=== PATIENT | female | born 1940 | race Hispanic/Latino ===

== ENCOUNTER 2016-08-16 18:58 | Inpatient (IN) | payer MEDICARE, OTHER ==
[2016-08-16 18:58] VITALS: PULSE 86
[2016-08-16 19:14] VITALS: BMI 24.1
[2016-08-16 19:51] LABS: ADD MANUAL DIFF? NO
[2016-08-16 20:03] LABS: BASO # 0.03 K/mm3 (0.0-2.0); BASO % 0.6 % (0.0-3.0); EOS # 0.1 (0.0-0.7); GRAN # 3.08 (1.4-6.5); GRAN % 60.9 % (50.0-68.0); HEMATOCRIT 40.1 % (36.0-48.0); LYMPH # 1.2 (1.2-3.4); LYMPH % 24.5 % (22.0-35.0); MEAN CORPUSCULAR HEMOGLOBIN 29.9 pg (25.0-35.0); MEAN CORPUSCULAR HGB CONC 34.4 g/dl (31.0-37.0); MONO # 0.7 (0.1-0.6); PLATELET COUNT 135 10^3/uL (120.0-450.0); RED CELL DISTRIBUTION WIDTH 13.6 % (11.5-14.5); WHITE BLOOD COUNT 5.1 10^3/ul (4.5-11.0)
[2016-08-16 20:06] LABS: ALB/GLOB RATIO 1.2 (1.1-1.8); BILIRUBIN,TOTAL 1.3 mg/dL (0.2-1.3); CALCIUM 9.5 mg/dL (8.4-10.5); MAGNESIUM 2.3 mg/dL (1.7-2.2); POTASSIUM 3.6 mmol/L (3.6-5.0); TOTAL PROTEIN 7.1 g/dL (5.8-8.3)
[2016-08-16 20:17] LABS: TROPONIN I 0.05 ng/mL
[2016-08-16 20:41] LABS: PH,URINE 6.5 (4.7-8.0); URINE BILIRUBIN NEGATIVE (NEGATIVE); URINE BLOOD SMALL (NEGATIVE); URINE GLUCOSE (UA) NEGATIVE (NEGATIVE); URINE KETONE NEGATIVE (NEGATIVE); URINE LEUKOCYTE ESTERASE NEGATIVE Leu/uL (NEGATIVE); URINE PROTEIN >=300 mg/dL (<30 mg/dL)
[2016-08-16 20:42] LABS: URINE APPEARANCE SL CLOUDY (CLEAR); URINE COLOR YELLOW (YELLOW)
[2016-08-16 20:45] LABS: URINE RBC 0 - 2 /hpf (0-2); URINE WBC 0 - 2 /hpf (0-6)
[2016-08-16] MEDS ORDERED: Morphine 2 mg/ml ISec IVP PRN (20:51)
[2016-08-16] MEDS ORDERED: Albuterol-Ipratrop 3 mg / 0.5 (3 ml) UD IH PRN (21:00)
--- NOTE | 2016-08-16 21:13 | ED PDOC ---
Arrival/HPI - General Chief Complaint: Chest Pain Time Seen by Provider: 08/16/16 19:03 Historian: Patient - History of Present Illness Narrative History of Present Illness (Text): 08/16/16 19:30 Brenna Lakhani is a 75 year old female, whose past medical history includes CHF, CKD, chronic atrial fibrillation, diverticulitis, COPD, and aortic valve replacement, who presents to the ED brought in by EMS complaining of chest pain. Patient states she had mid-sternal chest pain for the past 2-3 hours while at home tonight. Patient denies any chest pain currently on arrival to Emergency department. Patient denies any fever, chills, shortness of breath, nausea, vomiting, diarrhea, urinary symptoms, back pain, neck pain, headache, dizziness, or any other complaints. PMD: Dr. Tessie Coronel Time/Duration: Other (tonight) Symptom Onset: Gradual Symptom Course: Unchanged Activities at Onset: Rest, Light Context: Home Past Medical History - Provider Review Nursing Documentation Reviewed: Yes - Infectious Disease Hx of Infectious Diseases: None - Tetanus Immunization Tetanus Immunization: Unknown - Cardiac Hx Atrial Fibrillation: Yes Hx Congestive Heart Failure: Yes Hx Hypertension: Yes - Pulmonary Hx Chronic Obstructive Pulmonary Disease (COPD): Yes - Neurological HX Cerebrovascular Accident: Yes - HEENT Hx HEENT Disorder: Yes (Wears reading glasses. Upper denture.) Hx Blind: No Hx Cataracts: No Hx Deafness: No Hx Difficulty Chewing: No Hx Epistaxis: No Hx Glaucoma: No Hx Macular Degeneration: No - Renal Hx Renal Failure: No - Endocrine/Metabolic Hx Diabetes Mellitus Type 1: No Hx Diabetes Mellitus Type 2: No - Hematological/Oncological Hx Blood Disorders: No - Integumentary Hx Dermatological Disorder: No Hx Basal Cell Carcinoma: No Hx Eczema: No Hx Melanoma: No Hx Psoriasis: No Hx Squamous Cell Carcinoma: No - Musculoskeletal/Rheumatological Hx Arthritis: Yes - Gastrointestinal Hx Gastrointestinal Disorders: Yes (Cholecystectomy. Abdominal Sx for Diverticulitis; Hernia?) Hx Colostomy: No Hx Crohn's Disease: No Hx Diverticulitis: Yes Hx Gall Bladder Disease: No Hx Gastroesophageal Reflux: No Hx Ileostomy: No Hx Liver Failure: No Hx Pancreatitis: No HX Swallowing Problems: No - Genitourinary/Gynecological Hx Genitourinary Disorders: No Hx Hematuria: No Hx Incontinence: No Hx Sexually Transmitted Diseases: No Hx Urinary Tract Infection: No - Psychiatric Hx Psychophysiologic Disorder: No Hx Emotional Abuse: No Hx Physical Abuse: No Hx Substance Use: No - Surgical History Hx Cholecystectomy: Yes Hx Open Heart Surgery: Yes Hx Valve Replacement: Yes - Anesthesia Hx Anesthesia: No Hx Anesthesia Reactions: No Hx Malignant Hyperthermia: No - Suicidal Assessment Feels Threatened In Home Enviroment: No Family/Social History - Physician Review Nursing Documentation Reviewed: Yes Family/Social History: No Known Family HX Smoking Status: Former Smoker Hx Alcohol Use: No Hx Substance Use: No Hx Substance Use Treatment: No Allergies/Home Meds Allergies/Adverse Reactions: Allergies Sulfa (Sulfonamide Antibiotics) Allergy (Unknown, Verified 08/16/16 19:14) . palpitations Home Medications: Home Meds Medication Instructions Recorded Confirmed Atorvastatin [Lipitor] 20 mg PO DAILY 08/29/13 08/16/16 Furosemide [Lasix] 40 mg PO DAILY 09/04/14 08/16/16 ALPRAZolam [Xanax] 0.25 mg PO BID 07/18/15 08/16/16 Esomeprazole Magnesium [Nexium] 40 mg PO DAILY 07/18/15 08/16/16 Albuterol HFA [Ventolin HFA 90 1 inh INH PRN PRN 01/16/16 08/16/16 mcg/actuation (8 g)] Cholecalciferol (Vitamin D3) 1 tab PO DAILY 01/16/16 08/16/16 [Vitamin D3] Review of Systems - Physician Review All systems were reviewed & negative as marked: Yes - Review of Systems Constitutional: Normal Eyes: Normal ENT: Normal Respiratory: Normal. absent: SOB, Cough Cardiovascular: Chest Pain Gastrointestinal: Normal. absent: Abdominal Pain, Diarrhea, Nausea, Vomiting Genitourinary Female: Normal. absent: Dysuria, Frequency, Hematuria, Urine Output Changes Musculoskeletal: Normal. absent: Back Pain, Neck Pain Skin: Normal. absent: Rash Neurological: Normal. absent: Headache, Dizziness Endocrine: Normal Hemo/Lymphatic: Normal Psychiatric: Normal Physical Exam Vital Signs Reviewed: Yes Vital Signs Temp Pulse Resp BP Pulse Ox 08/17/16 00:13 85 18 154/60 H 96 08/16/16 23:15 75 18 173/74 H 95 08/16/16 21:00 62 18 154/74 H 95 08/16/16 19:20 98.5 F 70 18 148/63 95 Temperature: Afebrile Blood Pressure: Normal Pulse: Regular Respiratory Rate: Normal Appearance: Positive for: Well-Appearing, Non-Toxic, Comfortable Pain Distress: None Mental Status: Positive for: Alert and Oriented X 3 - Systems Exam Head: Present: Atraumatic, Normocephalic Pupils: Present: PERRL Extroacular Muscles: Present: EOMI Conjunctiva: Present: Normal Mouth: Present: Moist Mucous Membranes Neck: Present: Normal Range of Motion Respiratory/Chest: Present: Clear to Auscultation, Good Air Exchange. No: Respiratory Distress, Accessory Muscle Use Cardiovascular: Present: Regular Rate and Rhythm, Normal S1, S2. No: Murmurs Abdomen: Present: Normal Bowel Sounds. No: Tenderness, Distention, Peritoneal Signs Back: Present: Normal Inspection Upper Extremity: Present: Normal Inspection. No: Cyanosis, Edema Lower Extremity: Present: Normal Inspection. No: Edema Neurological: Present: GCS=15, CN II-XII Intact, Speech Normal Skin: Present: Warm, Dry, Normal Color. No: Rashes Psychiatric: Present: Alert, Oriented x 3, Normal Insight, Normal Concentration Medical Decision Making ED Course and Treatment: 08/16/16 19:30 Impression: 76 year old female complaining of chest pain for past few hours while at home, none present on arrival to Emergency department Plan: -- EKG -- Chest X-ray -- Labs -- Reassess and disposition Prior Visits: Notes and results from previous visits were reviewed. Progress Notes: Reviewed EKG, a fib at [address]pm. PVCs. Non-specific ST/T wave changes. 08/16/16 19:45 Reviewed radiology, Chest X-ray shows mild cardiomegaly, COPD. 08/16/16 20:[address] Malone, who is aware and agrees with plan. Accepts pt into hospitalist service. Pt will go to Telemetry observation for chest pain. residential fee appraiser notified. Pt is no acute distress. Discussed results and hospital observation plan with pt , who is aware and verbalizes understanding. - Lab Interpretations Lab Results: 08/17/16 07:40 08/17/16 07:40 Lab Results 08/17/16 07:40: Digoxin 0.9 08/17/16 07:40: TSH 3rd Generation 1.85 08/17/16 07:40: Sodium 138, Potassium 3.2 L, Chloride 99, Carbon Dioxide 32, Anion Gap 10, BUN 22 H, Creatinine 1.6 H, Est GFR ( Amer) 38, Est GFR ( Non-Af Amer) 31, Random Glucose 92, Calcium 9.0, Phosphorus 3.1, Magnesium 2.3 H , Total Creatine Kinase 52, Troponin I 0.05, Triglycerides 84, Cholesterol 142, LDL Cholesterol Direct 54, HDL Cholesterol 58 08/17/16 07:40: APTT 36.9 H 08/17/16 07:40: WBC 4.5, RBC 4.38, Hgb 13.1, Hct 38.3, MCV 87.4, MCH 29.9, MCHC 34.2, RDW 13.5, Plt Count 122, MPV 11.6 H, Gran % 50.3, Lymph % (Auto) 31.5, [place] % (Auto) 14.2 H, Eos % (Auto) 3.1, Baso % (Auto) 0.9, Gran # 2.27, Lymph # 1.4, [place] # 0.6, Eos # 0.1, Baso # 0.04 08/16/16 21:49: PT 22.4 H, INR 2.07 H 08/16/16 21:49: Phosphorus 3.0, Magnesium 2.4 H, Total Creatine Kinase 57, Troponin I 0.05, NT-Pro-B Natriuret Pep 94485 H 08/16/16 20:25: Urine Color Yellow, Urine Appearance Sl cloudy, Urine pH 6.5, Ur Specific [place] >= 1.030, Urine Protein >=300 H, Urine Glucose (UA) Negative , Urine Ketones Negative, Urine Blood Small H, Urine Nitrate Negative, Urine Bilirubin Negative, Urine Urobilinogen 1.0 H, Ur Leukocyte Esterase Negative, Urine RBC 0 - 2, Urine WBC 0 - 2 08/16/16 19:41: Sodium 136, Potassium 3.6, Chloride 97 L, Carbon Dioxide 32, Anion Gap 11, BUN 22 H, Creatinine 1.7 H, Est GFR ( Amer) 35, Est GFR ( Non-Af Amer) 29, Random Glucose 113 H, Calcium 9.5, Magnesium 2.3 H, Total Bilirubin 1.3, AST 24, ALT 21, Alkaline Phosphatase 81, Lactate Dehydrogenase 635, Total Creatine Kinase 53, Troponin I 0.05 D, Total Protein 7.1, Albumin 3.8, Globulin 3.3, Albumin/Globulin Ratio 1.2 08/16/16 19:41: WBC 5.1 D, RBC 4.61, Hgb 13.8, Hct 40.1, MCV 87.0, MCH 29.9, MCHC 34.4, RDW 13.6, Plt Count 135, MPV 11.0, Gran % 60.9, Lymph % (Auto) 24.5, [place] % (Auto) 13.0 H, Eos % (Auto) 1.0 L, Baso % (Auto) 0.6, Gran # 3.08, Lymph # 1.2, [place] # 0.7 H, Eos # 0.1, Baso # 0.03 - RAD Interpretation Radiology Orders: 08/16/16 19:32 CHEST PORTABLE [RAD] Stat - Medication Orders Current Medication Orders: Acetaminophen (Tylenol 325mg Tab) 650 mg PO Q6H PRN PRN Reason: Pain, Mild (1-3) Alprazolam (Xanax) 0.25 mg PO BID PRN; Protocol PRN Reason: Anxiety Stop: 08/24/16 10:01 Arformoterol Tartrate (Brovana) 15 mcg IH [id number] [facility] Last Admin: 08/17/16 07:52 Dose: 15 mcg Aspirin (Aspirin Chewable) 81 mg PO DAILY [facility] Last Admin: 08/17/16 11:18 Dose: 81 mg Atorvastatin Calcium (Lipitor) 20 mg PO DAILY [facility] Last Admin: 08/17/16 11:18 Dose: 20 mg Budesonide (Pulmicort Respules) 0.5 mg IH Q12H [facility] Last Admin: 08/17/16 08:37 Dose: 0.5 mg Clopidogrel Bisulfate (Plavix) 75 mg PO DAILY [facility] Digoxin (Lanoxin Elixir Soln) 0.125 mg PO Q48H [facility] Last Admin: 08/16/16 21:54 Dose: 0.125 mg Diltiazem HCl (Cardizem Cd) 180 mg PO DAILY [facility] Last Admin: 08/17/16 11:19 Dose: 180 mg Furosemide (Lasix) 40 mg PO DAILY [facility] Last Admin: 08/17/16 11:19 Dose: 40 mg Morphine Sulfate (Morphine) 1 mg IVP Q4H PRN PRN Reason: Pain, severe (8-10) Nitroglycerin (Nitrostat Sl Tab) 0.4 mg SL Q5MIN PRN PRN Reason: Other Ondansetron HCl (Zofran Inj) 4 mg IVP Q6H PRN PRN Reason: Nausea/Vomiting Pantoprazole Sodium (Protonix Inj) 40 mg IVP DAILY [facility] Last Admin: 08/17/16 11:17 Dose: 40 mg Discontinued Medications Albuterol/Ipratropium (Duoneb 3 Mg/0.5 Mg (3 Ml) Ud) 3 ml IH Q2H PRN PRN Reason: Shortness of Breath Stop: 08/17/16 01:01 Aspirin (Aspirin Chewable) 81 mg PO STAT [facility] Stop: 08/16/16 21:17 Last Admin: 08/16/16 22:01 Dose: Not Given Non-Admin Reason: Patient Refused Clopidogrel Bisulfate (Plavix) 300 mg PO STAT STA Stop: 08/17/16 10:10 Last Admin: 08/17/16 11:22 Dose: 300 mg Digoxin (Lanoxin Elixir Soln) 0.125 mg PO 1400 [facility] Morphine Sulfate (Morphine) 2 mg IVP Q4H PRN PRN Reason: Pain, severe (8-10) Pneumococcal Polyvalent Vaccine (Pneumovax 23 Vaccine) 0.5 ml IM .ONCE ONE Stop: 08/17/16 03:49 Last Admin: 08/17/16 11:27 Dose: Potassium Chloride (K-Dur 20 Meq Er Tab) 40 meq PO ONCE ONE Stop: 08/17/16 10:12 Last Admin: 08/17/16 11:18 Dose: 40 meq - Scribe Statement The provider has reviewed the documentation as recorded by the Sugey Gonzáles All medical record entries made by the Sugey were at my direction and personally dictated by me. I have reviewed the chart and agree that the record accurately reflects my personal performance of the history, physical exam, medical decision making, and the department course for this patient. I have also personally directed, reviewed, and agree with the discharge instructions and disposition. Disposition/Present on Arrival - Present on Arrival Any Indicators Present on Arrival: No History of DVT/PE: No History of Uncontrolled Diabetes: No Urinary Catheter: No History of Decub. Ulcer: No History Surgical Site Infection Following: None - Disposition Have Diagnosis and Disposition been Completed?: Yes Diagnosis: Chest pain Disposition: HOSPITALIZED Disposition Time: 09:00 Condition: FAIR
--- NOTE | 2016-08-16 21:18 | CP.PCM.HP ---
History of Present Illness - History of Present Illness History of Present Illness: The patient is a 76 year old woman with a history of CHF (EF=35%), aortic valve replacement, chronic kidney disease, chronic atrial fibrillation (on Coumadin), CVA, HTN, HLD and COPD, who presents with constant, non-radiating, dull, substernal chest pain which suddenly began this afternoon while she was seated at home. The pain is unaffected by exertion or oral intake. The pain is associated with mild SOB and diaphoresis. She reports compliance with all home meds (including Lasix and Coumadin). She denies any fevers, chills, new cough, orthopnea, PND, bleeding, syncope or urinary problems. Present on Admission - Present on Admission Any Indicators Present on Admission: No History of DVT/PE: No History of Uncontrolled Diabetes: No Urinary Catheter: No Decubitus Ulcer Present: No Review of Systems - Review of Systems All systems: reviewed and no additional remarkable complaints except - Constitutional Constitutional: As Per HPI - EENT Eyes: As Per HPI Nose/Mouth/Throat: As Per HPI - Cardiovascular Cardiovascular: As Per HPI - Respiratory Respiratory: As Per HPI - Gastrointestinal Gastrointestinal: As Per HPI - Genitourinary Genitourinary: As Per HPI - Neurological Neurological: As Per HPI Past Patient History - Infectious Disease Hx of Infectious Diseases: None - Tetanus Immunizations Tetanus Immunization: Unknown - Past Medical History & Family History Past Medical History?: Yes - Past Social History Smoking Status: Former Smoker - CARDIAC Hx Atrial Fibrillation: Yes Hx Congestive Heart Failure: Yes Hx Hypertension: Yes - PULMONARY Hx Chronic Obstructive Pulmonary Disease (COPD): Yes - NEUROLOGICAL HX Cerebrovascular Accident: Yes - HEENT Hx HEENT Problems: Yes (Wears reading glasses. Upper denture.) Hx Blind: No Hx Cataracts: No Hx Deafness: No Hx Difficulty Chewing: No Hx Epistaxis: No Hx Glaucoma: No Hx Macular Degeneration: No - RENAL Hx Renal Failure: No - ENDOCRINE/METABOLIC Hx Diabetes Mellitus Type 1: No Hx Diabetes Mellitus Type 2: No - HEMATOLOGICAL/ONCOLOGICAL Hx Blood Disorders: No - INTEGUMENTARY Hx Dermatological Problems: No Hx Basil Cell: No Hx Eczema: No Hx Melanoma: No Hx Psoriasis: No Hx Squamous Cell: No - MUSCULOSKELETAL/RHEUMATOLOGICAL Hx Arthritis: Yes - GASTROINTESTINAL Hx Gastrointestinal Disorders: Yes (Cholecystectomy. Abdominal Sx for Diverticulitis; Hernia?) Hx Colostomy: No Hx Crohn's Disease: No Hx Diverticulitis: Yes Hx Gall Bladder Disease: No Hx Gastroesophageal Reflux: No Hx Ileostomy: No Hx Liver Failure: No Hx Pancreatitis: No HX Swallowing Problems: No - GENITOURINARY/GYNECOLOGICAL Hx Genitourinary Disorders: No Hx Hematuria: No Hx Incontinence: No Hx Sexually Transmitted Disorders: No Hx Urinary Tract Infection: No - PSYCHIATRIC Hx Psychophysiologic Disorder: No Hx Emotional Abuse: No Hx Physical Abuse: No Hx Substance Use: No - SURGICAL HISTORY Hx Cholecystectomy: Yes Hx Open Heart Surgery: Yes Hx Valve Replacement: Yes - ANESTHESIA Hx Anesthesia: No Hx Anesthesia Reactions: No Hx Malignant Hyperthermia: No Meds Allergies/Adverse Reactions: Allergies Allergy/AdvReac Type Severity Reaction Status Date / Time Sulfa (Sulfonamide Allergy Unknown . Verified 08/16/16 19:14 Antibiotics) Physical Exam - Constitutional Appears: Well - Head Exam Head Exam: ATRAUMATIC, NORMAL INSPECTION, NORMOCEPHALIC - Eye Exam Eye Exam: EOMI, Normal appearance, PERRL - ENT Exam ENT Exam: Mucous Membranes Dry - Neck Exam Neck exam: Positive for: Normal Inspection Additional comments: No increased JVD - Cardiovascular Exam Cardiovascular Exam: Irregular Rhythm, +S1, +S2 - GI/Abdominal Exam GI & Abdominal Exam: Normal Bowel Sounds, Soft. absent: Tenderness - Rectal Exam Rectal Exam: Deferred - Neurological Exam Additional comments: Grossly normal neuro exam Results - Vital Signs Recent Vital Signs: Last Vital Signs Temp 98.5 F 08/16/16 19:20 Pulse 70 08/16/16 19:20 Resp 18 08/16/16 19:20 BP 148/63 08/16/16 19:20 Pulse Ox 95 08/16/16 19:20 - Labs Result Diagrams: 08/16/16 19:41 08/16/16 19:41 - Imaging and Cardiology Chest x-ray Status: Image reviewed by me Assessment & Plan - Assessment and Plan (Free Text) Plan: Assessment and Plan: The patient is a 76 year old woman with a history of CHF ( EF=35%), aortic valve replacement, chronic kidney disease, chronic atrial fibrillation (on Coumadin), CVA, HTN, HLD and COPD, who presents with chest pain and therefore will be observed on telemetry for rule out ACS. 1. Chest Pain (rule out ACS): -cardiology consult (Dr. Leo) placed -monitor serial trop's and EKG's -check HgA1c, Lipids and TSH -ASA 81mg po daily -last echo was in Dec 2015; will defer to cards regarding need for repeat echo -PRN IV Morphine and O2 via NC for symptomatic relief -PRN SL NTG for chest pain 2. Chronic Kidney Disease: -baseline Cr ranges between 1.4-1.8 (per labs from recent admissions) -renally dose all meds and avoid nephrotoxic drugs -monitor strict I/O's 3. Chronic Atrial Fibrillation: -continue home meds of Cardiazem and Digoxin -also continue home dose of Warfarin (for stroke prophylaxis) -check Digoxin level with AM labs 4. Chronic Obstructive Pulmonary Disease: -continue home maintenance meds -PRN Duo-nebs -PRN O2 via NC 5. Chronic Systolic Heart Failure: -per last echo from Dec 2015, EF=35% -monitor strict I/O and daily weights -keep HOB>30 degrees -continue home dose of daily Lasix 6. Hypertension: -continue home doses of Cardiazem and Lasix -heart healthy diet DVT PPx: Warfarin GI PPx: Protonix
[2016-08-16] MEDS: Digoxin 0.05 mg/mL Elixir 5mL PO SCH (21:54)
[2016-08-16] MEDS: Budesonide 0.5 mg/2 ml Inhal Susp UD IH SCH (21:54)
[2016-08-16 22:17] LABS: MAGNESIUM 2.4 mg/dL (1.7-2.2)
[2016-08-16 22:29] LABS: INR 2.07 (0.93-1.08); TROPONIN I 0.05 ng/mL
[2016-08-17] MEDS ORDERED: Pneumococcal 23-Valent Vaccine IM ONE (03:48)
[2016-08-17] MEDS ORDERED: Morphine 2 mg/ml ISec IVP PRN (07:42)
[2016-08-17 07:43] LABS: ADD MANUAL DIFF? NO
[2016-08-17 07:48] LABS: BASO # 0.04 K/mm3 (0.0-2.0); BASO % 0.9 % (0.0-3.0); EOS # 0.1 (0.0-0.7); EOS % 3.1 % (1.5-5.0); GRAN # 2.27 (1.4-6.5); GRAN % 50.3 % (50.0-68.0); HEMATOCRIT 38.3 % (36.0-48.0); LYMPH # 1.4 (1.2-3.4); LYMPH % 31.5 % (22.0-35.0); MEAN CELL VOLUME 87.4 fL (80.0-105.0); MEAN CORPUSCULAR HEMOGLOBIN 29.9 pg (25.0-35.0); MEAN CORPUSCULAR HGB CONC 34.2 g/dl (31.0-37.0); MEAN PLATELET VOLUME 11.6 fl (7.0-11.0); MONO # 0.6 (0.1-0.6); MONO % 14.2 % (1.0-6.0); PLATELET COUNT 122 10^3/uL (120.0-450.0); RED CELL DISTRIBUTION WIDTH 13.5 % (11.5-14.5); WHITE BLOOD COUNT 4.5 10^3/ul (4.5-11.0)
[2016-08-17] MEDS: Arformoterol 15 mcg/2 ml Inh Sol IH SCH ×2 (07:52→20:29)
[2016-08-17 08:00] LABS: MAGNESIUM 2.3 mg/dL (1.7-2.2); PHOSPHOROUS 3.1 mg/dL (2.5-4.5); POTASSIUM 3.2 mmol/L (3.6-5.0)
[2016-08-17 08:10] LABS: TROPONIN I 0.05 ng/mL
[2016-08-17] MEDS: Budesonide 0.5 mg/2 ml Inhal Susp UD IH SCH ×2 (08:37→20:29)
[2016-08-17] MEDS ORDERED: Potassium Chloride 20 mEq ER Tab PO ONE (10:11)
[2016-08-17] MEDS: Furosemide 40 mg/5 mL Oral Soln UD PO SCH (11:19)
[2016-08-17] MEDS: diltiaZEM 180 mg/24 Hours CD Cap PO SCH (11:19)
--- NOTE | 2016-08-17 11:35 | CP.PCM.PN ---
Subjective - Date & Time of Evaluation Date of Evaluation: 08/17/16 Time of Evaluation: 09:00 - Subjective Subjective: patient seen and examined with resident. Denies any chest pain today. Denies any shortness of breath, Palpitation. Denies any fevers, chills. Denies any urinary, bowel symptoms. Tolerating diet well. Review of Systems - Constitutional Constitutional: absent: Fever, Chills - EENT Nose/Mouth/Throat: absent: Nasal Congestion - Cardiovascular Cardiovascular: Chest Pain. absent: Chest Pain at Rest, Dyspnea - Respiratory Respiratory: absent: Cough, Dyspnea - Gastrointestinal Gastrointestinal: absent: Abdominal Pain, Nausea - Musculoskeletal Musculoskeletal: absent: Abnormal Gait - Psychiatric Psychiatric: absent: Anxiety, Depression - Hematologic/Lymphatic Hematologic: absent: Easy Bleeding, Easy Bruising Objective - Vital Signs/Intake and Output Vital Signs (last 24 hours): Temp Pulse Resp BP Pulse Ox 98.5 F 69 18 122/70 95 08/17/16 06:00 08/17/16 06:00 08/17/16 06:00 08/17/16 11:19 08/17/16 06:00 Intake and Output: 08/17/16 08/17/16 06:59 18:59 Intake Total 240 Output Total 300 Balance -60 - Medications Medications: Current Medications Acetaminophen (Tylenol 325mg Tab) 650 mg PO Q6H PRN PRN Reason: Pain, Mild (1-3) Alprazolam (Xanax) 0.25 mg PO BID PRN; Protocol PRN Reason: Anxiety Stop: 08/24/16 10:01 Arformoterol Tartrate (Brovana) 15 mcg IH [id number] [facility] Last Admin: 08/17/16 07:52 Dose: 15 mcg Aspirin (Aspirin Chewable) 81 mg PO DAILY [facility] Last Admin: 08/17/16 11:18 Dose: 81 mg Atorvastatin Calcium (Lipitor) 20 mg PO DAILY [facility] Last Admin: 08/17/16 11:18 Dose: 20 mg Budesonide (Pulmicort Respules) 0.5 mg IH Q12H [facility] Last Admin: 08/17/16 08:37 Dose: 0.5 mg Clopidogrel Bisulfate (Plavix) 75 mg PO DAILY [facility] Digoxin (Lanoxin Elixir Soln) 0.125 mg PO Q48H [facility] Last Admin: 08/16/16 21:54 Dose: 0.125 mg Diltiazem HCl (Cardizem Cd) 180 mg PO DAILY [facility] Last Admin: 08/17/16 11:19 Dose: 180 mg Furosemide (Lasix) 40 mg PO DAILY [facility] Last Admin: 08/17/16 11:19 Dose: 40 mg Morphine Sulfate (Morphine) 1 mg IVP Q4H PRN PRN Reason: Pain, severe (8-10) Nitroglycerin (Nitrostat Sl Tab) 0.4 mg SL Q5MIN PRN PRN Reason: Other Ondansetron HCl (Zofran Inj) 4 mg IVP Q6H PRN PRN Reason: Nausea/Vomiting Pantoprazole Sodium (Protonix Inj) 40 mg IVP DAILY [facility] Last Admin: 08/17/16 11:17 Dose: 40 mg - Labs Labs: 08/17/16 07:40 08/17/16 07:40 PT 22.4 Seconds (9.9-11.8) H 08/16/16 21:49 INR 2.07 (0.93-1.08) H 08/16/16 21:49 APTT 36.9 Seconds (23.7-30.8) H 08/17/16 07:40 - Constitutional Appears: Well, Non-toxic - Eye Exam Eye Exam: Normal appearance Pupil Exam: NORMAL ACCOMODATION - ENT Exam ENT Exam: Mucous Membranes Moist - Respiratory Exam Respiratory Exam: NORMAL BREATHING PATTERN - Cardiovascular Exam Cardiovascular Exam: REGULAR RHYTHM - GI/Abdominal Exam GI & Abdominal Exam: Soft, Normal Bowel Sounds. absent: Tenderness - Extremities Exam Extremities Exam: absent: Pedal Edema - Back Exam Back Exam: absent: CVA tenderness (L), CVA tenderness (R) - Neurological Exam Neurological Exam: Alert - Psychiatric Exam Psychiatric exam: Normal Affect - Skin Skin Exam: Normal Color Assessment and Plan - Assessment and Plan (Free Text) Assessment: The patient is a 76 year old woman with a history of CHF (EF=35%), aortic valve replacement, chronic kidney disease, chronic atrial fibrillation (on Coumadin), CVA, HTN, HLD and COPD, who presents with chest pain and therefore will be observed on telemetry for rule out ACS. 1. Chest Pain;currently patient is pain-free. EKG showed A. fib. Cardiac enzymes 3 negative. Stress test done on 08/07/16 as outpatient showed reversible anterolateral ischemia. Case discussed with Dr. Morin in detail. plan for cardiac cath. Hold Coumadin for now. 2. Chronic Kidney Disease: creatinine is 1.6. 3. Chronic Atrial Fibrillation: rate controlled. continue home meds of Cardiazem and Digoxin 4. Chronic Obstructive Pulmonary Disease: stable. 5. Chronic Systolic Heart Failure: last echo from Dec 2015, EF=35% 6. Hypertension: controlled. continue home doses of Cardiazem and Lasix heart healthy diet 7.GI prophylaxis with Protonix. upon discharge patient will follow-up with PMD .
[2016-08-17] MEDS ORDERED: Digoxin 0.05 mg/mL Elixir 5mL PO SCH (14:00)
[2016-08-17 14:25] LABS: TROPONIN I 0.04 ng/mL
--- NOTE | 2016-08-17 15:03 | RAD ---
HISTORY: cp COMPARISON: Comparison chest 05/27/[address] scan chest 01/16/2016. FINDINGS: LUNGS: Right paratracheal density consistent with ectasia of the great vessels. The interstitial markings are increased and somewhat coarsened in appearance. Findings may in part be technical however possibility of sequela of reactive/ inflammatory airway disease not excluded. PLEURA: No significant pleural effusion identified, no pneumothorax apparent. CARDIOVASCULAR: Sternotomy wires again noted. Cardiomegaly. Mild aneurysmal dilatation of the ascending thoracic aorta. OSSEOUS STRUCTURES: No significant abnormalities. VISUALIZED UPPER ABDOMEN: Normal. OTHER FINDINGS: None. IMPRESSION: Right paratracheal density consistent with ectasia of the great vessels. The interstitial markings are increased and somewhat coarsened in appearance. Findings may in part be technical however possibility of sequela of reactive/ inflammatory airway disease not excluded. Cardiomegaly. Mild aneurysmal dilatation of the ascending thoracic aorta
--- NOTE | 2016-08-17 16:13 | CON ---
DATE: 08/17/2016 REASON FOR CONSULTATION: Cardiac evaluation, admitted with chest pain, history of atrial fibrillatio n, history of coronary artery bypass surgery, history of AVR. BRIEF CLINICAL HISTORY: This is a 76-year-old female, being followed by Dr. Carl's group, history of open heart surgery 4 years ago at [facility] with 4-vessel bypass and bioprosthetic aort ic valve replacement, AVR, chronic atrial fibrillation on Coumadin. Came in with chest pain. Says i t was not bad, but it was fair enough to come to the hospital. Denies any further episode of chest p ain, shortness of breath, any palpitation. PAST MEDICAL HISTORY: Significant for chronic atrial fibrillation on Coumadin, history of open heart surgery 4 years ago, 4-vessel bypass at [facility] as well as aortic valve bioprosthetic replaced, history of chronic atrial fibrillation on Coumadin, hypertension, hyperlipidemia, history o f cerebrovascular accident. RECENT CARDIAC WORKUP: The patient had a stress test on 08/07/2016 that shows ejection fraction 27%, abnormal SPECT myocardial perfusion study, partially reversible anteroseptal defect suspicious for is chemia, dated 08/07/2016. The patient had echocardiography 01/17/2016 that shows ejection fraction 30% -35%, read by Dr. Jimenez, moderate global hypokinesis, bioprosthetic AVR, which is normal, moderate m itral regurgitation, mild to moderate tricuspid regurgitation, mild to moderate pulmonary hypertensio n, right ventricular systolic pressure recorded at 43 mmHg. Prior to that, patient had another echoc ardiography on 03/29/2015, read by me that shows ejection fraction 55%, atrial fibrillation, bioprost hetic AVR functioning normal, though it was not well visualized, trace to mild mitral regurgitation a t that time, AFib, mild tricuspid regurgitation, right ventricular systolic pressure of 43. CURRENT MEDICATIONS: The patient is taking Coumadin 5 mg daily, digoxin, Lipitor, Cardizem, Lasix. ALLERGIES: ALLERGY TO SULFA DRUGS AND ZOFRAN. PAST SURGICAL HISTORY: History of open heart surgery and status post AVR, 4-vessel bypass in [facility] 4 years ago, diverticular colonic disease, status post cholecystectomy. SOCIAL HISTORY: Denies smoking. Denies any alcohol abuse. History of ex-smoker, quit many years ag o. Previous EKG dated 03/02/2016 shows atrial fibrillation and multiple EKGs since then all shows atrial fibrillation. Most recently 05/28/2016, patient showed atrial fibrillation with PACs and PVCs, incom plete right bundle. REVIEW OF SYSTEMS: As per HPI. PHYSICAL EXAMINATION: VITAL SIGNS: Temperature afebrile, heart rate , blood pressure 125/50. HEENT: PERRLA. Extraocular muscles intact. NECK: Supple. No carotid bruits. No thyromegaly. CHEST: Clear to auscultation. HEART: S1, S2 regular. ABDOMEN: Soft. EXTREMITIES: Clubbing, cyanosis negative. BLOOD WORKUP: WBC 4.5, hemoglobin 13. , hematocrit 38.3, platelet count 122. Chemistry shows so dium 130, potassium 3.2, chloride 99, carbon dioxide 32, anion gap of 10, BUN 22, creatinine 1.6. IMPRESSION: Chronic kidney disease, chronic atrial fibrillation, therapeutic INR, chest pain, unstab le angina, abnormal stress test, history of coronary artery disease, history of coronary artery bypas s graft, history of aortic valve replacement, atrial fibrillation. RECOMMENDATION: We will load with aspirin and Plavix. Monitor PT/INR. When this gets subtherapeuti c, we will consider cardiac catheterization. Risks, benefits, alternatives discussed with the patien t. The patient agreed. We will proceed for cardiac catheterization when the INR is 1.5 or below. I nterim, we will discontinue Coumadin and start aspirin, Plavix. Thank you, Dr. Aaron, for providing us the opportunity in taking care of the patient. Vu Morin MD cc: [id number] TT: 08/17/2016 16:12:59 Confirmation # [id number] Dictation # [id number]
--- NOTE | 2016-08-17 22:07 | CARD ---
APPROVED REPORT EKG Measurement Heart [id number] <Conclusion> Atrial fibrillation with premature ventricular or aberrantly conducted complexes Nonspecific intraventricular block T wave abnormality, consider inferior ischemia or digitalis effect T wave abnormality, consider anterolateral ischemia or digitalis effect Abnormal ECG
--- NOTE | 2016-08-17 22:12 | CARD ---
APPROVED REPORT EKG Measurement Heart [id number] <Conclusion> Atrial fibrillation with premature ventricular or aberrantly conducted complexes Nonspecific intraventricular conduction delay ST & T wave abnormality, consider anterolateral ischemia or digitalis effect Abnormal ECG
[2016-08-18] MEDS: Arformoterol 15 mcg/2 ml Inh Sol IH SCH ×2 (07:47→20:22)
[2016-08-18] MEDS: Budesonide 0.5 mg/2 ml Inhal Susp UD IH SCH ×2 (07:47→20:25)
[2016-08-18 07:51] LABS: ADD MANUAL DIFF? NO
[2016-08-18 07:54] LABS: BASO # 0.02 K/mm3 (0.0-2.0); BASO % 0.3 % (0.0-3.0); EOS # 0.1 (0.0-0.7); EOS % 1.7 % (1.5-5.0); GRAN # 3.77 (1.4-6.5); GRAN % 64.2 % (50.0-68.0); HEMATOCRIT 39.2 % (36.0-48.0); LYMPH # 1.3 (1.2-3.4); LYMPH % 21.5 % (22.0-35.0); MEAN CELL VOLUME 86.5 fL (80.0-105.0); MEAN CORPUSCULAR HEMOGLOBIN 29.6 pg (25.0-35.0); MEAN CORPUSCULAR HGB CONC 34.2 g/dl (31.0-37.0); MEAN PLATELET VOLUME 11.4 fl (7.0-11.0); MONO # 0.7 (0.1-0.6); MONO % 12.3 % (1.0-6.0); PLATELET COUNT 122 10^3/uL (120.0-450.0); RED CELL DISTRIBUTION WIDTH 13.3 % (11.5-14.5); WHITE BLOOD COUNT 5.9 10^3/ul (4.5-11.0)
[2016-08-18 08:06] LABS: ALB/GLOB RATIO 1.1 (1.1-1.8); BILIRUBIN,TOTAL 1.1 mg/dL (0.2-1.3); MAGNESIUM 2.2 mg/dL (1.7-2.2); PHOSPHOROUS 3.4 mg/dL (2.5-4.5); POTASSIUM 3.4 mmol/L (3.6-5.0); TOTAL PROTEIN 6.4 g/dL (5.8-8.3)
[2016-08-18 08:07] LABS: INR 1.61 (0.93-1.08)
[2016-08-18] MEDS: Pantoprazole 40 mg EC Tab PO SCH (08:29)
[2016-08-18] MEDS: diltiaZEM 180 mg/24 Hours CD Cap PO SCH (09:02)
[2016-08-18] MEDS ORDERED: Sodium Bicarbonate (8.4%) 50 Meq Syringe ONE (09:04)
[2016-08-18] MEDS ORDERED: Potassium Chloride 20 mEq ER Tab PO ONE (09:07)
--- NOTE | 2016-08-18 09:36 | CP.PCM.PN ---
<Bismark Griffith - Last Filed: 08/18/16 09:39> Subjective - Date & Time of Evaluation Date of Evaluation: 08/18/16 Time of Evaluation: 07:00 - Subjective Subjective: Hospitalist Progress Note: Pt seen and examined at bedside. No acute events overnight. Denies any chest pain, sob, or palpitations. No complaints at this time. Denies any umaña, dizziness , f/c, abd pain, n/v/d. Objective - Vital Signs/Intake and Output Vital Signs (last 24 hours): Temp Pulse Resp BP Pulse Ox 98.3 F 57 L 20 143/69 94 L 08/18/16 06:00 08/18/16 09:02 08/18/16 06:00 08/18/16 06:00 08/18/16 06:00 Intake and Output: 08/18/16 08/18/16 06:59 18:59 Intake Total 960 Balance 960 - Medications Medications: Current Medications Acetaminophen (Tylenol 325mg Tab) 650 mg PO Q6H PRN PRN Reason: Pain, Mild (1-3) Alprazolam (Xanax) 0.25 mg PO BID PRN; Protocol PRN Reason: Anxiety Stop: 08/24/16 10:01 Arformoterol Tartrate (Brovana) 15 mcg IH [id number] [facility] Last Admin: 08/18/16 07:47 Dose: 15 mcg Aspirin (Aspirin Chewable) 81 mg PO DAILY [facility] Last Admin: 08/18/16 09:01 Dose: 81 mg Atorvastatin Calcium (Lipitor) 20 mg PO DAILY [facility] Last Admin: 08/17/16 11:18 Dose: 20 mg Budesonide (Pulmicort Respules) 0.5 mg IH Q12H [facility] Last Admin: 08/18/16 07:47 Dose: 0.5 mg Clopidogrel Bisulfate (Plavix) 75 mg PO DAILY [facility] Last Admin: 08/18/16 09:01 Dose: 75 mg Digoxin (Lanoxin Elixir Soln) 0.125 mg PO Q48H [facility] Last Admin: 08/16/16 21:54 Dose: 0.125 mg Diltiazem HCl (Cardizem Cd) 180 mg PO DAILY [facility] Last Admin: 08/18/16 09:02 Dose: Not Given Furosemide (Lasix) 40 mg PO DAILY [facility] Last Admin: 08/17/16 11:19 Dose: 40 mg Morphine Sulfate (Morphine) 1 mg IVP Q4H PRN PRN Reason: Pain, severe (8-10) Nitroglycerin (Nitrostat Sl Tab) 0.4 mg SL Q5MIN PRN PRN Reason: Other Ondansetron HCl (Zofran Inj) 4 mg IVP Q6H PRN PRN Reason: Nausea/Vomiting Pantoprazole Sodium (Protonix Ec Tab) 40 mg PO ACB [facility] Last Admin: 08/18/16 08:29 Dose: Not Given - Labs Labs: 08/18/16 07:30 08/18/16 07:30 PT 17.4 Seconds (9.9-11.8) H 08/18/16 07:30 INR 1.61 (0.93-1.08) H 08/18/16 07:30 APTT 36.9 Seconds (23.7-30.8) H 08/17/16 07:40 - Constitutional Appears: No Acute Distress - Head Exam Head Exam: ATRAUMATIC, NORMAL INSPECTION, NORMOCEPHALIC - Eye Exam Eye Exam: EOMI, Normal appearance, PERRL - ENT Exam ENT Exam: Mucous Membranes Moist, Normal Exam - Neck Exam Neck Exam: Full ROM, Normal Inspection. absent: Lymphadenopathy - Respiratory Exam Respiratory Exam: Clear to Ausculation Bilateral, NORMAL BREATHING PATTERN. absent: Wheezes - Cardiovascular Exam Cardiovascular Exam: REGULAR RHYTHM, RRR, +S1, +S2. absent: Murmur - GI/Abdominal Exam GI & Abdominal Exam: Soft. absent: Distended, Tenderness - Extremities Exam Extremities Exam: Full ROM, Normal Capillary Refill, Normal Inspection. absent : Joint Swelling, Pedal Edema - Neurological Exam Neurological Exam: Alert, Awake, Oriented x3 - Psychiatric Exam Psychiatric exam: Normal Affect, Normal Mood - Skin Skin Exam: Dry, Intact, Normal Color, Warm Assessment and Plan - Assessment and Plan (Free Text) Assessment: The patient is a 76 year old woman with a history of CHF (EF=35%), aortic valve replacement, chronic kidney disease, chronic atrial fibrillation (on Coumadin), CVA, HTN, HLD and COPD, who presents with chest pain rule out ACS. 1. Chest Pain;currently patient is pain-free - Currently NPO f/u INR - F/u Dr Morin regarding plan for possible cardiac cath today f/u INR - EKG shows A. fib - Trops 3 negative. - Stress test done on 08/07/16 as outpatient showed reversible anterolateral ischemia - Case discussed with Dr. Morin in detail - Hold Coumadin for now 2. Chronic Kidney Disease: - Hold Lasix - Avoid nephrotoxic drugs - Creatinine is 1.6 this am 3. Chronic Atrial Fibrillation: - Hold coumadin for now - rate controlled - continue home meds of Cardiazem and Digoxin 4. Chronic Obstructive Pulmonary Disease: - Stable - Cont Brovana and pulmicort 5. Chronic Systolic Heart Failure: - last echo from Dec 2015, EF=35% 6. Hypertension: controlled. - continue home Cardiazem and Lasix - heart healthy diet 7. GI ppx: Protonix. Upon discharge patient will f/u with PMD . Case and plan was seen, reviewed, and discussed in detail with Dr Aaron. <Luther Aaron - Last Filed: 08/18/16 14:05> Objective - Vital Signs/Intake and Output Vital Signs (last 24 hours): Temp Pulse Resp BP Pulse Ox 98.3 F 57 L 20 143/69 94 L 08/18/16 06:00 08/18/16 09:02 08/18/16 06:00 08/18/16 06:00 08/18/16 06:00 Intake and Output: 08/18/16 08/18/16 06:59 18:59 Intake Total 960 Balance 960 - Medications Medications: Current Medications Acetaminophen (Tylenol 325mg Tab) 650 mg PO Q6H PRN PRN Reason: Pain, Mild (1-3) Acetylcysteine (Acetylcysteine 20%) 6 ml PO BID [facility] Last Admin: 08/18/16 13:48 Dose: 6 ml Alprazolam (Xanax) 0.25 mg PO BID PRN; Protocol PRN Reason: Anxiety Stop: 08/24/16 10:01 Arformoterol Tartrate (Brovana) 15 mcg IH [id number] [facility] Last Admin: 08/18/16 07:47 Dose: 15 mcg Aspirin (Aspirin Chewable) 81 mg PO DAILY [facility] Last Admin: 08/18/16 09:01 Dose: 81 mg Atorvastatin Calcium (Lipitor) 20 mg PO DAILY [facility] Last Admin: 08/18/16 13:48 Dose: 20 mg Budesonide (Pulmicort Respules) 0.5 mg IH Q12H [facility] Last Admin: 08/18/16 07:47 Dose: 0.5 mg Digoxin (Lanoxin Elixir Soln) 0.125 mg PO Q48H [facility] Last Admin: 08/16/16 21:54 Dose: 0.125 mg Diltiazem HCl (Cardizem Cd) 180 mg PO DAILY [facility] Last Admin: 08/18/16 09:02 Dose: Not Given Furosemide (Lasix) 40 mg PO DAILY [facility] Last Admin: 08/17/16 11:19 Dose: 40 mg Hydralazine HCl (Apresoline) 10 mg PO QID PRN PRN Reason: FOR SBP>170 & diastolic>100 Sodium Chloride (Sodium Chloride 0.9%) 1,000 mls @ 75 mls/hr IV .[id number] [facility] Morphine Sulfate (Morphine) 1 mg IVP Q4H PRN PRN Reason: Pain, severe (8-10) Nitroglycerin (Nitrostat Sl Tab) 0.4 mg SL Q5MIN PRN PRN Reason: Other Ondansetron HCl (Zofran Inj) 4 mg IVP Q6H PRN PRN Reason: Nausea/Vomiting Pantoprazole Sodium (Protonix Ec Tab) 40 mg PO ACB [facility] Last Admin: 08/18/16 08:29 Dose: Not Given Warfarin Sodium (Coumadin) 5 mg PO 1800 MELIZA PRN Reason: Protocol - Labs Labs: 08/18/16 07:30 08/18/16 07:30 PT 17.4 Seconds (9.9-11.8) H 08/18/16 07:30 INR 1.61 (0.93-1.08) H 08/18/16 07:30 APTT 36.9 Seconds (23.7-30.8) H 08/17/16 07:40 Attending/Attestation - Attestation I have personally seen and examined this patient.: Yes I have fully participated in the care of the patient.: Yes I have reviewed all pertinent clinical information, including history, physical exam and plan: Yes Notes (Text): 08/18/16 14:01 The patient is a 76 year old woman with a history of CHF (EF=35%), aortic valve replacement, chronic kidney disease, chronic atrial fibrillation (on Coumadin), CVA, HTN, HLD and COPD, who presents with chest pain and therefore will be observed on telemetry for rule out ACS. 1. Chest Pain; resolved. Cardiac cath today. 2. Chronic Kidney Disease: hold lasix. IVF with cath. Nephrology evaluation requested for close outpatient follow up. creatinine is 1.6. 3. Chronic Atrial Fibrillation: rate controlled. continue home meds of Cardiazem and Digoxin 4. Chronic Obstructive Pulmonary Disease: stable. 5.GI prophylaxis with Protonix. Physical therapy evaluation ordered. upon discharge patient will follow-up with PMD .
[2016-08-18] MEDS ORDERED: Sodium Chloride 0.9% 1,000 ML IV SCH ×2 (11:00→12:45)
[2016-08-18] MEDS ORDERED: Lidocaine 2% Inj (20ml) ONE (11:24)
[2016-08-18] MEDS ORDERED: Iodixanol 320 mg/ml 150 ml Bottle IV ONE (11:24)
[2016-08-18] MEDS ORDERED: Iohexol 350mgl/ml 50 ML ONE (11:24)
[2016-08-18] MEDS ORDERED: Midazolam 2 MG/2 ML VIAL ONE (11:59)
[2016-08-18] MEDS ORDERED: Nitroglycerin 2% Ointment Foilpak UD TOP ONE ×2 (12:43→12:44)
--- NOTE | 2016-08-18 13:15 | PN ---
DATE: 08/18/2016 REASON FOR CONSULTATION AND FOLLOWUP: Cardiac evaluation, admitted with chest pain, history of atria l fibrillation, history of coronary artery disease status post AVR. BRIEF CLINICAL HISTORY: This is a 76-year-old female being followed by Dr. Carl, history of open heart surgery, possible open heart bypass and AVR, who admitted with chest pain. The patient had 1 w [facility] [place] ago a stress test with suspicion of ischemia, ejection fraction 27%, so patient is scheduled for cardiac catheterization. The patient underwent cardiac catheterization, that revealed left ____ sign ificant disease, mid to distal LAD 100% occluded, circ very tortuous, but no flow obstructive stenosi s, right coronary artery is a dominant, large caliber vessel that was essentially free of significant disease. LV gram not done because of AVR, BARAJAS free to the chest wall ____. Medical treatment aretha mmended. Only 30 mL of contrast used. PLAN: Continue hydration, monitor renal function closely. Medical treatment. We will start Coumadi n today and we will discontinue Plavix. Possible discharge home tomorrow. We will also get echo to assess LV function and monitor LV function. If the LV function remains below 35 for 3-6 months, cons ider AICD. Vu Morin MD cc:Luther Aaron MD; Obi Coronel MD [id number] TT: 08/18/2016 13:14:50 Confirmation # [id number] Dictation # [id number] sn
[2016-08-18] MEDS: Acetylcysteine 20% Inhal Soln (4ml) PO SCH ×2 (13:48→18:45)
--- NOTE | 2016-08-18 17:22 | CARD ---
APPROVED REPORT Procedure(s) performed: Left Heart Catheterization BARAJAS Angiogram No LV gram ( as S/p AVR) HISTORY The patient is a 76 year-old female with a history of : previous CVA remote >= 2 weeks, peripheral vascular disease, previous diagnostic cath, tobacco history() : The patient is a former smoker , hypertension , previous CABG (The CABG date was 04/20/2012), dyslipidemia , previous valve surgery (The previous valve surgery date was 04/20/2012), cerebrovascular disease , S/p Bioprosthetic AVR, admitted with chest pain and had Stress test one week ago was abnormal. INDICATION The indication(s) include : positive stress test, unstable angina . CASE TECHNIQUE The patient was brought urgently to the Cardiac Catheterization Laboratory in a fasting state and was prepped and draped in a sterile manner. The right femoral groin was infiltrated with 2% Lidocaine subcutaneous anesthesia. A 6 Fr x 23 cm Juli sheath was inserted into the right femoral artery without difficulty. Coronary angiography was performed using coronary diagnostic catheters. The left coronary system was accessed and visualized with a Diagnostic ,6 Fr JL 4 catheter. The right coronary system was accessed and visualized with a Diagnostic ,6 Fr JR 4 catheter. The left ventricle was accessed and visualized with a pifgtail catheter. Left ventricular/Aortic Valve gradient assessed on pullback. Left ventriculogram was performed in MULLER projection. Closure device was deployed with a 6 Fr / 7 Fr MynxGrip without any complications. The patient tolerated the procedure well and there were no complications associated with the procedure. Vessel Analysis The patient's coronary anatomy is right dominant. The left main coronary artery is a large size vessel with diffuse calcification noted throughout this vessel and without significant stenosis. The left main bifurcates to the left anterior descending and circumflex. The left anterior descending artery is a large size vessel with diffuse calcification noted throughout this vessel and with significant stenosis. There is a 100% stenosis in the mid to Distal segment. But LAD is very tortous vessel The first diagonal branch is a small size vessel with diffuse calcification noted throughout this vessel and without significant stenosis. The second diagonal branch is a small size vessel with diffuse calcification noted throughout this vessel and without significant stenosis. The circumflex artery is a medium size vessel with diffuse calcification noted throughout this vessel and without significant stenosis. very tortous The first obtuse marginal branch is a small size vessel with diffuse calcification noted throughout this vessel and without significant stenosis, but very tortous vessel. The second obtuse marginal branch is a large size vessel with diffuse calcification noted throughout this vessel and without significant stenosis, but very tortous vessel. The right coronary artery is a medium size vessel with diffuse calcification noted throughout this vessel and without significant stenosis. The right posterior descending artery is a medium size vessel with diffuse calcification noted throughout this vessel and without significant stenosis. BARAJAS is free to Chest wall not used for grafting. Left Ventricle LV not obtained as S/P AVR and renal Insufficiency. Conclusion Single Vessel LAD mid to distal LAD occlusion (ROUGH ROUNDER). BARAJAS is Free not used for grafting S/p Bioprosthetic AVR CKD only 30 cc Contrast Used. Recommendations Aggressive Medical TherapyCardiac Risk Reduction Program Closely monitor renal Fx. Cc: Dr. Coronel./ Fariba.
[2016-08-18 17:38] LABS: ADD MANUAL DIFF? NO
[2016-08-18 17:45] LABS: BASO # 0.02 K/mm3 (0.0-2.0); BASO % 0.4 % (0.0-3.0); EOS # 0.1 (0.0-0.7); EOS % 1.3 % (1.5-5.0); GRAN # 3.85 (1.4-6.5); GRAN % 73.8 % (50.0-68.0); HEMATOCRIT 39.2 % (36.0-48.0); LYMPH # 0.8 (1.2-3.4); LYMPH % 15.3 % (22.0-35.0); MEAN CELL VOLUME 86.7 fL (80.0-105.0); MEAN CORPUSCULAR HEMOGLOBIN 30.1 pg (25.0-35.0); MEAN CORPUSCULAR HGB CONC 34.7 g/dl (31.0-37.0); MEAN PLATELET VOLUME 10.7 fl (7.0-11.0); MONO # 0.5 (0.1-0.6); MONO % 9.2 % (1.0-6.0); PLATELET COUNT 111 10^3/uL (120.0-450.0); RED CELL DISTRIBUTION WIDTH 13.5 % (11.5-14.5); WHITE BLOOD COUNT 5.2 10^3/ul (4.5-11.0)
[2016-08-18 17:52] LABS: CALCIUM 8.5 mg/dL (8.4-10.5); POTASSIUM 3.2 mmol/L (3.6-5.0)
--- NOTE | 2016-08-18 17:55 | CP.PCM.CON ---
History of Present Illness - History of Present Illness History of Present Illness: 76 yo F w/ pmh of htn, CHF w/ systolic dysfunction, s/p bioprostetic aortic valve, afib on coumadin and CKD IIIB, presented yesterday with intermittent chest pain that began in the morning and progressed during the day; pain reportedly radiated to back and L upper arm, associated with shortness of breath and palpitations; nephrology service consulted due to need for cardiac cath; Patient otherwise reports being independent in ADL's; although she is slow to walk using a walker, and reports gait unsteadiness, can walk a few blocks without shortness of breath; she reports pain in her legs but not related to walking; doesn't take any pain meds other than Tylenol; denies any leg swelling; Recently with cold-like symptoms including cough and sore throat, was put on abx last week; Patient underwent cardiac cath this morning with finding of severe mid to distal LAD stenosis but not amenable to intervention; 30 cc contrast used for cath; Review of Systems - Constitutional Additional comments: Insomnia - EENT Eyes: Blurred Vision, Change in Vision Nose/Mouth/Throat: As Per HPI - Cardiovascular Cardiovascular: As Per HPI - Respiratory Respiratory: Cough. absent: Dyspnea on Exertion - Gastrointestinal Gastrointestinal: Constipation. absent: Diarrhea, Nausea, Vomiting - Genitourinary Genitourinary: Nocturia. absent: Difficulty Urinating, Dysuria - Musculoskeletal Musculoskeletal: Arthralgias - Integumentary Additional comments: Dry skin, itching; - Neurological Neurological: Disequilibrium - Psychiatric Psychiatric: Abnormal Sleep Pattern - Hematologic/Lymphatic Hematologic: Easy Bruising Past Patient History - Infectious Disease Hx of Infectious Diseases: None - Tetanus Immunizations Tetanus Immunization: Unknown - Past Medical History & Family History Past Medical History?: Yes Pertinent Family History: Mother with heart disease, father with throat cancer, sister with DM - Past Social History Smoking Status: Former Smoker - CARDIAC Hx Atrial Fibrillation: Yes Hx Congestive Heart Failure: Yes Hx Hypertension: Yes - PULMONARY Hx Chronic Obstructive Pulmonary Disease (COPD): Yes - NEUROLOGICAL HX Cerebrovascular Accident: Yes - HEENT Hx HEENT Problems: Yes (Wears reading glasses. Upper denture.) Hx Blind: No Hx Cataracts: No Hx Deafness: No Hx Difficulty Chewing: No Hx Epistaxis: No Hx Glaucoma: No Hx Macular Degeneration: No - RENAL Hx Renal Failure: No - ENDOCRINE/METABOLIC Hx Diabetes Mellitus Type 1: No Hx Diabetes Mellitus Type 2: No - HEMATOLOGICAL/ONCOLOGICAL Hx Blood Disorders: No - INTEGUMENTARY Hx Dermatological Problems: No Hx Basil Cell: No Hx Eczema: No Hx Melanoma: No Hx Psoriasis: No Hx Squamous Cell: No - MUSCULOSKELETAL/RHEUMATOLOGICAL Hx Arthritis: Yes - GASTROINTESTINAL Hx Gastrointestinal Disorders: Yes (Cholecystectomy. Abdominal Sx for Diverticulitis; Hernia?) Hx Colostomy: No Hx Crohn's Disease: No Hx Diverticulitis: Yes Hx Gall Bladder Disease: No Hx Gastroesophageal Reflux: No Hx Ileostomy: No Hx Liver Failure: No Hx Pancreatitis: No HX Swallowing Problems: No - GENITOURINARY/GYNECOLOGICAL Hx Genitourinary Disorders: No Hx Hematuria: No Hx Incontinence: No Hx Sexually Transmitted Disorders: No Hx Urinary Tract Infection: No - PSYCHIATRIC Hx Psychophysiologic Disorder: No Hx Emotional Abuse: No Hx Physical Abuse: No Hx Substance Use: No - SURGICAL HISTORY Hx Cholecystectomy: Yes Hx Open Heart Surgery: Yes Hx Valve Replacement: Yes - ANESTHESIA Hx Anesthesia: No Hx Anesthesia Reactions: No Hx Malignant Hyperthermia: No Meds Allergies/Adverse Reactions: Allergies Allergy/AdvReac Type Severity Reaction Status Date / Time Sulfa (Sulfonamide Allergy Unknown . Verified 08/16/16 19:14 Antibiotics) - Medications Medications: Current Medications Acetaminophen (Tylenol 325mg Tab) 650 mg PO Q6H PRN PRN Reason: Pain, Mild (1-3) Acetylcysteine (Acetylcysteine 20%) 6 ml PO BID [facility] Last Admin: 08/18/16 13:48 Dose: 6 ml Alprazolam (Xanax) 0.25 mg PO BID PRN; Protocol PRN Reason: Anxiety Stop: 08/24/16 10:01 Arformoterol Tartrate (Brovana) 15 mcg IH [id number] [facility] Last Admin: 08/18/16 07:47 Dose: 15 mcg Aspirin (Aspirin Chewable) 81 mg PO DAILY [facility] Last Admin: 08/18/16 09:01 Dose: 81 mg Atorvastatin Calcium (Lipitor) 20 mg PO DAILY [facility] Last Admin: 08/18/16 13:48 Dose: 20 mg Budesonide (Pulmicort Respules) 0.5 mg IH Q12H [facility] Last Admin: 08/18/16 07:47 Dose: 0.5 mg Digoxin (Lanoxin Elixir Soln) 0.125 mg PO Q48H [facility] Last Admin: 08/16/16 21:54 Dose: 0.125 mg Diltiazem HCl (Cardizem Cd) 180 mg PO DAILY [facility] Last Admin: 08/18/16 09:02 Dose: Not Given Furosemide (Lasix) 40 mg PO DAILY [facility] Last Admin: 08/17/16 11:19 Dose: 40 mg Hydralazine HCl (Apresoline) 10 mg PO QID PRN PRN Reason: FOR SBP>170 & diastolic>100 Last Admin: 08/18/16 16:43 Dose: 10 mg Sodium Chloride (Sodium Chloride 0.9%) 1,000 mls @ 75 mls/hr IV .[id number] [facility] Morphine Sulfate (Morphine) 1 mg IVP Q4H PRN PRN Reason: Pain, severe (8-10) Nitroglycerin (Nitrostat Sl Tab) 0.4 mg SL Q5MIN PRN PRN Reason: Other Ondansetron HCl (Zofran Inj) 4 mg IVP Q6H PRN PRN Reason: Nausea/Vomiting Pantoprazole Sodium (Protonix Ec Tab) 40 mg PO ACB [facility] Last Admin: 08/18/16 08:29 Dose: Not Given Warfarin Sodium (Coumadin) 5 mg PO 1800 [facility] PRN Reason: Protocol Physical Exam - Constitutional Appears: Non-toxic, No Acute Distress - Head Exam Head Exam: NORMAL INSPECTION - Eye Exam Eye Exam: EOMI, Normal appearance. absent: Scleral icterus - ENT Exam ENT Exam: Mucous Membranes Moist - Neck Exam Neck exam: Positive for: Normal Inspection - Respiratory Exam Respiratory Exam: Clear to Auscultation Bilateral, NORMAL BREATHING PATTERN. absent: Rales, Rhonchi, Wheezes, Respiratory Distress - Cardiovascular Exam Cardiovascular Exam: Irregular Rhythm, Systolic Murmur. absent: Gallop, Rubs Additional comments: No abdominal or carotid bruit; L femoral bruit present, unable to auscultate for R femoral bruit due to cath dressing/angioseal; - GI/Abdominal Exam GI & Abdominal Exam: Soft. absent: Distended Additional comments: Mildly tender; - Exam Exam: absent: Bladder Distension - Neurological Exam Additional comments: 5/5 bilateral UE and LE motor strength; - Psychiatric Exam Psychiatric exam: Normal Affect, Normal Mood - Skin Skin Exam: Normal Color, Warm Results - Vital Signs Recent Vital Signs: Last Vital Signs Temp 98.3 F 08/18/16 06:00 Pulse 86 08/18/16 16:43 Resp 20 08/18/16 06:00 BP 197/85 H 08/18/16 16:43 Pulse Ox 94 L 08/18/16 06:00 - Labs Result Diagrams: 08/18/16 07:30 08/18/16 07:30 Labs: Laboratory Results - last 24 hr 08/18/16 08/18/16 08/18/16 07:30 07:30 07:30 WBC 5.9 D RBC 4.53 Hgb 13.4 Hct 39.2 MCV 86.5 MCH 29.6 MCHC 34.2 RDW 13.3 Plt Count 122 MPV 11.4 H Gran % 64.2 Lymph % (Auto) 21.5 L [place] % (Auto) 12.3 H Eos % (Auto) 1.7 Baso % (Auto) 0.3 Gran # 3.77 Lymph # 1.3 [place] # 0.7 H Eos # 0.1 Baso # 0.02 PT 17.4 H INR 1.61 H Sodium 137 Potassium 3.4 L Chloride 99 Carbon Dioxide 33 Anion Gap 8 L BUN 29 H Creatinine 1.6 H Est GFR ( Amer) 38 Est GFR (Non-Af Amer) 31 Random Glucose 99 Calcium 9.0 Phosphorus 3.4 Magnesium 2.2 Total Bilirubin 1.1 AST 21 ALT 27 Alkaline Phosphatase 74 Total Protein 6.4 Albumin 3.4 Globulin 3.0 Albumin/Globulin Ratio 1.1 - Imaging and Cardiology Chest x-ray Status: Image reviewed by me Additional comment: Increased interstitial markings; Assessment & Plan (1) CKD (chronic kidney disease) stage 3, GFR 30-59 ml/min Assessment and Plan: Progressively worsening renal function since past 1.5 years during which time R kidney has noted to have become atrophied but also with corresponding onset of proteinuria that has been progressive; now s/p cardiac cath in the setting of possible unstable angina; repeat serum creatinine early this evening actually decreased, likely due to volume expansion; should still f/u labs in morning as rise in serum creatinine lags behind LOLA insult; -avoid further nephrotoxic insults -no contraindication to restarting lasix as it has been several hours since the cath Status: Chronic (2) Renovascular hypertension Assessment and Plan: Expected with single functional kidney with contralateral kidney having become atrophied presumably due to renal artery stenosis which causes renin elevation and hence drives the hypertension; patient's BP noted to be very labile; only on cardizem and once daily lasix; CHUCKY blockade is the mainstay of treatment but should be tried carefully as it may cause marked worsening of renal function; will hold off on starting for now particularly in the setting of IV contrast load today; -continue cardizem (on SR formulation at home) -resume lasix 40 mg in am, 20 mg in pm Status: Acute (3) Congestive heart failure (CHF) Assessment and Plan: With systolic dysfunction; currently appears euvolemic on exam; will benefit from CHUCKY blockade, should start once stable renal function established; Status: Acute (4) CAD (coronary artery disease) Assessment and Plan: Established by cath today; also with evidence multi-level atherosclerotic disease (renal artery stenosis, L femoral bruit); needs to be on intensive statin therapy; -increase atorvastatin to 40 mg daily Status: Acute (5) Proteinuria Assessment and Plan: New onset and progressive, corresponding to worsening renal function as well; 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
[2016-08-18] MEDS: Digoxin 0.05 mg/mL Elixir 5mL PO SCH (22:22)
[2016-08-19 07:48] LABS: ADD MANUAL DIFF? NO
[2016-08-19 07:50] LABS: BASO # 0.02 K/mm3 (0.0-2.0); BASO % 0.3 % (0.0-3.0); EOS # 0.1 (0.0-0.7); EOS % 2.3 % (1.5-5.0); GRAN # 4.11 (1.4-6.5); GRAN % 71.8 % (50.0-68.0); HEMATOCRIT 41.5 % (36.0-48.0); LYMPH # 0.8 (1.2-3.4); LYMPH % 13.5 % (22.0-35.0); MEAN CELL VOLUME 88.5 fL (80.0-105.0); MEAN CORPUSCULAR HEMOGLOBIN 29.9 pg (25.0-35.0); MEAN CORPUSCULAR HGB CONC 33.7 g/dl (31.0-37.0); MEAN PLATELET VOLUME 10.8 fl (7.0-11.0); MONO # 0.7 (0.1-0.6); MONO % 12.1 % (1.0-6.0); PLATELET COUNT 115 10^3/uL (120.0-450.0); RED CELL DISTRIBUTION WIDTH 13.6 % (11.5-14.5); WHITE BLOOD COUNT 5.7 10^3/ul (4.5-11.0)
[2016-08-19] MEDS ORDERED: Potassium Chloride 40 mEq/30 ml LIQ UD PO ONE (07:53)
[2016-08-19 07:59] LABS: INR 1.33 (0.93-1.08)
[2016-08-19] MEDS: Pantoprazole 40 mg EC Tab PO SCH (08:00)
[2016-08-19 08:08] LABS: ALB/GLOB RATIO 1.2 (1.1-1.8); ALKALINE PHOSPHATASE 79 U/L (38-133); ALT/SGPT 26 U/L (7-56); AST/SGOT 23 U/L (15-39); BILIRUBIN,TOTAL 1.4 mg/dL (0.2-1.3); BLOOD UREA NITROGEN 19 mg/dL (7-21); CALCIUM 8.9 mg/dL (8.4-10.5); CARBON DIOXIDE 33 mmol/L (21-33); CHLORIDE 99 mmol/L (98-107); GFR AFRICAN-AMERICAN 44; GLUCOSE,RANDOM 99 mg/dL (70-110); MAGNESIUM 2.2 mg/dL (1.7-2.2); PHOSPHOROUS 3.4 mg/dL (2.5-4.5); POTASSIUM 3.6 mmol/L (3.6-5.0); SODIUM 140 mmol/L (132-148); TOTAL PROTEIN 6.7 g/dL (5.8-8.3)
[2016-08-19] MEDS: Budesonide 0.5 mg/2 ml Inhal Susp UD IH SCH ×3 (08:44→20:27)
[2016-08-19] MEDS: Arformoterol 15 mcg/2 ml Inh Sol IH SCH ×2 (08:44→19:30)
[2016-08-19] MEDS: Acetylcysteine 20% Inhal Soln (4ml) PO SCH ×2 (09:29→17:24)
[2016-08-19] MEDS: Furosemide 40 mg/5 mL Oral Soln UD PO SCH (09:30)
[2016-08-19] MEDS: diltiaZEM 180 mg/24 Hours CD Cap PO SCH (09:30)
--- NOTE | 2016-08-19 11:31 | PN ---
DATE: 08/19/2016 REASON FOR CONSULTATION AND FOLLOWUP: Chest pain, acute coronary syndrome, recently positive stress test a week ago, status post cardiac catheterization, medical treatment. BRIEF CLINICAL HISTORY: This is a 76-year-old female with a past medical history for open heart surg luisa, being followed by Dr. Carl, who recently had a stress test a week ago and admitted with acute coronary syndrome. The patient underwent cardiac catheterization that revealed mid to distal LAD to tally occluded and not grafted. The rest of the coronaries, RCA and circumflex essentially free of s ignificant disease, status post AVR bioprosthetic. The patient has baseline renal insufficiency. Af ter hydration, creatinine went down to 1.3. A total of 30 mL of contrast used. Denies any chest norberto n, shortness of breath, any palpitation. PHYSICAL EXAMINATION: VITAL SIGNS: Temperature afebrile, heart rate , blood pressure 148/96. HEENT: PERRLA. Extraocular muscles intact. NECK: Supple. No carotid bruits. No thyromegaly. CHEST: Clear to auscultation. HEART: S1, S2 regular. ABDOMEN: Soft. EXTREMITIES: Clubbing, cyanosis negative. BLOOD WORKUP: WBC 5.3, hemoglobin 14, hematocrit 41.5, platelet count 115. Chemistry shows sodium 1 40, potassium 3.6, chloride 99, carbon dioxide 32, anion gap of 12, BUN 19, creatinine 1.4. IMPRESSION: Chest pain, status post cardiac catheterization, distal left anterior descending occlude d, left internal mammary artery not used, circumflex and right coronary artery nonsignificant coronar y artery disease, status post aortic valve replacement, chronic renal insufficiency, 30 mL of contras t used, post cath BUN and creatinine remain stable, actually it went down. RECOMMENDATION: Avoid nephrotoxic medication. Continue Coumadin. The patient was on Coumadin for a trial fibrillation. Continue hydralazine, continue Cardizem, continue gentle Lasix and we will disco ntinue telemetry. Thank you, Dr. Aaron, for providing us the opportunity in taking care of the patient. We will al so discontinue digoxin because of worsening renal insufficiency in the past and age, high risk of dig oxin toxicity. We will follow with you. Thank you, Dr. Coronel/Dr. Aaron, for providing us the opportunity in taking care of the patie nt. Possible discharge home in a day or two. Vu Morin MD cc: [id number] TT: 08/19/2016 11:31:02 Confirmation # [id number] Dictation # [id number]
--- NOTE | 2016-08-19 15:12 | CP.PCM.PN ---
<Bismark Griffith - Last Filed: 08/19/16 15:07> Subjective - Date & Time of Evaluation Date of Evaluation: 08/19/16 Time of Evaluation: 07:30 - Subjective Subjective: Hospitalist Progress Note: Pt seen and examined at bedside. No acute events overnight. Pt c/o of feeling weak with mild abdominal discomfort. Denies any chest pain, sob, or palpitations. Denies any umaña, dizziness, f/c, abd pain, n/v/d. Objective - Vital Signs/Intake and Output Vital Signs (last 24 hours): Temp Pulse Resp BP Pulse Ox 98.1 F 50 L 19 168/107 H 98 08/19/16 12:00 08/19/16 12:00 08/19/16 12:00 08/19/16 12:00 08/19/16 05:57 Intake and Output: 08/19/16 08/19/16 06:59 18:59 Intake Total 300 Output Total 650 Balance -350 - Medications Medications: Current Medications Acetaminophen (Tylenol 325mg Tab) 650 mg PO Q6H PRN PRN Reason: Pain, Mild (1-3) Acetylcysteine (Acetylcysteine 20%) 6 ml PO BID [facility] Last Admin: 08/19/16 09:29 Dose: 6 ml Alprazolam (Xanax) 0.25 mg PO BID PRN; Protocol PRN Reason: Anxiety Stop: 08/24/16 10:01 Arformoterol Tartrate (Brovana) 15 mcg IH [id number] [facility] Last Admin: 08/19/16 08:44 Dose: 15 mcg Aspirin (Aspirin Chewable) 81 mg PO DAILY [facility] Last Admin: 08/19/16 09:32 Dose: Not Given Atorvastatin Calcium (Lipitor) 40 mg PO DAILY [facility] Last Admin: 08/19/16 09:31 Dose: 40 mg Budesonide (Pulmicort Respules) 0.5 mg IH Q12H [facility] Last Admin: 08/19/16 08:44 Dose: 0.5 mg Diltiazem HCl (Cardizem Cd) 180 mg PO DAILY [facility] Last Admin: 08/19/16 09:30 Dose: 180 mg Furosemide (Lasix) 40 mg PO DAILY [facility] Last Admin: 08/19/16 09:30 Dose: 40 mg Furosemide (Lasix) 20 mg PO DAILY@1800 [facility] Hydralazine HCl (Apresoline) 10 mg PO QID PRN PRN Reason: FOR SBP>170 & diastolic>100 Last Admin: 08/18/16 16:43 Dose: 10 mg Ondansetron HCl (Zofran Inj) 4 mg IVP Q6H PRN PRN Reason: Nausea/Vomiting Pantoprazole Sodium (Protonix Ec Tab) 40 mg PO ACB [facility] Last Admin: 08/19/16 08:00 Dose: 40 mg Warfarin Sodium (Coumadin) 5 mg PO 1800 [facility] PRN Reason: Protocol Last Admin: 08/18/16 17:52 Dose: 5 mg - Labs Labs: 08/19/16 07:30 08/19/16 07:30 PT 14.4 Seconds (9.9-11.8) H 08/19/16 07:30 INR 1.33 (0.93-1.08) H 08/19/16 07:30 APTT 36.9 Seconds (23.7-30.8) H 08/17/16 07:40 - Constitutional Appears: No Acute Distress - Head Exam Head Exam: ATRAUMATIC, NORMAL INSPECTION, NORMOCEPHALIC - Eye Exam Eye Exam: EOMI, Normal appearance, PERRL - ENT Exam ENT Exam: Mucous Membranes Moist, Normal Exam - Respiratory Exam Respiratory Exam: Clear to Ausculation Bilateral, NORMAL BREATHING PATTERN. absent: Rales, Wheezes - Cardiovascular Exam Cardiovascular Exam: REGULAR RHYTHM, RRR, +S1, +S2. absent: Murmur - GI/Abdominal Exam GI & Abdominal Exam: Soft. absent: Distended, Tenderness - Extremities Exam Extremities Exam: absent: Calf Tenderness - Back Exam Back Exam: NORMAL INSPECTION - Neurological Exam Neurological Exam: Alert, Awake, Oriented x3 - Skin Skin Exam: Dry, Intact, Normal Color, Warm - Additional Findings Additional findings: R Groin: Dressing c/d/i. No palpated hematoma. Pedal pulses palpable. Assessment and Plan - Assessment and Plan (Free Text) Assessment: The patient is a 76 year old woman with a history of CHF (EF=35%), aortic valve replacement, chronic kidney disease, chronic atrial fibrillation (on Coumadin), CVA, HTN, HLD and COPD, who presents with chest pain rule out ACS. s/p cardiac cath POD 1. 1. R/o ACS s/p cardiac cath POD #1 - Cardiac cath showed mid to distal LAD totally occluded and not grafted - F/u cardiology Dr Morin recgarret - EKG shows A. fib - Trops 3 negative. - Stress test done on 08/07/16 as outpatient showed reversible anterolateral ischemia - Cont warfrin 2. Chronic Kidney Disease: - 30ml of contrast used in cardiac cath - Avoid nephrotoxic drugs - Creatinine is 1.4 this am - Cont to monitor 3. Chronic Atrial Fibrillation: - Cont warfrin - rate controlled - continue home meds of Cardiazem and Digoxin 4. Chronic Obstructive Pulmonary Disease: - Stable - Cont Brovana and pulmicort 5. Chronic Systolic Heart Failure: - last echo from Dec 2015, EF=35% 6. Hypertension: controlled. - continue home Cardiazem and Lasix - heart healthy diet 7. GI ppx: Protonix. Pt still has unsteady gait therefore at risk of a fall; not safe to go home today. PT recommended TCU. TCU eval. Upon discharge patient will f/u with PMD . Case and plan was seen, reviewed, and discussed in detail with Dr Aaron. <Luther Aaron - Last Filed: 08/19/16 16:15> Objective - Vital Signs/Intake and Output Vital Signs (last 24 hours): Temp Pulse Resp BP Pulse Ox 98.1 F 50 L 19 168/107 H 98 08/19/16 12:00 08/19/16 12:00 08/19/16 12:00 08/19/16 12:00 08/19/16 05:57 Intake and Output: 08/19/16 08/19/16 06:59 18:59 Intake Total 300 Output Total 650 Balance -350 - Medications Medications: Current Medications Acetaminophen (Tylenol 325mg Tab) 650 mg PO Q6H PRN PRN Reason: Pain, Mild (1-3) Acetylcysteine (Acetylcysteine 20%) 6 ml PO BID [facility] Last Admin: 08/19/16 09:29 Dose: 6 ml Alprazolam (Xanax) 0.25 mg PO BID PRN; Protocol PRN Reason: Anxiety Stop: 08/24/16 10:01 Arformoterol Tartrate (Brovana) 15 mcg IH [id number] [facility] Last Admin: 08/19/16 08:44 Dose: 15 mcg Aspirin (Aspirin Chewable) 81 mg PO DAILY [facility] Last Admin: 08/19/16 09:32 Dose: Not Given Atorvastatin Calcium (Lipitor) 40 mg PO DAILY [facility] Last Admin: 08/19/16 09:31 Dose: 40 mg Budesonide (Pulmicort Respules) 0.5 mg IH Q12H [facility] Last Admin: 08/19/16 08:44 Dose: 0.5 mg Diltiazem HCl (Cardizem Cd) 180 mg PO DAILY [facility] Last Admin: 08/19/16 09:30 Dose: 180 mg Furosemide (Lasix) 40 mg PO DAILY [facility] Last Admin: 08/19/16 09:30 Dose: 40 mg Furosemide (Lasix) 20 mg PO DAILY@1800 [facility] Hydralazine HCl (Apresoline) 10 mg PO QID PRN PRN Reason: FOR SBP>170 & diastolic>100 Last Admin: 08/18/16 16:43 Dose: 10 mg Ondansetron HCl (Zofran Inj) 4 mg IVP Q6H PRN PRN Reason: Nausea/Vomiting Pantoprazole Sodium (Protonix Ec Tab) 40 mg PO ACB [facility] Last Admin: 08/19/16 08:00 Dose: 40 mg Warfarin Sodium (Coumadin) 5 mg PO 1800 [facility] PRN Reason: Protocol Last Admin: 08/18/16 17:52 Dose: 5 mg - Labs Labs: 08/19/16 07:30 08/19/16 07:30 PT 14.4 Seconds (9.9-11.8) H 08/19/16 07:30 INR 1.33 (0.93-1.08) H 08/19/16 07:30 APTT 36.9 Seconds (23.7-30.8) H 08/17/16 07:40 Attending/Attestation - Attestation I have personally seen and examined this patient.: Yes I have fully participated in the care of the patient.: Yes I have reviewed all pertinent clinical information, including history, physical exam and plan: Yes Notes (Text): 08/19/16 16:08 The patient is a 76 year old woman with a history of CHF (EF=35%), aortic valve replacement, chronic kidney disease, chronic atrial fibrillation (on Coumadin), CVA, HTN, HLD and COPD, who presents with chest pain. 1. Chest Pain; resolved. Status post Cardiac cath yesterday. Showed single- vessel LAD mid. distal occlusion. Continue aspirin, Lipitor. 2. Chronic Kidney Disease: Continue IV fluids and Mucomyst. Nephrology evaluation appreciated . creatinine is 1.4 today. 3. Chronic Atrial Fibrillation: rate controlled. Continue Coumadin. Monitor INR. continue home meds of Cardiazem and Digoxin 4. Chronic Obstructive Pulmonary Disease: stable. 5.GI prophylaxis with Protonix. Physical therapy evaluation appreciated. Patient with general deconditioning and gait instability. TCU recommended. Transfer to TCU tomorrow. upon discharge patient will follow-up with PMD . 08/19/16 16:15
--- NOTE | 2016-08-19 18:01 | PN ---
DATE: 08/19/2016 A 76-year-old female with past medical history of hypertension, CHF with systolic dysfunction, status post bioprosthetic aortic valve, AFib on Coumadin, and CKD stage IIIB, presented with intermittent c hest pain and underwent cardiac catheterization yesterday. Nephrology service consulted due to risk for contrast nephropathy. The patient reports not feeling well, but cannot identify further. Denies any shortness of breath, t olerating diet. PHYSICAL EXAMINATION: VITAL SIGNS: Blood pressure this morning 148/96, heart rate 69, respirations 20, temperature 98.1, O 2 sat 98% on room air. GENERAL: No distress. Conversing coherently in full sentences. HEENT: Moist mucous membranes. Nonicteric. CHEST: Clear to auscultation bilaterally. No rales, no rhonchi, no wheezes. HEART: Systolic murmur present. Irregular rate. No gallops, no rubs. ABDOMEN: Soft, nondistended, mild epigastric tenderness. EXTREMITIES: No leg edema. SKIN: Warm. No cyanosis. PSYCHIATRIC: Normal mood and normal affect. LABORATORY DATA: This morning, CBC: WBC 5.7, hemoglobin 14.0, hematocrit 41.5, platelets 115. Chem istry panel: Sodium 140, potassium 3.6, chloride 99, bicarbonate 33, BUN 19, creatinine 1.4, glucose 99, albumin 3.6. ASSESSMENT: 1. Chronic kidney disease, stage IIIB. Progressively worsening renal function since the past 1-1/2 years with right kidney progressing to being atrophic during this time. Also, with close monitoring of symptoms of proteinuria. The patient is now status post cardiac catheterization yesterday. Serum creatinine stable; appears to have stable electrolyte and volume status. Avoid further nephrotoxic insults. Need to have adequate blood pressure control. 2. Renovascular hypertension. The patient with solitary functioning kidney, at least per imaging. Currently, only on Cardizem and once daily Lasix. We will start low dose losartan 25 mg daily and as sess for any significant worsening of kidney function, although up to 30% rise in serum creatinine ca n be expected and tolerated. We will continue with Lasix 40 mg in a.m., will hold the p.m. dose for today and reassess. 3. Congestive heart failure with systolic dysfunction. We will benefit from CHUCKY (renin-angiotensin system) blockade as mentioned above. 4. Coronary artery disease, status post catheterization that shows significant left anterior descend ing stenosis not amenable to intervention. Also, with evidence of multilevel atherosclerotic disease . Continue atorvastatin 40 mg daily. 5. Proteinuria relatively recent onset and progressive. Awaiting the result of serologic workup. W ill benefit from CHUCKY blockade. Edu Estrada MD cc: [id number] TT: 08/19/2016 18:00:44 Confirmation # [id number] Dictation # [id number] dn
[2016-08-20 06:28] VITALS: O2SAT 96
[2016-08-20] MEDS: Budesonide 0.5 mg/2 ml Inhal Susp UD IH SCH (07:50)
[2016-08-20] MEDS: Arformoterol 15 mcg/2 ml Inh Sol IH SCH (07:50)
[2016-08-20] MEDS: Pantoprazole 40 mg EC Tab PO SCH (07:58)
[2016-08-20 08:17] LABS: INR 1.49 (0.93-1.08)
[2016-08-20 09:41] LABS: ADD MANUAL DIFF? NO
[2016-08-20] MEDS: diltiaZEM 180 mg/24 Hours CD Cap PO SCH (09:41)
[2016-08-20] MEDS: Furosemide 40 mg/5 mL Oral Soln UD PO SCH (09:42)
[2016-08-20 09:43] LABS: BASO # 0.02 K/mm3 (0.0-2.0); BASO % 0.3 % (0.0-3.0); EOS # 0.2 (0.0-0.7); EOS % 2.7 % (1.5-5.0); GRAN # 4.12 (1.4-6.5); GRAN % 64.8 % (50.0-68.0); HEMATOCRIT 38.9 % (36.0-48.0); LYMPH # 1.2 (1.2-3.4); LYMPH % 18.7 % (22.0-35.0); MEAN CELL VOLUME 88.8 fL (80.0-105.0); MEAN CORPUSCULAR HEMOGLOBIN 29.5 pg (25.0-35.0); MEAN CORPUSCULAR HGB CONC 33.2 g/dl (31.0-37.0); MEAN PLATELET VOLUME 11.4 fl (7.0-11.0); MONO # 0.9 (0.1-0.6); MONO % 13.5 % (1.0-6.0); PLATELET COUNT 106 10^3/uL (120.0-450.0); RED CELL DISTRIBUTION WIDTH 13.4 % (11.5-14.5); WHITE BLOOD COUNT 6.4 10^3/ul (4.5-11.0)
[2016-08-20] MEDS: Acetylcysteine 20% Inhal Soln (4ml) PO SCH (09:44)
[2016-08-20 09:53] LABS: ALB/GLOB RATIO 1.1 (1.1-1.8); BILIRUBIN,TOTAL 1.1 mg/dL (0.2-1.3); POTASSIUM 3.4 mmol/L (3.6-5.0); TOTAL PROTEIN 6.2 g/dL (5.8-8.3)
[2016-08-20] MEDS ORDERED: Sodium Chloride 0.9% 1,000 ML IV SCH (10:15)
--- NOTE | 2016-08-20 10:38 | CP.PCM.DIS ---
<Bismark Griffith - Last Filed: 08/20/16 12:17> Provider - Provider Date of Admission: 08/17/16 11:25 Attending physician: Luther Aaron MD Primary care physician: Obi Coronel MD Consults: Cardiology, Nephrology Time Spent in preparation of Discharge (in minutes): 40 Hospital Course - Lab Results Lab Results: Most Recent Lab Values WBC 6.4 10^3/ul (4.5-11.0) 08/20/16 08:30 RBC 4.38 10^6/uL (3.5-6.1) 08/20/16 08:30 Hgb 12.9 gm/dL (12.0-16.0) 08/20/16 08:30 Hct 38.9 % (36.0-48.0) 08/20/16 08:30 MCV 88.8 fL (80.0-105.0) 08/20/16 08:30 MCH 29.5 pg (25.0-35.0) 08/20/16 08:30 MCHC 33.2 g/dl (31.0-37.0) 08/20/16 08:30 RDW 13.4 % (11.5-14.5) 08/20/16 08:30 Plt Count 106 10^3/uL (120.0-450.0) L 08/20/16 08:30 MPV 11.4 fl (7.0-11.0) H 08/20/16 08:30 Gran % 64.8 % (50.0-68.0) 08/20/16 08:30 Lymph % (Auto) 18.7 % (22.0-35.0) L 08/20/16 08:30 Boundary % (Auto) 13.5 % (1.0-6.0) H 08/20/16 08:30 Eos % (Auto) 2.7 % (1.5-5.0) 08/20/16 08:30 Baso % (Auto) 0.3 % (0.0-3.0) 08/20/16 08:30 Gran # 4.12 (1.4-6.5) 08/20/16 08:30 Lymph # 1.2 (1.2-3.4) 08/20/16 08:30 Boundary # 0.9 (0.1-0.6) H 08/20/16 08:30 Eos # 0.2 (0.0-0.7) 08/20/16 08:30 Baso # 0.02 K/mm3 (0.0-2.0) 08/20/16 08:30 PT 16.1 Seconds (9.9-11.8) H 08/20/16 07:20 INR 1.49 (0.93-1.08) H 08/20/16 07:20 APTT 36.9 Seconds (23.7-30.8) H 08/17/16 07:40 Sodium 137 mmol/L (132-148) 08/20/16 08:30 Potassium 3.4 mmol/L (3.6-5.0) L 08/20/16 08:30 Chloride 97 mmol/L (98-107) L 08/20/16 08:30 Carbon Dioxide 33 mmol/L (21-33) 08/20/16 08:30 Anion Gap 10 (10-20) 08/20/16 08:30 BUN 21 mg/dL (7-21) 08/20/16 08:30 Creatinine 1.5 mg/dL (0.5-1.4) H 08/20/16 08:30 Est GFR ( Amer) 41 08/20/16 08:30 Est GFR (Non-Af Amer) 34 08/20/16 08:30 Random Glucose 90 mg/dL (70-110) 08/20/16 08:30 Hemoglobin A1c 6.0 % (4.2-6.5) 08/17/16 07:40 Calcium 9.0 mg/dL (8.4-10.5) 08/20/16 08:30 Phosphorus 3.4 mg/dL (2.5-4.5) 08/19/16 07:30 Magnesium 2.2 mg/dL (1.7-2.2) 08/19/16 07:30 Total Bilirubin 1.1 mg/dL (0.2-1.3) 08/20/16 08:30 AST 21 U/L (15-39) 08/20/16 08:30 ALT 28 U/L (7-56) 08/20/16 08:30 Alkaline Phosphatase 71 U/L (38-133) 08/20/16 08:30 Lactate Dehydrogenase 635 U/L (333-699) 08/16/16 19:41 Total Creatine Kinase 57 U/L (35-230) 08/17/16 14:00 Troponin I 0.04 ng/mL 08/17/16 14:00 NT-Pro-B Natriuret Pep 60249 pg/mL (0-450) H 08/16/16 21:49 Total Protein 6.2 g/dL (5.8-8.3) 08/20/16 08:30 Total Protein (PEP) 6.0 g/dL (6.1-8.1) L 08/19/16 07:30 Albumin 3.2 g/dL (3.0-4.8) 08/20/16 08:30 Globulin 3.0 gm/dL 08/20/16 08:30 Albumin/Globulin Ratio 1.1 (1.1-1.8) 08/20/16 08:30 Triglycerides 84 mg/dL (35-160) 08/17/16 07:40 Cholesterol 142 mg/dL (130-200) 08/17/16 07:40 LDL Cholesterol Direct 54 mg/dL (0-129) 08/17/16 07:40 HDL Cholesterol 58 mg/dL (29-60) 08/17/16 07:40 TSH 3rd Generation 1.85 mIU/mL (0.46-4.68) 08/17/16 07:40 Urine Color Yellow (YELLOW) 08/16/16 20:25 Urine Appearance Sl cloudy (CLEAR) 08/16/16 20:25 Urine pH 6.5 (4.7-8.0) 08/16/16 20:25 Ur Specific Witherbee >= 1.030 (1.005-1.035) 08/16/16 20:25 Urine Protein >=300 mg/dL (<30 mg/dL) H 08/16/16 20:25 Urine Glucose (UA) Negative mg/dL (NEGATIVE) 08/16/16 20:25 Urine Ketones Negative mg/dL (NEGATIVE) 08/16/16 20:25 Urine Blood Small (NEGATIVE) H 08/16/16 20:25 Urine Nitrate Negative (NEGATIVE) 08/16/16 20:25 Urine Bilirubin Negative (NEGATIVE) 08/16/16 20:25 Urine Urobilinogen 1.0 E.U./dL (<1 E.U./dL) H 08/16/16 20:25 Ur Leukocyte Esterase Negative Gregg/uL (NEGATIVE) 08/16/16 20:25 Urine RBC 0 - 2 /hpf (0-2) 08/16/16 20:25 Urine WBC 0 - 2 /hpf (0-6) 08/16/16 20:25 Digoxin 0.9 ng/mL (0.8-2.0) 08/17/16 07:40 Complement C3 116.0 mg/dL (88.0-165.0) 08/19/16 07:30 Complement C4 33.8 mg/dL (14.0-44.0) 08/19/16 07:30 Hep Bs Antigen Negative (NEGATIVE) 08/19/16 07:30 Hepatitis C Antibody Negative (NEGATIVE) 08/19/16 07:30 HIV 1&2 Antibody Screen Negative (NEGATIVE) 08/19/16 07:30 - Hospital Course Hospital Course: 76 year old woman with a history of CHF (EF=35%), aortic valve replacement, chronic kidney disease, chronic atrial fibrillation (on Coumadin), CVA, HTN, HLD and COPD, who presents with constant, non-radiating, dull, substernal chest pain. In the ED basic labwork was done. STAT EKG was done and showed afib with premature ventricular or abbarently conducted complexes non specific intra vent block, T wave abnormality consider inferior and anterolateral ischemia. Serial trops showed .05--> .05-->.05. A Stress test done on 08/07/16 as outpatient showed reversible anterolateral ischemia. Cardiology was consulted. Coumadin was held. Pt was admitted for chest pain r/o ACS. Cardiology recommended cardiac catheterization which was done and showed mid to distal LAD totally occluded and not grafted. Nephrology evaluation requested for close outpatient follow up. Today pt was seen and examined at [facility]. No acute events overnight. Patient is feeling much better. Denies any chest pain or palpitations. Denies any Hurley, dizziness, f/c, sob, cp, n/v/d, abd pain, urinary or bm changes. Dx: Chest pain / ACS / CKD / Chronic Afib / HTN Discharge Exam - Head Exam Head Exam: ATRAUMATIC, NORMAL INSPECTION, NORMOCEPHALIC - Eye Exam Eye Exam: EOMI, Normal appearance, PERRL - ENT Exam ENT Exam: Mucous Membranes Moist - Respiratory Exam Respiratory Exam: Clear to PA & Lateral, UNREMARKABLE. absent: Rales, Wheezes - Cardiovascular Exam Cardiovascular Exam: REGULAR RHYTHM, RRR, +S1, +S2 - GI/Abdominal Exam GI & Abdominal Exam: Normal Bowel Sounds, Soft. absent: Distended, Tenderness - Neurological Exam Neurological exam: Alert, Oriented x3 - Psychiatric Exam Psychiatric exam: Normal Affect, Normal Mood - Skin Skin Exam: Dry, Intact, Normal Color, Warm Discharge Plan - Discharge Medications Prescriptions: Arformoterol [Brovana] 15 mcg IH [id number] #1 neb Aspirin [Aspirin Chewable] 81 mg PO DAILY #30 Atorvastatin [Lipitor] 20 mg PO DAILY #30 Budesonide [Pulmicort Respules] 0.5 mg IH [id number] #1 neb [id number] CD [Cardizem CD] 180 mg PO DAILY #30 cap Furosemide [Lasix] 40 mg PO DAILY #30 Losartan [Cozaar] 25 mg PO DAILY #30 tab Warfarin [Coumadin] 5 mg PO 1800 #30 tab - Follow Up Plan Condition: FAIR Disposition: HOME/ ROUTINE Instructions: Chest Pain (DC), Chest Pain (GEN) Additional Instructions: Please follow up with your Primary care physician in the next 2 days for adjustments to Coumadin. As per cardiology - Discontinue your home medication Digoxin. Follow up with your certified surgical tech/first assistant. If any of your symptoms recur come back to the ED. Take your prescriptions as prescribed. Referrals: Edu Estrada MD [Staff Provider] - Obi Coronel MD [Primary Care Provider] - Vu Link MD [Staff Provider] - <Luther Aaron - Last Filed: 08/20/16 14:03> Provider - Provider Date of Admission: 08/17/16 11:25 Attending physician: Luther Aaron MD Primary care physician: Obi Coronel MD Hospital Course - Lab Results Lab Results: Most Recent Lab Values WBC 6.4 10^3/ul (4.5-11.0) 08/20/16 08:30 RBC 4.38 10^6/uL (3.5-6.1) 08/20/16 08:30 Hgb 12.9 gm/dL (12.0-16.0) 08/20/16 08:30 Hct 38.9 % (36.0-48.0) 08/20/16 08:30 MCV 88.8 fL (80.0-105.0) 08/20/16 08:30 MCH 29.5 pg (25.0-35.0) 08/20/16 08:30 MCHC 33.2 g/dl (31.0-37.0) 08/20/16 08:30 RDW 13.4 % (11.5-14.5) 08/20/16 08:30 Plt Count 106 10^3/uL (120.0-450.0) L 08/20/16 08:30 MPV 11.4 fl (7.0-11.0) H 08/20/16 08:30 Gran % 64.8 % (50.0-68.0) 08/20/16 08:30 Lymph % (Auto) 18.7 % (22.0-35.0) L 08/20/16 08:30 Boundary % (Auto) 13.5 % (1.0-6.0) H 08/20/16 08:30 Eos % (Auto) 2.7 % (1.5-5.0) 08/20/16 08:30 Baso % (Auto) 0.3 % (0.0-3.0) 08/20/16 08:30 Gran # 4.12 (1.4-6.5) 08/20/16 08:30 Lymph # 1.2 (1.2-3.4) 08/20/16 08:30 Boundary # 0.9 (0.1-0.6) H 08/20/16 08:30 Eos # 0.2 (0.0-0.7) 08/20/16 08:30 Baso # 0.02 K/mm3 (0.0-2.0) 08/20/16 08:30 PT 16.1 Seconds (9.9-11.8) H 08/20/16 07:20 INR 1.49 (0.93-1.08) H 08/20/16 07:20 APTT 36.9 Seconds (23.7-30.8) H 08/17/16 07:40 Sodium 137 mmol/L (132-148) 08/20/16 08:30 Potassium 3.4 mmol/L (3.6-5.0) L 08/20/16 08:30 Chloride 97 mmol/L (98-107) L 08/20/16 08:30 Carbon Dioxide 33 mmol/L (21-33) 08/20/16 08:30 Anion Gap 10 (10-20) 08/20/16 08:30 BUN 21 mg/dL (7-21) 08/20/16 08:30 Creatinine 1.5 mg/dL (0.5-1.4) H 08/20/16 08:30 Est GFR ( Amer) 41 08/20/16 08:30 Est GFR (Non-Af Amer) 34 08/20/16 08:30 Random Glucose 90 mg/dL (70-110) 08/20/16 08:30 Hemoglobin A1c 6.0 % (4.2-6.5) 08/17/16 07:40 Calcium 9.0 mg/dL (8.4-10.5) 08/20/16 08:30 Phosphorus 3.4 mg/dL (2.5-4.5) 08/19/16 07:30 Magnesium 2.2 mg/dL (1.7-2.2) 08/19/16 07:30 Total Bilirubin 1.1 mg/dL (0.2-1.3) 08/20/16 08:30 AST 21 U/L (15-39) 08/20/16 08:30 ALT 28 U/L (7-56) 08/20/16 08:30 Alkaline Phosphatase 71 U/L (38-133) 08/20/16 08:30 Lactate Dehydrogenase 635 U/L (333-699) 08/16/16 19:41 Total Creatine Kinase 57 U/L (35-230) 08/17/16 14:00 Troponin I 0.04 ng/mL 08/17/16 14:00 NT-Pro-B Natriuret Pep 17629 pg/mL (0-450) H 08/16/16 21:49 Total Protein 6.2 g/dL (5.8-8.3) 08/20/16 08:30 Total Protein (PEP) 6.0 g/dL (6.1-8.1) L 08/19/16 07:30 Albumin 3.2 g/dL (3.0-4.8) 08/20/16 08:30 Globulin 3.0 gm/dL 08/20/16 08:30 Albumin/Globulin Ratio 1.1 (1.1-1.8) 08/20/16 08:30 Triglycerides 84 mg/dL (35-160) 08/17/16 07:40 Cholesterol 142 mg/dL (130-200) 08/17/16 07:40 LDL Cholesterol Direct 54 mg/dL (0-129) 08/17/16 07:40 HDL Cholesterol 58 mg/dL (29-60) 08/17/16 07:40 TSH 3rd Generation 1.85 mIU/mL (0.46-4.68) 08/17/16 07:40 Urine Color Yellow (YELLOW) 08/16/16 20:25 Urine Appearance Sl cloudy (CLEAR) 08/16/16 20:25 Urine pH 6.5 (4.7-8.0) 08/16/16 20:25 Ur Specific Witherbee >= 1.030 (1.005-1.035) 08/16/16 20:25 Urine Protein >=300 mg/dL (<30 mg/dL) H 08/16/16 20:25 Urine Glucose (UA) Negative mg/dL (NEGATIVE) 08/16/16 20:25 Urine Ketones Negative mg/dL (NEGATIVE) 08/16/16 20:25 Urine Blood Small (NEGATIVE) H 08/16/16 20:25 Urine Nitrate Negative (NEGATIVE) 08/16/16 20:25 Urine Bilirubin Negative (NEGATIVE) 08/16/16 20:25 Urine Urobilinogen 1.0 E.U./dL (<1 E.U./dL) H 08/16/16 20:25 Ur Leukocyte Esterase Negative Gregg/uL (NEGATIVE) 08/16/16 20:25 Urine RBC 0 - 2 /hpf (0-2) 08/16/16 20:25 Urine WBC 0 - 2 /hpf (0-6) 08/16/16 20:25 Digoxin 0.9 ng/mL (0.8-2.0) 08/17/16 07:40 Complement C3 116.0 mg/dL (88.0-165.0) 08/19/16 07:30 Complement C4 33.8 mg/dL (14.0-44.0) 08/19/16 07:30 Hep Bs Antigen Negative (NEGATIVE) 08/19/16 07:30 Hepatitis C Antibody Negative (NEGATIVE) 08/19/16 07:30 HIV 1&2 Antibody Screen Negative (NEGATIVE) 08/19/16 07:30 Attending/Attestation - Attestation I have personally seen and examined this patient.: Yes I have fully participated in the care of the patient.: Yes I have reviewed all pertinent clinical information, including history, physical exam and plan: Yes Notes (Text): The patient is a 76 year old woman with a history of CHF (EF=35%), aortic valve replacement, chronic kidney disease, chronic atrial fibrillation (on Coumadin), CVA, HTN, HLD and COPD, who presents with chest pain. 1. Chest Pain; resolved. Status post Cardiac cath. Showed single-vessel LAD mid. distal occlusion. Continue aspirin, Lipitor. digoxin stopped. 2. Chronic Kidney Disease: Treated with IV fluids and Mucomyst. Nephrology evaluation appreciated . creatinine is 1.5 today. 3. Chronic Atrial Fibrillation: rate controlled. Continue Coumadin. Monitor INR. continue Cardiazem. Continue Coumadin. Monitor INR as outpatient. Physical therapy evaluation appreciated. Patient with general deconditioning and gait instability. Patient will be discharged home today. Patient uses cane/walker at home. upon discharge patient will follow-up with PMD . Diagnosis; Chest pain Status post cardiac cath Chronic kidney disease Atrial fibrillation Bioprosthetic iritic valve
--- NOTE | 2016-08-20 10:41 | PN ---
DATE: 08/20/2016 REASON FOR CONSULTATION AND FOLLOWUP: Chest pain, acute coronary syndrome, recent positive stress te st, underwent cardiac catheterization, nonobstructive coronary artery disease. BRIEF CLINICAL HISTORY: This is a 76-year-old female with a past medical history significant for ope n heart surgery, admitted with unstable angina, underwent cardiac catheterization that revealed a dis deonna LAD. Medical treatment recommended. The patient denies any chest pain, shortness of breath, any palpitation. PHYSICAL EXAMINATION: VITAL SIGNS: Temperature afebrile, heart rate 70, blood pressure 152/83. HEENT: PERRLA, extraocular muscles intact. NECK: Supple. No carotid bruit. No thyromegaly. CHEST: Clear to auscultation. HEART: S1, S2 regular. ABDOMEN: Soft. EXTREMITIES: Clubbing and cyanosis negative. LABORATORY DATA: Blood workup as follows: WBC 6.4, hemoglobin 12.9, hematocrit 38.9, platelet count 106. Chemistry shows sodium 137, potassium 3.4, chloride 97, carbon dioxide 33, anion gap of 15, BU N 21, creatinine 1.5. IMPRESSION: Diabetes, hypertension, hyperlipidemia, chronic renal insufficiency, baseline creatinine 1.6, after percutaneous transluminal coronary angioplasty it went up to 1.4, diabetes, hypertension, coronary artery disease, status post aortic valve replacement, history of chronic atrial fibrillatio n. Coumadin was held before cardiac catheterization, resume back. RECOMMENDATION: Resume back Coumadin, start gentle hydration. Possible discharge. Discontinue telem etry. Will follow with you. Thank you, Dr. Aaron, for providing the opportunity in taking care of the patient. Vu Morin MD cc: [id number] TT: 08/20/2016 10:41:05 Confirmation # [id number] Dictation # [id number]
[2016-08-20 12:39] VITALS: BP 141/80; PULSE 58; RESP 16; TEMP 97.8
[2016-08-21 05:49] LABS: BETA 1 GLOBULIN 0.4 g/dL (0.4-0.6); BETA 2 GLOBULIN 0.3 g/dL (0.2-0.5); GAMMA GLOBULIN 0.8 g/dL (0.8-1.7)
--- NOTE | 2016-08-21 08:08 | PN ---
DATE: 08/20/2016 NEPHROLOGY FOLLOWUP NOTE A 76-year-old female with past medical history of hypertension, CHF with systolic dysfunction, status post bioprosthetic aortic valve, AFib on Coumadin, and CKD stage IIIB, presented with intermittent c hest pain and underwent cardiac catheterization 2 days ago. Nephrology service consulted due to risk for contrast nephropathy. The patient reportedly feeling well. No difficulty breathing. Tolerating diet. VITAL SIGNS: This morning, blood pressure 157/83, heart rate 65, respirations 19, temperature 98.2, O2 sat 96% on room air. LABORATORY DATA: This morning, WBC 6.4, hemoglobin 12.9, hematocrit 38.9, platelets 106. Chemistry panel: Sodium 137, potassium 3.4, chloride 97, bicarbonate 33, BUN 21, creatinine 1.5, glucose 90, c alcium 9.0. Albumin 3.2. PHYSICAL EXAMINATION: GENERAL: No distress. Conversing coherently in full sentences. HEENT: Moist mucous membranes. Nonicteric. CHEST: Clear to auscultation bilaterally. No rales, no rhonchi, no wheezes. HEART: Systolic murmur present. Irregular rate. No gallops, no rubs. ABDOMEN: Soft, nondistended, nontender. EXTREMITIES: Mild bilateral lower leg edema. SKIN: Warmth, no cyanosis. PSYCHIATRIC: Normal mood. Normal affect. ASSESSMENT: 1. Chronic kidney disease stage IIIB. Progressively worsening renal function since the past 1-1/2 y ears with right kidney progressing to becoming atrophic over this time period. Also, with increasing proteinuria; the patient is now 2 days status post cardiac catheterization with 30 mL of dye used fo r procedure. Serum creatinine relatively stable. Stable electrolyte status. Avoid further ne phrotoxic insults. Need to ensure adequate blood pressure control in the long run. Will follow up a s outpatient. 2. Renovascular hypertension with imaging indicative of solitary functioning kidney, had been on onl y Cardizem and once daily Lasix. Blood pressure has been uncontrolled. Started yesterday on losarta n 25 mg daily. Serum creatinine only mildly increased and can expect and can tolerate approximately 30% increase in serum creatinine. We will continue with Cardizem and Lasix as previously. We will c heck labs next week as outpatient. 3. Congestive heart failure with systolic dysfunction. Will benefit from CHUCKY blockade in the long r un. 4. Coronary artery disease status post catheterization showing significant distal LAD stenosis, not amenable to intervention, also with evidence of multiple level atherosclerotic disease, atorvastatin dose increased to 40 mg daily, continue the same. 5. Proteinuria with a relatively recent onset and progression. Serologic workup thus far unrevealin g, still awaiting free light chain assay. Will benefit from CHUCKY blockade. Edu Estrada MD cc: [id number] TT: 08/20/2016 18:48:41 Confirmation # [id number] Dictation # [id number] mn
[2016-08-22 06:50] LABS: KAPPA/LAMBDA FREE RATIO 1.56 (0.26-1.65)
== END 2016-08-20 15:37 | disposition home or self-care (01) | DRG 287 ==
LOC: ED 18:58 → ERH 20:30 → 2RSO 08-17 01:08 → OBSVTOIN 08-17 11:25
PROVIDERS: ADMIT Internal Medicine; ATTEND Internal Medicine
PROC: 3E0F7GC Introduction of Other Therapeutic Substance into Respiratory Tract, Via Natural or Artificial Opening (ICD-10-PCS; 2016-08-17)
PROC: 4A023N7 Measurement of Cardiac Sampling and Pressure, Left Heart, Percutaneous Approach (ICD-10-PCS; principal; 2016-08-18)
PROC: B211YZZ Fluoroscopy of Multiple Coronary Arteries using Other Contrast (ICD-10-PCS; 2016-08-18)
DX: I25.110 Atherosclerotic heart disease of native coronary artery with unstable angina pectoris (principal); I50.22 Chronic systolic (congestive) heart failure; I13.0 Hypertensive heart and chronic kidney disease with heart failure and stage 1 through stage 4 chronic kidney disease, or unspecified chronic kidney disease; I27.2 Other secondary pulmonary hypertension; N18.3 Chronic kidney disease, stage 3 (moderate); I48.2 Chronic atrial fibrillation; J44.9 Chronic obstructive pulmonary disease, unspecified; E78.5 Hyperlipidemia, unspecified; I70.1 Atherosclerosis of renal artery; R80.9 Proteinuria, unspecified; I73.9 Peripheral vascular disease, unspecified; R26.81 Unsteadiness on feet; I08.1 Rheumatic disorders of both mitral and tricuspid valves; Z86.73 Personal history of transient ischemic attack (TIA), and cerebral infarction without residual deficits; Z79.01 Long term (current) use of anticoagulants; Z95.2 Presence of prosthetic heart valve; Z87.891 Personal history of nicotine dependence; Z95.1 Presence of aortocoronary bypass graft; Z80.8 Family history of malignant neoplasm of other organs or systems; Z83.3 Family history of diabetes mellitus; Z82.49 Family history of ischemic heart disease and other diseases of the circulatory system; Z88.2 Allergy status to sulfonamides

== ENCOUNTER 2016-10-08 21:38 | Inpatient (IN) | payer MEDICARE, OTHER ==
[2016-10-08 21:46] VITALS: BMI 25.8
--- NOTE | 2016-10-08 22:12 | ED PDOC ---
Arrival/HPI <Samson Bustos - Last Filed: 10/09/16 01:22> - General Historian: Patient - History of Present Illness Time/Duration: Prior to Arrival Symptom Onset: Gradual Symptom Course: Unchanged Context: Home <Almita De La Rosa - Last Filed: 10/09/16 01:29> - General Chief Complaint: Abdominal Pain Time Seen by Provider: 10/08/16 21:44 - History of Present Illness Narrative History of Present Illness (Text): 10/08/16 22:08 76 yo female with PMH of CHF, COPD, hypertension, hyperlipidemia, diverticulitis presented to Emergency department with abd pain. Patient states that the pain started a few days ago. The pain is worse with deep breathing. She states that she has also been constipated for past few days. Her last BM was yesterday which improved pain somewhat. She also reports worsening SOB and bilateral leg swelling. Patient states she saw her PMD a few days ago and he advised her to take an ectra water pill for her breathing worsen. She states she took an extra pill a few hours before coming into Emergency department. She also reports chronic cough and chronic back pain. PMD: Dr. Coronel (EstrellaAlmita) Past Medical History - Provider Review Nursing Documentation Reviewed: Yes - Infectious Disease Hx of Infectious Diseases: None - Tetanus Immunization Tetanus Immunization: Unknown - Reproductive Menopause: Yes - Cardiac Hx Congestive Heart Failure: Yes Hx Hypertension: Yes - Pulmonary Hx Chronic Obstructive Pulmonary Disease (COPD): Yes - Neurological HX Cerebrovascular Accident: Yes - HEENT Hx HEENT Disorder: Yes (Wears reading glasses. Upper denture.) Hx Blind: No Hx Cataracts: No Hx Deafness: No Hx Difficulty Chewing: No Hx Epistaxis: No Hx Glaucoma: No Hx Macular Degeneration: No - Renal Hx Renal Failure: No - Endocrine/Metabolic Hx Diabetes Mellitus Type 1: No Hx Diabetes Mellitus Type 2: No - Hematological/Oncological Hx Blood Disorders: No - Integumentary Hx Dermatological Disorder: No Hx Basal Cell Carcinoma: No Hx Eczema: No Hx Melanoma: No Hx Psoriasis: No Hx Squamous Cell Carcinoma: No - Musculoskeletal/Rheumatological Hx Arthritis: Yes - Gastrointestinal Hx Gastrointestinal Disorders: Yes (Cholecystectomy. Abdominal Sx for Diverticulitis; Hernia?) Hx Colostomy: No Hx Crohn's Disease: No Hx Diverticulitis: Yes Hx Gall Bladder Disease: No Hx Gastroesophageal Reflux: No Hx Ileostomy: No Hx Liver Failure: No Hx Pancreatitis: No HX Swallowing Problems: No - Genitourinary/Gynecological Hx Genitourinary Disorders: No Hx Hematuria: No Hx Incontinence: No Hx Sexually Transmitted Diseases: No Hx Urinary Tract Infection: No - Psychiatric Hx Psychophysiologic Disorder: No Hx Emotional Abuse: No Hx Physical Abuse: No Hx Substance Use: No - Surgical History Hx Cholecystectomy: Yes Hx Open Heart Surgery: Yes Hx Valve Replacement: Yes - Anesthesia Hx Anesthesia: No Hx Anesthesia Reactions: No Hx Malignant Hyperthermia: No - Suicidal Assessment Feels Threatened In Home Enviroment: No <Almita De La Rosa - Last Filed: 10/09/16 01:29> Family/Social History - Physician Review Nursing Documentation Reviewed: Yes Family/Social History: No Known Family HX Smoking Status: Former Smoker Hx Alcohol Use: No Hx Substance Use: No Hx Substance Use Treatment: No <Almita De La Rosa - Last Filed: 10/09/16 01:29> Allergies/Home Meds <Samson Bustos - Last Filed: 10/09/16 01:22> <Almita De La Rosa - Last Filed: 10/09/16 01:29> Allergies/Adverse Reactions: Allergies Sulfa (Sulfonamide Antibiotics) Allergy (Unknown, Verified 10/08/16 21:46) . palpitations Home Medications: Home Meds Medication Instructions Recorded Confirmed Esomeprazole Magnesium [Nexium] 40 mg PO DAILY 07/18/15 10/08/16 Albuterol HFA [Ventolin HFA 90 1 inh INH PRN PRN 01/16/16 10/08/16 mcg/actuation (8 g)] Cholecalciferol (Vitamin D3) 1 tab PO DAILY 01/16/16 10/08/16 [Vitamin D3] Alprazolam [Xanax] 0.25 mg PO BID 10/08/16 10/08/16 Atorvastatin [Lipitor] 40 mg PO DAILY 10/08/16 10/08/16 Calcium Polycarbophil [Fiber Lax] 500 mg PO PRN PRN 10/08/16 10/08/16 Cyanocobalamin (Vitamin B-12) 1,000 mcg PO DAILY 10/08/16 10/08/16 [Vitamin B-12] Review of Systems - Review of Systems Constitutional: Normal. absent: Fatigue, Fevers Eyes: Normal. absent: Vision Changes ENT: Normal, Rhinorrhea. absent: Sore Throat, Sinus Congestion Respiratory: SOB, Cough, Wheezing Cardiovascular: Edema. absent: Chest Pain, Palpitations, Calf Pain Gastrointestinal: Abdominal Pain, Constipation. absent: Diarrhea, Nausea, Vomiting Genitourinary Female: Normal. absent: Dysuria, Frequency, Hematuria Musculoskeletal: Normal. absent: Arthralgias, Myalgias Skin: Normal. absent: Rash, Pruritis, Laceration Neurological: Normal. absent: Headache, Dizziness Endocrine: Normal. absent: Diaphoresis Hemo/Lymphatic: Normal. absent: Easy Bleeding, Easy Bruising Psychiatric: Normal <EstrellaKelsey escalantea - Last Filed: 10/09/16 01:29> Physical Exam - Systems Exam Head: Present: Atraumatic, Normocephalic Pupils: Present: PERRL Extroacular Muscles: Present: EOMI. No: Gaze Palsy, Entrapment Conjunctiva: Present: Normal Mouth: Present: Moist Mucous Membranes Neck: Present: Normal Range of Motion Respiratory/Chest: Present: Clear to Auscultation, Good Air Exchange, Wheezes, Rales. No: Respiratory Distress, Accessory Muscle Use, Rhonchi, Tachypneic Cardiovascular: Present: Regular Rate and Rhythm, Normal S1, S2. No: Murmurs, Tachycardic, Bradycardic Abdomen: Present: Normal Bowel Sounds. No: Tenderness, Distention, Peritoneal Signs Back: Present: Normal Inspection Upper Extremity: Present: Normal Inspection. No: Cyanosis, Edema Lower Extremity: Present: Normal Inspection. No: Edema Neurological: Present: GCS=15, CN II-XII Intact, Speech Normal Skin: Present: Warm, Dry, Normal Color. No: Rashes Psychiatric: Present: Alert, Oriented x 3, Normal Insight, Normal Concentration <Kelsey De La Rosaa - Last Filed: 10/09/16 01:29> Vital Signs Temp Pulse Resp BP Pulse Ox 10/09/16 00:52 151/91 H 10/09/16 00:30 100 H 25 H 151/91 H 94 L 10/08/16 21:51 98.3 F 119 H 20 144/87 95 10/08/16 21:46 98.3 F 119 H 20 144/87 95 Medical Decision Making - Lab Interpretations I have reviewed the lab results: Yes - RAD Interpretation Sign Manufacturer: ED Physician - EKG Interpretation Interpreted by ED Physician: Yes Type: 12 lead EKG <Samson Bustos - Last Filed: 10/09/16 01:22> - EKG Interpretation Interpreted by ED Physician: Yes Type: 12 lead EKG <Almita De La Rosa - Last Filed: 10/09/16 01:29> ED Course and Treatment: Impression: Pt seen and evaluated with medical claims examiner. Pt, whose past medical history includes CHF, COPD, hypertension, and hyperlipidemia, presented for shortness of breath and abdominal pain for the past few days. Pt reports associated constipation for the past few days and bilateral lower extremity swelling. Aware and agree with HPI, clinical findings, plan, and management. Plan: -- CT Abdomen and Pelvis without contrast -- EKG -- CXR -- Labs, cardiac enzymes, BNP, lipase -- Reassess and disposition Prior Visits: Notes and results from previous visits were reviewed. 10/09/16 00:25 Reviewed radiology, CT Abdomen and Pelvis shows: Lower thorax: There is wall thickening of the stomach, likely contributed by incomplete distention, but suggestive of gastritis. There is a small hiatal hernia. Atelectatic changes are identified at the bilateral lung bases. There is cardiomegaly. ABDOMEN: Liver: There is extrahepatic biliary dilatation. The common hepatic duct measures 1.3 cm in diameter. There is lobulation of the hepatic dome, which is stable. No well- defined mass is visualized. Gallbladder and bile ducts: Surgical clips are identified within the gallbladder fossa, compatible with cholecystectomy. Pancreas: There is atrophy of the pancreas. Spleen: No splenomegaly. Adrenals: No mass. Kidneys and ureters: There is atrophy of the right kidney again visualized. There is fullness of the left renal collecting system, without an obstructing calculus. Stomach and bowel: Colonic diverticula are identified, without acute inflammatory stranding of the adjacent mesentery. Appendix: Mild visualized. PELVIS: Bladder: No stones. Reproductive: Calcified uterine fibroids are again visualized. One of the larger fibroids measures 4.9x 3.8 cm. ABDOMEN and PELVIS: Intraperitoneal space: No free air. Multiple surgical clips are seen within the abdomen. Bones/joints: There is a stable compression fracture of the L3 vertebral body. The probable sternotomy wire is partially visualized. Osteopenia. There is grade I anterolisthesis of L5 on S1. Hypertrophic degenerative changes are noted within the spine. Soft tissues: There is stranding/edema within the subcutaneous tissues posteriorly. Vasculature: There is borderline aneurysmal dilatation of the aorta at the thoracoabdominal junction measuring 3 cm in diameter. There is no progression. Lymph nodes: No significant retroperitoneal or intrapelvic lymphadenopathy. IMPRESSION: 1. There is extrahepatic biliary dilatation. Correlation with serum bilirubin is recommended. 2. There is atrophy of the right kidney again visualized. There is fullness of the left renal collecting system, without an obstructing calculus. 3. There is wall thickening of the stomach, likely contributed by incomplete distention, but suggestive of gastritis. There is a small hiatal hernia. Clinical correlation is recommended. 4. There is borderline aneurysmal dilatation of the aorta at the thoracoabdominal junction measuring 3 cm in diameter. There is no progression. 5. Calcified uterine fibroids are again visualized. 6. Diverticulosis. 7. There is a stable compression fracture of the L3 vertebral body. 8. Additional CT findings described above. 10/09/16 01:16 Case discussed with medical claims examiner health and physical education teacher, who is aware and agrees with plan. 10/09/16 01:[address] Westbrook, who is aware and agrees with plan. Accepts pt in to hospitalist service. Pt will go to Telemetry observation for CHF. (Samson Bustos) 10/08/16 22:14 Impression: 76 yo female with PMH of CHF, COPD, hypertension, hyperlipidemia, diverticulitis presented to Emergency department with abd pain and shortness of breath Differential Diagnosis include but are not limited to: - CHF exacerbation, constipation Plan: - CT abd - cxr - cbc, cmp - lipase - ekg - BNP, cardiac iso -- Reassess and disposition Progress Notes: 10/08/16 22:25 - EKG: rate 107 BPM, a. fib with RBBB, No ST-segment elevations or depressions 10/09/16 00:35 - Labs review. BNP elevated will give does of lasix. (Almita De La Rosa) - Lab Interpretations Lab Results: 10/08/16 22:31 10/08/16 22:31 Lab Results 10/08/16 22:31: PT 17.5 H, INR 1.62 H 10/08/16 22:31: WBC 5.3, RBC 4.41, Hgb 13.2, Hct 39.5, MCV 89.6, MCH 29.9, MCHC 33.4, RDW 14.1, Plt Count 129, MPV 10.8, Gran % 63.5, Lymph % (Auto) 21.2 L, Teller % (Auto) 12.5 H, Eos % (Auto) 1.9, Baso % (Auto) 0.9, Gran # 3.36, Lymph # 1.1 L, Teller # 0.7 H, Eos # 0.1, Baso # 0.05 10/08/16 22:31: Sodium 139, Chloride 101, Potassium 4.1, Carbon Dioxide 30, Anion Gap 12, BUN 18, Creatinine 1.6 H, Est GFR ( Amer) 38, Est GFR (Non- Af Amer) 31, Random Glucose 118 H, Calcium 9.4, Total Bilirubin 1.0, AST 48 H, ALT 75 H, Alkaline Phosphatase 107, Lactate Dehydrogenase 609, Total Creatine Kinase 73, Troponin I 0.04, NT-Pro-B Natriuret Pep 52139 H, Total Protein 6.7, Albumin 4.0, Globulin 2.8, Albumin/Globulin Ratio 1.4, Lipase 31 10/08/16 22:25: pO2 29 L, VBG pH 7.41, VBG pCO2 50.0, VBG HCO3 31.7 H, VBG Total CO2 33.2 H, VBG O2 Sat (Calc) 70.6 H, VBG Base Excess 5.8 H, VBG Potassium 3.9, Sodium 141.0, Chloride 106.0, Glucose 124 H, Lactate 1.4, FiO2 21.0, Venous Blood Potassium 3.9 - RAD Interpretation Radiology Orders: 10/08/16 22:05 ABD & PELVIS W/O PO OR IV CONT [CT] Stat CHEST ONE VIEW [RAD] Stat - EKG Interpretation EKG Interpretation (Text): 10/08/16 22:26 EKG: Ordered, reviewed, and independently interpreted the EKG. Rate : 107 BPM Rhythm : a. fib Interpretation : RBBB, No ST-segment elevations or depressions (Estrella,Almita) - Medication Orders Current Medication Orders: Acetaminophen (Tylenol 325 Mg Supp) 325 mg RC Q6 PRN PRN Reason: Fever >100.4 F Alprazolam (Xanax) 0.25 mg PO BID MELIZA PRN Reason: Protocol Stop: 10/16/16 10:01 Aspirin (Aspirin Chewable) 81 mg PO DAILY MELIZA Atorvastatin Calcium (Lipitor) 40 mg PO DAILY MELIZA Cyanocobalamin (Vitamin B12 1000 Mcg Tab) 1,000 mcg PO DAILY MELIZA Diltiazem HCl (Cardizem Cd) 180 mg PO DAILY MELIZA Furosemide (Lasix) 40 mg IVP BID MELIZA Levalbuterol HCl (Xopenex) 1.25 mg IH Q2H PRN PRN Reason: SOB Losartan Potassium (Cozaar) 25 mg PO DAILY MELIZA Pantoprazole Sodium (Protonix Ec Tab) 40 mg PO ACB MELIZA Psyllium Hydrophilic Mucilloid (Hydrocil Instant) 1 pkt PO DAILY PRN PRN Reason: Constipation Senna/Docusate Sodium (Senokot S 50 Mg-8.6 Mg) 1 tab PO BID MELIZA Warfarin Sodium (Coumadin) 5 mg PO 1800 MELIZA PRN Reason: Protocol Discontinued Medications Furosemide (Lasix) 20 mg IVP ONCE ONE Stop: 10/09/16 00:15 Last Admin: 10/09/16 00:52 Dose: 20 mg Disposition/Present on Arrival <Samson Bustos - Last Filed: 10/09/16 01:22> - Present on Arrival Any Indicators Present on Arrival: No History of DVT/PE: No History of Uncontrolled Diabetes: No Urinary Catheter: No History of Decub. Ulcer: No History Surgical Site Infection Following: None - Disposition Have Diagnosis and Disposition been Completed?: Yes Disposition Time: 01:25 Patient Plan: Admission <Almita De La Rosa - Last Filed: 10/09/16 01:29> - Disposition Diagnosis: CHF exacerbation Disposition: HOSPITALIZED Condition: FAIR Discharge Instructions (ExitCare): Heart Failure (ED) Referrals: Obi Coronel MD [Primary Care Provider] - Follow up with primary
[2016-10-08 22:37] LABS: ADD MANUAL DIFF? NO
[2016-10-08 22:44] LABS: BASO # 0.05 K/mm3 (0.0-2.0); BASO % 0.9 % (0.0-3.0); EOS # 0.1 (0.0-0.7); EOS % 1.9 % (1.5-5.0); GRAN # 3.36 (1.4-6.5); GRAN % 63.5 % (50.0-68.0); HEMATOCRIT 39.5 % (36.0-48.0); LYMPH # 1.1 (1.2-3.4); LYMPH % 21.2 % (22.0-35.0); MEAN CELL VOLUME 89.6 fL (80.0-105.0); MEAN CORPUSCULAR HEMOGLOBIN 29.9 pg (25.0-35.0); MEAN CORPUSCULAR HGB CONC 33.4 g/dl (31.0-37.0); MEAN PLATELET VOLUME 10.8 fl (7.0-11.0); MONO # 0.7 (0.1-0.6); MONO % 12.5 % (1.0-6.0); PLATELET COUNT 129 10^3/uL (120.0-450.0); RED CELL DISTRIBUTION WIDTH 14.1 % (11.5-14.5); WHITE BLOOD COUNT 5.3 10^3/ul (4.5-11.0)
[2016-10-08 22:50] LABS: VENOUS BLOOD GAS BASE EXCESS 5.8 mmol/L (0.0-2.0); VENOUS BLOOD PH 7.41 (7.32-7.43)
[2016-10-08 22:52] LABS: ALB/GLOB RATIO 1.4 (1.1-1.8); CALCIUM 9.4 mg/dL (8.4-10.5); POTASSIUM 4.1 mmol/L (3.6-5.0); TOTAL PROTEIN 6.7 g/dL (5.8-8.3)
[2016-10-08 23:03] LABS: TROPONIN I 0.04 ng/mL
[2016-10-08 23:45] LABS: INR 1.62 (0.93-1.08)
--- NOTE | 2016-10-09 00:13 | CT ---
EXAM: CT Abdomen and Pelvis Without Intravenous Contrast CLINICAL HISTORY: The patient age is 76 years old and is female; Pain; Abdominal pain; Generalized; Additional info: Abd pain Facility exam id and description: Ct abdpelscon abd pelvis w/o po or iv cont TECHNIQUE: Axial computed tomography images of the abdomen and pelvis without intravenous contrast. This CT exam was performed using one or more of the following dose reduction techniques: automated exposure control, adjustment of the mA and/or kV according to patient size, and/or use of iterative reconstruction technique. Coronal and sagittal reformatted images were created and reviewed. EXAM DATE/TIME: 10/08/2016 10:05 PM COMPARISON: CT - ABD PELVIS W/O PO OR IV CONT 03/02/2016 1:33:14 PM FINDINGS: Lower thorax: There is wall thickening of the stomach, likely contributed by incomplete distention, but suggestive of gastritis. There is a small hiatal hernia. Atelectatic changes are identified at the bilateral lung bases. There is cardiomegaly. ABDOMEN: Liver: There is extrahepatic biliary dilatation. The common hepatic duct measures 1.3 cm in diameter. There is lobulation of the hepatic dome, which is stable. No well-defined mass is visualized. Gallbladder and bile ducts: Surgical clips are identified within the gallbladder fossa, compatible with cholecystectomy. Pancreas: There is atrophy of the pancreas. Spleen: No splenomegaly. Adrenals: No mass. Kidneys and ureters: There is atrophy of the right kidney again visualized. There is fullness of the left renal collecting system, without an obstructing calculus. Stomach and bowel: Colonic diverticula are identified, without acute inflammatory stranding of the adjacent mesentery. Appendix: Mild visualized. PELVIS: Bladder: No stones. Reproductive: Calcified uterine fibroids are again visualized. One of the larger fibroids measures 4.9 x 3.8 cm. ABDOMEN and PELVIS: Intraperitoneal space: No free air. Multiple surgical clips are seen within the abdomen. Bones/joints: There is a stable compression fracture of the L3 vertebral body. The probable sternotomy wire is partially visualized. Osteopenia. There is grade I anterolisthesis of L5 on S1. Hypertrophic degenerative changes are noted within the spine. Soft tissues: There is stranding/edema within the subcutaneous tissues posteriorly. Vasculature: There is borderline aneurysmal dilatation of the aorta at the thoracoabdominal junction measuring 3 cm in diameter. There is no progression. Lymph nodes: No significant retroperitoneal or intrapelvic lymphadenopathy. IMPRESSION: 1. There is extrahepatic biliary dilatation. Correlation with serum bilirubin is recommended. 2. There is atrophy of the right kidney again visualized. There is fullness of the left renal collecting system, without an obstructing calculus. 3. There is wall thickening of the stomach, likely contributed by incomplete distention, but suggestive of gastritis. There is a small hiatal hernia. Clinical correlation is recommended. 4. There is borderline aneurysmal dilatation of the aorta at the thoracoabdominal junction measuring 3 cm in diameter. There is no progression. 5. Calcified uterine fibroids are again visualized. 6. Diverticulosis. 7. There is a stable compression fracture of the L3 vertebral body. 8. Additional CT findings described above.
[2016-10-09] MEDS ORDERED: Levalbuterol 1.25 MG/3 ML Inhal Soln UD IH PRN (01:19)
--- NOTE | 2016-10-09 01:26 | CP.PCM.HP ---
<Sunny Chen - Last Filed: 10/09/16 04:26> History of Present Illness - History of Present Illness History of Present Illness: CC: Abdominal Pain and SOB 76 year old woman with a history of CHF 30-35%, aortic valve replacement, chronic kidney disease, chronic atrial fibrillation (on Coumadin), CVA, HTN, HLD and COPD, AAA which is stable who is presenting to the ED w/ a 2d history of SOB, abdominal pain, and lower extremity swelling. Patient states she has felt more short of breath the past two days, and went to her doctor, Dr. Coronel, because her legs were swelling which is something she states has never happened to her before. Patient states she has shortness of breath, with a slight cough, with yellowish sputum that is what her sputum normally looks like. She also admits to mild chills. She denies other symptoms of fever, chest pains, palpitations, N/V/D, dysuria/freq/urg, or lower extremity pain. Exercise tolerance at baseline is 1-2 blocks without a cane, uses 2 pillows to sleep, and does not wake up in the middle of the night gasping for air. PMhx: CHF 30-35%, aortic valve replacement, chronic kidney disease, chronic atrial fibrillation (on Coumadin), CVA, HTN, HLD and COPD, AAA Allergies: Sulfa--"gets very sick" Pshx: aortic valve replacement, CABG 5 years ago Social: lives at home, alone, independent in all IADL and ADL, denies current smoking past smoking 1ppd for 30 years, denies EtOH or illicit drug use, uses cane to ambulate at baseline Meds: Ventolin (reports not using), Xanax, Asprin 81, Lipitor 40, Calcium polycarbophil, Vidamine D3, Vitamin B12, Cardizem CD 180 daily, Esomeprazole daily, Lasix 40 daily, Losartan 25mg daily, Warfarin 5mg daily. Present on Admission - Present on Admission Any Indicators Present on Admission: No History of DVT/PE: No History of Uncontrolled Diabetes: No Urinary Catheter: No Decubitus Ulcer Present: No Past Patient History - Infectious Disease Hx of Infectious Diseases: None - Tetanus Immunizations Tetanus Immunization: Unknown - Past Medical History & Family History Past Medical History?: Yes - Past Social History Smoking Status: Former Smoker - CARDIAC Hx Congestive Heart Failure: Yes Hx Hypertension: Yes - PULMONARY Hx Chronic Obstructive Pulmonary Disease (COPD): Yes - NEUROLOGICAL HX Cerebrovascular Accident: Yes - HEENT Hx HEENT Problems: Yes (Wears reading glasses. Upper denture.) Hx Blind: No Hx Cataracts: No Hx Deafness: No Hx Difficulty Chewing: No Hx Epistaxis: No Hx Glaucoma: No Hx Macular Degeneration: No - RENAL Hx Renal Failure: No - ENDOCRINE/METABOLIC Hx Diabetes Mellitus Type 1: No Hx Diabetes Mellitus Type 2: No - HEMATOLOGICAL/ONCOLOGICAL Hx Blood Disorders: No - INTEGUMENTARY Hx Dermatological Problems: No Hx Basil Cell: No Hx Eczema: No Hx Melanoma: No Hx Psoriasis: No Hx Squamous Cell: No - MUSCULOSKELETAL/RHEUMATOLOGICAL Hx Arthritis: Yes - GASTROINTESTINAL Hx Gastrointestinal Disorders: Yes (Cholecystectomy. Abdominal Sx for Diverticulitis; Hernia?) Hx Colostomy: No Hx Crohn's Disease: No Hx Diverticulitis: Yes Hx Gall Bladder Disease: No Hx Gastroesophageal Reflux: No Hx Ileostomy: No Hx Liver Failure: No Hx Pancreatitis: No HX Swallowing Problems: No - GENITOURINARY/GYNECOLOGICAL Hx Genitourinary Disorders: No Hx Hematuria: No Hx Incontinence: No Hx Sexually Transmitted Disorders: No Hx Urinary Tract Infection: No - PSYCHIATRIC Hx Psychophysiologic Disorder: No Hx Emotional Abuse: No Hx Physical Abuse: No Hx Substance Use: No - SURGICAL HISTORY Hx Cholecystectomy: Yes Hx Open Heart Surgery: Yes Hx Valve Replacement: Yes - ANESTHESIA Hx Anesthesia: No Hx Anesthesia Reactions: No Hx Malignant Hyperthermia: No Meds Allergies/Adverse Reactions: Allergies Allergy/AdvReac Type Severity Reaction Status Date / Time Sulfa (Sulfonamide Allergy Unknown . Verified 10/08/16 21:46 Antibiotics) Results - Vital Signs Recent Vital Signs: Last Vital Signs Temp 98.3 F 10/08/16 21:51 Pulse 100 H 10/09/16 00:30 Resp 25 H 10/09/16 00:30 BP 151/91 H 10/09/16 00:52 Pulse Ox 94 L 10/09/16 00:30 - Labs Result Diagrams: 10/08/16 22:31 10/08/16 22:31 Labs: Laboratory Results - last 24 hr 10/08/16 10/08/16 10/08/16 22:25 22:31 22:31 WBC 5.3 RBC 4.41 Hgb 13.2 Hct 39.5 MCV 89.6 MCH 29.9 MCHC 33.4 RDW 14.1 Plt Count 129 MPV 10.8 Gran % 63.5 Lymph % (Auto) 21.2 L Bollinger % (Auto) 12.5 H Eos % (Auto) 1.9 Baso % (Auto) 0.9 Gran # 3.36 Lymph # 1.1 L Bollinger # 0.7 H Eos # 0.1 Baso # 0.05 PT INR pO2 29 L VBG pH 7.41 VBG pCO2 50.0 VBG HCO3 31.7 H VBG Total CO2 33.2 H VBG O2 Sat (Calc) 70.6 H VBG Base Excess 5.8 H VBG Potassium 3.9 Sodium 141.0 139 Chloride 106.0 101 Glucose 124 H Lactate 1.4 FiO2 21.0 Potassium 4.1 Carbon Dioxide 30 Anion Gap 12 BUN 18 Creatinine 1.6 H Est GFR ( Amer) 38 Est GFR (Non-Af Amer) 31 Random Glucose 118 H Calcium 9.4 Total Bilirubin 1.0 AST 48 H ALT 75 H Alkaline Phosphatase 107 Lactate Dehydrogenase 609 Total Creatine Kinase 73 Troponin I 0.04 NT-Pro-B Natriuret Pep 88573 H Total Protein 6.7 Albumin 4.0 Globulin 2.8 Albumin/Globulin Ratio 1.4 Lipase 31 Venous Blood Potassium 3.9 10/08/16 22:31 WBC RBC Hgb Hct MCV MCH MCHC RDW Plt Count MPV Gran % Lymph % (Auto) Bollinger % (Auto) Eos % (Auto) Baso % (Auto) Gran # Lymph # Bollinger # Eos # Baso # PT 17.5 H INR 1.62 H pO2 VBG pH VBG pCO2 VBG HCO3 VBG Total CO2 VBG O2 Sat (Calc) VBG Base Excess VBG Potassium Sodium Chloride Glucose Lactate FiO2 Potassium Carbon Dioxide Anion Gap BUN Creatinine Est GFR ( Amer) Est GFR (Non-Af Amer) Random Glucose Calcium Total Bilirubin AST ALT Alkaline Phosphatase Lactate Dehydrogenase Total Creatine Kinase Troponin I NT-Pro-B Natriuret Pep Total Protein Albumin Globulin Albumin/Globulin Ratio Lipase Venous Blood Potassium Assessment & Plan - Assessment and Plan (Free Text) Assessment: 76yo F admitted for CHF exacerbation Acute on Chronic CHF exacerbation -baseline EF 30-35%; patient had cath last month and no intervention was done -BNP ~5000 higher than previous visits; crackles b/l lungs on exam; b/l +3 pitting edema up to knees -will increase losartan from 25 to 50mg daily -Lasix 40mg BID IV -increase losartan to 50mg daily from 25mg daily -c/w cardizem -compressive leg stockings -trend one more troponin; current .04. Chronic A.Fibb and Aortic Valve Replacement -patient is on warfarin -INR is currently subtherapeutic; rate controlled with cardizem -will measure daily and adjust warfarin accordingly; currently on 5mg nightly chronic kidney disease -patient currently at baseline -will measure daily CVA -c/w aspirin HTN -c/w current meds; will increase lasix and losartan in the hospital HLD -c/w statin COPD -PRN breathing treatments -supplemental O2 if saturation drops below 92% Proph -Esomeprazole -Heart healthy Diet -Physical therapy -Warfarin -incentive spirometry -OOB as tolerated Case discussed with Dr. Dariana Chen PGY1 Night Float Decision To Admit - Pt Status Changed To: Hospital Disposition Of: Observation - . Bed Request Type: Remote Telemetry Admitting Physician: Jesse Westbrook <Jesse Westbrook - Last Filed: 10/09/16 06:03> Results - Vital Signs Recent Vital Signs: Last Vital Signs Temp 98.0 F 10/09/16 03:57 Pulse 114 H 10/09/16 04:05 Resp 20 10/09/16 03:57 BP 144/83 10/09/16 03:57 Pulse Ox 98 10/09/16 03:32 - Labs Result Diagrams: 10/08/16 22:31 10/08/16 22:31 Attending/Attestation - Attestation I have personally seen and examined this patient.: Yes I have fully participated in the care of the patient.: Yes I have reviewed all pertinent clinical information: Yes
[2016-10-09] MEDS ORDERED: Psyllium Packet PO PRN (01:30)
[2016-10-09] MEDS: Docusate-Senna 50 mg-8.6 mg Tab PO SCH ×3 (01:49→18:34)
[2016-10-09 06:31] LABS: ADD MANUAL DIFF? NO
[2016-10-09 06:32] LABS: BASO # 0.03 K/mm3 (0.0-2.0); BASO % 0.7 % (0.0-3.0); EOS # 0.1 (0.0-0.7); GRAN # 2.73 (1.4-6.5); GRAN % 61.4 % (50.0-68.0); HEMATOCRIT 36.2 % (36.0-48.0); LYMPH % 22.9 % (22.0-35.0); MEAN CORPUSCULAR HEMOGLOBIN 28.6 pg (25.0-35.0); MEAN CORPUSCULAR HGB CONC 31.8 g/dl (31.0-37.0); MONO # 0.6 (0.1-0.6); PLATELET COUNT 120 10^3/uL (120.0-450.0); RED CELL DISTRIBUTION WIDTH 14.1 % (11.5-14.5); WHITE BLOOD COUNT 4.5 10^3/ul (4.5-11.0)
[2016-10-09 07:12] LABS: TROPONIN I 0.05 ng/mL
[2016-10-09 07:17] LABS: ALB/GLOB RATIO 1.2 (1.1-1.8); BILIRUBIN,TOTAL 0.8 mg/dL (0.2-1.3); CALCIUM 8.6 mg/dL (8.4-10.5); TOTAL PROTEIN 5.6 g/dL (5.8-8.3)
[2016-10-09 07:33] LABS: POTASSIUM 2.7 mmol/L (3.6-5.0)
[2016-10-09] MEDS ORDERED: Potassium Chloride 40 mEq/30 ml LIQ UD PO STA (07:52)
[2016-10-09] MEDS: Pantoprazole 40 mg EC Tab PO SCH (08:04)
[2016-10-09 08:24] LABS: INR 1.68 (0.93-1.08)
[2016-10-09 08:40] LABS: MAGNESIUM 1.9 mg/dL (1.7-2.2); PHOSPHOROUS 3.1 mg/dL (2.5-4.5)
--- NOTE | 2016-10-09 09:59 | RAD ---
PROCEDURE: CHEST RADIOGRAPH, 1 VIEW HISTORY: Shortness of breath COMPARISON: None available. FINDINGS: LUNGS: There is mild pulmonary venous congestion. The lower lungs have been excluded from the film. PLEURA: No pneumothorax or pleural fluid seen. CARDIOVASCULAR: There is severe cardiomegaly. Status post median sternotomy. OSSEOUS STRUCTURES: Within normal limits for the patient's age. Old fracture deformity in the right proximal humerus. VISUALIZED UPPER ABDOMEN: Normal. OTHER FINDINGS: None. IMPRESSION: Persistent severe cardiomegaly and mild pulmonary venous congestion.
[2016-10-09] MEDS: diltiaZEM 180 mg/24 Hours CD Cap PO SCH (10:21)
[2016-10-09] MEDS: cefTRIAXone 1 gm 1 GM/100 ML BAG IVPB SCH (11:39)
[2016-10-09] MEDS ORDERED: Potassium Chloride 20 mEq ER Tab PO ONE ×2 (14:50→18:00)
[2016-10-09] MEDS: Milrinone 20mg/100ml D5W 100 ML IV PRN (15:40)
--- NOTE | 2016-10-09 23:54 | CARD ---
APPROVED REPORT EKG Measurement Heart [id number] <Conclusion> Atrial fibrillation with rapid ventricular response Right bundle branch block Abnormal ECG
[2016-10-10 06:44] LABS: ADD MANUAL DIFF? NO
[2016-10-10 06:54] LABS: INR 1.66 (0.93-1.08)
[2016-10-10 07:05] LABS: BASO # 0.02 K/mm3 (0.0-2.0); BASO % 0.4 % (0.0-3.0); EOS # 0.1 (0.0-0.7); EOS % 2.9 % (1.5-5.0); GRAN # 2.49 (1.4-6.5); GRAN % 55.1 % (50.0-68.0); HEMATOCRIT 35.5 % (36.0-48.0); LYMPH # 1.3 (1.2-3.4); LYMPH % 28.3 % (22.0-35.0); MEAN CELL VOLUME 90.3 fL (80.0-105.0); MEAN CORPUSCULAR HEMOGLOBIN 28.5 pg (25.0-35.0); MEAN CORPUSCULAR HGB CONC 31.5 g/dl (31.0-37.0); MEAN PLATELET VOLUME 11.1 fl (7.0-11.0); MONO # 0.6 (0.1-0.6); MONO % 13.3 % (1.0-6.0); PLATELET COUNT 123 10^3/uL (120.0-450.0); RED CELL DISTRIBUTION WIDTH 14.1 % (11.5-14.5); WHITE BLOOD COUNT 4.5 10^3/ul (4.5-11.0)
[2016-10-10 07:11] LABS: MAGNESIUM 1.8 mg/dL (1.7-2.2); PHOSPHOROUS 3.4 mg/dL (2.5-4.5)
[2016-10-10 08:05] LABS: ALB/GLOB RATIO 1.2 (1.1-1.8); BILIRUBIN,TOTAL 0.7 mg/dL (0.2-1.3); CALCIUM 8.8 mg/dL (8.4-10.5); TOTAL PROTEIN 5.4 g/dL (5.8-8.3)
--- NOTE | 2016-10-10 08:16 | PQF CHF ---
This form is a permanent part of the medical record Dr. Aaron, Just a reminder to include specificity of CHF, type and severity, in your documentation. Clarification of your documentation is requested to better reflect the severity of illness and intensity of treatment of your patient. Indicators present [x] Diagnosis of CHF and/or history of CHF [x] BNP > 200 [] Imaging Finding of Pulmonary Edema /Pleural Effusions [] Fluid/Volume Overload [x] Pitting edema [x] Ejection Fraction < 40% (Indicative of Systolic Heart Failure) [] Ejection Fraction > 40% (Indicative of Diastolic Heart Failure) [x] Dyspnea / Orthopenea / Paroxysmal Nocturnal Dyspnea [] Other: Location in the medical record that reflects the above clinical findings: [] Treatment Provided: [] PHYSICIAN'S RESPONSE Based on your medical judgment of the clinical indicators outlined above, are you treating this patient for a known or suspected: [] Acute CHF [] Systolic [] Diastolic [] Combined [] Chronic CHF [] Systolic [] Diastolic [] Combined [x] Acute on Chronic CHF []Systolic [] Diastolic [] Combined [] CHF due hypertension [] Acute systolic []Chronic systolic [] Acute/ chronic systolic [] Other, please indicate: [] [] If Unable to Determine, please check the box, sign and date. Present On Admission (POA) Indicator: [x] Present at the time of admission [] Not present at the time of admission [] Clinically Undetermined In responding to this query, please exercise your independent professional judgment. The fact that a question is asked does not imply that any particular answer is desired or expected. Thank you for your clarification on this documentation. If you have any questions please call:[ ] * Thank you, [ ]Korey Kimble [facility] #[id number] surgical attendant SAPNA
[2016-10-10] MEDS: Pantoprazole 40 mg EC Tab PO SCH (08:20)
[2016-10-10] MEDS: cefTRIAXone 1 gm 1 GM/100 ML BAG IVPB SCH (09:33)
[2016-10-10] MEDS: diltiaZEM 180 mg/24 Hours CD Cap PO SCH (09:34)
[2016-10-10] MEDS: Docusate-Senna 50 mg-8.6 mg Tab PO SCH ×2 (09:34→17:10)
[2016-10-10 10:00] VITALS: PULSE 65
[2016-10-10] MEDS ORDERED: Digoxin 125 mcg (0.125 mg) Tab PO SCH (10:00)
--- NOTE | 2016-10-10 10:11 | CON ---
DATE: 10/09/2016 REASON FOR CONSULTATION: Rule out acute decompensated congestive heart failure, cardiac evaluation. BRIEF CLINICAL HISTORY: This is a 76-year-old female with past medical history of cardiomyopathy, co ngestive heart failure, ejection fraction 30-35%, aortic valve replacement, history of chronic kidney disease; chronic atrial fibrillation, on Coumadin; CVA, hypertension, hyperlipidemia, COPD. Came to the Emergency Room with a complaint of 2 days history of progressive shortness of breath. The patie nt went to see Dr. Coronel who also noticed leg swelling so patient was sent to the ER. The patie nt also complained of some bringing up of yellow colored sputum, cough, but denies any fever or chill s. Complained of a 1-2 block dyspnea and occasional PND and orthopnea. PAST MEDICAL HISTORY: Significant for congestive heart failure, aortic valve replacement, chronic ki dney disease; chronic atrial fibrillation, on Coumadin; history of CVA, hypertension, COPD; AAA, hist ory of open heart surgery, history of 4 vessels at [facility] with an aortic valve replacement; his tory of chronic atrial fibrillation, hypertension, hyperlipidemia. MOST RECENT CARDIAC WORKUP: As follows: The patient had a stress test on 08/07/2016 that shows ejec tion fraction 27%, abnormal SPECT myocardial perfusion study, partially reversible, suspicious for is chemia, dated 08/07/2016. Last echo 01/17/2016. Ejection fraction 30-35% read by Dr. Jimenez, moderate global hypokinesia from bypass surgery, aortic valve replacement, normal functioning bioprosthetic valve, moderate mitral reg urgitation, mild to moderate tricuspid regurgitation, mild to moderate pulmonary hypertension, right ventricular systolic pressure 43. Prior to that, patient had echo 03/29/2015: Ejection fraction 55%, atrial fibrillation, AVR. Following this abnormal stress, the patient underwent cardiac catheterization on 08/18/2016 that reve aled single vessel LAD, mid to distal LAD occlusion/[employer], BARAJAS ____ not used for grafting, status post bioprosthetic AVR; CKD kidney disease, only 30 mL of contrast was used. Aggressive medical treatmen t was done. Initially was told by the patient that patient had 4-vessel bypass, but closely after th e cardiac catheterization found to be single vessel CAD, 100% LAD occluded, mid to distal. BARAJAS was not used. No bypass. only AVR was done by prosthetic. History of chronic atrial fibrillation. Cir cumflex a moderate caliber vessel essentially free of significant disease, right artery is a codomina nt essentially and no flow-limiting disease noted. CURRENT MEDICATIONS: The patient is taking Coumadin, digoxin, Cardizem, Lipitor, Lasix. ALLERGIES: TO SULFA DRUGS AND ZOFRAN. REVIEW OF SYSTEMS: As per HPI. PHYSICAL EXAMINATION: VITAL SIGNS: Temperature afebrile, heart rate 72, blood pressure 131/83. HEENT: PERRLA. Extraocular muscles intact. NECK: Supple. No carotid bruits. No thyromegaly. CHEST: Clear to auscultation. HEART: S1, S2 regular. ABDOMEN: Soft. EXTREMITIES: Clubbing and cyanosis negative. BLOOD WORKUP: As follows: WBC 4.5, hemoglobin 11.5, hematocrit 36.2, platelet count 120. Chemistry shows sodium 141, potassium 2.7, chloride 103, carbon dioxide 30, anion gap of 11, BUN 70, creatinin e 1.5. BNP 16,800. IMPRESSION: Renal insufficiency, creatinine clearance 40 mL; cardiomyopathy, ischemic; total left an terior descending occluded, status post aortic valve replacement; status post cardiac catheterization on 08/18/2016, single vessel ____, coronary artery disease, mid to distal left anterior descending, cardiomyopathy, ejection fraction severely decreased. Last catheterization on 08/18/2016, LV was not done because of a bioprosthetic aortic valve, but by echo ejection fraction 30-35%. Stress test of 08/07/2016 shows ejection fraction 27%, decompensated congestive heart failure, acute on chronic, sec ondary to systolic dysfunction. IMPRESSION: Acute decompensated congestive heart failure, acute on chronic systolic dysfunction, cor onary artery disease, cardiomyopathy; status post aortic valve replacement, bioprosthesis; hypokalemi a; chronic atrial fibrillation, on Coumadin; anticoagulation, on Coumadin, INR 1.68. RECOMMENDATION: We will start Lasix, digoxin. Continue PRATIK inhibitor as tolerated, Coreg. Will add Primacor for 24-48 hours get the maximum benefit from, decompensated congestive heart failure and pr event deterioration of the renal function. We will follow with you. Thank you, Dr. Lindsay, for providing the opportunity in taking care of the patient. Vu Morin MD cc: [id number] TT: 10/09/2016 16:10:12 Confirmation # [id number] Dictation # [id number] mn
[2016-10-10] MEDS ORDERED: Milrinone 20mg/100ml D5W 100 ML IV ONE (11:33)
[2016-10-10] MEDS: Milrinone 20mg/100ml D5W 100 ML IV PRN (11:37)
--- NOTE | 2016-10-10 12:38 | CP.PCM.PN ---
<Stef Weir - Last Filed: 10/10/16 12:29> Subjective - Date & Time of Evaluation Date of Evaluation: 10/10/16 Time of Evaluation: 10:00 - Subjective Subjective: Patient seen and examined. Patient continues to experience a productive cough with yellowish sputum. She is afebrile and without significant respiratory distress. Continued on Primacor. Blood pressure is stable. Objective - Vital Signs/Intake and Output Vital Signs (last 24 hours): Temp Pulse Resp BP Pulse Ox 98.6 F 92 H 18 128/62 97 10/10/16 05:33 10/10/16 11:37 10/10/16 05:33 10/10/16 11:37 10/10/16 05:33 Intake and Output: 10/10/16 10/10/16 06:59 18:59 Intake Total 360 100 Output Total 600 Balance -240 100 - Medications Medications: Current Medications Acetaminophen (Tylenol 325 Mg Supp) 325 mg RC Q6 PRN PRN Reason: Fever >100.4 F Albuterol/Ipratropium (Duoneb 3 Mg/0.5 Mg (3 Ml) Ud) 3 ml IH [id number] [facility] Alprazolam (Xanax) 0.25 mg PO BID [facility] PRN Reason: Protocol Stop: 10/16/16 10:01 Last Admin: 10/10/16 09:35 Dose: 0.25 mg Aspirin (Aspirin Chewable) 81 mg PO DAILY [facility] Last Admin: 10/10/16 09:35 Dose: 81 mg Atorvastatin Calcium (Lipitor) 40 mg PO DAILY [facility] Last Admin: 10/10/16 09:34 Dose: 40 mg Carvedilol (Coreg) 3.125 mg PO BID [facility] Last Admin: 10/10/16 09:34 Dose: 3.125 mg Cyanocobalamin (Vitamin B12 1000 Mcg Tab) 1,000 mcg PO DAILY [facility] Last Admin: 10/10/16 09:35 Dose: 1,000 mcg Digoxin (Lanoxin) 0.125 mg PO MWF [facility] Last Admin: 10/10/16 09:59 Dose: 0.125 mg Diltiazem HCl (Cardizem Cd) 180 mg PO DAILY [facility] Last Admin: 10/10/16 09:34 Dose: 180 mg Furosemide (Lasix) 40 mg IVP BID [facility] Last Admin: 10/10/16 09:33 Dose: 40 mg Ceftriaxone Sodium (Rocephin 1 Gram Ivpb) 1 gm in 100 mls @ 100 mls/hr IVPB DAILY [facility] PRN Reason: Protocol Last Admin: 10/10/16 09:33 Dose: 100 mls/hr Milrinone Lactate/Dextrose (Primacor 20mg/100ml D5w) 100 mls @ 4.267 mls/hr IV .[id number] PRN; Protocol; 0.2 MCG/KG/MIN PRN Reason: TITRATE PER MD ORDER Stop: 10/11/16 07:00 Last Admin: 10/10/16 11:37 Dose: 0.2 mcg/kg/min, 4.267 mls/hr Levalbuterol HCl (Xopenex) 1.25 mg IH Q2H PRN PRN Reason: SOB Losartan Potassium (Cozaar) 50 mg PO DAILY [facility] Last Admin: 10/10/16 09:34 Dose: 50 mg Pantoprazole Sodium (Protonix Ec Tab) 40 mg PO ACB [facility] Last Admin: 10/10/16 08:20 Dose: 40 mg Psyllium Hydrophilic Mucilloid (Hydrocil Instant) 1 pkt PO DAILY PRN PRN Reason: Constipation Senna/Docusate Sodium (Senokot S 50 Mg-8.6 Mg) 1 tab PO BID [facility] Last Admin: 10/10/16 09:34 Dose: 1 tab Warfarin Sodium (Coumadin) 7.5 mg PO 1800 [facility] PRN Reason: Protocol - Labs Labs: 10/10/16 06:15 10/10/16 06:15 PT 17.9 Seconds (9.9-11.8) H 10/10/16 05:35 INR 1.66 (0.93-1.08) H 10/10/16 05:35 - Constitutional Appears: Non-toxic, No Acute Distress - Head Exam Head Exam: ATRAUMATIC, NORMOCEPHALIC - Eye Exam Eye Exam: EOMI, PERRL - ENT Exam ENT Exam: Mucous Membranes Moist - Neck Exam Neck Exam: Full ROM, Normal Inspection - Respiratory Exam Respiratory Exam: Rales, Rhonchi, NORMAL BREATHING PATTERN. absent: Clear to Ausculation Bilateral, Respiratory Distress - Cardiovascular Exam Cardiovascular Exam: REGULAR RHYTHM, +S1, +S2 - GI/Abdominal Exam GI & Abdominal Exam: Soft, Normal Bowel Sounds - Extremities Exam Extremities Exam: Full ROM, Pedal Edema. absent: Calf Tenderness - Neurological Exam Neurological Exam: Alert, Awake, Oriented x3 - Psychiatric Exam Psychiatric exam: Normal Affect, Normal Mood - Skin Skin Exam: Dry, Warm Assessment and Plan - Assessment and Plan (Free Text) Assessment: 76 y/o female with hx of systolic HR with EF of approx 35%, hx COPD presenting with exacerbation of systolic heart failure with associated pulmonary edema, shortness of breath and LE edema. LE edema and pulmonary edema are improving. Patient is also suffering from pre-renal LOLA in the setting of reduced EF. Cardiology is following. Primacor day#1 of likely 2 days. Acute on Chronic exacerbation of systolic heart failure - continue Milrinone per cardiology -baseline EF 30-35%; patient had cath last month and no intervention was done -BNP ~5000 higher than previous visits -continue Losartan 50mg daily as renal function will allow -Lasix 40mg BID IV -c/w cardizem -compressive leg stockings Chronic A.Fibb and Aortic Valve Replacement -patient is on warfarin -INR is currently subtherapeutic; rate controlled with cardizem - Coumadin increased from 5mg to 7.5mg daily. will f/u INR LOLA on chronic kidney disease - continue with Milrinone to preserve renal perfusion - montior Cr hx CVA -c/w aspirin HTN -c/w current meds as stated above HLD -c/w statin COPD - duonebs q6h PRN -supplemental O2 if saturation drops below 92% Proph -Esomeprazole -Heart healthy Diet -Physical therapy -Warfarin -incentive spirometry -OOB as tolerated Patient seen and discussed with attending. <Juan Pablo GUNDERSON,Vu - Last Filed: 10/10/16 13:00> Objective - Vital Signs/Intake and Output Vital Signs (last 24 hours): Temp Pulse Resp BP Pulse Ox 98.6 F 92 H 18 128/62 97 10/10/16 05:33 10/10/16 11:37 10/10/16 05:33 10/10/16 11:37 10/10/16 05:33 Intake and Output: 10/10/16 10/10/16 06:59 18:59 Intake Total 360 100 Output Total 600 Balance -240 100 - Medications Medications: Current Medications Acetaminophen (Tylenol 325 Mg Supp) 325 mg RC Q6 PRN PRN Reason: Fever >100.4 F Albuterol/Ipratropium (Duoneb 3 Mg/0.5 Mg (3 Ml) Ud) 3 ml IH [id number] [facility] Alprazolam (Xanax) 0.25 mg PO BID [facility] PRN Reason: Protocol Stop: 10/16/16 10:01 Last Admin: 10/10/16 09:35 Dose: 0.25 mg Aspirin (Aspirin Chewable) 81 mg PO DAILY [facility] Last Admin: 10/10/16 09:35 Dose: 81 mg Atorvastatin Calcium (Lipitor) 40 mg PO DAILY [facility] Last Admin: 10/10/16 09:34 Dose: 40 mg Carvedilol (Coreg) 3.125 mg PO BID [facility] Last Admin: 10/10/16 09:34 Dose: 3.125 mg Cyanocobalamin (Vitamin B12 1000 Mcg Tab) 1,000 mcg PO DAILY [facility] Last Admin: 10/10/16 09:35 Dose: 1,000 mcg Digoxin (Lanoxin) 0.125 mg PO MWF [facility] Last Admin: 10/10/16 09:59 Dose: 0.125 mg Diltiazem HCl (Cardizem Cd) 180 mg PO DAILY [facility] Last Admin: 10/10/16 09:34 Dose: 180 mg Furosemide (Lasix) 40 mg IVP BID [facility] Last Admin: 10/10/16 09:33 Dose: 40 mg Ceftriaxone Sodium (Rocephin 1 Gram Ivpb) 1 gm in 100 mls @ 100 mls/hr IVPB DAILY [facility] PRN Reason: Protocol Last Admin: 10/10/16 09:33 Dose: 100 mls/hr Milrinone Lactate/Dextrose (Primacor 20mg/100ml D5w) 100 mls @ 4.267 mls/hr IV .[id number] PRN; Protocol; 0.2 MCG/KG/MIN PRN Reason: TITRATE PER MD ORDER Stop: 10/11/16 07:00 Last Admin: 10/10/16 11:37 Dose: 0.2 mcg/kg/min, 4.267 mls/hr Levalbuterol HCl (Xopenex) 1.25 mg IH Q2H PRN PRN Reason: SOB Losartan Potassium (Cozaar) 50 mg PO DAILY [facility] Last Admin: 10/10/16 09:34 Dose: 50 mg Pantoprazole Sodium (Protonix Ec Tab) 40 mg PO ACB [facility] Last Admin: 10/10/16 08:20 Dose: 40 mg Psyllium Hydrophilic Mucilloid (Hydrocil Instant) 1 pkt PO DAILY PRN PRN Reason: Constipation Senna/Docusate Sodium (Senokot S 50 Mg-8.6 Mg) 1 tab PO BID [facility] Last Admin: 10/10/16 09:34 Dose: 1 tab Warfarin Sodium (Coumadin) 7.5 mg PO 1800 [facility] PRN Reason: Protocol - Labs Labs: 10/10/16 06:15 10/10/16 06:15 PT 17.9 Seconds (9.9-11.8) H 10/10/16 05:35 INR 1.66 (0.93-1.08) H 10/10/16 05:35 Attending/Attestation - Attestation I have personally seen and examined this patient.: Yes I have fully participated in the care of the patient.: Yes I have reviewed all pertinent clinical information, including history, physical exam and plan: Yes Notes (Text): 10/10/16 12:54 Patient was seen and examined with medical technicians. 76 year old woman with a history of CHF 30-35%, aortic valve replacement, chronic kidney disease, chronic atrial fibrillation (on Coumadin), CVA, HTN, with acute on chronic systolic CHF, still has basal crackle and occasional ronchi.Patient has been started on Milrinone drip by cardiology, we will continue V diuresis, renal functions are at base line 1.6.We willl monitor BUN and creatinin. INR is not therapeutic, we will give 7.5 mg warfarin today and will follow up INR. Management plan was discussed in detail with patient.Education was provided
[2016-10-10] MEDS: Albuterol-Ipratrop 3 mg / 0.5 (3 ml) UD IH SCH ×2 (13:10→19:28)
--- NOTE | 2016-10-10 16:47 | PN ---
DATE: 10/10/2016 REASON FOR CONSULTATION AND FOLLOWUP: Acute decompensated congestive heart failure, cardiac evaluati on. BRIEF CLINICAL HISTORY: A 76-year-old female with a past medical history significant for cardiomyopa thy, congestive heart failure, ejection fraction 30%-35%, aortic valve replacement, history of chroni c kidney disease, chronic atrial fibrillation on Coumadin, CVA, hypertension, hyperlipidemia. Came w ith decompensated congestive heart failure. PHYSICAL EXAMINATION: VITAL SIGNS: Temperature afebrile, heart rate 92, blood pressure 112/54. HEENT: PERRLA. Extraocular muscles intact. NECK: Supple. No carotid bruit, no thyromegaly. CHEST: Clear to auscultation. HEART: S1, S2 regular. ABDOMEN: Soft. EXTREMITIES: Clubbing, cyanosis negative. BLOOD WORKUP: WBC 4.5, hemoglobin 11. , hematocrit 35.5, platelet count 123. Chemistry shows so dium 138, potassium 4, chloride 104, carbon dioxide 28, anion gap of 10, BUN , creatinine 1.6. BNP 16,800, today is 9,800. IMPRESSION: 1. Acute decompensated congestive heart failure, secondary to cardiomyopathy, ischemic cardiomyopath y. 2. History of coronary artery disease. 3. History of aortic valve replacement, bioprosthetic. 4. History of chronic kidney disease. 5. History of cardiac catheterization 08/18/2016 that shows single vessel coronary artery disease, m id left anterior descending totally occluded, no bypass and only aortic valve replacement. The patie nt initially said that had 4 bypass, but actually she does not have any bypass, only aortic valve rep lacement was done. Left internal mammary artery was not used to the chest wall, mid left anter ior descending totally occluded, circumflex was a moderate caliber vessel, essentially free of signif icant disease, right coronary artery was dominant, codominant essentially, no flow limiting stenosis. RECOMMENDATION: Continue digoxin, Lasix. Continue PRATIK inhibitors. Continue Coreg as blood pressure s tolerated. The patient started on IV Primacor. Will get the benefit for 24-48 hours on Primacor. Continue anticoagulation. Goal is to keep INR between 2-2.5. Today, INR is 1.66. The patient is o n 7.5 mg of Coumadin today. History of atrial fibrillation, chronic. We will continue Primacor unti l tomorrow at 7 and if remains stable, possible discharge home tomorrow. Thank you, Dr. Coronel, for providing us the opportunity in taking care of the patient. Dr. Lindsay taking care of here. We will add magnesium, phosphorus, SMA-7 for tomorrow blood workup. Monitor t he renal function as well as electrolytes. We will follow with you. Vu Morin MD cc:Obi Coronel MD 305 TT: 10/10/2016 15:46:15 Confirmation # [id number] Dictation # [id number] en
[2016-10-11] MEDS: Albuterol-Ipratrop 3 mg / 0.5 (3 ml) UD IH SCH ×4 (01:01→19:22)
[2016-10-11 07:04] LABS: ADD MANUAL DIFF? NO
[2016-10-11 07:15] LABS: BASO # 0.05 K/mm3 (0.0-2.0); EOS # 0.1 (0.0-0.7); EOS % 2.9 % (1.5-5.0); GRAN # 2.76 (1.4-6.5); GRAN % 57.9 % (50.0-68.0); LYMPH # 1.2 (1.2-3.4); LYMPH % 25.6 % (22.0-35.0); MEAN CORPUSCULAR HGB CONC 32.3 g/dl (31.0-37.0); MEAN PLATELET VOLUME 11.3 fl (7.0-11.0); MONO # 0.6 (0.1-0.6); MONO % 12.6 % (1.0-6.0); PLATELET COUNT 121 10^3/uL (120.0-450.0); WHITE BLOOD COUNT 4.8 10^3/ul (4.5-11.0)
[2016-10-11 07:16] LABS: INR 1.74 (0.93-1.08)
[2016-10-11 07:40] LABS: ALB/GLOB RATIO 1.3 (1.1-1.8); BILIRUBIN,TOTAL 0.4 mg/dL (0.2-1.3); CALCIUM 8.7 mg/dL (8.4-10.5); MAGNESIUM 1.8 mg/dL (1.7-2.2); PHOSPHOROUS 4.5 mg/dL (2.5-4.5); POTASSIUM 3.8 mmol/L (3.6-5.0); TOTAL PROTEIN 5.4 g/dL (5.8-8.3)
[2016-10-11] MEDS: Pantoprazole 40 mg EC Tab PO SCH (08:30)
[2016-10-11] MEDS: diltiaZEM 180 mg/24 Hours CD Cap PO SCH (09:52)
[2016-10-11] MEDS: cefTRIAXone 1 gm 1 GM/100 ML BAG IVPB SCH (09:53)
--- NOTE | 2016-10-11 10:42 | CP.PCM.DIS ---
<TitusCindy - Last Filed: 10/11/16 18:23> Provider - Provider Date of Admission: 10/09/16 01:23 Attending physician: Luther Aaron MD Primary care physician: Obi Pitt MD Time Spent in preparation of Discharge (in minutes): 45 Hospital Course - Lab Results Lab Results: Most Recent Lab Values WBC 4.8 10^3/ul (4.5-11.0) 10/11/16 07:02 RBC 3.89 10^6/uL (3.5-6.1) 10/11/16 07:02 Hgb 11.3 gm/dL (12.0-16.0) L 10/11/16 07:02 Hct 35.0 % (36.0-48.0) L 10/11/16 07:02 MCV 90.0 fL (80.0-105.0) 10/11/16 07:02 MCH 29.0 pg (25.0-35.0) 10/11/16 07:02 MCHC 32.3 g/dl (31.0-37.0) 10/11/16 07:02 RDW 14.0 % (11.5-14.5) 10/11/16 07:02 Plt Count 121 10^3/uL (120.0-450.0) 10/11/16 07:02 MPV 11.3 fl (7.0-11.0) H 10/11/16 07:02 Gran % 57.9 % (50.0-68.0) 10/11/16 07:02 Lymph % (Auto) 25.6 % (22.0-35.0) 10/11/16 07:02 [place] % (Auto) 12.6 % (1.0-6.0) H 10/11/16 07:02 Eos % (Auto) 2.9 % (1.5-5.0) 10/11/16 07:02 Baso % (Auto) 1.0 % (0.0-3.0) 10/11/16 07:02 Gran # 2.76 (1.4-6.5) 10/11/16 07:02 Lymph # 1.2 (1.2-3.4) 10/11/16 07:02 [place] # 0.6 (0.1-0.6) 10/11/16 07:02 Eos # 0.1 (0.0-0.7) 10/11/16 07:02 Baso # 0.05 K/mm3 (0.0-2.0) 10/11/16 07:02 PT 18.8 Seconds (9.9-11.8) H 10/11/16 07:02 INR 1.74 (0.93-1.08) H 10/11/16 07:02 pO2 29 mm/Hg (30-55) L 10/08/16 22:25 VBG pH 7.41 (7.32-7.43) 10/08/16 22:25 VBG pCO2 50.0 (40-60) 10/08/16 22:25 VBG HCO3 31.7 mmol/l (21-28) H 10/08/16 22:25 VBG Total CO2 33.2 mmol.L (22-28) H 10/08/16 22:25 VBG O2 Sat (Calc) 70.6 % (40-65) H 10/08/16 22:25 VBG Base Excess 5.8 mmol/L (0.0-2.0) H 10/08/16 22:25 VBG Potassium 3.9 mmol/L (3.6-5.2) 10/08/16 22:25 Sodium 141.0 mmol/L (132-148) 10/08/16 22:25 Chloride 106.0 mmol/L (98-107) 10/08/16 22:25 Glucose 124 mg/dl (65-105) H 10/08/16 22:25 Lactate 1.4 mmol/L (0.7-2.1) 10/08/16 22:25 FiO2 21.0 % 10/08/16 22:25 Sodium 137 mmol/L (132-148) 10/11/16 07:02 Potassium 3.8 mmol/L (3.6-5.0) 10/11/16 07:02 Chloride 102 mmol/L (95-110) 10/11/16 07:02 Carbon Dioxide 29 mmol/L (21-33) 10/11/16 07:02 Anion Gap 10 (10-20) 10/11/16 07:02 BUN 24 mg/dL (7-21) H 10/11/16 07:02 Creatinine 1.8 mg/dL (0.5-1.4) H 10/11/16 07:02 Est GFR ( Amer) 33 10/11/16 07:02 Est GFR (Non-Af Amer) 27 10/11/16 07:02 Random Glucose 100 mg/dL (70-110) 10/11/16 07:02 Calcium 8.7 mg/dL (8.4-10.5) 10/11/16 07:02 Phosphorus 4.5 mg/dL (2.5-4.5) 10/11/16 07:02 Magnesium 1.8 mg/dL (1.7-2.2) 10/11/16 07:02 Total Bilirubin 0.4 mg/dL (0.2-1.3) 10/11/16 07:02 AST 26 U/L (15-39) 10/11/16 07:02 ALT 46 U/L (7-56) 10/11/16 07:02 Alkaline Phosphatase 71 U/L (38-133) 10/11/16 07:02 Lactate Dehydrogenase 555 U/L (333-699) 10/09/16 05:35 Total Creatine Kinase 61 U/L (35-230) 10/09/16 05:35 Troponin I 0.05 ng/mL D 10/09/16 05:35 NT-Pro-B Natriuret Pep 9800 pg/mL (0-450) H 10/10/16 06:15 Total Protein 5.4 g/dL (5.8-8.3) L 10/11/16 07:02 Albumin 3.0 g/dL (3.0-4.8) 10/11/16 07:02 Globulin 2.4 gm/dL 10/11/16 07:02 Albumin/Globulin Ratio 1.3 (1.1-1.8) 10/11/16 07:02 Lipase 31 U/L (23-300) 10/08/16 22:31 Venous Blood Potassium 3.9 mmol/L (3.6-5.2) 10/08/16 22:25 - Hospital Course Hospital Course: 76 year old woman with a history of CHF 30-35%, aortic valve replacement, chronic kidney disease, chronic atrial fibrillation (on Coumadin), CVA, HTN, HLD and COPD, AAA which is stable who is presenting to the ED w/ a 2d history of SOB, abdominal pain, and lower extremity swelling. Patient states she has felt more short of breath the past two days, and went to her doctor, Dr. Pitt, because her legs were swelling which is something she states has never happened to her before. Patient states she has shortness of breath, with a slight cough, with yellowish sputum. Pt was admitted for acute CHF exacerbation, where pts baseline EF is approx 30-35% as per cardiac cath performed a month ago. Pt upon admission had elevated BNP, and on physical exam had crackles on lung exam and 3+ pitting edema. CXR was taken and demonstrated pulmonary venous congestion likely 2/2 CHF exacerbation. Losartan dosage was increased from 25mg to 50mg and IV lasix was administered at 40mg BID. Pt's home cardizem was continued and compression leg stockings were placed. Troponins were trended; was 0.04 upon admission and downtrended during pts inpt stay. Pt had complaints of abdominal pain upond admission so a CT abdomen pelvis with po iv contrat was taken however did not demonstrate any acute intraabdominal pathology. Pt abdominal pain continued to improve throughout her stay. Pt has a hx of afib on AC with warfarin, however pt INR was subtherapeutic so the home dose of 5mg was increased to 7.5 mg. Pt was rate controlled with cardizem. Pt continued to improve during her stay. Her breathing became less labored and less difficult, less rales were appreciated on exam and less pitting edema was noted on a daily basis. Cardiology was consulted, Dr. Morin based on pts extensive cardiac history. Cardiology recommended lasix, digoxin, and a 24-48hr therapy of pimacor. An echo was also performed to fu with cardiac function at this time. Pt continue to improve clinically throughout her stay and labwork improved from admission. Pt was stable to be dc with follow up with PMD Dr. Pitt and Cardiology Dr. Morin. Discharge Exam - Head Exam Head Exam: ATRAUMATIC, NORMOCEPHALIC - Eye Exam Eye Exam: EOMI, Normal appearance, PERRL Pupil Exam: NORMAL ACCOMODATION, PERRL - ENT Exam ENT Exam: Mucous Membranes Moist - Respiratory Exam Respiratory Exam: Clear to PA & Lateral, NORMAL BREATHING PATTERN, UNREMARKABLE - Cardiovascular Exam Cardiovascular Exam: RRR, +S1, +S2 - GI/Abdominal Exam GI & Abdominal Exam: Normal Bowel Sounds - Extremities Exam Extremities exam: normal inspection - Back Exam Back exam: NORMAL INSPECTION - Neurological Exam Neurological exam: Alert, CN II-XII Intact, Normal Gait, Oriented x3, Reflexes Normal - Psychiatric Exam Psychiatric exam: Normal Affect, Normal Mood - Skin Skin Exam: Dry, Intact, Normal Color, Warm Discharge Plan - Discharge Medications Prescriptions: Carvedilol [Coreg] 3.125 mg PO BID #60 tab Digoxin [Lanoxin] 0.125 mg PO MWF #12 tab Levalbuterol [Xopenex] 1.25 mg IH Q2H PRN 14 Days PRN Reason: SOB - Follow Up Plan Condition: FAIR Disposition: HOME/ ROUTINE Instructions: Heart Failure (DC), Heart Failure (GEN), Pacemaker (DC), Pacemaker (GEN), Pulmonary Edema (DC), Pulmonary Edema (GEN), Heart Healthy Diet (GEN), Ascites (DC), Ascites (GEN) Additional Instructions: 1. Pt is to FU with PMD Dr. Pitt within 3-5 days 2. Pt is to FU with Mont[employer] Teacher Dr. Morin within 3-5 days 3. Pt is to restart home medications as prescribed prior to admission 4. Pt is to start new medications as prescribed 5. Pt will need to fu with INR and Creatinine next week 6. Pt welcomed to return to [facility] if symptoms change or worsen Referrals: Obi Pitt MD [Primary Care Provider] - Vu Morin MD [Staff Provider] - <Luther Aaron - Last Filed: 10/12/16 10:58> Provider - Provider Date of Admission: 10/09/16 01:23 Attending physician: Luther Aaron MD Primary care physician: Obi Pitt MD Hospital Course - Lab Results Lab Results: Most Recent Lab Values WBC 4.5 10^3/ul (4.5-11.0) 10/12/16 07:00 RBC 4.24 10^6/uL (3.5-6.1) 10/12/16 07:00 Hgb 12.5 gm/dL (12.0-16.0) 10/12/16 07:00 Hct 38.6 % (36.0-48.0) 10/12/16 07:00 MCV 91.0 fL (80.0-105.0) 10/12/16 07:00 MCH 29.5 pg (25.0-35.0) 10/12/16 07:00 MCHC 32.4 g/dl (31.0-37.0) 10/12/16 07:00 RDW 14.0 % (11.5-14.5) 10/12/16 07:00 Plt Count 123 10^3/uL (120.0-450.0) 10/12/16 07:00 MPV 11.3 fl (7.0-11.0) H 10/12/16 07:00 Gran % 53.4 % (50.0-68.0) 10/12/16 07:00 Lymph % (Auto) 28.6 % (22.0-35.0) 10/12/16 07:00 [place] % (Auto) 13.1 % (1.0-6.0) H 10/12/16 07:00 Eos % (Auto) 4.0 % (1.5-5.0) 10/12/16 07:00 Baso % (Auto) 0.9 % (0.0-3.0) 10/12/16 07:00 Gran # 2.41 (1.4-6.5) 10/12/16 07:00 Lymph # 1.3 (1.2-3.4) 10/12/16 07:00 [place] # 0.6 (0.1-0.6) 10/12/16 07:00 Eos # 0.2 (0.0-0.7) 10/12/16 07:00 Baso # 0.04 K/mm3 (0.0-2.0) 10/12/16 07:00 PT 21.6 Seconds (9.9-11.8) H 10/12/16 07:00 INR 2.00 (0.93-1.08) H 10/12/16 07:00 pO2 29 mm/Hg (30-55) L 10/08/16 22:25 VBG pH 7.41 (7.32-7.43) 10/08/16 22:25 VBG pCO2 50.0 (40-60) 10/08/16 22:25 VBG HCO3 31.7 mmol/l (21-28) H 10/08/16 22:25 VBG Total CO2 33.2 mmol.L (22-28) H 10/08/16 22:25 VBG O2 Sat (Calc) 70.6 % (40-65) H 10/08/16 22:25 VBG Base Excess 5.8 mmol/L (0.0-2.0) H 10/08/16 22:25 VBG Potassium 3.9 mmol/L (3.6-5.2) 10/08/16 22:25 Sodium 141.0 mmol/L (132-148) 10/08/16 22:25 Chloride 106.0 mmol/L (98-107) 10/08/16 22:25 Glucose 124 mg/dl (65-105) H 10/08/16 22:25 Lactate 1.4 mmol/L (0.7-2.1) 10/08/16 22:25 FiO2 21.0 % 10/08/16 22:25 Sodium 139 mmol/L (132-148) 10/12/16 07:00 Potassium 4.4 mmol/L (3.6-5.0) 10/12/16 07:00 Chloride 101 mmol/L (95-110) 10/12/16 07:00 Carbon Dioxide 31 mmol/L (21-33) 10/12/16 07:00 Anion Gap 11 (10-20) 10/12/16 07:00 BUN 22 mg/dL (7-21) H 10/12/16 07:00 Creatinine 1.7 mg/dL (0.5-1.4) H 10/12/16 07:00 Est GFR ( Amer) 35 10/12/16 07:00 Est GFR (Non-Af Amer) 29 10/12/16 07:00 Random Glucose 98 mg/dL (70-110) 10/12/16 07:00 Calcium 9.1 mg/dL (8.4-10.5) 10/12/16 07:00 Phosphorus 4.5 mg/dL (2.5-4.5) 10/11/16 07:02 Magnesium 1.8 mg/dL (1.7-2.2) 10/11/16 07:02 Total Bilirubin 0.4 mg/dL (0.2-1.3) 10/12/16 07:00 AST 27 U/L (15-39) 10/12/16 07:00 ALT 42 U/L (7-56) 10/12/16 07:00 Alkaline Phosphatase 74 U/L (38-133) 10/12/16 07:00 Lactate Dehydrogenase 555 U/L (333-699) 10/09/16 05:35 Total Creatine Kinase 61 U/L (35-230) 10/09/16 05:35 Troponin I 0.05 ng/mL D 10/09/16 05:35 NT-Pro-B Natriuret Pep 9800 pg/mL (0-450) H 10/10/16 06:15 Total Protein 6.0 g/dL (5.8-8.3) 10/12/16 07:00 Albumin 3.3 g/dL (3.0-4.8) 10/12/16 07:00 Globulin 2.6 gm/dL 10/12/16 07:00 Albumin/Globulin Ratio 1.3 (1.1-1.8) 10/12/16 07:00 Lipase 31 U/L (23-300) 10/08/16 22:31 Venous Blood Potassium 3.9 mmol/L (3.6-5.2) 10/08/16 22:25 Attending/Attestation - Attestation I have personally seen and examined this patient.: Yes I have fully participated in the care of the patient.: Yes I have reviewed all pertinent clinical information, including history, physical exam and plan: Yes Notes (Text): 10/12/16 10:54 Attending note; Patient was seen and examined with medical device sales representative. Patient is a 76 year old woman with the past medical history of CHF 30-35%, bioprosthetic aortic valve replacement, chronic kidney disease, chronic atrial fibrillation (on Coumadin), CVA, HTN, with acute on chronic systolic CHF is admitted with acute Systolic CHF. continue IV lasix and milrinon drip. Case discussed with c ardiology DR. Morin in detail. CKD: baseline cr at 1.6 to 1.8. A fib on coumadin. dose adjusted. Patient will need close foillow up with Cardiology. If EF does not improve after 3 months might need AICD evaluation. Follow up with PMD Dr. pitt and Cardiology DR. morin and and Renal DR. Estrada. Diagnosis: acute systolic CHF Cardiomyopthy AVR a fib CKD copd 10/12/16 10:58
[2016-10-11 16:01] VITALS: O2SAT 93
--- NOTE | 2016-10-11 21:14 | PN ---
DATE: 10/11/2016 REASON FOR CONSULTATION AND FOLLOWUP: Acute decompensated congestive heart failure, cardiac evaluati on. BRIEF CLINICAL HISTORY: A 76-year-old female with past medical history significant for cardiomyopath y, congestive heart failure, ejection fraction 30%-35%, aortic valve replacement, history of chronic kidney disease, chronic atrial fibrillation on Coumadin, CVA, hypertension, hyperlipidemia, admitted with decompensated congestive heart failure. The patient was treated with IV Primacor, remains stabl e, feels better. PHYSICAL EXAMINATION: VITAL SIGNS: Temperature afebrile, heart rate 90, blood pressure 115/____. HEENT: PERRLA. Extraocular muscles intact. NECK: Supple. No carotid bruits. No thyromegaly. CHEST: Clear to auscultation. HEART: S1, S2 regular. ABDOMEN: Soft. EXTREMITIES: Clubbing and cyanosis negative. BLOOD WORKUP: As follows: WBC 4.8, hemoglobin ____, hematocrit 35, platelet count 121. Chemistry s hows sodium ____, potassium 3.8, chloride ____, carbon dioxide ____, anion gap of 10, BUN 24, creatin ine 1.8. IMPRESSION: Chronic kidney disease, chronic atrial fibrillation, cardiomyopathy, ejection fraction 3 0%-35%, status post open heart surgery, status post aortic valve replacement. The patient stated a 4 -vessel bypass, there was no bypass, only aortic valve replaced. History of last catheterization 04/2016 that shows single vessel coronary artery disease, mid left anterior descending totally occlud ed, no bypass, left internal mammary artery ____ to the chest wall, chronic kidney disease, status po st bioprosthetic aortic valve replacement, cardiomyopathy, possibly ischemic. RECOMMENDATION: Continue Coumadin. Goal is to keep INR between 2-2.5. INR today is 1.6. Continue PRATIK inhibitors. Continue Coreg as blood pressures tolerate it. Repeat MUGA scan and echo in 3-6 mon ths to assess LV function. If it remains below 35, consider AICD. Follow with Dr. Coronel. Disc uss with Dr. Aaron. Agree to discharge home. Will follow with you. Thank you, Dr. Aaron, for providing the opportunity in taking care of the patient. Vu Morin MD cc: [facility] TT: 10/11/2016 12:43:44 Confirmation # [id number] Dictation # [id number] rn
--- NOTE | 2016-10-11 22:54 | CARD ---
APPROVED REPORT EXAM: Two-dimensional and M-mode echocardiogram with Doppler and color Doppler. INDICATION 2D DIMENSIONS IVSd1.6 (0.7-1.1cm)LVDd5.3 (3.9-5.9cm) LVOT Diameter2.2 (1.8-2.4cm)PWd1.5 (0.7-1.1cm) LVDs3.5 (2.5-4.0cm)FS (%) 34.2 % M-Mode DIMENSIONS Left Atrium (MM)5.40 (2.5-4.0cm)Aortic Root3.50 (2.2-3.7cm) Aortic Valve AoV Peak Ditptswr838.0cm/sAoV VTI74.9cmAO Peak GR.70mmHg LVOT Peak Wkxtbujr77.6cm/sLVOT VTI16.30cmAO Mean GR.28mmHg MARLENI (VMAX)0.95ax1EWQ (VTI)0.83cm2 Mitral Valve MV E Frjzwocd503.0cm/sMV E Peak Gr.104mmHgE/A ratio0.0 TDI Lateral E' Peak V7.51cm/sMedial E' Peak V4.97cm/sE/Lateral E'19.0 E/Medial E'28.8 Tricuspid Valve TR Peak Awvntkav733it/sRAP [id number] Peak Gr.40mmHg [id number] LEFT VENTRICLE The left ventricle is normal size. There is moderate concentric left ventricular hypertrophy. Left ventricle systolic function is moderately to severely impaired. The Ejection Fraction is 35-40%. There is global hypokinesis of the left ventricle. RIGHT VENTRICLE The right ventricle is normal size. There is normal right ventricular wall thickness. The right ventricular systolic function is normal. ATRIA The left atrium is severely dilated. The right atrium is moderately dilated. AORTIC VALVE The aortic valve is severely sclerotic. There is moderate valvular aortic stenosis. MITRAL VALVE Mitral annular calcification is moderate. Mitral regurgitation is moderate. TRICUSPID VALVE There is mild to moderate tricuspid regurgitation. There is mild to moderate pulmonary hypertension. GREAT VESSELS The aortic root displays severe sclerocalcific changes of the aortic root. <Conclusion> The left ventricle is normal size. There is moderate concentric left ventricular hypertrophy. Left ventricle systolic function is moderately to severely impaired. The Ejection Fraction is 35-40%. There is global hypokinesis of the left ventricle. There is moderate valvular aortic stenosis. Mitral regurgitation is moderate. There is mild to moderate tricuspid regurgitation. There is mild to moderate pulmonary hypertension.
[2016-10-12 02:03] VITALS: RESP 18
[2016-10-12] MEDS: Albuterol-Ipratrop 3 mg / 0.5 (3 ml) UD IH SCH ×2 (02:10→08:43)
[2016-10-12 07:27] LABS: ADD MANUAL DIFF? NO
[2016-10-12 07:56] LABS: ALB/GLOB RATIO 1.3 (1.1-1.8); BILIRUBIN,TOTAL 0.4 mg/dL (0.2-1.3); CALCIUM 9.1 mg/dL (8.4-10.5); POTASSIUM 4.4 mmol/L (3.6-5.0)
[2016-10-12 07:58] LABS: BASO # 0.04 K/mm3 (0.0-2.0); BASO % 0.9 % (0.0-3.0); EOS # 0.2 (0.0-0.7); GRAN # 2.41 (1.4-6.5); GRAN % 53.4 % (50.0-68.0); HEMATOCRIT 38.6 % (36.0-48.0); LYMPH # 1.3 (1.2-3.4); LYMPH % 28.6 % (22.0-35.0); MEAN CORPUSCULAR HEMOGLOBIN 29.5 pg (25.0-35.0); MEAN CORPUSCULAR HGB CONC 32.4 g/dl (31.0-37.0); MEAN PLATELET VOLUME 11.3 fl (7.0-11.0); MONO # 0.6 (0.1-0.6); MONO % 13.1 % (1.0-6.0); PLATELET COUNT 123 10^3/uL (120.0-450.0); WHITE BLOOD COUNT 4.5 10^3/ul (4.5-11.0)
[2016-10-12] MEDS: Pantoprazole 40 mg EC Tab PO SCH (08:28)
[2016-10-12] MEDS: diltiaZEM 180 mg/24 Hours CD Cap PO SCH (09:20)
[2016-10-12 12:40] VITALS: TEMP 98.3
--- NOTE | 2016-10-12 12:56 | PN ---
DATE: 10/12/2016 REASON FOR CONSULTATION AND FOLLOWUP: Acute decompensated congestive heart failure, cardiac evaluati on. SUBJECTIVE: The patient denies any chest pain, shortness of breath. Feels better, wanted to go home . PHYSICAL EXAMINATION: VITAL SIGNS: Temperature afebrile, heart rate , blood pressure 130/97. HEENT: PERRLA. Extraocular muscles intact. NECK: Supple. No carotid bruits. No thyromegaly. CHEST: Clear to auscultation. HEART: S1, S2 regular. ABDOMEN: Soft. EXTREMITIES: Clubbing and cyanosis negative. LABORATORY DATA: Blood workup as follows: WBC 4.5, hemoglobin 12.5, hematocrit 38.6, platelet count 123. Chemistry shows sodium 139, potassium 4.4, chloride 101, carbon dioxide 30, anion gap of 11, B UN 22, creatinine 1.7. IMPRESSION: Acute kidney injury, chronic renal insufficiency, coronary artery disease, status post o pen heart surgery, status post aortic valve replacement. No coronary artery bypass graft. The patie nt said 4-vessel coronary artery bypass graft, but actually it was just aortic valve replacement, bio prosthetic, status post cardiac catheterization that shows distal left anterior descending occluded, last catheterization 08/18/2016 that shows single vessel left anterior descending, mid, totally occlu ded, left internal mammary artery was not used, no bypass was done. Chronic kidney disease, cardiomy opathy, possibly ischemic. Repeat echo shows ejection fraction 35%-40%. Chronic atrial fibrillation. RECOMMENDATION: Continue Coumadin. Keep INR between 2-2.5. Continue PRATIK. Monitor renal function. Continue Coreg. Follow up LV function evaluation in 6 months to a year. If remains below 35, consi tristan AICD. Most recent echo done the day before yesterday, ejection fraction 35%-40%. We will follow with you. Possibly patient will be discharged today. Thank you, Dr. Aaron, for providing the opportunity in taking care of the patient. Vu Morin MD cc: [id number] TT: 10/12/2016 12:55:18 Confirmation # [id number] Dictation # [id number]
--- NOTE | 2016-10-12 13:36 | CP.PCM.PN ---
<Cindy Qureshi - Last Filed: 10/12/16 13:34> Subjective - Date & Time of Evaluation Date of Evaluation: 10/12/16 Time of Evaluation: 10:25 - Subjective Subjective: Pt was seen and examined at bedside. Pt was to be discharged yesterday, however there were some concerns regarding having a walker and some abdominal discomfort at time of discharge. Pt is feeling much better today and is ready to go home. Pt has no complaints at this time. No acute or adverse events overnight. Objective - Vital Signs/Intake and Output Vital Signs (last 24 hours): Temp Pulse Resp BP Pulse Ox 98.3 F 54 L 18 153/82 H 93 L 10/12/16 12:00 10/12/16 12:00 10/12/16 12:00 10/12/16 12:00 10/12/16 06:00 Intake and Output: 10/12/16 10/12/16 06:59 18:59 Intake Total 480 Output Total 980 Balance -500 - Medications Medications: Current Medications Acetaminophen (Tylenol 325mg Tab) 650 mg PO Q6H PRN PRN Reason: Pain, moderate (4-7) Last Admin: 10/11/16 04:20 Dose: 650 mg Albuterol/Ipratropium (Duoneb 3 Mg/0.5 Mg (3 Ml) Ud) 3 ml IH [id number] [facility] Last Admin: 10/12/16 08:43 Dose: 3 ml Alprazolam (Xanax) 0.25 mg PO BID [facility] PRN Reason: Protocol Stop: 10/16/16 10:01 Last Admin: 10/12/16 09:22 Dose: 0.25 mg Aspirin (Aspirin Chewable) 81 mg PO DAILY [facility] Last Admin: 10/12/16 09:20 Dose: 81 mg Atorvastatin Calcium (Lipitor) 40 mg PO DAILY [facility] Last Admin: 10/12/16 09:20 Dose: 40 mg Carvedilol (Coreg) 3.125 mg PO BID [facility] Last Admin: 10/12/16 09:22 Dose: 3.125 mg Cyanocobalamin (Vitamin B12 1000 Mcg Tab) 1,000 mcg PO DAILY [facility] Last Admin: 10/12/16 09:20 Dose: 1,000 mcg Digoxin (Lanoxin) 0.125 mg PO [facility] Last Admin: 10/10/16 09:59 Dose: 0.125 mg Diltiazem HCl (Cardizem Cd) 180 mg PO DAILY [facility] Last Admin: 10/12/16 09:20 Dose: 180 mg Furosemide (Lasix) 40 mg IVP DAILY [facility] Last Admin: 10/12/16 09:22 Dose: 40 mg Levalbuterol HCl (Xopenex) 1.25 mg IH Q2H PRN PRN Reason: SOB Losartan Potassium (Cozaar) 50 mg PO DAILY [facility] Last Admin: 10/12/16 09:21 Dose: 50 mg Pantoprazole Sodium (Protonix Ec Tab) 40 mg PO ACB [facility] Last Admin: 10/12/16 08:28 Dose: 40 mg Warfarin Sodium (Coumadin) 7.5 mg PO 1800 [facility] PRN Reason: Protocol Last Admin: 10/11/16 18:05 Dose: 7.5 mg - Labs Labs: 10/12/16 07:00 10/12/16 07:00 PT 21.6 Seconds (9.9-11.8) H 10/12/16 07:00 INR 2.00 (0.93-1.08) H 10/12/16 07:00 - Constitutional Appears: No Acute Distress - Head Exam Head Exam: ATRAUMATIC, NORMAL INSPECTION, NORMOCEPHALIC - Eye Exam Eye Exam: EOMI, Normal appearance, PERRL Pupil Exam: NORMAL ACCOMODATION, PERRL - ENT Exam ENT Exam: Mucous Membranes Moist, Normal Exam - Neck Exam Neck Exam: Full ROM, Normal Inspection. absent: Lymphadenopathy - Respiratory Exam Respiratory Exam: Clear to Ausculation Bilateral, NORMAL BREATHING PATTERN - Cardiovascular Exam Cardiovascular Exam: REGULAR RHYTHM, +S1, +S2. absent: Murmur - GI/Abdominal Exam GI & Abdominal Exam: Soft, Normal Bowel Sounds. absent: Tenderness - Extremities Exam Extremities Exam: Full ROM, Normal Capillary Refill, Normal Inspection. absent : Joint Swelling, Pedal Edema - Back Exam Back Exam: NORMAL INSPECTION - Neurological Exam Neurological Exam: Alert, Awake, CN II-XII Intact, Oriented x3 - Psychiatric Exam Psychiatric exam: Normal Affect, Normal Mood - Skin Skin Exam: Dry, Intact, Normal Color, Warm Assessment and Plan - Assessment and Plan (Free Text) Assessment: Please refer to discharge summary for discharge plan and instructions. <Luther Aaron - Last Filed: 10/12/16 14:15> Objective - Vital Signs/Intake and Output Vital Signs (last 24 hours): Temp Pulse Resp BP Pulse Ox 98.3 F 63 18 130/62 93 L 10/12/16 12:00 10/12/16 13:35 10/12/16 12:00 10/12/16 13:35 10/12/16 06:00 Intake and Output: 10/12/16 10/12/16 06:59 18:59 Intake Total 480 Output Total 980 Balance -500 - Labs Labs: 10/12/16 07:00 10/12/16 07:00 PT 21.6 Seconds (9.9-11.8) H 10/12/16 07:00 INR 2.00 (0.93-1.08) H 10/12/16 07:00 Attending/Attestation - Attestation I have personally seen and examined this patient.: Yes I have fully participated in the care of the patient.: Yes I have reviewed all pertinent clinical information, including history, physical exam and plan: Yes Notes (Text): 10/12/16 14:14 Attending note; Patient was seen and examined with medical transcription. Patient is a 76 year old woman with the past medical history of CHF 30-35%, bioprosthetic aortic valve replacement, chronic kidney disease, chronic atrial fibrillation (on Coumadin), CVA, HTN, with acute on chronic systolic CHF is admitted with acute Systolic CHF. continue IV lasix and milrinon drip. Case discussed with c ardiology DR. Morin in detail. CKD: baseline cr at 1.6 to 1.8. creatinine is 1.7 today. INR is 2.0. A fib on coumadin. dose adjusted. Patient will need close follow up with Cardiology. If EF does not improve after 3 months might need AICD evaluation. physical therapy evaluation appreciated. Follow up with PMD Dr. pitt and Cardiology DR. morin and and Renal DR. Estrada. Diagnosis: acute systolic CHF Cardiomyopthy AVR a fib CKD copd
[2016-10-12 14:06] VITALS: BP 130/62; PULSE 63
== END 2016-10-12 14:04 | disposition home or self-care (01) | DRG 291 ==
LOC: ED 21:38 → OBSVTOIN 10-09 01:23 → ERH 10-09 01:23 → 2RNO 10-09 03:48
PROVIDERS: ADMIT Internal Medicine; ATTEND Internal Medicine
PROC: 3E0F7GC Introduction of Other Therapeutic Substance into Respiratory Tract, Via Natural or Artificial Opening (ICD-10-PCS; principal; 2016-10-10)
DX: I13.0 Hypertensive heart and chronic kidney disease with heart failure and stage 1 through stage 4 chronic kidney disease, or unspecified chronic kidney disease (principal); I50.23 Acute on chronic systolic (congestive) heart failure; N17.9 Acute kidney failure, unspecified; N18.9 Chronic kidney disease, unspecified; I71.6 Thoracoabdominal aortic aneurysm, without rupture; I48.2 Chronic atrial fibrillation; I25.5 Ischemic cardiomyopathy; I25.10 Atherosclerotic heart disease of native coronary artery without angina pectoris; J44.9 Chronic obstructive pulmonary disease, unspecified; E78.5 Hyperlipidemia, unspecified; K44.9 Diaphragmatic hernia without obstruction or gangrene; D25.9 Leiomyoma of uterus, unspecified; I27.2 Other secondary pulmonary hypertension; M48.56XA Collapsed vertebra, not elsewhere classified, lumbar region, initial encounter for fracture; I08.1 Rheumatic disorders of both mitral and tricuspid valves; Z95.2 Presence of prosthetic heart valve; Z86.73 Personal history of transient ischemic attack (TIA), and cerebral infarction without residual deficits; Z79.01 Long term (current) use of anticoagulants; Z95.1 Presence of aortocoronary bypass graft

== ENCOUNTER 2017-03-24 06:14 | Inpatient (IN) | payer MEDICARE, OTHER ==
--- NOTE | 2017-03-24 07:41 | ED PDOC ---
Arrival/HPI - General Chief Complaint: Upper Extremity Problem/Injury Time Seen by Provider: 03/24/17 06:21 Historian: Patient - History of Present Illness Narrative History of Present Illness (Text): 03/24/17 07:21 A 76 year old female whose past medical history includes CHF, COPD, hypertension , hyperlipidemia, diverticulitis presents to emergency department via EMS status post fall with right arm and wrist pain. The patient states she got out of bed and was walking to the kitchen when she slipped on her slipper. She states she was unable to get up on her own so she called 911. The patient denies any left extremity pain, chest pain, abdominal pain, head trauma, loss of consciousness, or any other complaints at this time. Time/Duration: Prior to Arrival Symptom Onset: Sudden Symptom Course: Unchanged Severity Level: Moderate Activities at Onset: Other (status post fall ) Context: Home, Slipped Past Medical History - Provider Review Nursing Documentation Reviewed: Yes - Infectious Disease Hx of Infectious Diseases: None - Tetanus Immunization Tetanus Immunization: Unknown - Reproductive Menopause: Yes - Cardiac Hx Atrial Fibrillation: Yes Hx Congestive Heart Failure: Yes Hx Hypertension: Yes - Pulmonary Hx Chronic Obstructive Pulmonary Disease (COPD): Yes - Neurological HX Cerebrovascular Accident: Yes (cane) - HEENT Hx HEENT Disorder: Yes (Wears reading glasses. Upper denture.) Hx Blind: No Hx Cataracts: No Hx Deafness: No Hx Difficulty Chewing: No Hx Epistaxis: No Hx Glaucoma: No Hx Macular Degeneration: No - Renal Hx Renal Disorder: No Hx Renal Failure: No - Endocrine/Metabolic Hx Endocrine Disorders: No Hx Diabetes Mellitus Type 1: No Hx Diabetes Mellitus Type 2: No - Hematological/Oncological Hx Blood Disorders: No - Integumentary Hx Dermatological Disorder: No Hx Basal Cell Carcinoma: No Hx Eczema: No Hx Melanoma: No Hx Psoriasis: No Hx Squamous Cell Carcinoma: No - Musculoskeletal/Rheumatological Hx Arthritis: Yes - Gastrointestinal Hx Gastrointestinal Disorders: Yes (Cholecystectomy. Abdominal Sx for Diverticulitis; Hernia?) Hx Colostomy: No Hx Crohn's Disease: No Hx Diverticulitis: Yes Hx Gall Bladder Disease: No Hx Gastroesophageal Reflux: No Hx Ileostomy: No Hx Liver Failure: No Hx Pancreatitis: No HX Swallowing Problems: No - Genitourinary/Gynecological Hx Genitourinary Disorders: No Hx Hematuria: No Hx Incontinence: No Hx Sexually Transmitted Diseases: No Hx Urinary Tract Infection: No - Psychiatric Hx Psychophysiologic Disorder: No Hx Emotional Abuse: No Hx Physical Abuse: No Hx Substance Use: No Other/Comment: nervous - Surgical History Hx Cholecystectomy: Yes Hx Open Heart Surgery: Yes (5 yrs) Hx Valve Replacement: Yes - Anesthesia Hx Anesthesia: No Hx Anesthesia Reactions: No Hx Malignant Hyperthermia: No - Suicidal Assessment Feels Threatened In Home Enviroment: No Family/Social History - Physician Review Nursing Documentation Reviewed: Yes Family/Social History: No Known Family HX Smoking Status: Former Smoker Hx Alcohol Use: No Hx Substance Use: No Hx Substance Use Treatment: No Allergies/Home Meds Allergies/Adverse Reactions: Allergies Sulfa (Sulfonamide Antibiotics) Allergy (Unknown, Verified 03/24/17 15:55) . palpitations Home Medications: Home Meds Medication Instructions Recorded Confirmed Esomeprazole Magnesium [Nexium] 40 mg PO DAILY 07/18/15 03/24/17 Albuterol HFA [Ventolin HFA 90 1 inh INH PRN PRN 01/16/16 03/24/17 mcg/actuation (8 g)] Cholecalciferol (Vitamin D3) 1 tab PO DAILY 01/16/16 03/24/17 [Vitamin D3] Alprazolam [Xanax] 0.25 mg PO BID 10/08/16 03/24/17 Atorvastatin [Lipitor] 40 mg PO DAILY 10/08/16 03/24/17 Calcium Polycarbophil [Fiber Lax] 625 mg PO PRN PRN 10/08/16 03/24/17 Cyanocobalamin (Vitamin B-12) 1,000 mcg PO DAILY 10/08/16 03/24/17 [Vitamin B-12] Review of Systems - Physician Review All systems were reviewed & negative as marked: Yes - Review of Systems Constitutional: absent: Fevers Eyes: absent: Vision Changes Cardiovascular: absent: Chest Pain Gastrointestinal: absent: Abdominal Pain Musculoskeletal: Back Pain (lower back ), Other (right arm pain ) Neurological: absent: Headache, Dizziness, Gait Changes Physical Exam Vital Signs Reviewed: Yes Vital Signs Temp Pulse Resp BP Pulse Ox 03/24/17 14:49 89 18 178/62 H 98 03/24/17 10:01 72 18 145/69 98 03/24/17 07:15 97.8 F 70 18 126/72 98 12/05/17 06:24 97.8 F 70 18 126/72 98 Temperature: Afebrile Blood Pressure: Normal Pulse: Regular Respiratory Rate: Normal Appearance: Positive for: Well-Appearing, Non-Toxic, Comfortable Pain Distress: None Mental Status: Positive for: Alert and Oriented X 3 - Systems Exam Head: Present: Atraumatic, Normocephalic. No: Tenderness, Contusion Pupils: Present: PERRL Extroacular Muscles: Present: EOMI Conjunctiva: Present: Normal Mouth: Present: Moist Mucous Membranes Neck: Present: Normal Range of Motion. No: Meningeal Signs, MIDLINE TENDERNESS , Paraspinal Tenderness Respiratory/Chest: Present: Clear to Auscultation, Good Air Exchange. No: Respiratory Distress, Accessory Muscle Use Cardiovascular: Present: Regular Rate and Rhythm, Normal S1, S2. No: Murmurs Abdomen: Present: Normal Bowel Sounds. No: Tenderness, Distention, Peritoneal Signs, Rebound, Guarding Back: Present: Normal Inspection. No: CVA Tenderness, Midline Tenderness, Paraspinal Tenderness, Pain with Leg Raise Upper Extremity: Present: NORMAL PULSES, Tenderness (tenderness over right wrist ), Swelling (swelling over anterior aspect of right wrist), Neurovascularly Intact, Other (right elbow tender, but non-tender; shoulder is non-tender). No : Cyanosis, Edema, Normal ROM (decreased ROM in right wrist) Lower Extremity: Present: Normal Inspection. No: Edema Neurological: Present: GCS=15, CN II-XII Intact, Speech Normal Skin: Present: Warm, Dry, Normal Color. No: Rashes Psychiatric: Present: Alert, Oriented x 3, Normal Insight, Normal Concentration Medical Decision Making ED Course and Treatment: suha Beltrán who came and did reduction/splinting in the ED pt lives alone and uses a cane to walk w right hand so now unable to ambulate on her own disc w hosp who will admit - Lab Interpretations Lab Results: 03/24/17 08:35 03/24/17 08:35 Lab Results 03/24/17 08:35: Blood Type O POSITIVE, Antibody Screen Negative, BBK History Checked Patient has bt 03/24/17 08:35: Sodium 139, Potassium 3.6, Chloride 102, Carbon Dioxide 27, Anion Gap 13, BUN 34 H, Creatinine 1.6 H, Est GFR ( Amer) 38, Est GFR ( Non-Af Amer) 31, Random Glucose 93, Calcium 8.8, Total Bilirubin 0.5, AST 28, ALT 30, Alkaline Phosphatase 83, Total Protein 6.4, Albumin 3.6, Globulin 2.8, Albumin/Globulin Ratio 1.3 03/24/17 08:35: PT 34.9 H, INR 3.10 H 03/24/17 08:35: WBC 5.5 D, RBC 4.31, Hgb 13.0, Hct 39.0, MCV 90.5, MCH 30.2, MCHC 33.3, RDW 13.8, Plt Count 120, MPV 10.8, Gran % 60.7, Lymph % (Auto) 22.7, [place] % (Auto) 13.0 H, Eos % (Auto) 3.2, Baso % (Auto) 0.4, Gran # 3.36, Lymph # 1.3, [place] # 0.7 H, Eos # 0.2, Baso # 0.02 - RAD Interpretation Radiology Orders: 03/24/17 07:32 ELBOW RIGHT 3 VIEWS ROUTINE [RAD] Stat WRIST, RIGHT 3 VIEWS [RAD] Stat 03/24/17 12:07 WRIST, RIGHT 3 VIEWS [RAD] Stat - Medication Orders Current Medication Orders: Acetaminophen (Tylenol 650mg/20.3ml Solution Ud) 650 mg PO Q6H PRN PRN Reason: Pain, Mild (1-3) Alprazolam (Xanax) 0.25 mg PO BID [facility] PRN Reason: Protocol Stop: 03/31/17 18:01 Aspirin (Aspirin Chewable) 81 mg PO DAILY [facility] Atorvastatin Calcium (Lipitor) 40 mg PO DAILY [facility] Carvedilol (Coreg) 3.125 mg PO BID [facility] Cholecalciferol (Vitamin D) 1 iu PO DAILY [facility] Cyanocobalamin (Vitamin B12 1000 Mcg Tab) 1,000 mcg PO DAILY [facility] Digoxin (Lanoxin) 0.125 mg PO MWF [facility] Diltiazem HCl (Cardizem Cd) 180 mg PO DAILY [facility] Docusate Sodium (Colace) 100 mg PO DAILY [facility] Furosemide (Lasix) 40 mg PO DAILY [facility] Sodium Chloride (Sodium Chloride 0.9%) 1,000 mls @ 75 mls/hr IV .[id number] [facility] Levalbuterol HCl (Xopenex) 1.25 mg IH Q2H PRN PRN Reason: SOB Losartan Potassium (Cozaar) 25 mg PO DAILY [facility] Morphine Sulfate (Morphine) 1 mg IVP Q4H PRN PRN Reason: Pain, moderate (4-7) Non-Formulary Medication (Calcium Polycarbophil [Fiber Lax]) 625 mg PO PRN PRN PRN Reason: Constipation Pantoprazole Sodium (Protonix Ec Tab) 40 mg PO DAILY [facility] Warfarin Sodium (Coumadin) 4 mg PO 1800 [facility] PRN Reason: Protocol Discontinued Medications Acetaminophen (Tylenol 325mg Tab) 975 mg PO STAT [facility] Stop: 03/24/17 07:33 Last Admin: 03/24/17 07:35 Dose: 975 mg [facility] Pain/Vitals Document 03/24/17 07:35 RG (Rec: 03/24/17 07:50 RG [id number]) Pain Reassessment Is This A Pain ReAssessment? Yes Sleep Is patient sleeping during reassessment? No Presence of Pain Presence of Pain Yes Pain Scale Used Pain Scale Used Numeric Location Intensity 10 Re-Assess: [facility] Pain/Vitals Document 03/24/17 08:35 LOGISTICS SERVICE REPRESENTATIVE (Rec: 03/24/17 14:18 LOGISTICS SERVICE REPRESENTATIVE [id number]) Pain Reassessment Is This A Pain ReAssessment? Yes Sleep Is patient sleeping during reassessment? No Presence of Pain Presence of Pain Yes - Scribe Statement The provider has reviewed the documentation as recorded by the Sugey Araujo Provider Scribe Attestation: All medical record entries made by the Scribe were at my direction and personally dictated by me. I have reviewed the chart and agree that the record accurately reflects my personal performance of the history, physical exam, medical decision making, and the department course for this patient. I have also personally directed, reviewed, and agree with the discharge instructions and disposition. Disposition/Present on Arrival - Present on Arrival Any Indicators Present on Arrival: No History of DVT/PE: No History of Uncontrolled Diabetes: No Urinary Catheter: No History of Decub. Ulcer: No History Surgical Site Infection Following: None - Disposition Have Diagnosis and Disposition been Completed?: Yes Diagnosis: Wrist fracture Disposition: HOSPITALIZED Disposition Time: 12:58 Condition: STABLE
[2017-03-24 08:42] LABS: BASO # 0.02 K/mm3 (0.0-2.0); BASO % 0.4 % (0.0-3.0); EOS # 0.2 (0.0-0.7); EOS % 3.2 % (1.5-5.0); GRAN # 3.36 (1.4-6.5); GRAN % 60.7 % (50.0-68.0); LYMPH # 1.3 (1.2-3.4); LYMPH % 22.7 % (22.0-35.0); MEAN CELL VOLUME 90.5 fl (80.0-105.0); MEAN CORPUSCULAR HEMOGLOBIN 30.2 pg (25.0-35.0); MEAN CORPUSCULAR HGB CONC 33.3 g/dl (31.0-37.0); MEAN PLATELET VOLUME 10.8 fl (7.0-11.0); MONO # 0.7 (0.1-0.6); RED CELL DISTRIBUTION WIDTH 13.8 % (11.5-14.5); WHITE BLOOD COUNT 5.5 10^3/ul (4.5-11.0)
[2017-03-24 08:52] LABS: INR 3.1 (0.93-1.08)
[2017-03-24 09:09] LABS: ALB/GLOB RATIO 1.3 (1.1-1.8); BILIRUBIN,TOTAL 0.5 mg/dL (0.2-1.3); CALCIUM 8.8 mg/dL (8.4-10.5); POTASSIUM 3.6 mmol/L (3.6-5.0); TOTAL PROTEIN 6.4 g/dL (5.8-8.3)
--- NOTE | 2017-03-24 09:32 | RAD ---
PROCEDURE: Radiographs of the right elbow. HISTORY: fall pain COMPARISON: No prior. FINDINGS: BONES: Examination limited due to failure to obtain true lateral view. There is no evidence fracture. JOINTS: Normal. No osteoarthritis. SOFT TISSUES: Normal. JOINT EFFUSION: None. OTHER FINDINGS: None. IMPRESSION: Normal limited examination. No evidence of fracture.
--- NOTE | 2017-03-24 09:48 | RAD ---
PROCEDURE: Right Wrist Radiographs. HISTORY: fall pain COMPARISON: None. FINDINGS: BONES: There is a comminuted, nondisplaced transverse fracture of the distal radius with impaction and dorsal angulation of the distal fragment with the distal articular surface. There is a nondisplaced fracture of the ulnar styloid process. No other fracture is identified. JOINTS: Normal. No dislocation. SOFT TISSUES: Normal. OTHER FINDINGS: None. IMPRESSION: Transverse comminuted distal radial fracture with dorsal angulation. Nondisplaced ulnar styloid process fracture.
--- NOTE | 2017-03-24 12:51 | RAD ---
PROCEDURE: Right Wrist Radiographs. HISTORY: post reduction COMPARISON: 03/24/2017 at 9:04 a.m. FINDINGS: BONES: The patient is status post close reduction of the distal radial fracture identified earlier on the same date. Near anatomic alignment has been achieved. Dorsal angulation of the distal fragment is no longer evident. There is mild impaction at fracture site. The previously evident nondisplaced ulnar styloid process fracture is not well demonstrated on the current examination due to overlying fiberglass splint. There is no other fracture identified. JOINTS: Normal. No dislocation. SOFT TISSUES: Normal. OTHER FINDINGS: None. IMPRESSION: Status post close reduction distal radial fracture.
[2017-03-24] MEDS ORDERED: Levalbuterol 1.25 MG/3 ML Inhal Soln UD IH PRN (15:05)
[2017-03-24] MEDS ORDERED: CALCIUM POLYCARBOPHIL 625 MG PO PRN (15:05)
--- NOTE | 2017-03-24 15:27 | CP.PCM.HP ---
<PashaJeffery - Last Filed: 03/24/17 16:54> History of Present Illness - History of Present Illness History of Present Illness: H/P for Dr. Sukh LO DO, PGY-1, Pager [phone] CC: S/p fall HPI: Pt is a 76F w/ PMHx of COPD, CHF, A-fib, HLD and HTN, presents w/ a right wrist fracture s/p a fall after tripping on her slippers earlier today. Pt stated that she was walking to the kitchen to grab a bite to eat when she fell forward and tried to brace her fall w/ her right hand. According to the pt, the pain is a sharp, numbing pain which radiates up her arm into stops at her right shoulder. Pt denies any LOC, dizziness, numbness, tingling, loss of sensation, VAN, SOB, CP, fever, chills, head trauma, N/V/C/D or abd pain prior and after the fall. Pt denies fever, chills, CP, SOB, N/V/D/C, Dysuria, abd pain, VAN, dizziness, LOC , head trauma, blurry vision, ringing in ears, recent sicknesses or travel. PSHx: Open heart surgery 5 years ago, PMHx: COPD, HTN, HLD, CHF, Afib All: Sulfur and Seasonal SocHx: Denies any illicit drug use, alcohol use and smoked 1 PPD for 7 years 10-15 years ago Hosp: last admitted on 10/04 for acute CHF exacerbation FamHx: DM in both mother and father. Heart issues in father. Meds: Lipitor, ASA, Xanax, Albuterol, Esomeprazole, Dig, Cyanocobalamin, Cholecalciferol, Carvedilol Calcium polycarbophil, Lasix, Cardizem, Coumadin, Losartan, Xopenex ROS: Const'l: pt denies fever, chills, generalized weakness ENT: pt denies dysphagia, otalgia, hearing deficit, rhinorrhea Eyes: pt denies sudden loss of vision, diplopia, blurred vision MSK: See hpi Cardio: pt denies sob, heart murmur, cp Pulm: pt denies cough, hemoptysis, wheeze GI: pt denies loss of appetite, abdominal pain, constipation, melena, n/v/d : pt denies burning on urination, urinary frequency, hematuria, urinary urgency Neuro: pt denies paresis, paresthesia, dizziness, van, numbness, tingling Derm: pt denies skin changes, lesions, nail changes Endo: pt denies intolerance to heat/cold, diaphoresis, night sweats, polydipsia Psych: pt denies anxiety, depression, mood changes Present on Admission - Present on Admission Any Indicators Present on Admission: No Past Patient History - Infectious Disease Hx of Infectious Diseases: None - Tetanus Immunizations Tetanus Immunization: Unknown - Past Medical History & Family History Past Medical History?: Yes - Past Social History Smoking Status: Former Smoker - CARDIAC Hx Atrial Fibrillation: Yes Hx Congestive Heart Failure: Yes Hx Hypertension: Yes - PULMONARY Hx Chronic Obstructive Pulmonary Disease (COPD): Yes - NEUROLOGICAL HX Cerebrovascular Accident: Yes (cane) - HEENT Hx HEENT Problems: Yes (Wears reading glasses. Upper denture.) Hx Blind: No Hx Cataracts: No Hx Deafness: No Hx Difficulty Chewing: No Hx Epistaxis: No Hx Glaucoma: No Hx Macular Degeneration: No - RENAL Hx Chronic Kidney Disease: No Hx Renal Failure: No - ENDOCRINE/METABOLIC Hx Endocrine Disorders: No Hx Diabetes Mellitus Type 1: No Hx Diabetes Mellitus Type 2: No - HEMATOLOGICAL/ONCOLOGICAL Hx Blood Disorders: No - INTEGUMENTARY Hx Dermatological Problems: No Hx Basil Cell: No Hx Eczema: No Hx Melanoma: No Hx Psoriasis: No Hx Squamous Cell: No - MUSCULOSKELETAL/RHEUMATOLOGICAL Hx Arthritis: Yes - GASTROINTESTINAL Hx Gastrointestinal Disorders: Yes (Cholecystectomy. Abdominal Sx for Diverticulitis; Hernia?) Hx Colostomy: No Hx Crohn's Disease: No Hx Diverticulitis: Yes Hx Gall Bladder Disease: No Hx Gastroesophageal Reflux: No Hx Ileostomy: No Hx Liver Failure: No Hx Pancreatitis: No HX Swallowing Problems: No - GENITOURINARY/GYNECOLOGICAL Hx Genitourinary Disorders: No Hx Hematuria: No Hx Incontinence: No Hx Sexually Transmitted Disorders: No Hx Urinary Tract Infection: No - PSYCHIATRIC Hx Psychophysiologic Disorder: No Hx Emotional Abuse: No Hx Physical Abuse: No Hx Substance Use: No Other/Comment: nervous - SURGICAL HISTORY Hx Cholecystectomy: Yes Hx Open Heart Surgery: Yes (5 yrs) Hx Valve Replacement: Yes - ANESTHESIA Hx Anesthesia: No Hx Anesthesia Reactions: No Hx Malignant Hyperthermia: No Meds Home Medications: Home Medication List Medication Instructions Recorded Confirmed Type Acetaminophen [Tylenol 650 mg PO Q6H PRN udc 03/26/17 Rx 650mg/20.3ml solution UD] Docusate [Colace] 100 mg PO DAILY #30 cap 03/26/17 Rx Allergies/Adverse Reactions: Allergies Allergy/AdvReac Type Severity Reaction Status Date / Time Sulfa (Sulfonamide Allergy Unknown . Verified 03/27/17 14:56 Antibiotics) Physical Exam - Additional Findings Additional findings: Phys Exam: VS as below Const'l: a&o x 4, lethargic, non-diaphoretic, non-jaundiced, non-cyanotic, Head/Neck: neck supple, no jvd, trachea midline, carotid midline, no cervical /head mass Eyes: LYNNE, non-icteric sclera, EOMI ENT: auditory acuity grossly intact, throat not congested, no nasal deformity Cardio: Irregularly regular rhythm w/ a 4/6 holosystolic murmur, No rubs or gallops, no carotid bruit, NML S1, S2 Pulm: no accessory muscle use, equal nml breath sounds bilaterally, CTAB Abd: s/nt/nd, NBS x 4, no palpable masses Derm: no rashes, no ulcers, no lesions, head trauma, bruises, cuts, lacerations, bleeds Extr: Right forearm in a cast and is tender to palpation w/ limited ROM of the right distal extremity. No visible cyanosis, no calf tenderness, no varicosities Neuro: CN II-XII grossly intact, 1/5 muscle strength of the RUE, all other extremities are 5/5 muscle strength w/ full ROM Results - Vital Signs Recent Vital Signs: Last Vital Signs Temp 97.8 F 03/24/17 07:15 Pulse 89 03/24/17 14:49 Resp 18 03/24/17 14:49 BP 178/62 H 03/24/17 14:49 Pulse Ox 98 03/24/17 14:49 - Labs Result Diagrams: 03/24/17 08:35 03/24/17 08:35 Assessment & Plan - Assessment and Plan (Free Text) Assessment: A/P 76F w/ PMHx of COPD, CHF, A-fib, HLD and HTN, presents w/ a right wrist fracture s/p a mechanical Wrist Fracture s/p CRIF s/p mechanical fall - Dr. Beltrán reduced the fracture, verified by XR; no surgical intervention needed - Pain control: tylenol for mild, morphine for moderate - severe Hx/o CHF - Lasix 40mg BID IV - hold til tomorrow because patient dry Chronic A.Fib and Aortic Valve Replacement - Reduced coumadin from 5 to 4 - INR is currently therapeutic; rate controlled with cardizem - Will measure daily and adjust warfarin accordingly Hx/ CKD -Currently at baseline -Monitor CVA - ASA HTN - Losartan HLD -Statin COPD - Xopenex - Supplemental O2 if saturation drops below 92% <Elisabet Luz - Last Filed: 03/27/17 16:14> Results - Vital Signs Recent Vital Signs: Last Vital Signs Temp 98.5 F 03/27/17 09:27 Pulse 77 03/27/17 10:38 Resp 16 03/27/17 09:27 BP 133/74 03/27/17 10:41 Pulse Ox 96 03/27/17 09:27 - Labs Result Diagrams: 03/27/17 06:20 03/27/17 06:20 Labs: Laboratory Results - last 24 hr 03/27/17 03/27/17 03/27/17 06:20 06:20 06:20 WBC 5.9 RBC 4.33 Hgb 13.1 Hct 39.3 MCV 90.8 MCH 30.3 MCHC 33.3 RDW 13.6 Plt Count 115 L MPV 10.6 Gran % 58.7 Lymph % (Auto) 25.8 Casey % (Auto) 9.4 H Eos % (Auto) 5.4 H Baso % (Auto) 0.7 Gran # 3.48 Lymph # 1.5 Casey # 0.6 Eos # 0.3 Baso # 0.04 PT 23.4 H INR 2.10 H APTT 27.4 Sodium 140 Potassium 4.0 Chloride 105 Carbon Dioxide 30 Anion Gap 9 L BUN 27 H Creatinine 1.7 H Est GFR ( Amer) 35 Est GFR (Non-Af Amer) 29 Random Glucose 117 H Hemoglobin A1c Calcium 9.1 Total Bilirubin 1.0 AST 28 ALT 29 Alkaline Phosphatase 73 Total Protein 6.5 Albumin 3.5 Globulin 3.0 Albumin/Globulin Ratio 1.2 03/27/17 06:58 WBC RBC Hgb Hct MCV MCH MCHC RDW Plt Count MPV Gran % Lymph % (Auto) Casey % (Auto) Eos % (Auto) Baso % (Auto) Gran # Lymph # Casey # Eos # Baso # PT INR APTT Sodium Potassium Chloride Carbon Dioxide Anion Gap BUN Creatinine Est GFR ( Amer) Est GFR (Non-Af Amer) Random Glucose Hemoglobin A1c 6.0 Calcium Total Bilirubin AST ALT Alkaline Phosphatase Total Protein Albumin Globulin Albumin/Globulin Ratio Attending/Attestation - Attestation I have personally seen and examined this patient.: Yes I have fully participated in the care of the patient.: Yes I have reviewed all pertinent clinical information: Yes Notes (Text): I have seen and examined the patient at bedside. Agree with the above note with the following additions/ exceptions: Briefly this is 76 year old female with history of COPD, CHF due to systolic dysfunction (EF 35%), atrial fibrillation who came for evaluation of right wrist fracture s/p mechanical fall. Ortho consult appreciated. Closed reduction was done by Dr Beltrán. Creatinine is at its baseline. INR is supratherapeutic. Will reduce coumadin dose. Continue analgesics, aspirin, statin, xopenex and losartan. Upon discharge patient will follow up with Dr Huang. Dr Elisabet Luz.
[2017-03-24] MEDS ORDERED: Morphine 2 mg/ml ISec IVP PRN (17:03)
[2017-03-24] MEDS ORDERED: Acetaminophen 650mg/20.3ml solution UD PO PRN (17:12)
[2017-03-24 19:29] VITALS: BMI 24.7
[2017-03-24] MEDS ORDERED: Influenza Vaccine 60 mcg/0.5 mL SYR (4YR UP) IM ONE (19:29)
[2017-03-24] MEDS ORDERED: Pneumococcal 23-Valent Vaccine IM ONE (19:29)
[2017-03-24] MEDS: Sodium Chloride 0.9% 1,000 ML IV SCH (20:30)
--- NOTE | 2017-03-24 22:32 | CON ---
DATE: 03/24/2017 ORTHOPEDIC CONSULT AND PROCEDURE REPORT I was called to the emergency room to see the patient that I know from the past. She slipped and fell at home today, suffered a displaced distal right radius fracture impacted with significant past history of a previous right wrist fracture over 8 years ago. The patient is 76 years old, lives home alone. She is going to be admitted to the hospital for weakness, and I did a close reduction application with short-arm cast removed the bulky splint she had on by the ER. She has good neurologic status. She has localized swelling to the wrist, can move the fingers well, and I padded it well and improved the position, put on a short-arm, well-padded cast to allow the elbow to move freely and strict instructions for elevation and observation. She is going to be admitted for observation, and we will make sure she is elevated and I will follow her daily while she is in the hospital. If she goes home, I will see her in the office; if she goes to subacute rehab, [facility]. FINAL DIAGNOSIS: Displaced, impacted, comminuted right distal radius fracture of the right arm. I did a close reduction application with short-arm cast. Macario Beltrán DO SAPNA
[2017-03-25] MEDS: Sodium Chloride 0.9% 1,000 ML IV SCH (05:34)
--- NOTE | 2017-03-25 07:40 | CARD ---
APPROVED REPORT EKG Measurement Heart [id number] <Conclusion> Atrial fibrillation Right bundle branch block T wave abnormality, consider lateral ischemia or digitalis effect Abnormal ECG
[2017-03-25 08:10] LABS: BASO # 0.03 K/mm3 (0.0-2.0); BASO % 0.4 % (0.0-3.0); EOS # 0.2 (0.0-0.7); EOS % 2.5 % (1.5-5.0); GRAN # 4.69 (1.4-6.5); GRAN % 67.9 % (50.0-68.0); HEMATOCRIT 42.4 % (36.0-48.0); LYMPH # 1.3 (1.2-3.4); LYMPH % 18.1 % (22.0-35.0); MEAN CELL VOLUME 90.6 fl (80.0-105.0); MEAN CORPUSCULAR HEMOGLOBIN 30.3 pg (25.0-35.0); MEAN CORPUSCULAR HGB CONC 33.5 g/dl (31.0-37.0); MEAN PLATELET VOLUME 10.7 fl (7.0-11.0); MONO # 0.8 (0.1-0.6); MONO % 11.1 % (1.0-6.0); RED CELL DISTRIBUTION WIDTH 13.7 % (11.5-14.5); WHITE BLOOD COUNT 6.9 10^3/ul (4.5-11.0)
[2017-03-25 08:28] LABS: INR 3.19 (0.93-1.08); PARTIAL THROMBOPLASTIN TIME 45.7 Seconds (25.1-36.5)
[2017-03-25 08:31] LABS: ALB/GLOB RATIO 1.2 (1.1-1.8); CALCIUM 8.9 mg/dL (8.4-10.5); POTASSIUM 3.7 mmol/L (3.6-5.0); TOTAL PROTEIN 6.9 g/dL (5.8-8.3)
[2017-03-25] MEDS ORDERED: Cholecalciferol 1,000 INTLU TAB PO SCH (10:00)
[2017-03-25] MEDS ORDERED: Levalbuterol 0.63 MG/3 ML Inhal Soln UD IH SCH ×2 (10:30→18:00)
[2017-03-25] MEDS: Pantoprazole 40 mg EC Tab PO SCH (10:36)
[2017-03-25] MEDS: Digoxin 125 mcg (0.125 mg) Tab PO SCH (10:37)
[2017-03-25] MEDS: Cholecalciferol 1,000 INTLU TAB PO SCH (10:39)
[2017-03-25] MEDS: diltiaZEM 180 mg/24 Hours CD Cap PO SCH (10:39)
[2017-03-25] MEDS ORDERED: Oxycodone/Acetaminophen 5/325 mg Tab PO PRN (14:44)
[2017-03-25] MEDS ORDERED: Morphine 2 mg/ml ISec IVP PRN (14:46)
--- NOTE | 2017-03-25 15:46 | CP.PCM.PN ---
<PashaJeffery - Last Filed: 03/25/17 15:42> Subjective - Date & Time of Evaluation Date of Evaluation: 03/25/17 Time of Evaluation: 15:42 - Subjective Subjective: Pt s/e bedside. She is doing well today. No complaints besides pain to her wrist, which has improved. Objective - Vital Signs/Intake and Output Vital Signs (last 24 hours): Temp Pulse Resp BP Pulse Ox 99.3 F 96 H 18 170/90 H 97 03/25/17 08:00 03/25/17 10:39 03/25/17 08:00 03/25/17 10:39 03/25/17 08:00 Intake and Output: 03/25/17 03/25/17 06:59 18:59 Intake Total 180 Output Total 500 Balance -320 - Medications Medications: Current Medications Acetaminophen (Tylenol 650mg/20.3ml Solution Ud) 650 mg PO Q6H PRN PRN Reason: Pain, Mild (1-3) Alprazolam (Xanax) 0.25 mg PO BID [facility] PRN Reason: Protocol Stop: 03/31/17 18:01 Last Admin: 03/25/17 10:39 Dose: 0.25 mg Aspirin (Aspirin Chewable) 81 mg PO DAILY [facility] Last Admin: 03/25/17 10:36 Dose: 81 mg Atorvastatin Calcium (Lipitor) 40 mg PO DAILY [facility] Last Admin: 03/25/17 10:38 Dose: 40 mg Carvedilol (Coreg) 3.125 mg PO BID [facility] Last Admin: 03/25/17 10:38 Dose: 3.125 mg Cholecalciferol (Vitamin D) 1,000 iu PO DAILY [facility] Last Admin: 03/25/17 10:39 Dose: 1,000 iu Cyanocobalamin (Vitamin B12 1000 Mcg Tab) 1,000 mcg PO DAILY [facility] Last Admin: 03/25/17 10:39 Dose: 1,000 mcg Digoxin (Lanoxin) 0.125 mg PO MWF [facility] Last Admin: 03/25/17 10:37 Dose: 0.125 mg Diltiazem HCl (Cardizem Cd) 180 mg PO DAILY [facility] Last Admin: 03/25/17 10:39 Dose: 180 mg Docusate Sodium (Colace) 100 mg PO DAILY [facility] Last Admin: 03/25/17 10:36 Dose: 100 mg Furosemide (Lasix) 40 mg PO DAILY [facility] Last Admin: 03/25/17 10:38 Dose: 40 mg Levalbuterol HCl (Xopenex) 1.25 mg IH Q2H PRN PRN Reason: SOB Levalbuterol HCl (Xopenex) 1.25 mg IH [id number] [facility] Losartan Potassium (Cozaar) 25 mg PO DAILY [facility] Last Admin: 03/25/17 10:38 Dose: 25 mg Morphine Sulfate (Morphine) 1 mg IVP Q6 PRN PRN Reason: Pain, severe (8-10) Oxycodone/Acetaminophen (Percocet 5/325 Mg Tab) 1 tab PO Q6 PRN PRN Reason: Pain, moderate (4-7) Stop: 03/28/17 18:01 Pantoprazole Sodium (Protonix Ec Tab) 40 mg PO DAILY [facility] Last Admin: 03/25/17 10:36 Dose: 40 mg Polyethylene Glycol (Miralax) 17 gm PO DAILY [facility] - Labs Labs: 03/25/17 07:45 03/25/17 07:45 PT 35.9 SECONDS (9.4-12.5) H 03/25/17 07:45 INR 3.19 (0.93-1.08) H 03/25/17 07:45 APTT 45.7 Seconds (25.1-36.5) H 03/25/17 07:45 - Additional Findings Additional findings: Phys Exam: VS as below Const'l: a&o x 4, lethargic, non-diaphoretic, non-jaundiced, non-cyanotic, Head/Neck: neck supple, no jvd, trachea midline, carotid midline, no cervical /head mass Eyes: LYNNE, non-icteric sclera, EOMI ENT: auditory acuity grossly intact, throat not congested, no nasal deformity Cardio: Irregularly regular rhythm w/ a 4/6 holosystolic murmur, No rubs or gallops, no carotid bruit, NML S1, S2 Pulm: no accessory muscle use, equal nml breath sounds bilaterally, CTAB Abd: s/nt/nd, NBS x 4, no palpable masses Derm: no rashes, no ulcers, no lesions, head trauma, bruises, cuts, lacerations, bleeds Extr: Right forearm in a cast and is tender to palpation w/ limited ROM of the right distal extremity. No visible cyanosis, no calf tenderness, no varicosities Neuro: CN II-XII grossly intact, 1/5 muscle strength of the RUE, all other extremities are 5/5 muscle strength w/ full ROM Assessment and Plan - Assessment and Plan (Free Text) Assessment: A/P 76F w/ PMHx of COPD, CHF, A-fib, HLD and HTN, presents w/ a right wrist fracture s/p a mechanical fall Wrist Fracture s/p CRIF s/p mechanical fall - Dr. Beltrán reduced the fracture, verified by XR; no surgical intervention needed - Pain control: tylenol for mild, percocet for moderate, morphine for severe Hx/o CHF - Lasix 40 mg Chronic A.Fib and Aortic Valve Replacement - Reduced coumadin from 5 to 4 yesterday; hold today. - INR is currently therapeutic; rate controlled with cardizem - Will measure daily and adjust warfarin accordingly Hx/ CKD - Currently at baseline - Monitor CVA - ASA HTN - Losartan HLD -Statin COPD - Xopenex - both prn and michelle - Supplemental O2 if saturation drops below 92% <Elisabet Luz - Last Filed: 03/27/17 16:17> Objective - Vital Signs/Intake and Output Vital Signs (last 24 hours): Temp Pulse Resp BP Pulse Ox 98.5 F 77 16 133/74 96 03/27/17 09:27 03/27/17 10:38 03/27/17 09:27 03/27/17 10:41 03/27/17 09:27 Intake and Output: 03/27/17 03/27/17 06:59 18:59 Intake Total 420 480 Balance 420 480 - Labs Labs: 03/27/17 06:20 03/27/17 06:20 PT 23.4 SECONDS (9.4-12.5) H 03/27/17 06:20 INR 2.10 (0.93-1.08) H 03/27/17 06:20 APTT 27.4 Seconds (25.1-36.5) 03/27/17 06:20 Attending/Attestation - Attestation I have personally seen and examined this patient.: Yes I have fully participated in the care of the patient.: Yes I have reviewed all pertinent clinical information, including history, physical exam and plan: Yes Notes (Text): I have seen and examined the patient at bedside. Agree with the above note with the following additions/ exceptions: Briefly this is 76 year old female with history of COPD, CHF due to systolic dysfunction (EF 35%), atrial fibrillation who came for evaluation of right wrist fracture s/p mechanical fall. Ortho consult appreciated. Closed reduction was done by Dr Beltrán. Creatinine is at its baseline. INR is supratherapeutic. Will hold coumadin. Continue analgesics, aspirin, statin, xopenex and losartan. Upon discharge patient will follow up with Dr Huang. Dr Elisabet Luz.
[2017-03-25] MEDS: POLYETHYLENE GLYCOL 3350 17 GM/Dose PACKET PO SCH (18:08)
[2017-03-25] MEDS: Levalbuterol 1.25 MG/3 ML Inhal Soln UD IH SCH (19:34)
[2017-03-26] MEDS: Levalbuterol 1.25 MG/3 ML Inhal Soln UD IH SCH ×4 (02:58→19:35)
[2017-03-26 07:21] LABS: BASO # 0.03 K/mm3 (0.0-2.0); BASO % 0.5 % (0.0-3.0); EOS # 0.2 (0.0-0.7); GRAN # 3.91 (1.4-6.5); GRAN % 65.1 % (50.0-68.0); LYMPH # 1.2 (1.2-3.4); LYMPH % 19.3 % (22.0-35.0); MEAN CELL VOLUME 91.5 fl (80.0-105.0); MEAN CORPUSCULAR HEMOGLOBIN 29.7 pg (25.0-35.0); MEAN CORPUSCULAR HGB CONC 32.5 g/dl (31.0-37.0); MEAN PLATELET VOLUME 10.8 fl (7.0-11.0); MONO # 0.7 (0.1-0.6); MONO % 11.1 % (1.0-6.0); RED CELL DISTRIBUTION WIDTH 13.7 % (11.5-14.5)
[2017-03-26 07:29] LABS: PARTIAL THROMBOPLASTIN TIME 43.2 Seconds (25.1-36.5)
[2017-03-26 08:53] LABS: ALB/GLOB RATIO 1.1 (1.1-1.8); BILIRUBIN,TOTAL 0.7 mg/dL (0.2-1.3); CALCIUM 8.8 mg/dL (8.4-10.5); TOTAL PROTEIN 6.2 g/dL (5.8-8.3)
[2017-03-26] MEDS: diltiaZEM 180 mg/24 Hours CD Cap PO SCH (09:49)
[2017-03-26] MEDS: Pantoprazole 40 mg EC Tab PO SCH (09:50)
[2017-03-26] MEDS: POLYETHYLENE GLYCOL 3350 17 GM/Dose PACKET PO SCH (09:51)
[2017-03-26] MEDS: Cholecalciferol 1,000 INTLU TAB PO SCH (09:52)
--- NOTE | 2017-03-26 15:24 | CP.PCM.DIS ---
<Jeffery Pak - Last Filed: 03/27/17 18:31> Provider - Provider Date of Admission: 03/24/17 12:58 Attending physician: Elisabet Luz MD Primary care physician: Obi Coronel MD Consults: Dr. Beltrán: Ortho Time Spent in preparation of Discharge (in minutes): 45 Hospital Course - Lab Results Lab Results: Most Recent Lab Values WBC 6.0 10^3/ul (4.5-11.0) 03/26/17 06:30 RBC 4.37 10^6/uL (3.5-6.1) 03/26/17 06:30 Hgb 13.0 g/dL (12.0-16.0) 03/26/17 06:30 Hct 40.0 % (36.0-48.0) 03/26/17 06:30 MCV 91.5 fl (80.0-105.0) 03/26/17 06:30 MCH 29.7 pg (25.0-35.0) 03/26/17 06:30 MCHC 32.5 g/dl (31.0-37.0) 03/26/17 06:30 RDW 13.7 % (11.5-14.5) 03/26/17 06:30 Plt Count 113 10^3/uL (120.0-450.0) L 03/26/17 06:30 MPV 10.8 fl (7.0-11.0) 03/26/17 06:30 Gran % 65.1 % (50.0-68.0) 03/26/17 06:30 Lymph % (Auto) 19.3 % (22.0-35.0) L 03/26/17 06:30 [place] % (Auto) 11.1 % (1.0-6.0) H 03/26/17 06:30 Eos % (Auto) 4.0 % (1.5-5.0) 03/26/17 06:30 Baso % (Auto) 0.5 % (0.0-3.0) 03/26/17 06:30 Gran # 3.91 (1.4-6.5) 03/26/17 06:30 Lymph # 1.2 (1.2-3.4) 03/26/17 06:30 [place] # 0.7 (0.1-0.6) H 03/26/17 06:30 Eos # 0.2 (0.0-0.7) 03/26/17 06:30 Baso # 0.03 K/mm3 (0.0-2.0) 03/26/17 06:30 PT 33.7 SECONDS (9.4-12.5) H 03/26/17 06:30 INR 3.00 (0.93-1.08) H 03/26/17 06:30 APTT 43.2 Seconds (25.1-36.5) H 03/26/17 06:30 Sodium 140 mmol/L (132-148) 03/26/17 06:30 Potassium 4.0 mmol/L (3.6-5.0) 03/26/17 06:30 Chloride 104 mmol/L (98-107) 03/26/17 06:30 Carbon Dioxide 30 mmol/L (21-33) 03/26/17 06:30 Anion Gap 10 (10-20) 03/26/17 06:30 BUN 27 mg/dL (7-21) H 03/26/17 06:30 Creatinine 1.6 mg/dl (0.7-1.2) H 03/26/17 06:30 Est GFR ( Amer) 38 03/26/17 06:30 Est GFR (Non-Af Amer) 31 03/26/17 06:30 Random Glucose 167 mg/dL (70-110) H 03/26/17 06:30 Calcium 8.8 mg/dL (8.4-10.5) 03/26/17 06:30 Total Bilirubin 0.7 mg/dL (0.2-1.3) 03/26/17 06:30 AST 39 U/L (14-36) H D 03/26/17 06:30 ALT 22 U/L (7-56) 03/26/17 06:30 Alkaline Phosphatase 69 U/L (38-126) 03/26/17 06:30 Total Protein 6.2 g/dL (5.8-8.3) 03/26/17 06:30 Albumin 3.3 g/dL (3.0-4.8) 03/26/17 06:30 Globulin 2.9 gm/dL 03/26/17 06:30 Albumin/Globulin Ratio 1.1 (1.1-1.8) 03/26/17 06:30 TSH 3rd Generation 2.55 mIU/mL (0.46-4.68) 03/25/17 07:20 Digoxin 0.4 ng/mL (0.8-2.0) L 03/25/17 07:45 Blood Type O POSITIVE 03/24/17 08:35 Antibody Screen Negative 03/24/17 08:35 BBK History Checked Patient has bt 03/24/17 08:35 - Hospital Course Hospital Course: Hospital Course: Pt was admitted for R wrist fracture. She had a mechanical fall while at home, and tried to catch her fall on her right hand. No focal neurological deficits were appreciated, and the patient denied hitting her head or having a syncopal event. No signs of seizure, including tongue biting or loss of bowel/bladder were appreciated. Dr. Beltrán reduced the fracture with CRIF, and confirmed it with XR. Pt also complained of odynophagia, for which speech therapy was consulted. Pt stated that she was steady on her feet, and that she was willing to go home with services, per PT recommendations, or go to TCU. Pt ended up choosing TCU. On day of discharge pt was in tact neurovascularly, and did not have any complaints besides pain to her right wrist. A/P Day of Discharge: 76F w/ PMHx of COPD, CHF, A-fib, HLD and HTN, presents w/ a right wrist fracture s/p a mechanical fall Wrist Fracture s/p CRIF s/p mechanical fall - Dr. Beltrán reduced the fracture, verified by XR; no surgical intervention needed - Pain control: tylenol for mild, percocet for moderate, morphine for severe Hx/o CHF - Lasix 40 mg Chronic A.Fib and Aortic Valve Replacement - Reduced coumadin from 5 to 4 yesterday; hold today. - INR is currently therapeutic; rate controlled with cardizem - Will measure daily and adjust warfarin accordingly Hx/ CKD - Currently at baseline - Monitor CVA - ASA HTN - Losartan HLD -Statin COPD - Xopenex - both prn and michelle - Supplemental O2 if saturation drops below 92% Discharge Exam - Additional Findings Additional findings: Phys Exam: VS as below Const'l: a&o x 4, lethargic, non-diaphoretic, non-jaundiced, non-cyanotic, Head/Neck: neck supple, no jvd, trachea midline, carotid midline, no cervical /head mass Eyes: LYNNE, non-icteric sclera, EOMI ENT: auditory acuity grossly intact, throat not congested, no nasal deformity Cardio: Irregularly regular rhythm w/ a 4/6 holosystolic murmur, No rubs or gallops, no carotid bruit, NML S1, S2 Pulm: no accessory muscle use, equal nml breath sounds bilaterally, CTAB Abd: s/nt/nd, NBS x 4, no palpable masses Derm: no rashes, no ulcers, no lesions, head trauma, bruises, cuts, lacerations, bleeds Extr: Right forearm in a cast and is tender to palpation w/ limited ROM of the right distal extremity. No visible cyanosis, no calf tenderness, no varicosities Neuro: CN II-XII grossly intact, 1/5 muscle strength of the RUE, all other extremities are 5/5 muscle strength w/ full ROM Discharge Plan - Discharge Medications Prescriptions: Docusate [Colace] 100 mg PO DAILY #30 cap - Follow Up Plan Condition: STABLE Disposition: TRANSF TO SNF Instructions: Heart Failure (GEN), Atrial Fibrillation (GEN), Wrist Fracture in Adults (GEN), Cigarette Smoking and Your Health (GEN), Fall Prevention for Older Adults (GEN), Hypertension (GEN) Additional Instructions: 1. Please see Dr. Coronel within a week 2. Please obtain a blood test called a 'Hemoglobin A1C,' to check how your sugar levels are behaving 3. Should your symptoms return or worsen please immediately return to the ER Referrals: Obi Coronel MD [Primary Care Provider] - <Elisabet Luz - Last Filed: 03/27/17 19:25> Provider - Provider Date of Admission: 03/24/17 12:58 Attending physician: Elisabet Luz MD Primary care physician: Obi Coronel MD Hospital Course - Lab Results Lab Results: Most Recent Lab Values WBC 5.9 10^3/ul (4.5-11.0) 03/27/17 06:20 RBC 4.33 10^6/uL (3.5-6.1) 03/27/17 06:20 Hgb 13.1 g/dL (12.0-16.0) 03/27/17 06:20 Hct 39.3 % (36.0-48.0) 03/27/17 06:20 MCV 90.8 fl (80.0-105.0) 03/27/17 06:20 MCH 30.3 pg (25.0-35.0) 03/27/17 06:20 MCHC 33.3 g/dl (31.0-37.0) 03/27/17 06:20 RDW 13.6 % (11.5-14.5) 03/27/17 06:20 Plt Count 115 10^3/uL (120.0-450.0) L 03/27/17 06:20 MPV 10.6 fl (7.0-11.0) 03/27/17 06:20 Gran % 58.7 % (50.0-68.0) 03/27/17 06:20 Lymph % (Auto) 25.8 % (22.0-35.0) 03/27/17 06:20 [place] % (Auto) 9.4 % (1.0-6.0) H 03/27/17 06:20 Eos % (Auto) 5.4 % (1.5-5.0) H 03/27/17 06:20 Baso % (Auto) 0.7 % (0.0-3.0) 03/27/17 06:20 Gran # 3.48 (1.4-6.5) 03/27/17 06:20 Lymph # 1.5 (1.2-3.4) 03/27/17 06:20 [place] # 0.6 (0.1-0.6) 03/27/17 06:20 Eos # 0.3 (0.0-0.7) 03/27/17 06:20 Baso # 0.04 K/mm3 (0.0-2.0) 03/27/17 06:20 PT 23.4 SECONDS (9.4-12.5) H 03/27/17 06:20 INR 2.10 (0.93-1.08) H 03/27/17 06:20 APTT 27.4 Seconds (25.1-36.5) 03/27/17 06:20 Sodium 140 mmol/L (132-148) 03/27/17 06:20 Potassium 4.0 mmol/L (3.6-5.0) 03/27/17 06:20 Chloride 105 mmol/L (98-107) 03/27/17 06:20 Carbon Dioxide 30 mmol/L (21-33) 03/27/17 06:20 Anion Gap 9 (10-20) L 03/27/17 06:20 BUN 27 mg/dL (7-21) H 03/27/17 06:20 Creatinine 1.7 mg/dl (0.7-1.2) H 03/27/17 06:20 Est GFR ( Amer) 35 03/27/17 06:20 Est GFR (Non-Af Amer) 29 03/27/17 06:20 Random Glucose 117 mg/dL (70-110) H 03/27/17 06:20 Hemoglobin A1c 6.0 % (4.2-6.5) 03/27/17 06:58 Calcium 9.1 mg/dL (8.4-10.5) 03/27/17 06:20 Total Bilirubin 1.0 mg/dL (0.2-1.3) 03/27/17 06:20 AST 28 U/L (14-36) 03/27/17 06:20 ALT 29 U/L (7-56) 03/27/17 06:20 Alkaline Phosphatase 73 U/L (38-126) 03/27/17 06:20 Total Protein 6.5 g/dL (5.8-8.3) 03/27/17 06:20 Albumin 3.5 g/dL (3.0-4.8) 03/27/17 06:20 Globulin 3.0 gm/dL 03/27/17 06:20 Albumin/Globulin Ratio 1.2 (1.1-1.8) 03/27/17 06:20 TSH 3rd Generation 2.55 mIU/mL (0.46-4.68) 03/25/17 07:20 Digoxin 0.4 ng/mL (0.8-2.0) L 03/25/17 07:45 Blood Type O POSITIVE 03/24/17 08:35 Antibody Screen Negative 03/24/17 08:35 BBK History Checked Patient has bt 03/24/17 08:35 Attending/Attestation - Attestation I have personally seen and examined this patient.: Yes I have fully participated in the care of the patient.: Yes I have reviewed all pertinent clinical information, including history, physical exam and plan: Yes Notes (Text): I have seen and examined the patient at bedside. Agree with the above note with the following additions/ exceptions: Briefly this is 76 year old female with history of COPD, CHF due to systolic dysfunction (EF 35%), atrial fibrillation who came for evaluation of right wrist fracture s/p mechanical fall. Ortho consult appreciated. Closed reduction was done by Dr Beltrán. Creatinine is at its baseline. INR is 2.1. Will continue coumadin. Continue analgesics, aspirin, statin, xopenex and losartan. PT recommended TCU. Patient is awaiting TCU bed. Upon discharge patient will follow up with Dr Huang. Dr Elisabet Luz.
[2017-03-26] MEDS ORDERED: Influenza Vaccine 60 mcg/0.5 mL SYR (4YR UP) IM ONE (15:36)
[2017-03-26 16:39] VITALS: O2SAT 96
[2017-03-27] MEDS: Levalbuterol 1.25 MG/3 ML Inhal Soln UD IH SCH ×3 (01:43→13:10)
[2017-03-27] MEDS ORDERED: Saliva Substitute 44.3 ML PO PRN (06:58)
[2017-03-27 07:06] LABS: BASO # 0.04 K/mm3 (0.0-2.0); BASO % 0.7 % (0.0-3.0); EOS # 0.3 (0.0-0.7); EOS % 5.4 % (1.5-5.0); GRAN # 3.48 (1.4-6.5); GRAN % 58.7 % (50.0-68.0); HEMATOCRIT 39.3 % (36.0-48.0); LYMPH # 1.5 (1.2-3.4); LYMPH % 25.8 % (22.0-35.0); MEAN CELL VOLUME 90.8 fl (80.0-105.0); MEAN CORPUSCULAR HEMOGLOBIN 30.3 pg (25.0-35.0); MEAN CORPUSCULAR HGB CONC 33.3 g/dl (31.0-37.0); MEAN PLATELET VOLUME 10.6 fl (7.0-11.0); MONO # 0.6 (0.1-0.6); MONO % 9.4 % (1.0-6.0); RED CELL DISTRIBUTION WIDTH 13.6 % (11.5-14.5); WHITE BLOOD COUNT 5.9 10^3/ul (4.5-11.0)
[2017-03-27 07:20] LABS: INR 2.1 (0.93-1.08); PARTIAL THROMBOPLASTIN TIME 27.4 Seconds (25.1-36.5)
[2017-03-27 07:36] LABS: ALB/GLOB RATIO 1.2 (1.1-1.8); CALCIUM 9.1 mg/dL (8.4-10.5); TOTAL PROTEIN 6.5 g/dL (5.8-8.3)
[2017-03-27 09:28] VITALS: RESP 16; TEMP 98.5
[2017-03-27] MEDS: Cholecalciferol 1,000 INTLU TAB PO SCH (10:36)
[2017-03-27] MEDS: Digoxin 125 mcg (0.125 mg) Tab PO SCH (10:36)
[2017-03-27] MEDS: diltiaZEM 180 mg/24 Hours CD Cap PO SCH (10:38)
[2017-03-27] MEDS: Pantoprazole 40 mg EC Tab PO SCH (10:39)
[2017-03-27] MEDS: POLYETHYLENE GLYCOL 3350 17 GM/Dose PACKET PO SCH (10:42)
[2017-03-27 10:48] VITALS: BP 133/74; PULSE 77
--- NOTE | 2017-03-27 11:37 | CP.PCM.PN ---
Objective - Vital Signs/Intake and Output Vital Signs (last 24 hours): Temp Pulse Resp BP Pulse Ox 98.5 F 77 16 133/74 96 03/27/17 09:27 03/27/17 10:38 03/27/17 09:27 03/27/17 10:41 03/27/17 09:27 Intake and Output: 03/27/17 03/27/17 06:59 18:59 Intake Total 420 Balance 420 - Medications Medications: Current Medications Acetaminophen (Tylenol 650mg/20.3ml Solution Ud) 650 mg PO Q6H PRN PRN Reason: Pain, Mild (1-3) Alprazolam (Xanax) 0.25 mg PO BID [facility] PRN Reason: Protocol Stop: 03/31/17 18:01 Last Admin: 03/27/17 10:40 Dose: 0.25 mg Aspirin (Aspirin Chewable) 81 mg PO DAILY [facility] Last Admin: 03/27/17 10:41 Dose: 81 mg Atorvastatin Calcium (Lipitor) 40 mg PO DAILY [facility] Last Admin: 03/27/17 10:41 Dose: 40 mg Carvedilol (Coreg) 3.125 mg PO BID [facility] Last Admin: 03/27/17 10:38 Dose: 3.125 mg Cholecalciferol (Vitamin D) 1,000 iu PO DAILY [facility] Last Admin: 03/27/17 10:36 Dose: 1,000 iu Cyanocobalamin (Vitamin B12 1000 Mcg Tab) 1,000 mcg PO DAILY [facility] Last Admin: 03/27/17 10:41 Dose: 1,000 mcg Digoxin (Lanoxin) 0.125 mg PO MWF [facility] Last Admin: 03/27/17 10:36 Dose: 0.125 mg Diltiazem HCl (Cardizem Cd) 180 mg PO DAILY [facility] Last Admin: 03/27/17 10:38 Dose: 180 mg Docusate Sodium (Colace) 100 mg PO DAILY [facility] Last Admin: 03/27/17 10:40 Dose: 100 mg Furosemide (Lasix) 40 mg PO DAILY [facility] Last Admin: 03/27/17 10:41 Dose: 40 mg Levalbuterol HCl (Xopenex) 1.25 mg IH Q2H PRN PRN Reason: SOB Levalbuterol HCl (Xopenex) 1.25 mg IH [id number] [facility] Last Admin: 03/27/17 07:27 Dose: 1.25 mg Losartan Potassium (Cozaar) 50 mg PO DAILY [facility] Last Admin: 03/27/17 10:37 Dose: 50 mg Morphine Sulfate (Morphine) 1 mg IVP Q6 PRN PRN Reason: Pain, severe (8-10) Oxycodone/Acetaminophen (Percocet 5/325 Mg Tab) 1 tab PO Q6 PRN PRN Reason: Pain, moderate (4-7) Stop: 03/28/17 18:01 Pantoprazole Sodium (Protonix Ec Tab) 40 mg PO DAILY [facility] Last Admin: 03/27/17 10:39 Dose: 40 mg Polyethylene Glycol (Miralax) 17 gm PO DAILY [facility] Last Admin: 03/27/17 10:42 Dose: 17 gm Saliva Substitute (Saliva Substitute) 2 ml PO Q4 PRN PRN Reason: Dry mouth Warfarin Sodium (Coumadin) 2.5 mg PO 1800 MICHELLE PRN Reason: Protocol - Labs Labs: 03/27/17 06:20 03/27/17 06:20 PT 23.4 SECONDS (9.4-12.5) H 03/27/17 06:20 INR 2.10 (0.93-1.08) H 03/27/17 06:20 APTT 27.4 Seconds (25.1-36.5) 03/27/17 06:20 - Additional Findings Additional findings: Phys Exam: VS as below Const'l: a&o x 4, lethargic, non-diaphoretic, non-jaundiced, non-cyanotic, Head/Neck: neck supple, no jvd, trachea midline, carotid midline, no cervical /head mass Eyes: LYNNE, non-icteric sclera, EOMI ENT: auditory acuity grossly intact, throat not congested, no nasal deformity Cardio: Irregularly regular rhythm w/ a 4/6 holosystolic murmur, No rubs or gallops, no carotid bruit, NML S1, S2 Pulm: no accessory muscle use, equal nml breath sounds bilaterally, CTAB Abd: s/nt/nd, NBS x 4, no palpable masses Derm: no rashes, no ulcers, no lesions, head trauma, bruises, cuts, lacerations, bleeds Extr: Right forearm in a cast and is tender to palpation w/ limited ROM of the right distal extremity. No visible cyanosis, no calf tenderness, no varicosities Neuro: CN II-XII grossly intact, 1/5 muscle strength of the RUE, all other extremities are 5/5 muscle strength w/ full ROM Assessment and Plan - Assessment and Plan (Free Text) Assessment: A/P 76F w/ PMHx of COPD, CHF, A-fib, HLD and HTN, presents w/ a right wrist fracture s/p a mechanical fall Wrist Fracture s/p CRIF s/p mechanical fall - Pain control: tylenol for mild, percocet for moderate, morphine for severe Hx/o CHF - Lasix 40 mg Chronic A.Fib and Aortic Valve Replacement - INR is currently therapeutic; rate controlled with cardizem - Will measure daily and adjust warfarin accordingly - Starting today, restart normal daily regimen Hx/ CKD - Currently at baseline - Monitor CVA - ASA HTN - Losartan HLD -Statin COPD - Xopenex - both prn and michelle - Supplemental O2 if saturation drops below 92%
== END 2017-03-27 13:32 | DRG 563 ==
LOC: ED 06:14 → ERH 12:58 → 5RSO 15:14
PROVIDERS: ADMIT Internal Medicine; ATTEND Hospitalist
PROC: 0PSHXZZ Reposition Right Radius, External Approach (ICD-10-PCS; principal; 2017-03-24)
PROC: 3E0F7GC Introduction of Other Therapeutic Substance into Respiratory Tract, Via Natural or Artificial Opening (ICD-10-PCS; 2017-03-25)
DX: S52.501A Unspecified fracture of the lower end of right radius, initial encounter for closed fracture (principal); I13.0 Hypertensive heart and chronic kidney disease with heart failure and stage 1 through stage 4 chronic kidney disease, or unspecified chronic kidney disease; I48.2 Chronic atrial fibrillation; I50.22 Chronic systolic (congestive) heart failure; W01.0XXA Fall on same level from slipping, tripping and stumbling without subsequent striking against object, initial encounter; J44.9 Chronic obstructive pulmonary disease, unspecified; N18.9 Chronic kidney disease, unspecified; E78.5 Hyperlipidemia, unspecified; Z87.891 Personal history of nicotine dependence; Z95.2 Presence of prosthetic heart valve; Z86.73 Personal history of transient ischemic attack (TIA), and cerebral infarction without residual deficits; Z79.01 Long term (current) use of anticoagulants; Y93.01 Activity, walking, marching and hiking; Y92.000 Kitchen of unspecified non-institutional (private) residence as the place of occurrence of the external cause

== ENCOUNTER 2017-03-27 13:36 | Inpatient (IN) | payer OTHER ==
[2017-03-27 14:18] VITALS: BMI 26.0
[2017-03-27] MEDS ORDERED: Pneumococcal 23-Valent Vaccine IM ONE (15:18)
[2017-03-27] MEDS ORDERED: Influenza Vaccine 60 mcg/0.5 mL SYR (4YR UP) IM ONE (15:18)
[2017-03-27] MEDS ORDERED: Acetaminophen 650mg/20.3ml solution UD PO PRN (16:47)
[2017-03-27] MEDS ORDERED: Levalbuterol 1.25 MG/3 ML Inhal Soln UD IH PRN (16:47)
[2017-03-27] MEDS ORDERED: Morphine 2 mg/ml ISec IVP PRN (16:58)
[2017-03-27] MEDS ORDERED: Saliva Substitute 44.3 ML PO PRN (17:02)
--- NOTE | 2017-03-27 18:01 | CP.PCM.HP ---
History of Present Illness - History of Present Illness History of Present Illness: H/P for Dr. Sukh LO DO, PGY-1, Pager [phone] CC: S/p fall HPI: Pt is a 76F w/ PMHx of COPD, CHF, A-fib, HLD and HTN, who presented w/ a right wrist fracture s/p a fall after tripping on her slippers earlier in the day. Pt stated that she was walking to the kitchen to grab a bite to eat when she fell forward and tried to brace her fall w/ her right hand. According to the pt, the pain is a sharp, numbing pain which radiates up her arm into stops at her right shoulder. Pt denies any LOC, dizziness, numbness, tingling, loss of sensation, UMAÑA, SOB, CP, fever, chills, head trauma, N/V/C/D or abd pain prior and after the fall. While in the hospital, the patient's pain improved, and was always neurovascularly intact. Pt was deemed medically stable to be d/c'd home with services or TCU, and she chose TCU. Pt denies fever, chills, CP, SOB, N/V/D/C, Dysuria, abd pain, UMAÑA, dizziness, LOC , head trauma, blurry vision, ringing in ears, recent sicknesses or travel. PSHx: Open heart surgery 5 years ago, PMHx: COPD, HTN, HLD, CHF, Afib All: Sulfur and Seasonal SocHx: Denies any illicit drug use, alcohol use and smoked 1 PPD for 7 years 10-15 years ago Hosp: last admitted on 10/04 for acute CHF exacerbation FamHx: DM in both mother and father. Heart issues in father. Meds: Lipitor, ASA, Xanax, Albuterol, Esomeprazole, Dig, Cyanocobalamin, Cholecalciferol, Carvedilol Calcium polycarbophil, Lasix, Cardizem, Coumadin, Losartan, Xopenex ROS: Const'l: pt denies fever, chills, generalized weakness ENT: pt denies dysphagia, otalgia, hearing deficit, rhinorrhea Eyes: pt denies sudden loss of vision, diplopia, blurred vision MSK: See hpi Cardio: pt denies sob, heart murmur, cp Pulm: pt denies cough, hemoptysis, wheeze GI: pt denies loss of appetite, abdominal pain, constipation, melena, n/v/d : pt denies burning on urination, urinary frequency, hematuria, urinary urgency Neuro: pt denies paresis, paresthesia, dizziness, umaña, numbness, tingling Derm: pt denies skin changes, lesions, nail changes Endo: pt denies intolerance to heat/cold, diaphoresis, night sweats, polydipsia Psych: pt denies anxiety, depression, mood changes Present on Admission - Present on Admission Any Indicators Present on Admission: No Past Patient History - Infectious Disease Hx of Infectious Diseases: None - Tetanus Immunizations Tetanus Immunization: Unknown - Past Medical History & Family History Past Medical History?: Yes - Past Social History Smoking Status: Never Smoked - CARDIAC Hx Congestive Heart Failure: Yes Hx Hypertension: Yes - PULMONARY Hx Chronic Obstructive Pulmonary Disease (COPD): Yes - NEUROLOGICAL Hx Neurological Disorder: Yes HX Cerebrovascular Accident: Yes (cane) - HEENT Hx HEENT Problems: Yes (Wears reading glasses. Upper denture.) Hx Blind: No Hx Cataracts: No Hx Deafness: No Hx Difficulty Chewing: No Hx Epistaxis: No Hx Glaucoma: No Hx Macular Degeneration: No - RENAL Hx Chronic Kidney Disease: No Hx Renal Failure: No - ENDOCRINE/METABOLIC Hx Endocrine Disorders: No Hx Diabetes Mellitus Type 1: No Hx Diabetes Mellitus Type 2: No - HEMATOLOGICAL/ONCOLOGICAL Hx Blood Disorders: No - INTEGUMENTARY Hx Dermatological Problems: No Hx Basil Cell: No Hx Eczema: No Hx Melanoma: No Hx Psoriasis: No Hx Squamous Cell: No Other/Comment: 03-24-17 BILATERAL LE DARKENED BROWN SKIN DISCOLORATION. - MUSCULOSKELETAL/RHEUMATOLOGICAL Hx Falls: Yes - GASTROINTESTINAL Hx Gastrointestinal Disorders: Yes (CHOLECYSTECTOMY,ABDOMINAL SX FOR DIVERTICULITIS) - GENITOURINARY/GYNECOLOGICAL Hx Genitourinary Disorders: Yes (URGENCY) Hx Reproductive Disorders: No - PSYCHIATRIC Hx Psychophysiologic Disorder: No Hx Emotional Abuse: No Hx Physical Abuse: No Hx Substance Use: No Other/Comment: nervous - SURGICAL HISTORY Hx Surgeries: Yes Hx Cholecystectomy: Yes Hx Open Heart Surgery: Yes (5 yrs) Hx Valve Replacement: Yes - ANESTHESIA Hx Anesthesia: No Hx Anesthesia Reactions: No Hx Malignant Hyperthermia: No Meds Allergies/Adverse Reactions: Allergies Allergy/AdvReac Type Severity Reaction Status Date / Time Sulfa (Sulfonamide Allergy Unknown . Verified 03/27/17 14:56 Antibiotics) Physical Exam - Additional Findings Additional findings: Phys Exam: VS as below Const'l: a&o x 4, lethargic, non-diaphoretic, non-jaundiced, non-cyanotic, Head/Neck: neck supple, no jvd, trachea midline, carotid midline, no cervical /head mass Eyes: LYNNE, non-icteric sclera, EOMI ENT: auditory acuity grossly intact, throat not congested, no nasal deformity Cardio: Irregularly regular rhythm w/ a 4/6 holosystolic murmur, No rubs or gallops, no carotid bruit, NML S1, S2 Pulm: no accessory muscle use, equal nml breath sounds bilaterally, CTAB Abd: s/nt/nd, NBS x 4, no palpable masses Derm: no rashes, no ulcers, no lesions, head trauma, bruises, cuts, lacerations, bleeds Extr: Right forearm in a cast and is tender to palpation w/ limited ROM of the right distal extremity. No visible cyanosis, no calf tenderness, no varicosities Neuro: CN II-XII grossly intact, 1/5 muscle strength of the RUE, all other extremities are 5/5 muscle strength w/ full ROM Results - Vital Signs Recent Vital Signs: Last Vital Signs Temp 97.3 F L 03/27/17 16:47 Pulse 63 03/27/17 16:47 Resp 16 03/27/17 16:47 BP 120/65 03/27/17 16:47 Pulse Ox 94 L 03/27/17 16:47 Assessment & Plan - Assessment and Plan (Free Text) Assessment: A/P 76F w/ PMHx of COPD, CHF, A-fib, HLD and HTN, presents w/ a right wrist fracture s/p a mechanical fall Wrist Fracture s/p CRIF s/p mechanical fall - Dr. Beltrán reduced the fracture, verified by XR; no surgical intervention needed - Pain control: tylenol for mild, percocet for moderate, morphine for severe Hx/o CHF - Lasix 40 mg Chronic A.Fib and Aortic Valve Replacement - Reduced coumadin from 5 to 4 yesterday; hold today. - INR is currently therapeutic; rate controlled with cardizem - Will measure daily and adjust warfarin accordingly Hx/ CKD - Currently at baseline - Monitor CVA - ASA HTN - Losartan HLD -Statin COPD - Xopenex - both prn and michelle - Supplemental O2 if saturation drops below 92%
[2017-03-27] MEDS: Levalbuterol 1.25 MG/3 ML Inhal Soln UD IH SCH (20:56)
[2017-03-28] MEDS: Levalbuterol 1.25 MG/3 ML Inhal Soln UD IH SCH ×4 (01:53→20:03)
[2017-03-28] MEDS: Pantoprazole 40 mg EC Tab PO SCH (05:14)
[2017-03-28 06:23] LABS: BASO # 0.03 K/mm3 (0.0-2.0); BASO % 0.6 % (0.0-3.0); EOS # 0.3 (0.0-0.7); EOS % 5.4 % (1.5-5.0); GRAN # 2.63 (1.4-6.5); GRAN % 52.4 % (50.0-68.0); HEMATOCRIT 38.4 % (36.0-48.0); LYMPH # 1.4 (1.2-3.4); LYMPH % 28.5 % (22.0-35.0); MEAN CELL VOLUME 91.4 fl (80.0-105.0); MEAN CORPUSCULAR HGB CONC 32.8 g/dl (31.0-37.0); MEAN PLATELET VOLUME 11.1 fl (7.0-11.0); MONO # 0.7 (0.1-0.6); MONO % 13.1 % (1.0-6.0); RED CELL DISTRIBUTION WIDTH 13.5 % (11.5-14.5)
[2017-03-28 06:30] LABS: INR 1.79 (0.93-1.08)
[2017-03-28 06:40] LABS: ALB/GLOB RATIO 1.1 (1.1-1.8); BILIRUBIN,TOTAL 0.9 mg/dL (0.2-1.3); CALCIUM 8.7 mg/dL (8.4-10.5); TOTAL PROTEIN 5.9 g/dL (5.8-8.3)
[2017-03-28] MEDS: Oxycodone/Acetaminophen 5/325 mg Tab PO PRN (09:58)
[2017-03-28] MEDS: diltiaZEM 180 mg/24 Hours CD Cap PO SCH (11:00)
[2017-03-28] MEDS: POLYETHYLENE GLYCOL 3350 17 GM/Dose PACKET PO SCH (11:00)
[2017-03-28] MEDS: Cholecalciferol 1,000 INTLU TAB PO SCH (11:00)
[2017-03-28] MEDS: Benzocaine/Menthol (Cepacol) Lozenge MT PRN ×2 (11:00→17:05)
--- NOTE | 2017-03-28 11:37 | RAD ---
PROCEDURE: Right wrist dated 03/28/2017. Multiple views of the right wrist performed through a fiberglass cast which obscures fine soft tissue and bone detail. HISTORY: rt wrist fracture COMPARISON: Comparison made with radiographs of the right wrist dated 03/24/2017. FINDINGS: BONES: Re- demonstrated is a fracture distal radius insult. There is apparent impaction with some dorsal overlap and angulation of the distal fragment on compared with the prior exam. There is also fracture of the distal ulna which is less well seen. JOINTS: No dislocation. SOFT TISSUES: Normal. OTHER FINDINGS: None. IMPRESSION: Impacted apparent comminuted fracture distal right radius with dorsal overlap and angulation of the distal fragment. There is also a poorly visualized fracture of the distal ulna styloid.
--- NOTE | 2017-03-28 12:56 | CON ---
DATE: 03/28/2017 HISTORY OF PRESENT ILLNESS: The patient was transferred from the regular hospital floor to the TCU floor on 03/27/2017. She was seen on 03/24/2017 for a fractured right wrist where she was admitted to the hospital, has been put under care and having medical issues. On following her under TCU floor, we plan to take the care so far before she goes home, we will put her on wrist splint as well as a fracture staple enough further to extend a splint. FINAL DIAGNOSIS: Comminuted right distal radius fracture. PLAN: Remove the cast prior to discharge and put her in a splint if it is healing enough. Macario Beltrán DO
[2017-03-29] MEDS: Levalbuterol 1.25 MG/3 ML Inhal Soln UD IH SCH ×4 (03:40→19:27)
[2017-03-29] MEDS: Pantoprazole 40 mg EC Tab PO SCH (05:11)
[2017-03-29] MEDS: Oxycodone/Acetaminophen 5/325 mg Tab PO PRN (05:13)
[2017-03-29] MEDS: POLYETHYLENE GLYCOL 3350 17 GM/Dose PACKET PO SCH (10:00)
--- NOTE | 2017-03-29 10:00 | CP.PCM.PN ---
<Bahman Torres - Last Filed: 03/29/17 10:17> Subjective - Date & Time of Evaluation Date of Evaluation: 03/29/17 Time of Evaluation: 08:30 - Subjective Subjective: Bahman Torres Do, PGY-1: Hospitalist Service Patient seen and examined at bedside. Patient denies any chest pain, nausea, vomiting, diarrhea, or dyspnea. Patient reports she feels like the room is too muggy. Otherwise, nurse reports no events overnight. Objective - Vital Signs/Intake and Output Vital Signs (last 24 hours): Temp Pulse Resp BP Pulse Ox 98 F 80 20 130/96 H 93 L 03/29/17 06:00 03/29/17 06:00 03/29/17 06:00 03/29/17 06:00 03/29/17 06:00 - Medications Medications: Current Medications Acetaminophen (Tylenol 650mg/20.3ml Solution Ud) 650 mg PO Q6H PRN; Protocol PRN Reason: Pain, Mild (1-3) Alprazolam (Xanax) 0.25 mg PO BID MICHELLE PRN Reason: Protocol Stop: 04/03/17 18:01 Last Admin: 03/28/17 18:12 Dose: 0.25 mg Aspirin (Aspirin Chewable) 81 mg PO 0800 MICHELLE PRN Reason: Protocol Atorvastatin Calcium (Lipitor) 40 mg PO DAILY MICHELLE PRN Reason: Protocol Last Admin: 03/28/17 11:00 Dose: 40 mg Benzocaine/Menthol (Cepacol Sore Throat) 1 usama MT Q4H PRN; Protocol PRN Reason: Sore Throat Last Admin: 03/28/17 17:05 Dose: 1 usama Carvedilol (Coreg) 3.125 mg PO BID MICHELLE PRN Reason: Protocol Last Admin: 03/28/17 18:11 Dose: Not Given Cholecalciferol (Vitamin D) 1,000 iu PO DAILY [facility] Last Admin: 03/28/17 11:00 Dose: 1,000 iu Cyanocobalamin (Vitamin B12 1000 Mcg Tab) 1,000 mcg PO DAILY [facility] Last Admin: 03/28/17 11:00 Dose: 1,000 mcg Digoxin (Lanoxin) 0.125 mg PO MWF MICHELLE PRN Reason: Protocol Diltiazem HCl (Cardizem Cd) 180 mg PO DAILY MICHELLE PRN Reason: Protocol Last Admin: 03/28/17 11:00 Dose: 180 mg Docusate Sodium (Colace) 100 mg PO DAILY MICHELLE PRN Reason: Protocol Last Admin: 03/28/17 11:00 Dose: 100 mg Furosemide (Lasix) 40 mg PO DAILY MICHELLE PRN Reason: Protocol Last Admin: 03/28/17 11:00 Dose: 40 mg Levalbuterol HCl (Xopenex) 1.25 mg IH Q2H PRN; Protocol PRN Reason: SOB Levalbuterol HCl (Xopenex) 1.25 mg IH [id number] MICHELLE PRN Reason: Protocol Last Admin: 03/29/17 07:24 Dose: 1.25 mg Losartan Potassium (Cozaar) 50 mg PO DAILY MICHELLE PRN Reason: Protocol Last Admin: 03/28/17 11:00 Dose: 50 mg Morphine Sulfate (Morphine) 1 mg IVP Q6H PRN; Protocol PRN Reason: Pain, severe (8-10) Oxycodone/Acetaminophen (Percocet 5/325 Mg Tab) 1 tab PO Q6H PRN; Protocol PRN Reason: Pain, moderate (4-7) Stop: 03/30/17 17:00 Last Admin: 03/29/17 05:13 Dose: 1 tab Pantoprazole Sodium (Protonix Ec Tab) 40 mg PO 0600 [facility] PRN Reason: Protocol Last Admin: 03/29/17 05:11 Dose: 40 mg Polyethylene Glycol (Miralax) 17 gm PO DAILY MICHELLE PRN Reason: Protocol Last Admin: 03/28/17 11:00 Dose: 17 gm Saliva Substitute (Saliva Substitute) 2 ml PO Q4 PRN; Protocol PRN Reason: Dry mouth Warfarin Sodium (Coumadin) 4 mg PO 1800 [facility] - Labs Labs: 03/28/17 05:15 03/28/17 05:15 PT 19.9 SECONDS (9.4-12.5) H 03/28/17 05:15 INR 1.79 (0.93-1.08) H 03/28/17 05:15 - Constitutional Appears: Non-toxic, No Acute Distress, Chronically Ill - Head Exam Head Exam: ATRAUMATIC, NORMOCEPHALIC - Eye Exam Eye Exam: EOMI, Normal appearance - ENT Exam ENT Exam: Mucous Membranes Moist, Normal Oropharynx - Neck Exam Neck Exam: Normal Inspection - Respiratory Exam Respiratory Exam: Clear to Ausculation Bilateral, NORMAL BREATHING PATTERN - Cardiovascular Exam Cardiovascular Exam: RRR, +S1, +S2 - GI/Abdominal Exam GI & Abdominal Exam: Soft, Normal Bowel Sounds - Extremities Exam Extremities Exam: Normal Inspection - Back Exam Back Exam: NORMAL INSPECTION. absent: CVA tenderness (L), CVA tenderness (R) - Neurological Exam Neurological Exam: Alert, Awake, CN II-XII Intact - Psychiatric Exam Psychiatric exam: Normal Affect, Normal Mood - Skin Skin Exam: Dry, Intact, Normal Color, Warm Additional comments: right arm shows multiple healing ecchymosis Assessment and Plan - Assessment and Plan (Free Text) Assessment: 76 year old female with history of COPD, CHF due to systolic dysfunction (EF 35% ), atrial fibrillation who came for evaluation of distal comminuted fracture of the right radius s/p mechanical fall. Ortho consult appreciated. Closed reduction was done by Dr Beltrán. Creatinine is at its baseline. INR is 1.9 today. Will continue Coumadin and adjust accordingly. Continue with analgesics, aspirin, statin, xopenex and losartan. PT recommended TCU. Patient is currently in TCU for treatment of gait instability and general strengthening. Dr. Beltrán, recommends removal of the cast prior to discharge and to put the right arm in a splint if it is healing enough. Plan: Distal Radius fracture s/p CRIF - Dr. Beltrán recommends removal of the cast prior to discharge, and splint placement if it healing properly. - Pain control: tylenol for mild, percocet for moderate, morphine for severe CHF and hypertension - Lasix 40 mg - Digoxin 0.125 MWF - Carvedilol 3.125 PO daily Chronic A.Fib and Aortic Valve Replacement - INR of 1.79 - 4 mg of Coumadin to be given today and INR to be check next day AM - Diltiazem 180 mg daily CKD - Currently at baseline at 1.5 Cr - Monitor via serial BMP/CMP CVA - Aspirin 81 mg PO daily HTN - Losartan 50 mg PO daily HLD -Atorvastatin 40 mg PO daily COPD - Xopenex - both prn and michelle - Supplemental O2 if saturation drops below 92% DVT/GI - Protonix - No need for DVT prophylaxiss as patient is on Coumadin <Luther Aaron - Last Filed: 03/29/17 11:24> Objective - Vital Signs/Intake and Output Vital Signs (last 24 hours): Temp Pulse Resp BP Pulse Ox 97.4 F L 48 L 20 160/91 H 94 L 03/29/17 10:29 03/29/17 10:29 03/29/17 10:29 03/29/17 10:29 03/29/17 10:29 - Medications Medications: Current Medications Acetaminophen (Tylenol 650mg/20.3ml Solution Ud) 650 mg PO Q6H PRN; Protocol PRN Reason: Pain, Mild (1-3) Alprazolam (Xanax) 0.25 mg PO BID MICHELLE PRN Reason: Protocol Stop: 04/03/17 18:01 Last Admin: 03/29/17 10:18 Dose: 0.25 mg Aspirin (Aspirin Chewable) 81 mg PO 0800 MICHELLE PRN Reason: Protocol Atorvastatin Calcium (Lipitor) 40 mg PO DAILY MICHELLE PRN Reason: Protocol Last Admin: 03/29/17 10:17 Dose: 40 mg Benzocaine/Menthol (Cepacol Sore Throat) 1 usama MT Q4H PRN; Protocol PRN Reason: Sore Throat Last Admin: 03/28/17 17:05 Dose: 1 usama Carvedilol (Coreg) 3.125 mg PO BID MICHELLE PRN Reason: Protocol Last Admin: 03/29/17 10:20 Dose: Not Given Cholecalciferol (Vitamin D) 1,000 iu PO DAILY [facility] Last Admin: 03/29/17 10:18 Dose: 1,000 iu Cyanocobalamin (Vitamin B12 1000 Mcg Tab) 1,000 mcg PO DAILY [facility] Last Admin: 03/29/17 10:18 Dose: 1,000 mcg Digoxin (Lanoxin) 0.125 mg PO MWF MICHELLE PRN Reason: Protocol Diltiazem HCl (Cardizem Cd) 180 mg PO DAILY MICHELLE PRN Reason: Protocol Last Admin: 03/29/17 10:19 Dose: Not Given Docusate Sodium (Colace) 100 mg PO DAILY MICHELLE PRN Reason: Protocol Last Admin: 03/29/17 10:18 Dose: 100 mg Furosemide (Lasix) 40 mg PO DAILY MICHELLE PRN Reason: Protocol Last Admin: 03/29/17 10:19 Dose: 40 mg Levalbuterol HCl (Xopenex) 1.25 mg IH Q2H PRN; Protocol PRN Reason: SOB Levalbuterol HCl (Xopenex) 1.25 mg IH [id number] MICHELLE PRN Reason: Protocol Last Admin: 03/29/17 07:24 Dose: 1.25 mg Losartan Potassium (Cozaar) 50 mg PO DAILY MICHELLE PRN Reason: Protocol Last Admin: 03/29/17 10:20 Dose: Not Given Morphine Sulfate (Morphine) 1 mg IVP Q6H PRN; Protocol PRN Reason: Pain, severe (8-10) Oxycodone/Acetaminophen (Percocet 5/325 Mg Tab) 1 tab PO Q6H PRN; Protocol PRN Reason: Pain, moderate (4-7) Stop: 03/30/17 17:00 Last Admin: 03/29/17 05:13 Dose: 1 tab Pantoprazole Sodium (Protonix Ec Tab) 40 mg PO 0600 [facility] PRN Reason: Protocol Last Admin: 03/29/17 05:11 Dose: 40 mg Polyethylene Glycol (Miralax) 17 gm PO DAILY [facility] PRN Reason: Protocol Last Admin: 03/28/17 11:00 Dose: 17 gm Saliva Substitute (Saliva Substitute) 2 ml PO Q4 PRN; Protocol PRN Reason: Dry mouth Warfarin Sodium (Coumadin) 4 mg PO 1800 MICHELLE - Labs Labs: 03/28/17 05:15 03/28/17 05:15 PT 19.9 SECONDS (9.4-12.5) H 03/28/17 05:15 INR 1.79 (0.93-1.08) H 03/28/17 05:15 Attending/Attestation - Attestation I have personally seen and examined this patient.: Yes I have fully participated in the care of the patient.: Yes I have reviewed all pertinent clinical information, including history, physical exam and plan: Yes Notes (Text): 03/29/17 11:21 attending note; Patient seen and examined with resident in TCU. Patient is alert, awake. Patient is a 76 year old female with history of COPD, CHF due to systolic dysfunction (EF 35%), atrial fibrillation who came for evaluation of right wrist fracture after a mechanical fall. orthopedics consult appreciated. Closed reduction was done by Dr Beltrán. CKD; Creatinine is at its baseline 1.5. Afib: continue coumadin. monitor INR tomorrow. Continue analgesics, aspirin, statin, xopenex and losartan. Continue physical therapy in TCU. Upon discharge patient will follow up with .
[2017-03-29] MEDS: Cholecalciferol 1,000 INTLU TAB PO SCH (10:18)
[2017-03-29] MEDS: diltiaZEM 180 mg/24 Hours CD Cap PO SCH (10:19)
[2017-03-30] MEDS: Levalbuterol 1.25 MG/3 ML Inhal Soln UD IH SCH ×4 (03:58→19:50)
[2017-03-30] MEDS: Pantoprazole 40 mg EC Tab PO SCH (05:35)
[2017-03-30 07:29] LABS: INR 1.57 (0.93-1.08)
[2017-03-30] MEDS ORDERED: Digoxin 125 mcg (0.125 mg) Tab PO SCH (10:00)
[2017-03-30] MEDS: POLYETHYLENE GLYCOL 3350 17 GM/Dose PACKET PO SCH (11:00)
[2017-03-30] MEDS: diltiaZEM 180 mg/24 Hours CD Cap PO SCH (11:00)
[2017-03-30] MEDS: Cholecalciferol 1,000 INTLU TAB PO SCH (11:00)
[2017-03-30] MEDS: Benzocaine/Menthol (Cepacol) Lozenge MT PRN ×2 (11:19→18:28)
[2017-03-30] MEDS: Digoxin 125 mcg (0.125 mg) Tab PO SCH (15:28)
[2017-03-31] MEDS: Benzocaine/Menthol (Cepacol) Lozenge MT PRN ×2 (02:42→17:41)
[2017-03-31] MEDS: Levalbuterol 1.25 MG/3 ML Inhal Soln UD IH SCH ×4 (03:26→19:48)
[2017-03-31] MEDS: Pantoprazole 40 mg EC Tab PO SCH (05:25)
[2017-03-31 07:58] LABS: INR 1.72 (0.93-1.08)
[2017-03-31] MEDS: diltiaZEM 180 mg/24 Hours CD Cap PO SCH (10:48)
[2017-03-31] MEDS: POLYETHYLENE GLYCOL 3350 17 GM/Dose PACKET PO SCH (10:50)
[2017-03-31] MEDS: Cholecalciferol 1,000 INTLU TAB PO SCH (10:50)
--- NOTE | 2017-03-31 16:31 | CP.PCM.DIS ---
<Jeffery Pak - Last Filed: 03/31/17 16:14> Provider - Provider Date of Admission: 03/27/17 13:36 Attending physician: Luther Aaron MD Consults: Ortho: Dr. Beltrán Time Spent in preparation of Discharge (in minutes): 45 Hospital Course - Lab Results Lab Results: Most Recent Lab Values WBC 5.0 10^3/ul (4.5-11.0) 03/28/17 05:15 RBC 4.20 10^6/uL (3.5-6.1) 03/28/17 05:15 Hgb 12.6 g/dL (12.0-16.0) 03/28/17 05:15 Hct 38.4 % (36.0-48.0) 03/28/17 05:15 MCV 91.4 fl (80.0-105.0) 03/28/17 05:15 MCH 30.0 pg (25.0-35.0) 03/28/17 05:15 MCHC 32.8 g/dl (31.0-37.0) 03/28/17 05:15 RDW 13.5 % (11.5-14.5) 03/28/17 05:15 Plt Count 110 10^3/uL (120.0-450.0) L 03/28/17 05:15 MPV 11.1 fl (7.0-11.0) H 03/28/17 05:15 Gran % 52.4 % (50.0-68.0) 03/28/17 05:15 Lymph % (Auto) 28.5 % (22.0-35.0) 03/28/17 05:15 [place] % (Auto) 13.1 % (1.0-6.0) H 03/28/17 05:15 Eos % (Auto) 5.4 % (1.5-5.0) H 03/28/17 05:15 Baso % (Auto) 0.6 % (0.0-3.0) 03/28/17 05:15 Gran # 2.63 (1.4-6.5) 03/28/17 05:15 Lymph # 1.4 (1.2-3.4) 03/28/17 05:15 [place] # 0.7 (0.1-0.6) H 03/28/17 05:15 Eos # 0.3 (0.0-0.7) 03/28/17 05:15 Baso # 0.03 K/mm3 (0.0-2.0) 03/28/17 05:15 PT 19.1 SECONDS (9.4-12.5) H 03/31/17 07:45 INR 1.72 (0.93-1.08) H 03/31/17 07:45 Sodium 142 mmol/L (132-148) 03/28/17 05:15 Potassium 4.0 mmol/L (3.6-5.0) 03/28/17 05:15 Chloride 106 mmol/L (98-107) 03/28/17 05:15 Carbon Dioxide 29 mmol/L (21-33) 03/28/17 05:15 Anion Gap 11 (10-20) 03/28/17 05:15 BUN 28 mg/dL (7-21) H 03/28/17 05:15 Creatinine 1.5 mg/dl (0.7-1.2) H 03/28/17 05:15 Est GFR ( Amer) 41 03/28/17 05:15 Est GFR (Non-Af Amer) 34 03/28/17 05:15 Random Glucose 103 mg/dL (70-110) 03/28/17 05:15 Calcium 8.7 mg/dL (8.4-10.5) 03/28/17 05:15 Total Bilirubin 0.9 mg/dL (0.2-1.3) 03/28/17 05:15 AST 25 U/L (14-36) 03/28/17 05:15 ALT 28 U/L (7-56) 03/28/17 05:15 Alkaline Phosphatase 73 U/L (38-126) 03/28/17 05:15 Total Protein 5.9 g/dL (5.8-8.3) 03/28/17 05:15 Albumin 3.1 g/dL (3.0-4.8) 03/28/17 05:15 Globulin 2.7 gm/dL 03/28/17 05:15 Albumin/Globulin Ratio 1.1 (1.1-1.8) 03/28/17 05:15 - Hospital Course Hospital Course: Hospital Course: Pt was admitted for R wrist fracture. She had a mechanical fall while at home, and tried to catch her fall on her right hand. No focal neurological deficits were appreciated, and the patient denied hitting her head or having a syncopal event. No signs of seizure, including tongue biting or loss of bowel/bladder were appreciated. Dr. Beltrán reduced the fracture with CRIF, and confirmed it with XR. Pt also complained of odynophagia, for which speech therapy was consulted. Pt stated that she was steady on her feet, and that she was willing to go home with services, per PT recommendations, or go to TCU. Pt ended up choosing TCU. On day of discharge to TCU, pt was in tact neurovascularly, and did not have any complaints besides pain to her right wrist. Pt spent 4 days in the TCU, and gradually improved functionality in her wrist. Patient was neurologically intact, A/P Day of Discharge: Assessment: 76 year old female with history of COPD, CHF due to systolic dysfunction (EF 35% ), atrial fibrillation who came for evaluation of distal comminuted fracture of the right radius s/p mechanical fall. Ortho consult appreciated. Closed reduction was done by Dr Beltrán. Creatinine is at its baseline. INR is 1.9 today. Will continue Coumadin and adjust accordingly. Continue with analgesics, aspirin, statin, xopenex and losartan. PT recommended TCU. Patient is currently in TCU for treatment of gait instability and general strengthening. Dr. Beltrán, recommends removal of the cast prior to discharge and to put the right arm in a splint if it is healing enough. Plan: Distal Radius fracture s/p CRIF - Dr. Beltrán recommends removal of the cast prior to discharge, and splint placement if it healing properly. - Pain control: tylenol for mild, percocet for moderate, morphine for severe CHF and hypertension - Lasix 40 mg - Digoxin 0.125 MWF - Carvedilol 3.125 PO daily Chronic A.Fib and Aortic Valve Replacement - INR of 1.72 - 5 mg of Coumadin to be given today and INR to be check next day AM - Diltiazem 180 mg daily CKD - Currently at baseline at 1.5 Cr - Monitor via serial BMP/CMP CVA - Aspirin 81 mg PO daily HTN - Losartan 50 mg PO daily HLD -Atorvastatin 40 mg PO daily COPD - Xopenex - both prn and michelle - Supplemental O2 if saturation drops below 92% DVT/GI - Protonix - No need for DVT prophylaxiss as patient is on Coumadin Discharge Exam - Head Exam Head Exam: ATRAUMATIC, NORMOCEPHALIC - Additional Findings Additional findings: Phys Exam: VS as below Const'l: a&o x 4, no acute distress Head/Neck: neck supple, no jvd, trachea midline, carotid midline, no cervical /head mass Eyes: mitzi, nonicteric sclera, eom intact ENT: auditory acuity grossly intact, throat not congested, no nasal deformity Cardio: regular rate rhythm, no murmurs/rubs/gallops, no carotid bruit, normal s1, s2 Pulm: no accessory muscle use, equal normal breath sounds bilaterally, clear to auscultation bilaterally Abd: soft/non-tender/non-distended, normal bowel sounds x 4 quadrants, no palpable masses Derm: no rashes, no ulcers, no lesions Neuro: cn II-XII grossly intact, upper extremity and lower extremity 5/5 muscle strength bilaterally, no loss of sensation upper extremity, lower extremity bilaterally and core Extr: Right forearm in a cast and is tender to palpation w/ limited ROM of the right distal extremity. No visible cyanosis, no calf tenderness, no varicosities Discharge Plan - Follow Up Plan Condition: GOOD Disposition: HOME/ ROUTINE Instructions: Heart Failure (DC), Atrial Fibrillation (DC), Arm Fracture in Adults (DC), Gastroesophageal Reflux Disease (DC), Coronary Artery Disease in Women (DC) <Luther Aaron - Last Filed: 03/31/17 18:38> Provider - Provider Date of Admission: 03/27/17 13:36 Attending physician: Luther Aaron MD Hospital Course - Lab Results Lab Results: Most Recent Lab Values WBC 5.0 10^3/ul (4.5-11.0) 03/28/17 05:15 RBC 4.20 10^6/uL (3.5-6.1) 03/28/17 05:15 Hgb 12.6 g/dL (12.0-16.0) 03/28/17 05:15 Hct 38.4 % (36.0-48.0) 03/28/17 05:15 MCV 91.4 fl (80.0-105.0) 03/28/17 05:15 MCH 30.0 pg (25.0-35.0) 03/28/17 05:15 MCHC 32.8 g/dl (31.0-37.0) 03/28/17 05:15 RDW 13.5 % (11.5-14.5) 03/28/17 05:15 Plt Count 110 10^3/uL (120.0-450.0) L 03/28/17 05:15 MPV 11.1 fl (7.0-11.0) H 03/28/17 05:15 Gran % 52.4 % (50.0-68.0) 03/28/17 05:15 Lymph % (Auto) 28.5 % (22.0-35.0) 03/28/17 05:15 [place] % (Auto) 13.1 % (1.0-6.0) H 03/28/17 05:15 Eos % (Auto) 5.4 % (1.5-5.0) H 03/28/17 05:15 Baso % (Auto) 0.6 % (0.0-3.0) 03/28/17 05:15 Gran # 2.63 (1.4-6.5) 03/28/17 05:15 Lymph # 1.4 (1.2-3.4) 03/28/17 05:15 [place] # 0.7 (0.1-0.6) H 03/28/17 05:15 Eos # 0.3 (0.0-0.7) 03/28/17 05:15 Baso # 0.03 K/mm3 (0.0-2.0) 03/28/17 05:15 PT 19.1 SECONDS (9.4-12.5) H 03/31/17 07:45 INR 1.72 (0.93-1.08) H 03/31/17 07:45 Sodium 142 mmol/L (132-148) 03/28/17 05:15 Potassium 4.0 mmol/L (3.6-5.0) 03/28/17 05:15 Chloride 106 mmol/L (98-107) 03/28/17 05:15 Carbon Dioxide 29 mmol/L (21-33) 03/28/17 05:15 Anion Gap 11 (10-20) 03/28/17 05:15 BUN 28 mg/dL (7-21) H 03/28/17 05:15 Creatinine 1.5 mg/dl (0.7-1.2) H 03/28/17 05:15 Est GFR ( Amer) 41 03/28/17 05:15 Est GFR (Non-Af Amer) 34 03/28/17 05:15 Random Glucose 103 mg/dL (70-110) 03/28/17 05:15 Calcium 8.7 mg/dL (8.4-10.5) 03/28/17 05:15 Total Bilirubin 0.9 mg/dL (0.2-1.3) 03/28/17 05:15 AST 25 U/L (14-36) 03/28/17 05:15 ALT 28 U/L (7-56) 03/28/17 05:15 Alkaline Phosphatase 73 U/L (38-126) 03/28/17 05:15 Total Protein 5.9 g/dL (5.8-8.3) 03/28/17 05:15 Albumin 3.1 g/dL (3.0-4.8) 03/28/17 05:15 Globulin 2.7 gm/dL 03/28/17 05:15 Albumin/Globulin Ratio 1.1 (1.1-1.8) 03/28/17 05:15 Attending/Attestation - Attestation I have personally seen and examined this patient.: Yes I have fully participated in the care of the patient.: Yes I have reviewed all pertinent clinical information, including history, physical exam and plan: Yes Notes (Text): 03/31/17 18:37 attending note; Patient seen and examined with resident in TCU. Patient is alert, awake. Patient is a 76 year old female with history of COPD, CHF due to systolic dysfunction (EF 35%), atrial fibrillation who came for evaluation of right wrist fracture after a mechanical fall. orthopedics consult appreciated. Closed reduction was done by Dr Beltrán. Afib: continue coumadin. monitor INR tomorrow. Continue physical therapy in TCU. Initially patient wanted to go home today. [employer] evaluation appreciated. Patient would stay in TCU to continue physical therapy for a few more days. Upon discharge patient will follow up with .
--- NOTE | 2017-03-31 18:39 | CON ---
DATE: 03/31/2017 HISTORY OF PRESENT ILLNESS: The patient is a 76-year-old seen today on 03/31/2017. She was admitted to the hospital with the wrist fracture on 03/23/2017 and we put in a short-arm cast and is comminuted, but she should be able to do well without surgeon to have conservative therapy. put a cast on her rt wrist fx the time in the emergency room and I will see her in the office in about 10 days to take the cast off. FINAL DIAGNOSIS: Comminuted fracture right distal radius. PLAN: Keep the cast on for total of about 3 weeks, which will be another 10 days. Macario Beltrán DO MTDD
[2017-04-01] MEDS: Levalbuterol 1.25 MG/3 ML Inhal Soln UD IH SCH ×4 (01:10→19:43)
[2017-04-01] MEDS: Pantoprazole 40 mg EC Tab PO SCH (06:04)
[2017-04-01 07:31] LABS: INR 1.93 (0.93-1.08)
[2017-04-01] MEDS: Cholecalciferol 1,000 INTLU TAB PO SCH (10:10)
[2017-04-01] MEDS: Digoxin 125 mcg (0.125 mg) Tab PO SCH (10:10)
[2017-04-01] MEDS: diltiaZEM 180 mg/24 Hours CD Cap PO SCH (10:10)
[2017-04-01] MEDS: POLYETHYLENE GLYCOL 3350 17 GM/Dose PACKET PO SCH (10:11)
[2017-04-01] MEDS: Benzocaine/Menthol (Cepacol) Lozenge MT PRN ×2 (10:18→17:42)
[2017-04-02] MEDS: Levalbuterol 1.25 MG/3 ML Inhal Soln UD IH SCH ×4 (02:33→20:04)
[2017-04-02] MEDS: Pantoprazole 40 mg EC Tab PO SCH (05:27)
[2017-04-02 07:39] LABS: INR 2.03 (0.93-1.08)
--- NOTE | 2017-04-02 08:24 | PN ---
DATE: 04/01/2017 SUBJECTIVE: A 76-year-old female with a right wrist fracture. Short arm cast was put on 03/24/2017 for an impacted right wrist fracture. It is going to take at least 3 or 4 weeks to heal completely without a cast and she is going home in 2 days from [facility], and so I will try to see if I could oblige her to take the cast off before she goes and put her on a wrist immobilizer and I will follow her closely in the office. FINAL DIAGNOSES: Impacted right wrist fracture from 03/24/2017 and plan to take the cast off if stable this Thursday, which will be 04/03/2017. Macario Beltrán DO
[2017-04-02] MEDS: POLYETHYLENE GLYCOL 3350 17 GM/Dose PACKET PO SCH (09:57)
[2017-04-02] MEDS: Cholecalciferol 1,000 INTLU TAB PO SCH (09:57)
[2017-04-02] MEDS: diltiaZEM 180 mg/24 Hours CD Cap PO SCH (10:24)
[2017-04-02] MEDS: Benzocaine/Menthol (Cepacol) Lozenge MT PRN (10:26)
--- NOTE | 2017-04-02 13:51 | CP.PCM.PN ---
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 She was made aware of the plan for removal of cast tomorrow and discharge on Thursday, and she is agreeable. Patient states that her hand and wrist are much better, and that she can move her fingers and does not have any loss of sensation. Patient denies any fevers , chills, nausea, vomiting, diarrhea, chest pain, or shortness of breath. Objective - Vital Signs/Intake and Output Vital Signs (last 24 hours): Temp Pulse Resp BP Pulse Ox 98 F 56 L 14 107/69 98 04/02/17 11:32 04/02/17 11:32 04/02/17 11:32 04/02/17 11:32 04/02/17 11:32 Intake and Output: 04/02/17 04/02/17 06:59 18:59 Intake Total 420 Balance 420 - Medications Medications: Current Medications Acetaminophen (Tylenol 650mg/20.3ml Solution Ud) 650 mg PO Q6H PRN; Protocol PRN Reason: Pain, Mild (1-3) Alprazolam (Xanax) 0.25 mg PO BID MICHELLE PRN Reason: Protocol Stop: 04/03/17 18:01 Last Admin: 04/02/17 09:55 Dose: 0.25 mg Aspirin (Aspirin Chewable) 81 mg PO 0800 MICHELLE PRN Reason: Protocol Last Admin: 04/02/17 08:51 Dose: 81 mg Atorvastatin Calcium (Lipitor) 40 mg PO DIN MICHELLE PRN Reason: Protocol Last Admin: 04/01/17 17:40 Dose: 40 mg Benzocaine/Menthol (Cepacol Sore Throat) 1 usama MT Q4H PRN; Protocol PRN Reason: Sore Throat Last Admin: 04/02/17 10:26 Dose: 1 usama Carvedilol (Coreg) 3.125 mg PO BID MICHELLE PRN Reason: Protocol Last Admin: 04/02/17 10:24 Dose: Not Given Cholecalciferol (Vitamin D) 1,000 iu PO DAILY [facility] Last Admin: 04/02/17 09:57 Dose: 1,000 iu Cyanocobalamin (Vitamin B12 1000 Mcg Tab) 1,000 mcg PO DAILY MICHELLE Last Admin: 04/02/17 09:57 Dose: 1,000 mcg Digoxin (Lanoxin) 0.125 mg PO MWF MICHELLE PRN Reason: Protocol Last Admin: 04/01/17 10:10 Dose: 0.125 mg Diltiazem HCl (Cardizem Cd) 180 mg PO DAILY MICHELLE PRN Reason: Protocol Last Admin: 04/02/17 10:24 Dose: 180 mg Docusate Sodium (Colace) 100 mg PO DAILY MICHELLE PRN Reason: Protocol Last Admin: 04/02/17 09:57 Dose: 100 mg Furosemide (Lasix) 40 mg PO DAILY MICHELLE PRN Reason: Protocol Last Admin: 04/02/17 10:26 Dose: 40 mg Levalbuterol HCl (Xopenex) 1.25 mg IH Q2H PRN; Protocol PRN Reason: SOB Levalbuterol HCl (Xopenex) 1.25 mg IH [id number] MICHELLE PRN Reason: Protocol Last Admin: 04/02/17 13:32 Dose: 1.25 mg Losartan Potassium (Cozaar) 50 mg PO DAILY MICHELLE PRN Reason: Protocol Last Admin: 04/02/17 10:28 Dose: 50 mg Pantoprazole Sodium (Protonix Ec Tab) 40 mg PO 0600 MICHELLE PRN Reason: Protocol Last Admin: 04/02/17 05:27 Dose: 40 mg Polyethylene Glycol (Miralax) 17 gm PO DAILY MICHELLE PRN Reason: Protocol Last Admin: 04/02/17 09:57 Dose: 17 gm Saliva Substitute (Saliva Substitute) 2 ml PO Q4 PRN; Protocol PRN Reason: Dry mouth Warfarin Sodium (Coumadin) 4 mg PO 1800 [facility] Last Admin: 04/01/17 17:40 Dose: 4 mg - Labs Labs: 03/28/17 05:15 03/28/17 05:15 PT 22.7 SECONDS (9.4-12.5) H 04/02/17 07:20 INR 2.03 (0.93-1.08) H 04/02/17 07:20 - Constitutional Appears: Well - Head Exam Head Exam: ATRAUMATIC, NORMAL INSPECTION, NORMOCEPHALIC - Eye Exam Eye Exam: EOMI, Normal appearance, PERRL Pupil Exam: NORMAL ACCOMODATION, PERRL - ENT Exam ENT Exam: Mucous Membranes Moist, Normal Exam - Neck Exam Neck Exam: Full ROM, Normal Inspection. absent: Lymphadenopathy - Respiratory Exam Respiratory Exam: Clear to Ausculation Bilateral, NORMAL BREATHING PATTERN - Cardiovascular Exam Cardiovascular Exam: REGULAR RHYTHM, +S1, +S2. absent: Murmur - GI/Abdominal Exam GI & Abdominal Exam: Soft, Normal Bowel Sounds. absent: Tenderness - Rectal Exam Rectal Exam: NORMAL INSPECTION - Exam Exam: Circumcision, NORMAL INSPECTION External exam: NORMAL EXTERNAL EXAM Speculum exam: NORMAL SPECULUM EXAM Bimanual exam: NORMAL BIMANUAL EXAM - Extremities Exam Extremities Exam: Full ROM, Normal Capillary Refill, Normal Inspection. absent : Joint Swelling, Pedal Edema - Back Exam Back Exam: NORMAL INSPECTION - Neurological Exam Neurological Exam: Alert, Awake, CN II-XII Intact, Normal Gait, Oriented x3 - Psychiatric Exam Psychiatric exam: Normal Affect, Normal Mood - Skin Skin Exam: Dry, Intact, Normal Color, Warm Assessment and Plan - Assessment and Plan (Free Text) Assessment: A/P 76 year old female with history of COPD, CHF due to systolic dysfunction (EF 35% ), atrial fibrillation who came for evaluation of distal comminuted fracture of the right radius s/p mechanical fall. Ortho consult appreciated. Closed reduction was done by Dr Beltrán. Creatinine is at its baseline. INR is 1.9 today. Will continue Coumadin and adjust accordingly. Continue with analgesics, aspirin, statin, xopenex and losartan. PT recommended TCU. Patient is currently in TCU for treatment of gait instability and general strengthening. Dr. Beltrán, recommends removal of the cast prior to discharge and to put the right arm in a splint if it is healing enough. Distal Radius fracture s/p CRIF - Dr. Beltrán recommends removal of the cast prior to discharge, and splint placement if it healing properly: he will try to do this tomorrow - Pain control: tylenol for mild, percocet for moderate, morphine for severe CHF and hypertension - Lasix 40 mg - Digoxin 0.125 MWF - Carvedilol 3.125 PO daily Chronic A.Fib and Aortic Valve Replacement - INR today: 2.03 - Coumadin 4 mg daily - Diltiazem 180 mg daily Chronic Kidney Disease - Currently at baseline at 1.5 Cr Cerebral Vascular Accident - Aspirin 81 mg PO daily Hypertension - Losartan 50 mg PO daily Hyperlipidemia -Atorvastatin 40 mg PO daily Chronic Obstructive Pulmonary Disease - Xopenex - both prn and michelle - Supplemental O2 if saturation drops below 92% DVT/GI Prophylaxis - Protonix - No need for DVT prophylaxiss as patient is on Coumadin <Rangasamy,Ajantha - Last Filed: 04/02/17 15:27> Objective - Vital Signs/Intake and Output Vital Signs (last 24 hours): Temp Pulse Resp BP Pulse Ox 98 F 56 L 14 107/69 98 04/02/17 11:32 04/02/17 11:32 04/02/17 11:32 04/02/17 11:32 04/02/17 11:32 Intake and Output: 04/02/17 04/02/17 06:59 18:59 Intake Total 420 Balance 420 - Medications Medications: Current Medications Acetaminophen (Tylenol 650mg/20.3ml Solution Ud) 650 mg PO Q6H PRN; Protocol PRN Reason: Pain, Mild (1-3) Alprazolam (Xanax) 0.25 mg PO BID MICHELLE PRN Reason: Protocol Stop: 04/03/17 18:01 Last Admin: 04/02/17 09:55 Dose: 0.25 mg Aspirin (Aspirin Chewable) 81 mg PO 0800 MICHELLE PRN Reason: Protocol Last Admin: 04/02/17 08:51 Dose: 81 mg Atorvastatin Calcium (Lipitor) 40 mg PO DIN MICHELLE PRN Reason: Protocol Last Admin: 04/01/17 17:40 Dose: 40 mg Benzocaine/Menthol (Cepacol Sore Throat) 1 usama MT Q4H PRN; Protocol PRN Reason: Sore Throat Last Admin: 04/02/17 10:26 Dose: 1 usama Carvedilol (Coreg) 3.125 mg PO BID MICHELLE PRN Reason: Protocol Last Admin: 04/02/17 10:24 Dose: Not Given Cholecalciferol (Vitamin D) 1,000 iu PO DAILY [facility] Last Admin: 04/02/17 09:57 Dose: 1,000 iu Cyanocobalamin (Vitamin B12 1000 Mcg Tab) 1,000 mcg PO DAILY [facility] Last Admin: 04/02/17 09:57 Dose: 1,000 mcg Digoxin (Lanoxin) 0.125 mg PO MWF MICHELLE PRN Reason: Protocol Last Admin: 04/01/17 10:10 Dose: 0.125 mg Diltiazem HCl (Cardizem Cd) 180 mg PO DAILY MICHELLE PRN Reason: Protocol Last Admin: 04/02/17 10:24 Dose: 180 mg Docusate Sodium (Colace) 100 mg PO DAILY MICHELLE PRN Reason: Protocol Last Admin: 04/02/17 09:57 Dose: 100 mg Furosemide (Lasix) 40 mg PO DAILY MICHELLE PRN Reason: Protocol Last Admin: 04/02/17 10:26 Dose: 40 mg Levalbuterol HCl (Xopenex) 1.25 mg IH Q2H PRN; Protocol PRN Reason: SOB Levalbuterol HCl (Xopenex) 1.25 mg IH [id number] MICHELLE PRN Reason: Protocol Last Admin: 04/02/17 13:32 Dose: 1.25 mg Losartan Potassium (Cozaar) 50 mg PO DAILY MICHELLE PRN Reason: Protocol Last Admin: 04/02/17 10:28 Dose: 50 mg Pantoprazole Sodium (Protonix Ec Tab) 40 mg PO 0600 MICHELLE PRN Reason: Protocol Last Admin: 04/02/17 05:27 Dose: 40 mg Polyethylene Glycol (Miralax) 17 gm PO DAILY MICHELLE PRN Reason: Protocol Last Admin: 04/02/17 09:57 Dose: 17 gm Saliva Substitute (Saliva Substitute) 2 ml PO Q4 PRN; Protocol PRN Reason: Dry mouth Warfarin Sodium (Coumadin) 4 mg PO 1800 [facility] Last Admin: 04/01/17 17:40 Dose: 4 mg - Labs Labs: 03/28/17 05:15 03/28/17 05:15 PT 22.7 SECONDS (9.4-12.5) H 04/02/17 07:20 INR 2.03 (0.93-1.08) H 04/02/17 07:20 Attending/Attestation - Attestation I have personally seen and examined this patient.: Yes I have fully participated in the care of the patient.: Yes I have reviewed all pertinent clinical information, including history, physical exam and plan: Yes Notes (Text): 04/02/17 15:26 attending note; Patient seen and examined with resident in TCU. Patient is alert, awake. Patient is a 76 year old female with history of COPD, CHF due to systolic dysfunction (EF 35%), atrial fibrillation who came for evaluation of right wrist fracture after a mechanical fall. orthopedics consult appreciated. Closed reduction was done by Dr Beltrán. plan to remove cast tomorrow and place a immobilizer. Afib: continue coumadin. INR is therapeutic. Continue physical therapy in TCU. DC home on thursday. 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 Upon discharge patient will follow up with .
[2017-04-03] MEDS: Benzocaine/Menthol (Cepacol) Lozenge MT PRN ×2 (02:03→22:24)
[2017-04-03] MEDS: Levalbuterol 1.25 MG/3 ML Inhal Soln UD IH SCH ×4 (02:23→20:45)
[2017-04-03] MEDS: Pantoprazole 40 mg EC Tab PO SCH (05:15)
[2017-04-03] MEDS: diltiaZEM 180 mg/24 Hours CD Cap PO SCH (11:26)
[2017-04-03] MEDS: Digoxin 125 mcg (0.125 mg) Tab PO SCH (11:30)
[2017-04-03] MEDS: POLYETHYLENE GLYCOL 3350 17 GM/Dose PACKET PO SCH (11:32)
[2017-04-03 11:38] VITALS: PULSE 70
[2017-04-03] MEDS: Cholecalciferol 1,000 INTLU TAB PO SCH (11:40)
[2017-04-04] MEDS: Levalbuterol 1.25 MG/3 ML Inhal Soln UD IH SCH ×4 (01:37→19:59)
[2017-04-04] MEDS: Pantoprazole 40 mg EC Tab PO SCH (05:23)
[2017-04-04 06:20] VITALS: O2SAT 96
[2017-04-04 07:39] LABS: BASO # 0.05 K/mm3 (0.0-2.0); BASO % 0.9 % (0.0-3.0); EOS # 0.3 (0.0-0.7); EOS % 4.4 % (1.5-5.0); GRAN # 3.09 (1.4-6.5); GRAN % 54.3 % (50.0-68.0); HEMATOCRIT 34.4 % (36.0-48.0); LYMPH # 1.6 (1.2-3.4); LYMPH % 27.6 % (22.0-35.0); MEAN CELL VOLUME 90.3 fl (80.0-105.0); MEAN CORPUSCULAR HEMOGLOBIN 29.7 pg (25.0-35.0); MEAN CORPUSCULAR HGB CONC 32.8 g/dl (31.0-37.0); MEAN PLATELET VOLUME 11.4 fl (7.0-11.0); MONO # 0.7 (0.1-0.6); MONO % 12.8 % (1.0-6.0); RED CELL DISTRIBUTION WIDTH 13.3 % (11.5-14.5); WHITE BLOOD COUNT 5.7 10^3/ul (4.5-11.0)
[2017-04-04 07:56] LABS: CALCIUM 9.1 mg/dL (8.4-10.5); POTASSIUM 3.9 mmol/L (3.6-5.0)
[2017-04-04 08:02] LABS: INR 2.03 (0.93-1.08)
[2017-04-04] MEDS: diltiaZEM 180 mg/24 Hours CD Cap PO SCH (09:51)
[2017-04-04] MEDS: Cholecalciferol 1,000 INTLU TAB PO SCH (09:52)
[2017-04-04] MEDS: POLYETHYLENE GLYCOL 3350 17 GM/Dose PACKET PO SCH (09:54)
[2017-04-04] MEDS ORDERED: Sodium Chloride 0.9% 500 ML IV SCH (11:00)
[2017-04-04 16:16] LABS: CALCIUM 8.8 mg/dL (8.4-10.5); POTASSIUM 3.7 mmol/L (3.6-5.0)
--- NOTE | 2017-04-04 22:50 | CP.PCM.PN ---
<PashaJeffery Vidales - Last Filed: 04/04/17 22:46> Subjective - Date & Time of Evaluation Date of Evaluation: 04/04/17 Time of Evaluation: 22:46 - Subjective Subjective: Patient seen and examined at bedside. No acute complaints at this time. Patient denies any urinary symptoms at this time and any flank pain. No further complaints. Objective - Vital Signs/Intake and Output Vital Signs (last 24 hours): Temp Pulse Resp BP Pulse Ox 98.3 F 97 H 18 115/60 96 04/04/17 06:00 04/04/17 17:20 04/04/17 06:00 04/04/17 17:20 04/04/17 06:00 Intake and Output: 04/04/17 04/05/17 18:59 06:59 Intake Total 420 Balance 420 - Medications Medications: Current Medications Acetaminophen (Tylenol 650mg/20.3ml Solution Ud) 650 mg PO Q6H PRN; Protocol PRN Reason: Pain, Mild (1-3) Aspirin (Aspirin Chewable) 81 mg PO 0800 MICHELLE PRN Reason: Protocol Last Admin: 04/04/17 09:48 Dose: 81 mg Atorvastatin Calcium (Lipitor) 40 mg PO DIN MICHELLE PRN Reason: Protocol Last Admin: 04/04/17 17:21 Dose: 40 mg Benzocaine/Menthol (Cepacol Sore Throat) 1 usama MT Q4H PRN; Protocol PRN Reason: Sore Throat Last Admin: 04/03/17 22:24 Dose: 1 usama Carvedilol (Coreg) 3.125 mg PO BID MICHELLE PRN Reason: Protocol Last Admin: 04/04/17 17:20 Dose: 3.125 mg Cholecalciferol (Vitamin D) 1,000 iu PO DAILY MICHELLE Last Admin: 04/04/17 09:52 Dose: 1,000 intlu Cyanocobalamin (Vitamin B12 1000 Mcg Tab) 1,000 mcg PO DAILY [facility] Last Admin: 04/04/17 09:53 Dose: 1,000 mcg Digoxin (Lanoxin) 0.125 mg PO MWF MICHELLE PRN Reason: Protocol Last Admin: 04/03/17 11:30 Dose: 0.125 mg Diltiazem HCl (Cardizem Cd) 180 mg PO DAILY MICHELLE PRN Reason: Protocol Last Admin: 04/04/17 09:51 Dose: 180 mg Docusate Sodium (Colace) 100 mg PO DAILY MICHELLE PRN Reason: Protocol Last Admin: 04/04/17 09:52 Dose: 100 mg Furosemide (Lasix) 40 mg PO DAILY MICHELLE PRN Reason: Protocol Last Admin: 04/04/17 09:51 Dose: 40 mg Levalbuterol HCl (Xopenex) 1.25 mg IH Q2H PRN; Protocol PRN Reason: SOB Levalbuterol HCl (Xopenex) 1.25 mg IH [id number] MICHELLE PRN Reason: Protocol Last Admin: 04/04/17 19:59 Dose: 1.25 mg Losartan Potassium (Cozaar) 50 mg PO DAILY MICHELLE PRN Reason: Protocol Last Admin: 04/04/17 09:53 Dose: 50 mg Pantoprazole Sodium (Protonix Ec Tab) 40 mg PO 0600 MICHELLE PRN Reason: Protocol Last Admin: 04/04/17 05:23 Dose: 40 mg Polyethylene Glycol (Miralax) 17 gm PO DAILY MICHELLE PRN Reason: Protocol Last Admin: 04/04/17 09:54 Dose: 17 gm Saliva Substitute (Saliva Substitute) 2 ml PO Q4 PRN; Protocol PRN Reason: Dry mouth Warfarin Sodium (Coumadin) 4 mg PO 1800 [facility] Last Admin: 04/04/17 17:21 Dose: 4 mg - Labs Labs: 04/04/17 06:30 04/04/17 13:55 PT 22.6 SECONDS (9.4-12.5) H 04/04/17 06:30 INR 2.03 (0.93-1.08) H 04/04/17 06:30 - Constitutional Appears: Well - Head Exam Head Exam: ATRAUMATIC, NORMAL INSPECTION, NORMOCEPHALIC - Eye Exam Eye Exam: EOMI, Normal appearance, PERRL Pupil Exam: NORMAL ACCOMODATION, PERRL - ENT Exam ENT Exam: Mucous Membranes Moist, Normal Exam - Neck Exam Neck Exam: Full ROM, Normal Inspection. absent: Lymphadenopathy - Respiratory Exam Respiratory Exam: Clear to Ausculation Bilateral, NORMAL BREATHING PATTERN - Cardiovascular Exam Cardiovascular Exam: REGULAR RHYTHM, +S1, +S2. absent: Murmur - GI/Abdominal Exam GI & Abdominal Exam: Soft, Normal Bowel Sounds. absent: Tenderness - Rectal Exam Rectal Exam: NORMAL INSPECTION - Exam Exam: Circumcision, NORMAL INSPECTION External exam: NORMAL EXTERNAL EXAM Speculum exam: NORMAL SPECULUM EXAM Bimanual exam: NORMAL BIMANUAL EXAM - Extremities Exam Extremities Exam: Full ROM, Normal Capillary Refill, Normal Inspection. absent : Joint Swelling, Pedal Edema Additional comments: Right upper extremity in cast, distal sensation and motor function in tact. Warm to touch - Back Exam Back Exam: NORMAL INSPECTION - Neurological Exam Neurological Exam: Alert, Awake, CN II-XII Intact, Normal Gait, Oriented x3 - Psychiatric Exam Psychiatric exam: Normal Affect, Normal Mood - Skin Skin Exam: Dry, Intact, Normal Color, Warm Assessment and Plan - Assessment and Plan (Free Text) Assessment: A/P 76 year old female with history of COPD, CHF due to systolic dysfunction (EF 35% ), atrial fibrillation who came for evaluation of distal comminuted fracture of the right radius s/p mechanical fall. Ortho consult appreciated. Closed reduction was done by Dr Beltrán. Creatinine is at its baseline. INR is 1.9 today. Will continue Coumadin and adjust accordingly. Continue with analgesics, aspirin, statin, xopenex and losartan. PT recommended TCU. Patient is currently in TCU for treatment of gait instability and general strengthening. Distal Radius fracture s/p CRIF - Dr. Beltrán will keep in cast for now - Pain control: tylenol for mild LOLA, likely 2/2 Dehydration - BUN/Cr up to 32/1.8 and 30/1.9 - Held Lasix and gave fluids 500 cc at 50/hr CHF and hypertension - Lasix 40 mg - held - Digoxin 0.125 MWF - Carvedilol 3.125 PO daily Chronic A.Fib and Aortic Valve Replacement - INR today: 2.03 - Coumadin 4 mg daily - Diltiazem 180 mg daily Chronic Kidney Disease - Currently at baseline at 1.5 Cr Cerebral Vascular Accident - Aspirin 81 mg PO daily Hypertension - Losartan 50 mg PO daily Hyperlipidemia -Atorvastatin 40 mg PO daily Chronic Obstructive Pulmonary Disease - Xopenex - both prn and michelle - Supplemental O2 if saturation drops below 92% DVT/GI Prophylaxis - Protonix - No need for DVT prophylaxiss as patient is on Coumadin <Suly Read - Last Filed: 04/04/17 23:23> Objective - Vital Signs/Intake and Output Vital Signs (last 24 hours): Temp Pulse Resp BP Pulse Ox 98.3 F 97 H 18 115/60 96 04/04/17 06:00 04/04/17 17:20 04/04/17 06:00 04/04/17 17:20 04/04/17 06:00 Intake and Output: 04/04/17 04/05/17 18:59 06:59 Intake Total 420 Balance 420 - Medications Medications: Current Medications Acetaminophen (Tylenol 650mg/20.3ml Solution Ud) 650 mg PO Q6H PRN; Protocol PRN Reason: Pain, Mild (1-3) Aspirin (Aspirin Chewable) 81 mg PO 0800 MICHELLE PRN Reason: Protocol Last Admin: 04/04/17 09:48 Dose: 81 mg Atorvastatin Calcium (Lipitor) 40 mg PO DIN MICHELLE PRN Reason: Protocol Last Admin: 04/04/17 17:21 Dose: 40 mg Benzocaine/Menthol (Cepacol Sore Throat) 1 usama MT Q4H PRN; Protocol PRN Reason: Sore Throat Last Admin: 04/03/17 22:24 Dose: 1 usama Carvedilol (Coreg) 3.125 mg PO BID MICHELLE PRN Reason: Protocol Last Admin: 04/04/17 17:20 Dose: 3.125 mg Cholecalciferol (Vitamin D) 1,000 iu PO DAILY [facility] Last Admin: 04/04/17 09:52 Dose: 1,000 intlu Cyanocobalamin (Vitamin B12 1000 Mcg Tab) 1,000 mcg PO DAILY [facility] Last Admin: 04/04/17 09:53 Dose: 1,000 mcg Digoxin (Lanoxin) 0.125 mg PO MWF MICHELLE PRN Reason: Protocol Last Admin: 04/03/17 11:30 Dose: 0.125 mg Diltiazem HCl (Cardizem Cd) 180 mg PO DAILY MICHELLE PRN Reason: Protocol Last Admin: 04/04/17 09:51 Dose: 180 mg Docusate Sodium (Colace) 100 mg PO DAILY MICHELLE PRN Reason: Protocol Last Admin: 04/04/17 09:52 Dose: 100 mg Furosemide (Lasix) 40 mg PO DAILY MICHELLE PRN Reason: Protocol Last Admin: 04/04/17 09:51 Dose: 40 mg Levalbuterol HCl (Xopenex) 1.25 mg IH Q2H PRN; Protocol PRN Reason: SOB Levalbuterol HCl (Xopenex) 1.25 mg IH [id number] MICHELLE PRN Reason: Protocol Last Admin: 04/04/17 19:59 Dose: 1.25 mg Losartan Potassium (Cozaar) 50 mg PO DAILY MICHELLE PRN Reason: Protocol Last Admin: 04/04/17 09:53 Dose: 50 mg Pantoprazole Sodium (Protonix Ec Tab) 40 mg PO 0600 MICHELLE PRN Reason: Protocol Last Admin: 04/04/17 05:23 Dose: 40 mg Polyethylene Glycol (Miralax) 17 gm PO DAILY MICHELLE PRN Reason: Protocol Last Admin: 04/04/17 09:54 Dose: 17 gm Saliva Substitute (Saliva Substitute) 2 ml PO Q4 PRN; Protocol PRN Reason: Dry mouth Warfarin Sodium (Coumadin) 4 mg PO 1800 [facility] Last Admin: 04/04/17 17:21 Dose: 4 mg - Labs Labs: 04/04/17 06:30 04/04/17 13:55 PT 22.6 SECONDS (9.4-12.5) H 04/04/17 06:30 INR 2.03 (0.93-1.08) H 04/04/17 06:30 Attending/Attestation - Attestation I have personally seen and examined this patient.: Yes I have fully participated in the care of the patient.: Yes I have reviewed all pertinent clinical information, including history, physical exam and plan: Yes
[2017-04-05] MEDS: Benzocaine/Menthol (Cepacol) Lozenge MT PRN ×2 (00:36→14:17)
[2017-04-05] MEDS: Levalbuterol 1.25 MG/3 ML Inhal Soln UD IH SCH ×3 (02:05→13:11)
[2017-04-05] MEDS: Pantoprazole 40 mg EC Tab PO SCH (05:32)
[2017-04-05 06:14] VITALS: RESP 19; TEMP 97.9
[2017-04-05 07:18] LABS: BASO # 0.03 K/mm3 (0.0-2.0); BASO % 0.6 % (0.0-3.0); EOS # 0.2 (0.0-0.7); EOS % 4.3 % (1.5-5.0); GRAN # 2.97 (1.4-6.5); GRAN % 54.8 % (50.0-68.0); HEMATOCRIT 35.3 % (36.0-48.0); LYMPH # 1.6 (1.2-3.4); LYMPH % 28.7 % (22.0-35.0); MEAN CELL VOLUME 90.1 fl (80.0-105.0); MEAN CORPUSCULAR HEMOGLOBIN 30.1 pg (25.0-35.0); MEAN CORPUSCULAR HGB CONC 33.4 g/dl (31.0-37.0); MEAN PLATELET VOLUME 10.7 fl (7.0-11.0); MONO # 0.6 (0.1-0.6); MONO % 11.6 % (1.0-6.0); RED CELL DISTRIBUTION WIDTH 13.3 % (11.5-14.5); WHITE BLOOD COUNT 5.4 10^3/ul (4.5-11.0)
[2017-04-05 07:29] LABS: CALCIUM 8.8 mg/dL (8.4-10.5); POTASSIUM 3.6 mmol/L (3.6-5.0)
[2017-04-05 08:39] LABS: ALB/GLOB RATIO 1.1 (1.1-1.8); BILIRUBIN,DIRECT 0.4 mg/dL (0.0-0.4); BILIRUBIN,TOTAL 0.6 mg/dL (0.2-1.3); TOTAL PROTEIN 5.9 g/dL (5.8-8.3)
[2017-04-05] MEDS: POLYETHYLENE GLYCOL 3350 17 GM/Dose PACKET PO SCH (09:27)
[2017-04-05] MEDS: Cholecalciferol 1,000 INTLU TAB PO SCH (09:30)
[2017-04-05] MEDS: diltiaZEM 180 mg/24 Hours CD Cap PO SCH (09:30)
--- NOTE | 2017-04-05 12:33 | CP.PCM.DIS ---
<Jeffery Pak - Last Filed: 04/05/17 17:14> Provider - Provider Date of Admission: 03/27/17 13:36 Attending physician: Luther Aaron MD Consults: Dr. Estrada: Nephro Dr. Beltrán: Ortho Time Spent in preparation of Discharge (in minutes): 45 Hospital Course - Lab Results Lab Results: Most Recent Lab Values WBC 5.4 10^3/ul (4.5-11.0) 04/05/17 06:45 RBC 3.92 10^6/uL (3.5-6.1) 04/05/17 06:45 Hgb 11.8 g/dL (12.0-16.0) L 04/05/17 06:45 Hct 35.3 % (36.0-48.0) L 04/05/17 06:45 MCV 90.1 fl (80.0-105.0) 04/05/17 06:45 MCH 30.1 pg (25.0-35.0) 04/05/17 06:45 MCHC 33.4 g/dl (31.0-37.0) 04/05/17 06:45 RDW 13.3 % (11.5-14.5) 04/05/17 06:45 Plt Count 133 10^3/uL (120.0-450.0) 04/05/17 06:45 MPV 10.7 fl (7.0-11.0) 04/05/17 06:45 Gran % 54.8 % (50.0-68.0) 04/05/17 06:45 Lymph % (Auto) 28.7 % (22.0-35.0) 04/05/17 06:45 [place] % (Auto) 11.6 % (1.0-6.0) H 04/05/17 06:45 Eos % (Auto) 4.3 % (1.5-5.0) 04/05/17 06:45 Baso % (Auto) 0.6 % (0.0-3.0) 04/05/17 06:45 Gran # 2.97 (1.4-6.5) 04/05/17 06:45 Lymph # 1.6 (1.2-3.4) 04/05/17 06:45 [place] # 0.6 (0.1-0.6) 04/05/17 06:45 Eos # 0.2 (0.0-0.7) 04/05/17 06:45 Baso # 0.03 K/mm3 (0.0-2.0) 04/05/17 06:45 PT 22.6 SECONDS (9.4-12.5) H 04/04/17 06:30 INR 2.03 (0.93-1.08) H 04/04/17 06:30 Sodium 140 mmol/L (132-148) 04/05/17 06:45 Potassium 3.6 mmol/L (3.6-5.0) 04/05/17 06:45 Chloride 102 mmol/L (98-107) 04/05/17 06:45 Carbon Dioxide 30 mmol/L (21-33) 04/05/17 06:45 Anion Gap 11 (10-20) 04/05/17 06:45 BUN 28 mg/dL (7-21) H 04/05/17 06:45 Creatinine 1.6 mg/dl (0.7-1.2) H 04/05/17 06:45 Est GFR ( Amer) 38 04/05/17 06:45 Est GFR (Non-Af Amer) 31 04/05/17 06:45 Random Glucose 106 mg/dL (70-110) 04/05/17 06:45 Calcium 8.8 mg/dL (8.4-10.5) 04/05/17 06:45 Total Bilirubin 0.6 mg/dL (0.2-1.3) 04/05/17 08:00 Direct Bilirubin 0.4 mg/dL (0.0-0.4) 04/05/17 08:00 AST 20 U/L (14-36) 04/05/17 08:00 ALT 25 U/L (7-56) 04/05/17 08:00 Alkaline Phosphatase 87 U/L (38-126) 04/05/17 08:00 Total Protein 5.9 g/dL (5.8-8.3) 04/05/17 08:00 Albumin 3.1 g/dL (3.0-4.8) 04/05/17 08:00 Globulin 2.8 gm/dL 04/05/17 08:00 Albumin/Globulin Ratio 1.1 (1.1-1.8) 04/05/17 08:00 - Hospital Course Hospital Course: Pt was admitted for R wrist fracture. She had a mechanical fall while at home, and tried to catch her fall on her right hand. No focal neurological deficits were appreciated, and the patient denied hitting her head or having a syncopal event. No signs of seizure, including tongue biting or loss of bowel/bladder were appreciated. Dr. Beltrán reduced the fracture with CRIF, and confirmed it with XR. Pt also complained of odynophagia, for which speech therapy was consulted. Pt stated that she was steady on her feet, and that she was willing to go home with services, per PT recommendations, or go to TCU. Pt ended up choosing TCU. On day of discharge to TCU, pt was in tact neurovascularly, and did not have any complaints besides pain to her right wrist. Pt spent 9 days in the TCU, and gradually improved functionality in her wrist. Patient was neurologically intact, warm to touch in distal fingers. On day before discharge, patient's creatinine bumped up. Her discharge was held, lasix was held, she was given 500cc of fluids at 40 mls./hr. The next day, her creatinine trended back down. Dr. Beltrán stated that it is too early to take the cast off, so he will leave it on for now and she should follow up outpatient. Ms. Lkahani was also seen by Dr. Estrada on day of discharge, who stated that she should get a UA before she leaves, but once she gives urine, she is free to go, she does not have to wait for results. A/P Day of Discharge: A/P 76 year old female with history of COPD, CHF due to systolic dysfunction (EF 35% ), atrial fibrillation who came for evaluation of distal comminuted fracture of the right radius s/p mechanical fall. Ortho consult appreciated. Closed reduction was done by Dr Beltrán. Creatinine is at its baseline. INR is 1.9 today. Will continue Coumadin and adjust accordingly. Continue with analgesics, aspirin, statin, xopenex and losartan. PT recommended TCU. Patient is currently in TCU for treatment of gait instability and general strengthening. Distal Radius fracture s/p CRIF - Dr. Beltrán will keep in cast for now - Pain control: tylenol for mild LOLA, likely 2/2 Dehydration: Resolved - BUN/Cr up to 32/1.8 and 30/1.9 - Held Lasix and gave fluids 500 cc at 50/hr - Creatinine now downtrending - Nephro consult: Dr. Estrada - saw patient, asked her to give urine for a UA, then she can go home. CHF and hypertension - Lasix 40 mg - held - Digoxin 0.125 MWF - Carvedilol 3.125 PO daily Chronic A.Fib and Aortic Valve Replacement - INR today: 2.03 - Coumadin 4 mg daily - Diltiazem 180 mg daily Chronic Kidney Disease - Currently at baseline at 1.5 Cr Cerebral Vascular Accident - Aspirin 81 mg PO daily Hypertension - Losartan 50 mg PO daily Hyperlipidemia -Atorvastatin 40 mg PO daily Chronic Obstructive Pulmonary Disease - Xopenex - both prn and michelle - Supplemental O2 if saturation drops below 92% DVT/GI Prophylaxis - Protonix - No need for DVT prophylaxiss as patient is on Coumadin Discharge Exam - Head Exam Head Exam: ATRAUMATIC, NORMAL INSPECTION, NORMOCEPHALIC - Eye Exam Eye Exam: EOMI, Normal appearance, PERRL Pupil Exam: NORMAL ACCOMODATION, PERRL - Respiratory Exam Respiratory Exam: Clear to PA & Lateral, NORMAL BREATHING PATTERN, UNREMARKABLE. absent: Rales, Rhonchi, Wheezes - Cardiovascular Exam Cardiovascular Exam: REGULAR RHYTHM, RRR, +S1, +S2, Systolic Murmur. absent: Tachycardia, Diastolic murmur, Gallop, Irregular Rhythm - GI/Abdominal Exam GI & Abdominal Exam: Normal Bowel Sounds - Extremities Exam Extremities exam: normal capillary refill, normal inspection, pedal pulses present Additional comments: Right upper extremity in cast, distal sensation and motor function in tact. Warm to touch - Neurological Exam Neurological exam: Alert, CN II-XII Intact, Normal Gait, Oriented x3, Reflexes Normal - Psychiatric Exam Psychiatric exam: Normal Affect, Normal Mood - Skin Skin Exam: Dry, Intact, Normal Color, Warm Discharge Plan - Discharge Medications Prescriptions: Levalbuterol [Xopenex] 1.25 mg IH [id number] #1 neb Alprazolam [Xanax] 0.25 mg PO BID #14 tablet Aspirin [Aspirin Chewable] 81 mg PO DAILY #7 chew Carvedilol [Coreg] 3.125 mg PO BID #14 tab Cholecalciferol (Vitamin D3) [Vitamin D3] 1 tab PO DAILY #7 tab.chew Digoxin [Lanoxin] 0.125 mg PO MWF #12 tab diltiaZEM CD [Cardizem CD] 180 mg PO DAILY #7 cap Docusate [Colace] 100 mg PO DAILY #7 cap Furosemide [Lasix] 40 mg PO DAILY #7 tab Losartan [Cozaar] 25 mg PO DAILY #7 tab Pantoprazole [Protonix EC Tab] 40 mg PO 0600 #7 ect Polyethylene Glycol 3350 [Miralax] 17 gm PO DAILY #7 packet Warfarin [Coumadin] 4 mg PO 1800 #7 tab - Follow Up Plan Condition: GOOD Disposition: HOME/ ROUTINE Instructions: Heart Failure (DC), Atrial Fibrillation (DC), Arm Fracture in Adults (DC), Gastroesophageal Reflux Disease (DC), Coronary Artery Disease in Women (DC) Additional Instructions: Please follow up with Dr. Beltrán for removal of cast and placement of splint on , April 09, 2017. Please make sure to get your medications from pharmacy Please return to the ED immediately if your symptoms return or worsen. phone Dr Macario Beltrán [phone] [place] [address] <Suly Read - Last Filed: 04/05/17 18:46> Provider - Provider Date of Admission: 03/27/17 13:36 Attending physician: Luther Aaron MD Hospital Course - Lab Results Lab Results: Most Recent Lab Values WBC 5.4 10^3/ul (4.5-11.0) 04/05/17 06:45 RBC 3.92 10^6/uL (3.5-6.1) 04/05/17 06:45 Hgb 11.8 g/dL (12.0-16.0) L 04/05/17 06:45 Hct 35.3 % (36.0-48.0) L 04/05/17 06:45 MCV 90.1 fl (80.0-105.0) 04/05/17 06:45 MCH 30.1 pg (25.0-35.0) 04/05/17 06:45 MCHC 33.4 g/dl (31.0-37.0) 04/05/17 06:45 RDW 13.3 % (11.5-14.5) 04/05/17 06:45 Plt Count 133 10^3/uL (120.0-450.0) 04/05/17 06:45 MPV 10.7 fl (7.0-11.0) 04/05/17 06:45 Gran % 54.8 % (50.0-68.0) 04/05/17 06:45 Lymph % (Auto) 28.7 % (22.0-35.0) 04/05/17 06:45 [place] % (Auto) 11.6 % (1.0-6.0) H 04/05/17 06:45 Eos % (Auto) 4.3 % (1.5-5.0) 04/05/17 06:45 Baso % (Auto) 0.6 % (0.0-3.0) 04/05/17 06:45 Gran # 2.97 (1.4-6.5) 04/05/17 06:45 Lymph # 1.6 (1.2-3.4) 04/05/17 06:45 [place] # 0.6 (0.1-0.6) 04/05/17 06:45 Eos # 0.2 (0.0-0.7) 04/05/17 06:45 Baso # 0.03 K/mm3 (0.0-2.0) 04/05/17 06:45 PT 22.6 SECONDS (9.4-12.5) H 04/04/17 06:30 INR 2.03 (0.93-1.08) H 04/04/17 06:30 Sodium 140 mmol/L (132-148) 04/05/17 06:45 Potassium 3.6 mmol/L (3.6-5.0) 04/05/17 06:45 Chloride 102 mmol/L (98-107) 04/05/17 06:45 Carbon Dioxide 30 mmol/L (21-33) 04/05/17 06:45 Anion Gap 11 (10-20) 04/05/17 06:45 BUN 28 mg/dL (7-21) H 04/05/17 06:45 Creatinine 1.6 mg/dl (0.7-1.2) H 04/05/17 06:45 Est GFR ( Amer) 38 04/05/17 06:45 Est GFR (Non-Af Amer) 31 04/05/17 06:45 Random Glucose 106 mg/dL (70-110) 04/05/17 06:45 Calcium 8.8 mg/dL (8.4-10.5) 04/05/17 06:45 Total Bilirubin 0.6 mg/dL (0.2-1.3) 04/05/17 08:00 Direct Bilirubin 0.4 mg/dL (0.0-0.4) 04/05/17 08:00 AST 20 U/L (14-36) 04/05/17 08:00 ALT 25 U/L (7-56) 04/05/17 08:00 Alkaline Phosphatase 87 U/L (38-126) 04/05/17 08:00 Total Protein 5.9 g/dL (5.8-8.3) 04/05/17 08:00 Albumin 3.1 g/dL (3.0-4.8) 04/05/17 08:00 Globulin 2.8 gm/dL 04/05/17 08:00 Albumin/Globulin Ratio 1.1 (1.1-1.8) 04/05/17 08:00 Attending/Attestation - Attestation I have personally seen and examined this patient.: Yes I have fully participated in the care of the patient.: Yes I have reviewed all pertinent clinical information, including history, physical exam and plan: Yes
--- NOTE | 2017-04-05 15:13 | CP.PCM.CON ---
Past Patient History - Infectious Disease Hx of Infectious Diseases: None - Tetanus Immunizations Tetanus Immunization: Unknown - Past Medical History & Family History Past Medical History?: Yes - Past Social History Smoking Status: Never Smoked - CARDIAC Hx Congestive Heart Failure: Yes Hx Hypertension: Yes - PULMONARY Hx Chronic Obstructive Pulmonary Disease (COPD): Yes - NEUROLOGICAL HX Cerebrovascular Accident: Yes - HEENT Hx HEENT Problems: Yes (Wears reading glasses. Upper denture.) Hx Blind: No Hx Cataracts: No Hx Deafness: No Hx Difficulty Chewing: No Hx Epistaxis: No Hx Glaucoma: No Hx Macular Degeneration: No - RENAL Hx Chronic Kidney Disease: No Hx Renal Failure: No - ENDOCRINE/METABOLIC Hx Endocrine Disorders: No Hx Diabetes Mellitus Type 1: No Hx Diabetes Mellitus Type 2: No - HEMATOLOGICAL/ONCOLOGICAL Hx Blood Disorders: No - INTEGUMENTARY Hx Dermatological Problems: No Hx Basil Cell: No Hx Eczema: No Hx Melanoma: No Hx Psoriasis: No Hx Squamous Cell: No Other/Comment: 03-24-17 BILATERAL LE DARKENED BROWN SKIN DISCOLORATION. - MUSCULOSKELETAL/RHEUMATOLOGICAL Hx Falls: Yes - GASTROINTESTINAL Hx Gastrointestinal Disorders: Yes (CHOLECYSTECTOMY,ABDOMINAL SX FOR DIVERTICULITIS) - GENITOURINARY/GYNECOLOGICAL Hx Genitourinary Disorders: Yes (URGENCY) Hx Reproductive Disorders: No - PSYCHIATRIC Hx Psychophysiologic Disorder: No Hx Emotional Abuse: No Hx Physical Abuse: No Hx Substance Use: No Other/Comment: nervous - SURGICAL HISTORY Hx Surgeries: Yes Hx Cholecystectomy: Yes Hx Open Heart Surgery: Yes (5 yrs) Hx Valve Replacement: Yes - ANESTHESIA Hx Anesthesia: No Hx Anesthesia Reactions: No Hx Malignant Hyperthermia: No Meds Home Medications: Home Medication List Medication Instructions Recorded Confirmed Type Alprazolam [Xanax] 0.25 mg PO BID #14 tablet 04/02/17 Rx Aspirin [Aspirin Chewable] 81 mg PO DAILY #7 chew 04/02/17 Rx Atorvastatin [Lipitor] 40 mg PO DAILY #7 04/02/17 03/27/17 Rx Carvedilol [Coreg] 3.125 mg PO BID #14 tab 04/02/17 Rx Cholecalciferol (Vitamin D3) 1 tab PO DAILY #7 tab.chew 04/02/17 Rx [Vitamin D3] Digoxin [Lanoxin] 0.125 mg PO MWF #12 tab 04/02/17 Rx Docusate [Colace] 100 mg PO DAILY #7 cap 04/02/17 Rx Furosemide [Lasix] 40 mg PO DAILY #7 tab 04/02/17 Rx Levalbuterol [Xopenex] 1.25 mg IH [id number] #1 neb 04/02/17 Rx Losartan [Cozaar] 25 mg PO DAILY #7 tab 04/02/17 Rx Pantoprazole [Protonix EC Tab] 40 mg PO 0600 #7 ect 04/02/17 Rx Polyethylene Glycol 3350 [Miralax] 17 gm PO DAILY #7 packet 04/02/17 Rx Warfarin [Coumadin] 4 mg PO 1800 #7 tab 04/02/17 Rx diltiaZEM CD [Cardizem CD] 180 mg PO DAILY #7 cap 04/02/17 Rx Allergies/Adverse Reactions: Allergies Allergy/AdvReac Type Severity Reaction Status Date / Time Sulfa (Sulfonamide Allergy Unknown . Verified 03/27/17 14:56 Antibiotics) - Medications Medications: Current Medications Acetaminophen (Tylenol 650mg/20.3ml Solution Ud) 650 mg PO Q6H PRN; Protocol PRN Reason: Pain, Mild (1-3) Aspirin (Aspirin Chewable) 81 mg PO 0800 [facility] PRN Reason: Protocol Last Admin: 04/05/17 08:21 Dose: 81 mg Atorvastatin Calcium (Lipitor) 40 mg PO DIN MELIZA PRN Reason: Protocol Last Admin: 04/04/17 17:21 Dose: 40 mg Benzocaine/Menthol (Cepacol Sore Throat) 1 usama MT Q4H PRN; Protocol PRN Reason: Sore Throat Last Admin: 04/05/17 14:17 Dose: 1 usama Carvedilol (Coreg) 3.125 mg PO BID MELIZA PRN Reason: Protocol Last Admin: 04/05/17 09:28 Dose: 3.125 mg Cholecalciferol (Vitamin D) 1,000 iu PO DAILY [facility] Last Admin: 04/05/17 09:30 Dose: 1,000 intlu Cyanocobalamin (Vitamin B12 1000 Mcg Tab) 1,000 mcg PO DAILY [facility] Last Admin: 04/05/17 09:30 Dose: 1,000 mcg Digoxin (Lanoxin) 0.125 mg PO MWF [facility] PRN Reason: Protocol Last Admin: 04/03/17 11:30 Dose: 0.125 mg Diltiazem HCl (Cardizem Cd) 180 mg PO DAILY [facility] PRN Reason: Protocol Last Admin: 04/05/17 09:30 Dose: 180 mg Docusate Sodium (Colace) 100 mg PO DAILY [facility] PRN Reason: Protocol Last Admin: 04/05/17 09:28 Dose: 100 mg Furosemide (Lasix) 40 mg PO DAILY [facility]A PRN Reason: Protocol Last Admin: 04/04/17 09:51 Dose: 40 mg Levalbuterol HCl (Xopenex) 1.25 mg IH Q2H PRN; Protocol PRN Reason: SOB Levalbuterol HCl (Xopenex) 1.25 mg IH [id number] MELIZA PRN Reason: Protocol Last Admin: 04/05/17 13:11 Dose: 1.25 mg Losartan Potassium (Cozaar) 50 mg PO DAILY M[facility]IZA PRN Reason: Protocol Last Admin: 04/05/17 09:29 Dose: 50 mg Pantoprazole Sodium (Protonix Ec Tab) 40 mg PO 0600 [facility] PRN Reason: Protocol Last Admin: 04/05/17 05:32 Dose: 40 mg Polyethylene Glycol (Miralax) 17 gm PO DAILY [facility] PRN Reason: Protocol Last Admin: 04/05/17 09:27 Dose: 17 gm Saliva Substitute (Saliva Substitute) 2 ml PO Q4 PRN; Protocol PRN Reason: Dry mouth Warfarin Sodium (Coumadin) 4 mg PO 1800 MELIZA Last Admin: 04/04/17 17:21 Dose: 4 mg Results - Vital Signs Recent Vital Signs: Last Vital Signs Temp 97.9 F 04/05/17 06:00 Pulse 96 H 04/05/17 09:30 Resp 19 04/05/17 06:00 BP 123/83 04/05/17 09:30 Pulse Ox 96 04/05/17 06:00 - Labs Result Diagrams: 04/05/17 06:45 04/05/17 06:45 Labs: Laboratory Results - last 24 hr 04/04/17 04/05/17 04/05/17 13:55 06:45 06:45 WBC 5.4 RBC 3.92 Hgb 11.8 L Hct 35.3 L MCV 90.1 MCH 30.1 MCHC 33.4 RDW 13.3 Plt Count 133 MPV 10.7 Gran % 54.8 Lymph % (Auto) 28.7 [place] % (Auto) 11.6 H Eos % (Auto) 4.3 Baso % (Auto) 0.6 Gran # 2.97 Lymph # 1.6 [place] # 0.6 Eos # 0.2 Baso # 0.03 Sodium 139 140 Potassium 3.7 3.6 Chloride 103 102 Carbon Dioxide 29 30 Anion Gap 11 11 BUN 30 H 28 H Creatinine 1.9 H 1.6 H Est GFR ( Amer) 31 38 Est GFR (Non-Af Amer) 26 31 Random Glucose 136 H 106 Calcium 8.8 8.8 Total Bilirubin Direct Bilirubin AST ALT Alkaline Phosphatase Total Protein Albumin Globulin Albumin/Globulin Ratio 04/05/17 08:00 WBC RBC Hgb Hct MCV MCH MCHC RDW Plt Count MPV Gran % Lymph % (Auto) [place] % (Auto) Eos % (Auto) Baso % (Auto) Gran # Lymph # [place] # Eos # Baso # Sodium Potassium Chloride Carbon Dioxide Anion Gap BUN Creatinine Est GFR ( Amer) Est GFR (Non-Af Amer) Random Glucose Calcium Total Bilirubin 0.6 Direct Bilirubin 0.4 AST 20 ALT 25 Alkaline Phosphatase 87 Total Protein 5.9 Albumin 3.1 Globulin 2.8 Albumin/Globulin Ratio 1.1 Assessment & Plan (1) LOLA (acute kidney injury) Assessment and Plan: LOLA on CKD, resolved; appears to simply be hemodynamic fluctuation of renal function which is consistent with patient's previous history as 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
[2017-04-05 17:10] VITALS: BP 177/84; PULSE 70
[2017-04-05 19:57] LABS: URINE BILIRUBIN NEGATIVE (NEGATIVE); URINE BLOOD NEGATIVE (NEGATIVE); URINE GLUCOSE (UA) NEGATIVE (NEGATIVE); URINE KETONE NEGATIVE (NEGATIVE); URINE LEUKOCYTE ESTERASE SMALL Leu/uL (NEGATIVE); URINE PROTEIN 100 mg/dL (<30 mg/dL); URINE UROBILINOGEN 0.2 E.U./dL (<1 E.U./dL)
[2017-04-05 20:03] LABS: URINE APPEARANCE CLEAR (CLEAR); URINE COLOR YELLOW (YELLOW)
[2017-04-05 20:51] LABS: URINE BACTERIA MOD (NEG); URINE RBC 0 - 2 /hpf (0-2)
== END 2017-04-05 19:49 | disposition home health service (06) | DRG 560 ==
LOC: TRCU 13:36
PROVIDERS: ADMIT Hospitalist; ATTEND Internal Medicine
PROC: F06ZDZZ Swallowing Dysfunction Treatment (ICD-10-PCS; 2017-03-28)
PROC: F07Z9FZ Gait Training/Functional Ambulation Treatment using Assistive, Adaptive, Supportive or Protective Equipment (ICD-10-PCS; principal; 2017-03-29)
PROC: F07Z8ZZ Transfer Training Treatment (ICD-10-PCS; 2017-03-29)
PROC: F07L6YZ Therapeutic Exercise Treatment of Musculoskeletal System - Lower Back / Lower Extremity using Other Equipment (ICD-10-PCS; 2017-03-29)
PROC: F08Z2FZ Grooming/Personal Hygiene Treatment using Assistive, Adaptive, Supportive or Protective Equipment (ICD-10-PCS; 2017-03-31)
PROC: F08Z1ZZ Dressing Techniques Treatment (ICD-10-PCS; 2017-03-31)
DX: S52.501D Unspecified fracture of the lower end of right radius, subsequent encounter for closed fracture with routine healing (principal); I13.0 Hypertensive heart and chronic kidney disease with heart failure and stage 1 through stage 4 chronic kidney disease, or unspecified chronic kidney disease; I50.22 Chronic systolic (congestive) heart failure; N17.9 Acute kidney failure, unspecified; R26.9 Unspecified abnormalities of gait and mobility; R13.10 Dysphagia, unspecified; I48.2 Chronic atrial fibrillation; J44.9 Chronic obstructive pulmonary disease, unspecified; E86.0 Dehydration; N18.9 Chronic kidney disease, unspecified; E78.5 Hyperlipidemia, unspecified; W01.0XXD Fall on same level from slipping, tripping and stumbling without subsequent striking against object, subsequent encounter; Z95.2 Presence of prosthetic heart valve; Z86.73 Personal history of transient ischemic attack (TIA), and cerebral infarction without residual deficits; Z79.82 Long term (current) use of aspirin; Z79.01 Long term (current) use of anticoagulants; Z88.2 Allergy status to sulfonamides

== ENCOUNTER 2017-04-29 14:30 | Inpatient (IN) | payer MEDICARE, OTHER ==
[2017-04-29 14:35] VITALS: BMI 24.7
--- NOTE | 2017-04-29 15:18 | ED PDOC ---
Arrival/HPI - General Chief Complaint: Chest Pain Time Seen by Provider: 04/29/17 15:09 Historian: Patient - History of Present Illness Narrative History of Present Illness (Text): 04/29/17 15:23 76 year old female, whose past medical history includes CHF, CKD, chronic atrial fibrillation, diverticulitis, COPD, and aortic valve replacement, presents to the emergency department complaining of left sided chest pain and back pain for the past 2 days. Patient reports the pain worsens with movement and inspiration. Patient reports a mild cough and chills, denies any fever, shortness of breath, nausea, vomiting, diarrhea, urinary symptoms, back pain, neck pain, headache, dizziness, or any other complaints. PMD: Dr. Tessie Coronel Time/Duration: Other (2 days ) Symptom Onset: Sudden Symptom Course: Unchanged Activities at Onset: Light Context: Home Past Medical History - Provider Review Nursing Documentation Reviewed: Yes - Infectious Disease Hx of Infectious Diseases: None - Tetanus Immunization Tetanus Immunization: Unknown - Reproductive Menopause: Yes - Cardiac Hx Congestive Heart Failure: Yes Hx Hypertension: Yes - Pulmonary Hx Chronic Obstructive Pulmonary Disease (COPD): Yes - Neurological HX Cerebrovascular Accident: Yes - HEENT Hx HEENT Disorder: Yes (Wears reading glasses. Upper denture.) Hx Blind: No Hx Cataracts: No Hx Deafness: No Hx Difficulty Chewing: No Hx Epistaxis: No Hx Glaucoma: No Hx Macular Degeneration: No - Renal Hx Renal Disorder: No Hx Renal Failure: No - Endocrine/Metabolic Hx Endocrine Disorders: No Hx Diabetes Mellitus Type 1: No Hx Diabetes Mellitus Type 2: No - Hematological/Oncological Hx Blood Disorders: No - Integumentary Hx Dermatological Disorder: No Hx Basal Cell Carcinoma: No Hx Eczema: No Hx Melanoma: No Hx Psoriasis: No Hx Squamous Cell Carcinoma: No Other/Comment: 03-24-17 BILATERAL LE DARKENED BROWN SKIN DISCOLORATION. - Musculoskeletal/Rheumatological Hx Falls: Yes - Gastrointestinal Hx Gastrointestinal Disorders: Yes (CHOLECYSTECTOMY,ABDOMINAL SX FOR DIVERTICULITIS) - Genitourinary/Gynecological Hx Genitourinary Disorders: Yes (URGENCY) Hx Reproductive Disorders: No - Psychiatric Hx Psychophysiologic Disorder: No Hx Emotional Abuse: No Hx Physical Abuse: No Hx Substance Use: No Other/Comment: nervous - Surgical History Hx Cholecystectomy: Yes Hx Open Heart Surgery: Yes (5 yrs) Hx Valve Replacement: Yes - Anesthesia Hx Anesthesia: Yes Hx Anesthesia Reactions: No Hx Malignant Hyperthermia: No - Suicidal Assessment Feels Threatened In Home Enviroment: No Family/Social History - Physician Review Nursing Documentation Reviewed: Yes Family/Social History: No Known Family HX Smoking Status: Never Smoked Hx Alcohol Use: No Hx Substance Use: No Hx Substance Use Treatment: No Allergies/Home Meds Allergies/Adverse Reactions: Allergies Sulfa (Sulfonamide Antibiotics) Allergy (Unknown, Verified 03/27/17 14:56) . palpitations Home Medications: Home Meds Medication Instructions Recorded Confirmed Cyanocobalamin (Vitamin B-12) 1,000 mcg PO DAILY 10/08/16 03/27/17 [Vitamin B-12] Review of Systems - Physician Review All systems were reviewed & negative as marked: Yes - Review of Systems Constitutional: Other (Chills). absent: Fevers Respiratory: Cough. absent: SOB Cardiovascular: Chest Pain Gastrointestinal: absent: Diarrhea, Nausea, Vomiting Genitourinary Female: absent: Dysuria, Frequency, Hematuria Musculoskeletal: absent: Neck Pain Neurological: absent: Headache, Dizziness Physical Exam Vital Signs Reviewed: Yes Vital Signs Temp Pulse Resp BP Pulse Ox 04/29/17 17:31 89 18 138/78 95 04/29/17 15:59 81 18 140/87 95 04/29/17 14:46 99.5 F 90 20 146/84 96 Temperature: Febrile (Low grade fever) Blood Pressure: Normal Pulse: Regular Respiratory Rate: Normal Appearance: Positive for: Well-Appearing, Non-Toxic, Comfortable Pain Distress: None Mental Status: Positive for: Alert and Oriented X 3 - Systems Exam Head: Present: Atraumatic, Normocephalic Pupils: Present: PERRL Extroacular Muscles: Present: EOMI Conjunctiva: Present: Normal Mouth: Present: Moist Mucous Membranes, Other (Well hydrated) Neck: Present: Normal Range of Motion Respiratory/Chest: Present: Clear to Auscultation, Good Air Exchange. No: Respiratory Distress, Accessory Muscle Use Cardiovascular: Present: Regular Rate and Rhythm, Normal S1, S2. No: Murmurs Abdomen: Present: Normal Bowel Sounds. No: Tenderness, Distention, Peritoneal Signs Back: Present: Normal Inspection Upper Extremity: Present: Normal Inspection. No: Cyanosis, Edema Lower Extremity: Present: Normal Inspection. No: Edema Neurological: Present: GCS=15, CN II-XII Intact, Speech Normal Skin: Present: Warm, Dry, Normal Color. No: Rashes Psychiatric: Present: Alert, Oriented x 3, Normal Insight, Normal Concentration Medical Decision Making ED Course and Treatment: 04/29/17 15:19 Impression: 76 year old female presents complaining of left sided chest pain and back pain that began 2 days ago associated with a mild cough and chills. Plan: -- Labs -- Lact Acid, Plasma -- IV Fluids -- Tylenol -- Blood Culture -- Chest X-ray -- Urinalysis Prior Visits: Notes and results from previous visits were reviewed. Patient was last seen in the emergency department on 08/16/16 presents complaining of midsternal chest pain. Patient was admitted. Progress Notes: PROCEDURE: Chest X-ray Dictator : Giovanny Del Angel MD Report Date : 04/29/2017 16:12:56 IMPRESSION: Right lower lobe infiltrate, small peripheral left lower lobe infiltrate. 04/29/17 18:05 Case discussed with hospitalist who is aware and agrees with the plan. Patient will be admitted to Remote Telemetry for Pneumonia. - Lab Interpretations Lab Results: 04/29/17 15:15 04/29/17 15:15 Lab Results 04/29/17 16:37: pO2 67 H, VBG pH 7.37, VBG pCO2 53.0, VBG HCO3 30.6 H, VBG O2 Sat (Calc) 95.1 H, VBG Base Excess 4.0 H 04/29/17 16:35: Urine Color Yellow, Urine Appearance Clear, Urine pH 6.5, Ur Specific Mineral 1.020, Urine Protein 100 H, Urine Glucose (UA) Negative, Urine Ketones Negative, Urine Blood Trace-intact H, Urine Nitrate Negative, Urine Bilirubin Negative, Urine Urobilinogen 0.2, Ur Leukocyte Esterase Negative, Urine RBC 0 - 2, Urine WBC 1 - 3, Ur Epithelial Cells 1 - 3, Urine Bacteria Few 04/29/17 15:15: Sodium 137, Potassium 4.0, Chloride 101, Carbon Dioxide 29, Anion Gap 11, BUN 17, Creatinine 1.3 H, Est GFR ( Amer) 48, Est GFR (Non- Af Amer) 40, Random Glucose 137 H, Calcium 9.2, Total Bilirubin 1.0, AST 20, ALT 26, Alkaline Phosphatase 87, Total Protein 6.4, Albumin 3.3, Globulin 3.1, Albumin/Globulin Ratio 1.1 04/29/17 15:15: WBC 9.3 D, RBC 3.90, Hgb 11.6 L, Hct 35.4 L, MCV 90.8, MCH 29.7 , MCHC 32.8, RDW 13.5, Plt Count 124, MPV 10.2, Gran % 75.9 H, Lymph % (Auto) 13.0 L, [place] % (Auto) 9.5 H, Eos % (Auto) 1.3 L, Baso % (Auto) 0.3, Gran # 7.06 H, Lymph # 1.2, [place] # 0.9 H, Eos # 0.1, Baso # 0.03 I have reviewed the lab results: Yes - RAD Interpretation Radiology Orders: 04/29/17 15:34 CHEST PORTABLE [RAD] Stat - Medication Orders Current Medication Orders: Azithromycin (Zithromax 500mg In Ns) 500 mg in 250 mls @ 167 mls/hr IVPB STAT STA PRN Reason: Protocol Stop: 04/29/17 18:37 Discontinued Medications Acetaminophen (Tylenol 325mg Tab) 650 mg PO STAT STA Stop: 04/29/17 15:20 Last Admin: 04/29/17 16:16 Dose: 650 mg MAR Pain/Vitals Document 04/29/17 16:16 [facility] (Rec: 04/29/17 16:16 [facility] [id number]) Pain Reassessment Is This A Pain ReAssessment? No Re-Assess: MAR Pain/Vitals Document 04/29/17 17:16 [facility] (Rec: 04/29/17 17:34 [facility] [id number]) Pain Reassessment Is This A Pain ReAssessment? No Sodium Chloride (Sodium Chloride 0.9%) 2,200 mls @ 999 mls/hr IV .[id number] STA Stop: 04/29/17 17:33 Last Admin: 04/29/17 16:15 Dose: 999 mls/hr eMAR Start Stop Document 04/29/17 16:15 [facility] (Rec: 04/29/17 16:15 [facility] [id number]) Intravenous Solution Start Date 04/29/17 Start Time 16:15 End Date 04/29/17 End time 17:15 Total Infusion Time 60 Ceftriaxone Sodium (Rocephin 1 Gram Ivpb) 1 gm in 100 mls @ 200 mls/hr IVPB STAT STA PRN Reason: Protocol Stop: 04/29/17 17:36 Last Admin: 04/29/17 17:33 Dose: 200 mls/hr eMAR Start Stop Document 04/29/17 17:33 [employer] (Rec: 04/29/17 17:33 [facility] [id number]) Intravenous Solution Start Date 04/29/17 Start Time 17:33 End Date 04/29/17 End time 18:03 Total Infusion Time 30 Disposition/Present on Arrival - Present on Arrival Any Indicators Present on Arrival: No History of DVT/PE: No History of Uncontrolled Diabetes: No Urinary Catheter: No History of Decub. Ulcer: No History Surgical Site Infection Following: None - Disposition Have Diagnosis and Disposition been Completed?: Yes Diagnosis: Pneumonia Disposition: HOME/ ROUTINE Disposition Time: 18:15 Patient Plan: Admission Condition: STABLE Forms: [employer] (Korean)
[2017-04-29 15:39] LABS: BASO # 0.03 K/mm3 (0.0-2.0); BASO % 0.3 % (0.0-3.0); EOS # 0.1 (0.0-0.7); EOS % 1.3 % (1.5-5.0); GRAN # 7.06 (1.4-6.5); GRAN % 75.9 % (50.0-68.0); HEMOGLOBIN 11.6 g/dL (12.0-16.0); LYMPH # 1.2 (1.2-3.4); MEAN CELL VOLUME 90.8 fl (80.0-105.0); MEAN CORPUSCULAR HEMOGLOBIN 29.7 pg (25.0-35.0); MEAN CORPUSCULAR HGB CONC 32.8 g/dl (31.0-37.0); MEAN PLATELET VOLUME 10.2 fl (7.0-11.0); MONO # 0.9 (0.1-0.6); MONO % 9.5 % (1.0-6.0); RBC 3.9 10^6/uL (3.5-6.1); RED CELL DISTRIBUTION WIDTH 13.5 % (11.5-14.5); WHITE BLOOD COUNT 9.3 10^3/ul (4.5-11.0)
[2017-04-29 15:48] LABS: ALB/GLOB RATIO 1.1 (1.1-1.8); ALBUMIN 3.3 g/dL (3.0-4.8); CALCIUM 9.2 mg/dL (8.4-10.5)
--- NOTE | 2017-04-29 16:14 | RAD ---
HISTORY: Cough. COMPARISON: 10/08/2016 FINDINGS: LUNGS: Left lower lobe infiltrate or mass. The finding was not apparent previously. Right lower lobe infiltrate. PLEURA: No significant pleural effusion identified, no pneumothorax apparent. CARDIOVASCULAR: Cardiomegaly. No evidence of acute, significant cardiovascular disease. Incidental Finding(s): Postoperative changes related to sternotomy. OSSEOUS STRUCTURES: No significant abnormalities. VISUALIZED UPPER ABDOMEN: Normal. OTHER FINDINGS: None. IMPRESSION: Right lower lobe infiltrate, small peripheral left lower lobe infiltrate.
[2017-04-29 16:41] LABS: VENOUS BLOOD GAS PO2 67 mm/Hg (30-55); VENOUS BLOOD PH 7.37 (7.32-7.43)
[2017-04-29 17:04] LABS: PH,URINE 6.5 (4.7-8.0); URINE BILIRUBIN NEGATIVE (NEGATIVE); URINE BLOOD TRACE-INTACT (NEGATIVE); URINE GLUCOSE (UA) NEGATIVE (NEGATIVE); URINE LEUKOCYTE ESTERASE NEGATIVE Leu/uL (NEGATIVE); URINE NITRATE NEGATIVE (NEGATIVE); URINE PROTEIN 100 mg/dL (<30 mg/dL); URINE UROBILINOGEN 0.2 E.U./dL (<1 E.U./dL)
[2017-04-29] MEDS ORDERED: cefTRIAXone 1 gm 1 GM/100 ML BAG IVPB STA (17:07)
[2017-04-29] MEDS ORDERED: Azithromycin 500MG/NS 250ml 500 MG/250 ML BAG IVPB STA (17:08)
[2017-04-29 17:10] LABS: URINE APPEARANCE CLEAR (CLEAR); URINE COLOR YELLOW (YELLOW)
[2017-04-29 17:14] LABS: URINE BACTERIA FEW (NEG); URINE RBC 0 - 2 /hpf (0-2)
[2017-04-29 22:41] LABS: INR 2.12 (0.93-1.08); PROTHROMBIN TIME 24.6 SECONDS (9.4-12.5)
--- NOTE | 2017-04-29 23:48 | CP.PCM.HP ---
<CruzitoBryant - Last Filed: 04/30/17 01:33> History of Present Illness - History of Present Illness History of Present Illness: Mrs. Lakhani is a 76 year old female with a past medical history significant for CHF (30-35% EF), aortic valve replacement, CKD, chronic atrial fibrillation (on Coumadin), CVA, HTN, HLD, AAA and COPD who presents with intermittent left sided chest pain radiating to her back for the past two days with associated cough productive of yellow sputum and chills. Patient reports that two days ago while at rest, she experienced a sharp chest pain located on the inferior and anterior portion of the left chest wall that radiates to her back. Since that time, she has also noticed an increase in the frequency of her chronic cough productive of yellow sputum but denies any change in the sputum color. Patient reports the that pain worsens with movement and inspiration. She also endorses that she has sinus headaches and thought that her presenting symptoms could possibly be related to sinus infection or URI. Given this, she took Mucinex but denies any relief of any of her symptoms. She denies fever, headache, changes in her vision, rhinorrhea, sore throat, dysphagia, neck pain/stiffness, palpitations, syncope, LE edema, SOB, wheezing, abdominal pain, N/V, diarrhea, constipation, melena, hematochezia, burning/pain with urination, hematuria, skin changes, joint pain, or any numbness/tingling/weakness of any extremity. 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 Allergies: Sulfa (tachycardia and flushing) Home Medications: As per MAR Present on Admission - Present on Admission Any Indicators Present on Admission: No Review of Systems - Review of Systems Review of Systems: As stated in HPI, otherwise negative Past Patient History - Infectious Disease Hx of Infectious Diseases: None - Tetanus Immunizations Tetanus Immunization: Unknown - Past Medical History & Family History Past Medical History?: Yes - Past Social History Smoking Status: Never Smoked - CARDIAC Hx Congestive Heart Failure: Yes Hx Hypertension: Yes - PULMONARY Hx Chronic Obstructive Pulmonary Disease (COPD): Yes - NEUROLOGICAL HX Cerebrovascular Accident: Yes - HEENT Hx HEENT Problems: Yes (Wears reading glasses. Upper denture.) Hx Blind: No Hx Cataracts: No Hx Deafness: No Hx Difficulty Chewing: No Hx Epistaxis: No Hx Glaucoma: No Hx Macular Degeneration: No - RENAL Hx Chronic Kidney Disease: No Hx Renal Failure: No - ENDOCRINE/METABOLIC Hx Endocrine Disorders: No Hx Diabetes Mellitus Type 1: No Hx Diabetes Mellitus Type 2: No - HEMATOLOGICAL/ONCOLOGICAL Hx Blood Disorders: No - INTEGUMENTARY Hx Dermatological Problems: No Hx Basil Cell: No Hx Eczema: No Hx Melanoma: No Hx Psoriasis: No Hx Squamous Cell: No Other/Comment: 03-24-17 BILATERAL LE DARKENED BROWN SKIN DISCOLORATION. - MUSCULOSKELETAL/RHEUMATOLOGICAL Hx Falls: Yes - GASTROINTESTINAL Hx Gastrointestinal Disorders: Yes (CHOLECYSTECTOMY,ABDOMINAL SX FOR DIVERTICULITIS) - GENITOURINARY/GYNECOLOGICAL Hx Genitourinary Disorders: Yes (URGENCY) Hx Reproductive Disorders: No - PSYCHIATRIC Hx Psychophysiologic Disorder: No Hx Emotional Abuse: No Hx Physical Abuse: No Hx Substance Use: No Other/Comment: nervous - SURGICAL HISTORY Hx Cholecystectomy: Yes Hx Open Heart Surgery: Yes (5 yrs) Hx Valve Replacement: Yes - ANESTHESIA Hx Anesthesia: Yes Hx Anesthesia Reactions: No Hx Malignant Hyperthermia: No Meds Allergies/Adverse Reactions: Allergies Allergy/AdvReac Type Severity Reaction Status Date / Time Sulfa (Sulfonamide Allergy Unknown . Verified 03/27/17 14:56 Antibiotics) Physical Exam - Constitutional Appears: Non-toxic, No Acute Distress - Head Exam Head Exam: ATRAUMATIC, NORMAL INSPECTION, NORMOCEPHALIC - Eye Exam Eye Exam: EOMI, Normal appearance, PERRL. absent: Conjunctival injection, Nystagmus, Periorbital swelling, Periorbital tenderness, Scleral icterus Pupil Exam: NORMAL ACCOMODATION, PERRL. absent: Fixed, Irregular, Miosis, Mydriatic, Unequal - ENT Exam ENT Exam: Mucous Membranes Moist, Normal Exam, Normal External Ear Exam, Normal Oropharynx. absent: Mucous Membranes Dry - Neck Exam Neck exam: Positive for: Full Rom, Normal Inspection. Negative for: Lymphadenopathy, Meningismus, Tenderness, Thyromegaly - Respiratory Exam Respiratory Exam: Rhonchi (Fine, bilateral lung bases), NORMAL BREATHING PATTERN. absent: Accessory Muscle Use, Chest Wall Tenderness, Decreased Breath Sounds, Clear to Auscultation Bilateral, Prolonged Expiratory Phase, Rales, Wheezes, Respiratory Distress, Stridor - Cardiovascular Exam Cardiovascular Exam: REGULAR RHYTHM, RRR, +S1, +S2. absent: Bradycardia, Tachycardia, Clicks, Diastolic murmur, Gallop, Irregular Rhythm, JVD, Rubs, +S4 , Systolic Murmur - GI/Abdominal Exam GI & Abdominal Exam: Normal Bowel Sounds, Soft. absent: Bruit, Diminished Bowel Sounds, Distended, Firm, Guarding, Hernia, Hyperactive Bowel Sounds, Hypoactive Bowel Sounds, Mass, Organomegaly, Pulsatile Mass, Rebound, Rigid, Tenderness - Extremities Exam Extremities exam: Positive for: full ROM, normal capillary refill, normal inspection, pedal pulses present. Negative for: calf tenderness, joint swelling , pedal edema, tenderness - Back Exam Back exam: FULL ROM, NORMAL INSPECTION. absent: CVA tenderness (L), CVA tenderness (R), muscle spasm, paraspinal tenderness, rash noted, tenderness, vertebral tenderness - Neurological Exam Neurological exam: Alert, CN II-XII Intact, Normal Gait (Normal gait; assisted with cane), Oriented x3 - Psychiatric Exam Psychiatric exam: Normal Affect, Normal Mood - Skin Skin Exam: Dry, Intact, Normal Color, Warm Results - Vital Signs Recent Vital Signs: Last Vital Signs Temp 99.5 F 04/29/17 14:46 Pulse 89 04/29/17 17:31 Resp 18 04/29/17 17:31 BP 138/78 04/29/17 17:31 Pulse Ox 95 04/29/17 17:31 - Labs Result Diagrams: 04/29/17 15:15 04/29/17 15:15 Labs: Laboratory Results - last 24 hr 04/29/17 22:19 PT 24.6 H INR 2.12 H Assessment & Plan - Assessment and Plan (Free Text) Assessment: 76 year old female with a past medical history significant for CHF (30-35% EF), aortic valve replacement, CKD, chronic atrial fibrillation (on Coumadin), CVA, HTN, HLD, AAA and COPD who presents with intermittent left sided chest pain radiating to her back for the past two days with associated cough productive of yellow sputum and chills. Patient was found to have a RLL and LLL infiltrate on chest x-ray and was started on Rocephin and Zithromax. A pulmonology consult was ordered. Patient was found to have an INR of 2.12 and continued on her home dose of Coumadin. Plan: 1. RLL/LLL Infiltrate -Chest X-Ray showing RLL infiltrate and peripheral infiltrate of LLL -IV Rocephin 1gm and IV Zithromax 500mg -Xopenex [id number] -Tylenol PRN for both pain control and fever -Procal and blood culture pending -Incentive Spirometry -AM ABG -Daily CBC to monitor for leukocytosis -Pulmonology consult 2. Atrial Fibrillation -Continue home Coumadin and Cardizem -INR 2.12 -Daily INR/PTT 3. History of CHF -Continue home Losartan, Coreg, Lasix and Digoxin 4. History of CAD -Continue home ASA and Lipitor -Heart Healthy Diet 5. History of Anxiety -Continue home Xanax PRN GI Prophylaxis: Protonix DVT Prophylaxis: SCD's Patient seen and case discussed with attending, Dr. Deborah Luz. - Date & Time Date: 04/29/17 Time: 23:53 Decision To Admit - Pt Status Changed To: Hospital Disposition Of: Inpatient Admission - Admit Certification Admit to Inpatient:: After my assessment, the patient will require hospitalization for at least two midnights. This is because of the severity of symptoms shown, intensity of services needed, and/or the medical risk in this patient being treated as an outpatient. - . Bed Request Type: Remote Telemetry <Deborah Luz - Last Filed: 04/30/17 21:30> Results - Vital Signs Recent Vital Signs: Last Vital Signs Temp 98.2 F 04/30/17 00:01 Pulse 88 04/30/17 02:00 Resp 18 04/30/17 00:01 BP 151/89 H 04/30/17 00:01 Pulse Ox 98 04/30/17 00:01 - Labs Result Diagrams: 04/30/17 06:30 04/30/17 06:30 Labs: Laboratory Results - last 24 hr 04/29/17 04/30/17 22:19 05:15 PT 24.6 H INR 2.12 H pCO2 36 pO2 65.0 L HCO3 25.6 ABG pH 7.46 H ABG Total CO2 26.7 ABG O2 Saturation 96.7 ABG Base Excess 2.0 ABG Potassium 3.5 L Sodium 139.0 Chloride 108.0 H Glucose 111 H Lactate 0.6 L FiO2 21.0 Arterial Blood Potassium 3.5 L
[2017-04-30] MEDS: guaiFENesin DM 100 mg-10 mg/5 ml UD PO PRN (04:11)
[2017-04-30 05:38] LABS: ARTERIAL BLOOD GAS HCO3 25.6 mmol/L (21-28); ARTERIAL BLOOD GAS O2 SAT 96.7 % (95-98); ARTERIAL BLOOD GAS PCO2 36 mm/Hg (35-45); ARTERIAL BLOOD GAS PH 7.46 (7.35-7.45); ARTERIAL BLOOD GAS TCO2 26.7 mmol.L (22-28)
[2017-04-30] MEDS: Pantoprazole 40 mg EC Tab PO SCH (06:07)
[2017-04-30 07:05] LABS: BASO # 0.03 K/mm3 (0.0-2.0); BASO % 0.3 % (0.0-3.0); EOS # 0.1 (0.0-0.7); EOS % 1.6 % (1.5-5.0); GRAN # 6.47 (1.4-6.5); GRAN % 74.8 % (50.0-68.0); HEMOGLOBIN 11.2 g/dL (12.0-16.0); LYMPH # 1.1 (1.2-3.4); MEAN CELL VOLUME 90.7 fl (80.0-105.0); MEAN CORPUSCULAR HEMOGLOBIN 29.6 pg (25.0-35.0); MEAN CORPUSCULAR HGB CONC 32.7 g/dl (31.0-37.0); MEAN PLATELET VOLUME 10.5 fl (7.0-11.0); MONO # 0.9 (0.1-0.6); MONO % 10.3 % (1.0-6.0); RBC 3.78 10^6/uL (3.5-6.1); RED CELL DISTRIBUTION WIDTH 13.6 % (11.5-14.5); WHITE BLOOD COUNT 8.7 10^3/ul (4.5-11.0)
[2017-04-30 07:12] LABS: INR 1.93 (0.93-1.08); PROTHROMBIN TIME 22.5 SECONDS (9.4-12.5); PROTHROMBIN TIME 23.1 SECONDS (9.4-12.5)
[2017-04-30 07:13] LABS: INR 1.98 (0.93-1.08); PARTIAL THROMBOPLASTIN TIME 35.1 Seconds (25.1-36.5)
[2017-04-30 07:20] LABS: ALBUMIN 3.2 g/dL (3.0-4.8); CALCIUM 8.9 mg/dL (8.4-10.5)
[2017-04-30] MEDS: Levalbuterol 0.63 MG/3 ML Inhal Soln UD IH PRN ×2 (08:25→13:44)
[2017-04-30] MEDS ORDERED: Azithromycin 500MG/NS 250ml 500 MG/250 ML BAG IVPB SCH (10:00)
[2017-04-30] MEDS ORDERED: cefTRIAXone 1 gm 1 GM/100 ML BAG IVPB SCH (10:00)
[2017-04-30] MEDS: diltiaZEM 180 mg/24 Hours CD Cap PO SCH (11:27)
[2017-04-30] MEDS: POLYETHYLENE GLYCOL 3350 17 GM/Dose PACKET PO SCH (11:28)
--- NOTE | 2017-04-30 11:56 | CP.PCM.CON ---
History of Present Illness - History of Present Illness History of Present Illness: PULMONARY CONSULT REASON FOR CONSULT: PNA [facility] Patient is 76yo female with PMHx of AVR, CHF 35%, CKD, Afib on A/C, CVA, HTN, former smoker, COPD, presents with 3-4 day history of worsening left sided anterior chest pain, mild, non radiating, associated with cough productive of yellow sputum, without any blood. Pt also endorses fever, chills, and weakness. No other constitutional symptoms. Pt is former smoker, quit 3y ago, 50pk smoking history. Pt reports she recently hospitalized in March for "heart problems". PMH: CHF 30-35%, aortic valve replacement, chronic kidney disease, chronic atrial fibrillation (on Coumadin), CVA, HTN, HLD and COPD, AAA PSH: aortic valve replacement, CABG 5 years ago Family History: CAD,DM2 Social History: Former smoker with 50 year pack smoking history Allergies: Sulfa Home Medications: As per EMR Review of Systems - Review of Systems Review of Systems: as per [facility] Past Patient History - Infectious Disease Hx of Infectious Diseases: None - Tetanus Immunizations Tetanus Immunization: Unknown - Past Medical History & Family History Past Medical History?: Yes - Past Social History Smoking Status: Never Smoked - CARDIAC Hx Congestive Heart Failure: Yes Hx Hypertension: Yes - PULMONARY Hx Chronic Obstructive Pulmonary Disease (COPD): Yes - NEUROLOGICAL HX Cerebrovascular Accident: Yes - HEENT Hx HEENT Problems: Yes (Wears reading glasses. Upper denture.) Hx Blind: No Hx Cataracts: No Hx Deafness: No Hx Difficulty Chewing: No Hx Epistaxis: No Hx Glaucoma: No Hx Macular Degeneration: No - RENAL Hx Chronic Kidney Disease: No Hx Renal Failure: No - ENDOCRINE/METABOLIC Hx Endocrine Disorders: No Hx Diabetes Mellitus Type 1: No Hx Diabetes Mellitus Type 2: No - HEMATOLOGICAL/ONCOLOGICAL Hx Blood Disorders: No - INTEGUMENTARY Hx Dermatological Problems: No Hx Basil Cell: No Hx Eczema: No Hx Melanoma: No Hx Psoriasis: No Hx Squamous Cell: No Other/Comment: 03-24-17 BILATERAL LE DARKENED BROWN SKIN DISCOLORATION. - MUSCULOSKELETAL/RHEUMATOLOGICAL Hx Falls: Yes - GASTROINTESTINAL Hx Gastrointestinal Disorders: Yes (CHOLECYSTECTOMY,ABDOMINAL SX FOR DIVERTICULITIS) - GENITOURINARY/GYNECOLOGICAL Hx Genitourinary Disorders: Yes (URGENCY) Hx Reproductive Disorders: No - PSYCHIATRIC Hx Psychophysiologic Disorder: No Hx Emotional Abuse: No Hx Physical Abuse: No Hx Substance Use: No Other/Comment: nervous - SURGICAL HISTORY Hx Cholecystectomy: Yes Hx Open Heart Surgery: Yes (5 yrs) Hx Valve Replacement: Yes - ANESTHESIA Hx Anesthesia: Yes Hx Anesthesia Reactions: No Hx Malignant Hyperthermia: No Meds Allergies/Adverse Reactions: Allergies Allergy/AdvReac Type Severity Reaction Status Date / Time Sulfa (Sulfonamide Allergy Unknown . Verified 03/27/17 14:56 Antibiotics) - Medications Medications: Current Medications Acetaminophen (Tylenol 325mg Tab) 650 mg PO Q6H PRN PRN Reason: Fever >100.4 F Acetaminophen (Tylenol 325mg Tab) 650 mg PO Q6H PRN PRN Reason: Pain, Mild (1-3) Alprazolam (Xanax) 0.25 mg PO BID PRN; Protocol PRN Reason: Anxiety Stop: 05/06/17 20:20 Aspirin (Aspirin Chewable) 81 mg PO DAILY [facility] Last Admin: 04/30/17 11:27 Dose: 81 mg Atorvastatin Calcium (Lipitor) 40 mg PO DAILY [facility] Last Admin: 04/30/17 11:28 Dose: 40 mg Carvedilol (Coreg) 3.125 mg PO BID [facility] Digoxin (Lanoxin) 0.125 mg PO MWF [facility] Diltiazem HCl (Cardizem Cd) 180 mg PO DAILY [facility] Last Admin: 04/30/17 11:27 Dose: 180 mg Furosemide (Lasix) 40 mg PO DAILY [facility] Last Admin: 04/30/17 11:27 Dose: 40 mg Guaifenesin/Dextromethorphan (Robitussin Dm) 5 ml PO Q4H PRN PRN Reason: Cough Last Admin: 04/30/17 04:11 Dose: 5 ml Ceftriaxone Sodium (Rocephin 1 Gram Ivpb) 1 gm in 100 mls @ 100 mls/hr IVPB DAILY [facility] PRN Reason: Protocol Last Admin: 04/30/17 11:25 Dose: 100 mls/hr Azithromycin (Zithromax 500mg In Ns) 500 mg in 250 mls @ 167 mls/hr IVPB DAILY [facility] PRN Reason: Protocol Last Admin: 04/30/17 11:25 Dose: 167 mls/hr Levalbuterol HCl (Xopenex) 0.63 mg IH [id number] PRN PRN Reason: Shortness of Breath Last Admin: 04/30/17 08:25 Dose: 0.63 mg Losartan Potassium (Cozaar) 25 mg PO DAILY [facility] Last Admin: 04/30/17 11:26 Dose: 25 mg Pantoprazole Sodium (Protonix Ec Tab) 40 mg PO 0600 [facility] Last Admin: 04/30/17 06:07 Dose: 40 mg Polyethylene Glycol (Miralax) 17 gm PO DAILY [facility] Last Admin: 04/30/17 11:28 Dose: 17 gm Warfarin Sodium (Coumadin) 4 mg PO 1800 [facility] PRN Reason: Protocol Physical Exam - Constitutional Appears: Non-toxic, No Acute Distress - Eye Exam Eye Exam: Normal appearance - Respiratory Exam Respiratory Exam: NORMAL BREATHING PATTERN Additional comments: decreased breath sounds at bases R>L - Cardiovascular Exam Cardiovascular Exam: REGULAR RHYTHM, +S1, +S2 - GI/Abdominal Exam GI & Abdominal Exam: Normal Bowel Sounds, Soft - Extremities Exam Extremities exam: Positive for: normal inspection - Neurological Exam Neurological exam: Alert, Oriented x3 Results - Vital Signs Recent Vital Signs: Last Vital Signs Temp 99.4 F 04/30/17 06:00 Pulse 91 H 04/30/17 11:27 Resp 20 04/30/17 06:00 BP 165/100 H 04/30/17 11:27 Pulse Ox 94 L 04/30/17 06:00 - Labs Result Diagrams: 04/30/17 06:30 04/30/17 06:30 Labs: Laboratory Results - last 24 hr 04/29/17 04/30/17 04/30/17 22:19 05:15 06:30 WBC RBC Hgb Hct MCV MCH MCHC RDW Plt Count MPV Gran % Lymph % (Auto) Finney % (Auto) Eos % (Auto) Baso % (Auto) Gran # Lymph # Finney # Eos # Baso # PT 24.6 H 22.5 H INR 2.12 H 1.93 H APTT pCO2 36 pO2 65.0 L HCO3 25.6 ABG pH 7.46 H ABG Total CO2 26.7 ABG O2 Saturation 96.7 ABG Base Excess 2.0 ABG Potassium 3.5 L Sodium 139.0 Chloride 108.0 H Glucose 111 H Lactate 0.6 L FiO2 21.0 Potassium Carbon Dioxide Anion Gap BUN Creatinine Est GFR ( Amer) Est GFR (Non-Af Amer) Random Glucose Calcium Total Bilirubin AST ALT Alkaline Phosphatase Total Protein Albumin Globulin Albumin/Globulin Ratio Arterial Blood Potassium 3.5 L 04/30/17 04/30/17 04/30/17 06:30 06:30 06:30 WBC 8.7 RBC 3.78 Hgb 11.2 L Hct 34.3 L MCV 90.7 MCH 29.6 MCHC 32.7 RDW 13.6 Plt Count 133 MPV 10.5 Gran % 74.8 H Lymph % (Auto) 13.0 L Finney % (Auto) 10.3 H Eos % (Auto) 1.6 Baso % (Auto) 0.3 Gran # 6.47 Lymph # 1.1 L Finney # 0.9 H Eos # 0.1 Baso # 0.03 PT 23.1 H INR 1.98 H APTT 35.1 pCO2 pO2 HCO3 ABG pH ABG Total CO2 ABG O2 Saturation ABG Base Excess ABG Potassium Sodium 141 Chloride 105 Glucose Lactate FiO2 Potassium 3.9 Carbon Dioxide 28 Anion Gap 11 BUN 17 Creatinine 1.2 Est GFR ( Amer) 53 Est GFR (Non-Af Amer) 43 Random Glucose 110 Calcium 8.9 Total Bilirubin 0.9 AST 23 ALT 21 Alkaline Phosphatase 81 Total Protein 6.3 Albumin 3.2 Globulin 3.1 Albumin/Globulin Ratio 1.0 L Arterial Blood Potassium - Imaging and Cardiology Chest x-ray Status: Image reviewed by me, Report reviewed by me Assessment & Plan - Assessment and Plan (Free Text) Assessment: 76yo female a/w PNA - currently afebrile, HD stable, comfortable on 2LNC, speaking full sentences - CXR with consolidation in the RLL - given recent hospitalization for within the last 3 months, would cover HCAP, Vanco, Cefepime, Azithro - Duonebs PRN - check Urine Legionella, Strep - check sputum culture - check procalcitonin - would obtain CT Chest without contrast - GI ppx - DVT ppx - Pulmonary will continue to follow
[2017-04-30] MEDS: Vancomycin 1gm in NS 250ml 1 GM/250 ML BAG IVPB SCH (12:00)
--- NOTE | 2017-04-30 13:35 | CP.PCM.PN ---
<Roman Phelps - Last Filed: 04/30/17 13:32> Subjective - Date & Time of Evaluation Date of Evaluation: 04/30/17 Time of Evaluation: 13:32 - Subjective Subjective: Medicine Progress Note Pt seen and examined at bedside. Pt states that she is shortness of breath and chest wall discomfort on deep inspiration. Pt denied chest pain, abdominal pain , fever, chills, nausea, headache, or dizziness. Objective - Vital Signs/Intake and Output Vital Signs (last 24 hours): Temp Pulse Resp BP Pulse Ox 99.4 F 91 H 20 165/100 H 94 L 04/30/17 12:00 04/30/17 12:00 04/30/17 12:00 04/30/17 13:18 04/30/17 06:00 Intake and Output: 04/30/17 04/30/17 06:59 18:59 Intake Total 300 120 Balance 300 120 - Medications Medications: Current Medications Acetaminophen (Tylenol 325mg Tab) 650 mg PO Q6H PRN PRN Reason: Fever >100.4 F Acetaminophen (Tylenol 325mg Tab) 650 mg PO Q6H PRN PRN Reason: Pain, Mild (1-3) Alprazolam (Xanax) 0.25 mg PO BID PRN; Protocol PRN Reason: Anxiety Stop: 05/06/17 20:20 Aspirin (Aspirin Chewable) 81 mg PO DAILY [facility] Last Admin: 04/30/17 11:27 Dose: 81 mg Atorvastatin Calcium (Lipitor) 40 mg PO DAILY [facility] Last Admin: 04/30/17 11:28 Dose: 40 mg Carvedilol (Coreg) 3.125 mg PO BID [facility] Last Admin: 04/30/17 13:18 Dose: 3.125 mg Digoxin (Lanoxin) 0.125 mg PO [facility]iltiaz[place] HCl (Cardizem Cd) 180 mg PO DAILY [facility] Last Admin: 04/30/17 11:27 Dose: 180 mg Furosemide (Lasix) 40 mg PO DAILY [facility] Last Admin: 04/30/17 11:27 Dose: 40 mg Guaifenesin/Dextromethorphan (Robitussin Dm) 5 ml PO Q4H PRN PRN Reason: Cough Last Admin: 04/30/17 04:11 Dose: 5 ml Cefepime HCl (Maxipime 2gm) 2 gm in 100 mls @ 100 mls/hr IVPB Q12H [facility] PRN Reason: Protocol Stop: 05/05/17 14:01 Vancomycin HCl (Vancomycin 1gm) 1 gm in 250 mls @ 167 mls/hr IVPB DAILY [facility] PRN Reason: Protocol Azithromycin (Zithromax 500mg In Ns) 500 mg in 250 mls @ 167 mls/hr IVPB DAILY [facility] PRN Reason: Protocol Levalbuterol HCl (Xopenex) 0.63 mg IH [id number] PRN PRN Reason: Shortness of Breath Last Admin: 04/30/17 08:25 Dose: 0.63 mg Losartan Potassium (Cozaar) 25 mg PO DAILY [facility] Last Admin: 04/30/17 11:26 Dose: 25 mg Pantoprazole Sodium (Protonix Ec Tab) 40 mg PO 0600 [facility] Last Admin: 04/30/17 06:07 Dose: 40 mg Polyethylene Glycol (Miralax) 17 gm PO DAILY [facility] Last Admin: 04/30/17 11:28 Dose: 17 gm Warfarin Sodium (Coumadin) 4 mg PO 1800 [facility] PRN Reason: Protocol - Labs Labs: 04/30/17 06:30 04/30/17 06:30 PT 23.1 SECONDS (9.4-12.5) H 04/30/17 06:30 INR 1.98 (0.93-1.08) H 04/30/17 06:30 APTT 35.1 Seconds (25.1-36.5) 04/30/17 06:30 - Constitutional Appears: No Acute Distress - Head Exam Head Exam: NORMAL INSPECTION - Eye Exam Eye Exam: Normal appearance - ENT Exam ENT Exam: Normal Exam - Neck Exam Neck Exam: Normal Inspection - Respiratory Exam Respiratory Exam: Rhonchi (b/l bases). absent: Accessory Muscle Use, Rales, Wheezes, Respiratory Distress - Cardiovascular Exam Cardiovascular Exam: RRR, +S1, +S2. absent: Gallop, Rubs, Murmur - GI/Abdominal Exam GI & Abdominal Exam: Soft. absent: Distended, Guarding, Tenderness, Rebound - Extremities Exam Extremities Exam: Normal Inspection - Neurological Exam Neurological Exam: Alert, Awake, Oriented x3 - Psychiatric Exam Psychiatric exam: Normal Affect, Normal Mood - Skin Skin Exam: Dry, Intact, Normal Color, Warm Assessment and Plan - Assessment and Plan (Free Text) Assessment: 76 year old female with a past medical history significant for CHF (30-35% EF), aortic valve replacement, CKD, chronic atrial fibrillation (on Coumadin), CVA, HTN, HLD, AAA and COPD who presents with intermittent left sided chest pain radiating to her back for the past two days with associated cough productive of yellow sputum and chills. Patient was found to have a RLL and LLL infiltrate on chest x-ray. Plan: 1. Healthcare Acquired Pneumonia - Chest X-Ray showing RLL infiltrate and peripheral infiltrate of LLL - Cefepime, Vancomycin, and Azithromycin - Xopenex [id number] - Tylenol PRN for both pain control and fever - Procal and blood culture pending - F/u sputum culture, legionella, strep - Incentive Spirometry - Pulmonology consult 2. Atrial Fibrillation - Continue home Coumadin and Cardizem 3. History of CHF - Continue home Losartan, Coreg, Lasix and Digoxin 4. History of CAD - Continue home ASA and Lipitor - Heart Healthy Diet 5. History of Anxiety - Continue home Xanax PRN GI Prophylaxis: Protonix DVT Prophylaxis: SCD's Pt seen and discussed in detail with Dr. Lindsay. Roger Phelps, PGY1 <Bennie Lindsay - Last Filed: 04/30/17 16:27> Objective - Vital Signs/Intake and Output Vital Signs (last 24 hours): Temp Pulse Resp BP Pulse Ox 99.4 F 91 H 20 165/100 H 94 L 04/30/17 12:00 04/30/17 12:00 04/30/17 12:00 04/30/17 13:18 04/30/17 06:00 Intake and Output: 04/30/17 04/30/17 06:59 18:59 Intake Total 300 780 Balance 300 780 - Medications Medications: Current Medications Acetaminophen (Tylenol 325mg Tab) 650 mg PO Q6H PRN PRN Reason: Fever >100.4 F Acetaminophen (Tylenol 325mg Tab) 650 mg PO Q6H PRN PRN Reason: Pain, Mild (1-3) Alprazolam (Xanax) 0.25 mg PO BID PRN; Protocol PRN Reason: Anxiety Stop: 05/06/17 20:20 Aspirin (Aspirin Chewable) 81 mg PO DAILY [facility] Last Admin: 04/30/17 11:27 Dose: 81 mg Atorvastatin Calcium (Lipitor) 40 mg PO DAILY [facility] Last Admin: 04/30/17 11:28 Dose: 40 mg Azithromycin (Zithromax) 500 mg PO DAILY [facility] Carvedilol (Coreg) 3.125 mg PO BID [facility] Last Admin: 04/30/17 13:18 Dose: 3.125 mg Digoxin (Lanoxin) 0.125 mg PO [facility] Diltiazem HCl (Cardizem Cd) 180 mg PO DAILY [facility] Last Admin: 04/30/17 11:27 Dose: 180 mg Furosemide (Lasix) 40 mg PO DAILY [facility] Last Admin: 04/30/17 11:27 Dose: 40 mg Guaifenesin/Dextromethorphan (Robitussin Dm) 5 ml PO Q4H PRN PRN Reason: Cough Last Admin: 04/30/17 04:11 Dose: 5 ml Cefepime HCl (Maxipime 2gm) 2 gm in 100 mls @ 100 mls/hr IVPB Q12H [facility] PRN Reason: Protocol Stop: 05/05/17 14:01 Vancomycin HCl (Vancomycin 1gm) 1 gm in 250 mls @ 167 mls/hr IVPB DAILY [facility] PRN Reason: Protocol Levalbuterol HCl (Xopenex) 0.63 mg IH [id number] PRN PRN Reason: Shortness of Breath Last Admin: 04/30/17 13:44 Dose: 0.63 mg Losartan Potassium (Cozaar) 25 mg PO DAILY [facility] Last Admin: 04/30/17 11:26 Dose: 25 mg Pantoprazole Sodium (Protonix Ec Tab) 40 mg PO 0600 [facility] Last Admin: 04/30/17 06:07 Dose: 40 mg Polyethylene Glycol (Miralax) 17 gm PO DAILY [facility] Last Admin: 04/30/17 11:28 Dose: 17 gm Warfarin Sodium (Coumadin) 4 mg PO 1800 [facility] PRN Reason: Protocol - Labs Labs: 04/30/17 06:30 04/30/17 06:30 PT 23.1 SECONDS (9.4-12.5) H 04/30/17 06:30 INR 1.98 (0.93-1.08) H 04/30/17 06:30 APTT 35.1 Seconds (25.1-36.5) 04/30/17 06:30 Attending/Attestation - Attestation I have personally seen and examined this patient.: Yes I have fully participated in the care of the patient.: Yes I have reviewed all pertinent clinical information, including history, physical exam and plan: Yes Notes (Text): 04/30/17 16:21 76 year old female with past medical history of CHF, afib, CKD, CVA, hypertension and COPD who is admitted with RLL pneumonia. Continue with iv antibiotics. Pulmonary evaluation was appreciated; recommending obtaining CT chest. Continue with home medications for CHF, CAD, afib and COPD. Bennie Lindsay MD Hospitalist.
[2017-04-30] MEDS: Cefepime IV 2 gm in NS 2 GM/100 ML BAG IVPB SCH (16:45)
--- NOTE | 2017-04-30 18:05 | CARD ---
APPROVED REPORT EKG Measurement Heart [id number] <Conclusion> Atrial fibrillation Right bundle branch block Abnormal ECG
[2017-04-30] MEDS: Benzocaine/Menthol (Cepacol) Lozenge MT PRN (18:06)
--- NOTE | 2017-04-30 20:14 | CT ---
EXAM: CT Chest Without Intravenous Contrast EXAM DATE/TIME: 04/30/2017 4:38 PM CLINICAL HISTORY: 76 years old, female; Signs and symptoms; Other: Pneumonia TECHNIQUE: Axial computed tomography images of the chest without intravenous contrast. All CT scans at this facility use one or more dose reduction techniques, viz.: automated exposure control; ma/kV adjustment per patient size (including targeted exams where dose is matched to indication; i.e. head); or iterative reconstruction technique. Coronal and sagittal reformatted images were created and reviewed. COMPARISON: CT - CHEST W/O CONTRAST 2016-01-16 20:06 FINDINGS: Artifacts: Motion artifact degrades image quality. Lungs and pleural spaces: Trachea and main bronchi are patent. There are early paraseptal emphysematous changes. There is continued nodular apical pleural-parenchymal scarring on the right. There is less extensive apical scarring on the left. There is scarring in the right middle lobe. There is partial right middle lobe atelectasis, unchanged. There is a new 2.7 x 2 x 2.5 cm nodular opacity in the periphery of the lingula with air bronchograms. Nodule abuts the major fissure and chest wall. There is been interval decrease in the size of the right pleural. There are no areas small bilateral pleural effusions. There is interval improvement in aeration at both lung bases. Motion limits evaluation of lung bases. Heart and vasculature: The heart is markedly enlarged. There are coronary artery calcifications and/or stents. There is no pericardial effusion There are calcifications in the aorta and great vessels. Ascending aorta is prominent for cm in diameter. There is tapering at the arch. There is ectasia of the great vessels in the mediastinum. Main pulmonary artery is mildly prominent 3 cm in diameter. Thyroid: Thyroid is unremarkable Bones/joints: There are postsurgical changes of median sternotomy. Bony structures are osteopenic. There are degenerative changes. There is been prior median sternotomy. There is an old compression fracture at T8. There is mild deformity of T7 and T9. Soft tissues: unremarkable Lymph nodes: There are postsurgical changes in the mediastinum. The esophagus is unremarkable. There is a large hiatal hernia. There is mediastinal adenopathy. There is a slight decrease in size of para-aortic mediastinal nodes. There is slight decrease in size of precarinal nodes. Upper abdomen: There are no acute abnormalities in the visualized portion of the abdomen. IMPRESSION: Interval development of a 2.7 x 2 x 2.5 cm peripheral lingular nodule possibly round pneumonia; interval decrease in size of pleural with improved aeration lung bases unchanged atelectasis/scarring at the lung apices and middle lobe; cardiomegaly and atherosclerotic disease status post bypass surgery Additional nonemergent findings as described above.
[2017-05-01] MEDS: Cefepime IV 2 gm in NS 2 GM/100 ML BAG IVPB SCH ×2 (01:10→14:48)
[2017-05-01] MEDS: Pantoprazole 40 mg EC Tab PO SCH (06:42)
[2017-05-01 07:21] LABS: BASO # 0.04 K/mm3 (0.0-2.0); BASO % 0.8 % (0.0-3.0); EOS # 0.2 (0.0-0.7); EOS % 3.8 % (1.5-5.0); GRAN # 3.18 (1.4-6.5); GRAN % 62.9 % (50.0-68.0); HEMOGLOBIN 10.7 g/dL (12.0-16.0); MEAN CELL VOLUME 90.4 fl (80.0-105.0); MEAN CORPUSCULAR HEMOGLOBIN 29.2 pg (25.0-35.0); MEAN CORPUSCULAR HGB CONC 32.3 g/dl (31.0-37.0); MEAN PLATELET VOLUME 10.2 fl (7.0-11.0); MONO # 0.7 (0.1-0.6); MONO % 13.5 % (1.0-6.0); RBC 3.66 10^6/uL (3.5-6.1); RED CELL DISTRIBUTION WIDTH 13.4 % (11.5-14.5); WHITE BLOOD COUNT 5.1 10^3/ul (4.5-11.0)
[2017-05-01 07:30] LABS: INR 1.63 (0.93-1.08); PARTIAL THROMBOPLASTIN TIME 32.7 Seconds (25.1-36.5); PROTHROMBIN TIME 18.9 SECONDS (9.4-12.5)
[2017-05-01 07:44] LABS: ALBUMIN 2.8 g/dL (3.0-4.8); CALCIUM 8.5 mg/dL (8.4-10.5)
[2017-05-01] MEDS: Levalbuterol 0.63 MG/3 ML Inhal Soln UD IH PRN ×2 (08:17→13:45)
[2017-05-01] MEDS ORDERED: Azithromycin 500MG/NS 250ml 500 MG/250 ML BAG IVPB SCH (10:00)
[2017-05-01] MEDS: POLYETHYLENE GLYCOL 3350 17 GM/Dose PACKET PO SCH (11:40)
[2017-05-01] MEDS: guaiFENesin DM 100 mg-10 mg/5 ml UD PO PRN ×2 (11:41→23:10)
[2017-05-01] MEDS: Benzocaine/Menthol (Cepacol) Lozenge MT PRN ×2 (11:41→23:17)
[2017-05-01] MEDS: diltiaZEM 180 mg/24 Hours CD Cap PO SCH (11:41)
[2017-05-01] MEDS: Digoxin 125 mcg (0.125 mg) Tab PO SCH (11:41)
[2017-05-01] MEDS: Vancomycin 1gm in NS 250ml 1 GM/250 ML BAG IVPB SCH (11:43)
--- NOTE | 2017-05-01 14:12 | CP.PCM.PN ---
Subjective - Date & Time of Evaluation Date of Evaluation: 05/01/17 Time of Evaluation: 09:30 - Subjective Subjective: Pt seen and examined, reports to be feeling better, still has cough, denies cp, sob. Objective - Vital Signs/Intake and Output Vital Signs (last 24 hours): Temp Pulse Resp BP Pulse Ox 98.4 F 61 18 160/60 H 95 05/01/17 00:01 05/01/17 11:41 05/01/17 00:01 05/01/17 11:41 05/01/17 00:01 - Medications Medications: Current Medications Acetaminophen (Tylenol 325mg Tab) 650 mg PO Q6H PRN PRN Reason: Fever >100.4 F Acetaminophen (Tylenol 325mg Tab) 650 mg PO Q6H PRN PRN Reason: Pain, Mild (1-3) Alprazolam (Xanax) 0.25 mg PO BID PRN; Protocol PRN Reason: Anxiety Stop: 05/06/17 20:20 Aspirin (Aspirin Chewable) 81 mg PO DAILY [facility] Last Admin: 05/01/17 11:42 Dose: 81 mg Atorvastatin Calcium (Lipitor) 40 mg PO DAILY [facility] Last Admin: 05/01/17 11:42 Dose: 40 mg Azithromycin (Zithromax) 500 mg PO DAILY [facility] Last Admin: 05/01/17 11:42 Dose: 500 mg Benzocaine/Menthol (Cepacol Sore Throat) 1 usama MT Q2H PRN PRN Reason: Sore Throat Last Admin: 05/01/17 11:41 Dose: 1 usama Carvedilol (Coreg) 3.125 mg PO BID [facility] Last Admin: 05/01/17 11:42 Dose: 3.125 mg Digoxin (Lanoxin) 0.125 mg PO MWF [facility] Last Admin: 05/01/17 11:41 Dose: 0.125 mg Diltiazem HCl (Cardizem Cd) 180 mg PO DAILY [facility] Last Admin: 05/01/17 11:41 Dose: 180 mg Furosemide (Lasix) 40 mg PO DAILY [facility] Last Admin: 05/01/17 11:41 Dose: 40 mg Guaifenesin/Dextromethorphan (Robitussin Dm) 5 ml PO Q4H PRN PRN Reason: Cough Last Admin: 05/01/17 11:41 Dose: 5 ml Cefepime HCl (Maxipime 2gm) 2 gm in 100 mls @ 100 mls/hr IVPB Q12H [facility] PRN Reason: Protocol Stop: 05/05/17 14:01 Last Admin: 05/01/17 01:10 Dose: 100 mls/hr Vancomycin HCl (Vancomycin 1gm) 1 gm in 250 mls @ 167 mls/hr IVPB DAILY [facility] PRN Reason: Protocol Last Admin: 05/01/17 11:43 Dose: 167 mls/hr Levalbuterol HCl (Xopenex) 0.63 mg IH [id number] PRN PRN Reason: Shortness of Breath Last Admin: 05/01/17 13:45 Dose: 0.63 mg Losartan Potassium (Cozaar) 25 mg PO DAILY [facility] Last Admin: 05/01/17 11:43 Dose: 25 mg Pantoprazole Sodium (Protonix Ec Tab) 40 mg PO 0600 [facility] Last Admin: 05/01/17 06:42 Dose: 40 mg Polyethylene Glycol (Miralax) 17 gm PO DAILY [facility] Last Admin: 05/01/17 11:40 Dose: 17 gm Warfarin Sodium (Coumadin) 4 mg PO 1800 [facility] PRN Reason: Protocol Last Admin: 04/30/17 18:06 Dose: 4 mg - Labs Labs: 05/01/17 07:05 05/01/17 07:05 PT 18.9 SECONDS (9.4-12.5) H 05/01/17 07:05 INR 1.63 (0.93-1.08) H 05/01/17 07:05 APTT 32.7 Seconds (25.1-36.5) 05/01/17 07:05 - Constitutional Appears: No Acute Distress - Eye Exam Eye Exam: Normal appearance - ENT Exam ENT Exam: Mucous Membranes Moist - Respiratory Exam Respiratory Exam: Clear to Ausculation Bilateral, NORMAL BREATHING PATTERN - Cardiovascular Exam Cardiovascular Exam: REGULAR RHYTHM, +S1, +S2 - GI/Abdominal Exam GI & Abdominal Exam: Soft, Normal Bowel Sounds - Extremities Exam Extremities Exam: Full ROM, Normal Inspection - Neurological Exam Neurological Exam: Alert, Awake, Oriented x3 Assessment and Plan - Assessment and Plan (Free Text) Assessment: 76yo female a/w PNA, opacity on CT chest - currently afebrile, HD stable, comfortable on 2LNC - CT chest images reviewed, peripheral new opacity in the lingula 2.7cm x2cm x2.5cm, likely infectious/inflammatory process with evidence of air bronchogram , although malignancy cannot be ruled out completely especially given the patients smoking history. Ideally, would finish the course of antibiotics and repeat CT chest without contrast in 1 month, to ensure resolution of opacity. If patient has good follow up then can finish antibiotics and repeat CT Chest in 1 month, if follow up is concern or is poor, would proceed with transthoracic FNA/biopsy with IR - cont with anitiobiotics for now - Duonebs PRN - GI ppx - DVT ppx
--- NOTE | 2017-05-01 14:46 | CP.PCM.PN ---
<Roman Phelps - Last Filed: 05/01/17 14:35> Subjective - Date & Time of Evaluation Date of Evaluation: 05/01/17 Time of Evaluation: 14:36 - Subjective Subjective: Medicine Progress Note Pt seen and examined at bedside. No acute overnight events. Pt states that shortness of breath, cough, and right chest pain is improved. Pt denied abdominal pain, diarrhea, nausea, fever, chills, headache or dizziness. Objective - Vital Signs/Intake and Output Vital Signs (last 24 hours): Temp Pulse Resp BP Pulse Ox 98.4 F 61 18 160/60 H 95 05/01/17 00:01 05/01/17 11:41 05/01/17 00:01 05/01/17 11:41 05/01/17 00:01 - Medications Medications: Current Medications Acetaminophen (Tylenol 325mg Tab) 650 mg PO Q6H PRN PRN Reason: Fever >100.4 F Acetaminophen (Tylenol 325mg Tab) 650 mg PO Q6H PRN PRN Reason: Pain, Mild (1-3) Alprazolam (Xanax) 0.25 mg PO BID PRN; Protocol PRN Reason: Anxiety Stop: 05/06/17 20:20 Aspirin (Aspirin Chewable) 81 mg PO DAILY [facility] Last Admin: 05/01/17 11:42 Dose: 81 mg Atorvastatin Calcium (Lipitor) 40 mg PO DAILY [facility] Last Admin: 05/01/17 11:42 Dose: 40 mg Azithromycin (Zithromax) 500 mg PO DAILY [facility] Last Admin: 05/01/17 11:42 Dose: 500 mg Benzocaine/Menthol (Cepacol Sore Throat) 1 usama MT Q2H PRN PRN Reason: Sore Throat Last Admin: 05/01/17 11:41 Dose: 1 usama Carvedilol (Coreg) 3.125 mg PO BID [facility] Last Admin: 05/01/17 11:42 Dose: 3.125 mg Digoxin (Lanoxin) 0.125 mg PO MWF [facility] Last Admin: 05/01/17 11:41 Dose: 0.125 mg Diltiazem HCl (Cardizem Cd) 180 mg PO DAILY [facility] Last Admin: 05/01/17 11:41 Dose: 180 mg Furosemide (Lasix) 40 mg PO DAILY [facility] Last Admin: 05/01/17 11:41 Dose: 40 mg Guaifenesin/Dextromethorphan (Robitussin Dm) 5 ml PO Q4H PRN PRN Reason: Cough Last Admin: 05/01/17 11:41 Dose: 5 ml Cefepime HCl (Maxipime 2gm) 2 gm in 100 mls @ 100 mls/hr IVPB Q12H [facility] PRN Reason: Protocol Stop: 05/05/17 14:01 Last Admin: 05/01/17 01:10 Dose: 100 mls/hr Vancomycin HCl (Vancomycin 1gm) 1 gm in 250 mls @ 167 mls/hr IVPB DAILY [facility] PRN Reason: Protocol Last Admin: 05/01/17 11:43 Dose: 167 mls/hr Levalbuterol HCl (Xopenex) 0.63 mg IH [id number] PRN PRN Reason: Shortness of Breath Last Admin: 05/01/17 13:45 Dose: 0.63 mg Losartan Potassium (Cozaar) 25 mg PO DAILY [facility] Last Admin: 05/01/17 11:43 Dose: 25 mg Pantoprazole Sodium (Protonix Ec Tab) 40 mg PO 0600 [facility] Last Admin: 05/01/17 06:42 Dose: 40 mg Polyethylene Glycol (Miralax) 17 gm PO DAILY [facility] Last Admin: 05/01/17 11:40 Dose: 17 gm Warfarin Sodium (Coumadin) 4 mg PO 1800 [facility] PRN Reason: Protocol Last Admin: 04/30/17 18:06 Dose: 4 mg - Labs Labs: 05/01/17 07:05 05/01/17 07:05 PT 18.9 SECONDS (9.4-12.5) H 05/01/17 07:05 INR 1.63 (0.93-1.08) H 05/01/17 07:05 APTT 32.7 Seconds (25.1-36.5) 05/01/17 07:05 - Constitutional Appears: No Acute Distress - Head Exam Head Exam: NORMAL INSPECTION - Eye Exam Eye Exam: Normal appearance - ENT Exam ENT Exam: Normal Exam - Neck Exam Neck Exam: Normal Inspection - Respiratory Exam Respiratory Exam: Rhonchi (b/l bases), Wheezes (expiratory on right). absent: Accessory Muscle Use, Rales, Respiratory Distress - Cardiovascular Exam Cardiovascular Exam: RRR, +S1, +S2. absent: Gallop, Rubs, Murmur - GI/Abdominal Exam GI & Abdominal Exam: Soft. absent: Distended, Guarding, Tenderness, Rebound - Extremities Exam Extremities Exam: Normal Inspection - Back Exam Back Exam: NORMAL INSPECTION - Neurological Exam Neurological Exam: Alert, Awake, Oriented x3 - Psychiatric Exam Psychiatric exam: Normal Affect, Normal Mood - Skin Skin Exam: Dry, Intact, Normal Color, Warm Assessment and Plan - Assessment and Plan (Free Text) Assessment: 76 year old female with a past medical history significant for CHF (30-35% EF), aortic valve replacement, CKD, chronic atrial fibrillation (on Coumadin), CVA, HTN, HLD, AAA and COPD who presents with intermittent left sided chest pain radiating to her back for the past two days with associated cough productive of yellow sputum and chills. Patient was found to have a RLL and LLL infiltrate on chest x-ray. Plan: 1. Healthcare Acquired Pneumonia - Chest X-Ray showing RLL infiltrate and peripheral infiltrate of LLL - CT chest showed peripheral new opacity in the lingula 2.7cm x2cm x2.5cm - Legionella, procal negative - Cefepime, Vancomycin, and Azithromycin - Xopenex [id number] - Tylenol PRN for both pain control and fever - Blood culture pending - F/u sputum culture, strep - Incentive Spirometry - Pulmonology consult Recommends follow up CT in one month after completion of abx If patient cannot follow, transthoracic FNA/biopsy with IR during this admission 2. Atrial Fibrillation - Continue home Coumadin and Cardizem 3. History of CHF - Continue home Losartan, Coreg, Lasix and Digoxin 4. History of CAD - Continue home ASA and Lipitor - Heart Healthy Diet 5. History of Anxiety - Continue home Xanax PRN GI Prophylaxis: Protonix DVT Prophylaxis: SCD's Pt seen and discussed in detail with Dr. Aaron. Roger Phelps, PGY1 <Luther Aaron - Last Filed: 05/01/17 17:31> Objective - Vital Signs/Intake and Output Vital Signs (last 24 hours): Temp Pulse Resp BP Pulse Ox 98.1 F 72 20 163/74 H 94 L 05/01/17 12:00 05/01/17 12:00 05/01/17 12:00 05/01/17 12:00 05/01/17 12:00 - Medications Medications: Current Medications Acetaminophen (Tylenol 325mg Tab) 650 mg PO Q6H PRN PRN Reason: Fever >100.4 F Acetaminophen (Tylenol 325mg Tab) 650 mg PO Q6H PRN PRN Reason: Pain, Mild (1-3) Alprazolam (Xanax) 0.25 mg PO BID PRN; Protocol PRN Reason: Anxiety Stop: 05/06/17 20:20 Aspirin (Aspirin Chewable) 81 mg PO DAILY [facility] Last Admin: 05/01/17 11:42 Dose: 81 mg Atorvastatin Calcium (Lipitor) 40 mg PO DAILY [facility] Last Admin: 05/01/17 11:42 Dose: 40 mg Azithromycin (Zithromax) 500 mg PO DAILY [facility] Last Admin: 05/01/17 11:42 Dose: 500 mg Benzocaine/Menthol (Cepacol Sore Throat) 1 usama MT Q2H PRN PRN Reason: Sore Throat Last Admin: 05/01/17 11:41 Dose: 1 usama Carvedilol (Coreg) 3.125 mg PO BID [facility] Last Admin: 05/01/17 11:42 Dose: 3.125 mg Digoxin (Lanoxin) 0.125 mg PO MWF [facility] Last Admin: 05/01/17 11:41 Dose: 0.125 mg Diltiazem HCl (Cardizem Cd) 180 mg PO DAILY [facility] Last Admin: 05/01/17 11:41 Dose: 180 mg Furosemide (Lasix) 40 mg PO DAILY [facility] Last Admin: 05/01/17 11:41 Dose: 40 mg Guaifenesin/Dextromethorphan (Robitussin Dm) 5 ml PO Q4H PRN PRN Reason: Cough Last Admin: 05/01/17 11:41 Dose: 5 ml Cefepime HCl (Maxipime 2gm) 2 gm in 100 mls @ 100 mls/hr IVPB Q12H [facility] PRN Reason: Protocol Stop: 05/05/17 14:01 Last Admin: 05/01/17 14:48 Dose: 100 mls/hr Vancomycin HCl (Vancomycin 1gm) 1 gm in 250 mls @ 167 mls/hr IVPB DAILY [facility] PRN Reason: Protocol Last Admin: 05/01/17 11:43 Dose: 167 mls/hr Levalbuterol HCl (Xopenex) 0.63 mg IH [id number] PRN PRN Reason: Shortness of Breath Last Admin: 05/01/17 13:45 Dose: 0.63 mg Losartan Potassium (Cozaar) 25 mg PO DAILY [facility] Last Admin: 05/01/17 11:43 Dose: 25 mg Pantoprazole Sodium (Protonix Ec Tab) 40 mg PO 0600 [facility] Last Admin: 05/01/17 06:42 Dose: 40 mg Polyethylene Glycol (Miralax) 17 gm PO DAILY [facility] Last Admin: 05/01/17 11:40 Dose: 17 gm Warfarin Sodium (Coumadin) 4 mg PO 1800 [facility] PRN Reason: Protocol Last Admin: 04/30/17 18:06 Dose: 4 mg - Labs Labs: 05/01/17 07:05 05/01/17 07:05 PT 18.9 SECONDS (9.4-12.5) H 05/01/17 07:05 INR 1.63 (0.93-1.08) H 05/01/17 07:05 APTT 32.7 Seconds (25.1-36.5) 05/01/17 07:05 Attending/Attestation - Attestation I have personally seen and examined this patient.: Yes I have fully participated in the care of the patient.: Yes I have reviewed all pertinent clinical information, including history, physical exam and plan: Yes Notes (Text): 05/01/17 17:27 Attending note ; Patient seen and examined with resident . Patient is a 76 year old female with past medical history of atrial fibrillation , chronic kidney disease, stroke, hypertension and COPD who is admitted with right lower lobe pneumonia/healthcare associated pneumonia. Currently on vancomycin and cefepime. Pulmonary evaluation was appreciated. CT chest showed 2.7x 2.5 cm peripheral lingual nodule possible pneumonia. Will complete antibiotics. Needs repeat CT scan as outpatient to confirm the resolution. If not patient might need outpatient biopsy. Discussed with patient in detail. Respiratory status is improving. Upon discharge the patient will follow-up with PMD Dr. Coronel.
[2017-05-02] MEDS: Cefepime IV 2 gm in NS 2 GM/100 ML BAG IVPB SCH ×2 (01:01→14:28)
[2017-05-02] MEDS: Pantoprazole 40 mg EC Tab PO SCH (05:30)
[2017-05-02] MEDS: guaiFENesin DM 100 mg-10 mg/5 ml UD PO PRN ×2 (05:56→21:17)
[2017-05-02] MEDS: Benzocaine/Menthol (Cepacol) Lozenge MT PRN ×2 (05:56→21:22)
[2017-05-02 07:39] LABS: BASO # 0.03 K/mm3 (0.0-2.0); BASO % 0.6 % (0.0-3.0); EOS # 0.3 (0.0-0.7); EOS % 5.3 % (1.5-5.0); GRAN # 3.28 (1.4-6.5); GRAN % 61.5 % (50.0-68.0); LYMPH % 19.5 % (22.0-35.0); MEAN CELL VOLUME 90.9 fl (80.0-105.0); MEAN CORPUSCULAR HEMOGLOBIN 29.4 pg (25.0-35.0); MEAN CORPUSCULAR HGB CONC 32.4 g/dl (31.0-37.0); MEAN PLATELET VOLUME 10.2 fl (7.0-11.0); MONO # 0.7 (0.1-0.6); MONO % 13.1 % (1.0-6.0); RBC 3.74 10^6/uL (3.5-6.1); RED CELL DISTRIBUTION WIDTH 13.3 % (11.5-14.5); WHITE BLOOD COUNT 5.3 10^3/ul (4.5-11.0)
[2017-05-02 07:55] LABS: INR 1.68 (0.93-1.08); PROTHROMBIN TIME 19.5 SECONDS (9.4-12.5)
[2017-05-02 07:57] LABS: ALBUMIN 3.1 g/dL (3.0-4.8)
[2017-05-02] MEDS: Levalbuterol 0.63 MG/3 ML Inhal Soln UD IH PRN ×2 (08:32→13:21)
[2017-05-02] MEDS: diltiaZEM 180 mg/24 Hours CD Cap PO SCH (10:56)
[2017-05-02] MEDS: POLYETHYLENE GLYCOL 3350 17 GM/Dose PACKET PO SCH (10:56)
--- NOTE | 2017-05-02 13:17 | CP.PCM.PN ---
<Roman Phelps - Last Filed: 05/02/17 13:07> Subjective - Date & Time of Evaluation Date of Evaluation: 05/02/17 Time of Evaluation: 13:07 - Subjective Subjective: Medicine Progress Note Pt seen and examined at bedside. No acute overnight events. Pt complains of cough, but is controlled with medications. Pt states that she has left rib pain on deep inspiration. Pt denied nausea, vomiting, diarrhea, abdominal pain, fever , chills, dysuria, headache, or dizziness. Objective - Vital Signs/Intake and Output Vital Signs (last 24 hours): Temp Pulse Resp BP Pulse Ox 97.8 F 106 H 18 140/70 96 05/02/17 06:00 05/02/17 10:56 05/02/17 06:00 05/02/17 10:57 05/02/17 06:00 Intake and Output: 05/02/17 05/02/17 06:59 18:59 Intake Total 200 Balance 200 - Medications Medications: Current Medications Acetaminophen (Tylenol 325mg Tab) 650 mg PO Q6H PRN PRN Reason: Fever >100.4 F Acetaminophen (Tylenol 325mg Tab) 650 mg PO Q6H PRN PRN Reason: Pain, Mild (1-3) Last Admin: 05/02/17 00:39 Dose: 650 mg Alprazolam (Xanax) 0.25 mg PO BID PRN; Protocol PRN Reason: Anxiety Stop: 05/06/17 20:20 Aspirin (Aspirin Chewable) 81 mg PO DAILY [facility] Last Admin: 05/02/17 10:57 Dose: 81 mg Atorvastatin Calcium (Lipitor) 40 mg PO DAILY [facility] Last Admin: 05/02/17 10:56 Dose: 40 mg Azithromycin (Zithromax) 500 mg PO DAILY [facility] Last Admin: 05/02/17 10:57 Dose: 500 mg Benzocaine/Menthol (Cepacol Sore Throat) 1 usama MT Q2H PRN PRN Reason: Sore Throat Last Admin: 05/02/17 05:56 Dose: 1 usama Carvedilol (Coreg) 3.125 mg PO BID [facility] Last Admin: 05/02/17 10:57 Dose: 3.125 mg Digoxin (Lanoxin) 0.125 mg PO MWF [facility] Last Admin: 05/01/17 11:41 Dose: 0.125 mg Diltiazem HCl (Cardizem Cd) 180 mg PO DAILY [facility] Last Admin: 05/02/17 10:56 Dose: 180 mg Furosemide (Lasix) 40 mg PO DAILY [facility] Last Admin: 05/02/17 10:57 Dose: 40 mg Guaifenesin/Dextromethorphan (Robitussin Dm) 5 ml PO Q4H PRN PRN Reason: Cough Last Admin: 05/02/17 05:56 Dose: 5 ml Cefepime HCl (Maxipime 2gm) 2 gm in 100 mls @ 100 mls/hr IVPB Q12H [facility] PRN Reason: Protocol Stop: 05/05/17 14:01 Last Admin: 05/02/17 01:01 Dose: 100 mls/hr Levalbuterol HCl (Xopenex) 0.63 mg IH [id number] PRN PRN Reason: Shortness of Breath Last Admin: 05/02/17 08:32 Dose: 0.63 mg Losartan Potassium (Cozaar) 25 mg PO DAILY [facility] Last Admin: 05/02/17 10:57 Dose: 25 mg Pantoprazole Sodium (Protonix Ec Tab) 40 mg PO 0600 [facility] Last Admin: 05/02/17 05:30 Dose: 40 mg Polyethylene Glycol (Miralax) 17 gm PO DAILY [facility] Last Admin: 05/02/17 10:56 Dose: 17 gm Warfarin Sodium (Coumadin) 4 mg PO 1800 [facility] PRN Reason: Protocol Last Admin: 05/01/17 17:56 Dose: 4 mg - Labs Labs: 05/02/17 06:40 05/02/17 06:40 PT 19.5 SECONDS (9.4-12.5) H 05/02/17 06:40 INR 1.68 (0.93-1.08) H 05/02/17 06:40 APTT 33.0 Seconds (25.1-36.5) 05/02/17 06:40 - Constitutional Appears: No Acute Distress - Head Exam Head Exam: NORMAL INSPECTION - Eye Exam Eye Exam: Normal appearance - ENT Exam ENT Exam: Normal Exam - Neck Exam Neck Exam: Normal Inspection - Respiratory Exam Respiratory Exam: Rhonchi (b/l bases). absent: Accessory Muscle Use, Rales, Wheezes, Respiratory Distress - Cardiovascular Exam Cardiovascular Exam: RRR, +S1, +S2. absent: Gallop, Rubs, Murmur - GI/Abdominal Exam GI & Abdominal Exam: Soft. absent: Distended, Guarding, Tenderness, Rebound - Extremities Exam Extremities Exam: Normal Inspection - Back Exam Back Exam: NORMAL INSPECTION - Neurological Exam Neurological Exam: Alert, Awake, Oriented x3 - Psychiatric Exam Psychiatric exam: Normal Affect, Normal Mood - Skin Skin Exam: Dry, Intact, Normal Color, Warm Assessment and Plan - Assessment and Plan (Free Text) Assessment: 76 year old female with a past medical history significant for CHF (30-35% EF), aortic valve replacement, CKD, chronic atrial fibrillation (on Coumadin), CVA, HTN, HLD, AAA and COPD who presents with intermittent left sided chest pain radiating to her back for the past two days with associated cough productive of yellow sputum and chills. Patient was found to have a RLL and LLL infiltrate on chest x-ray. Plan: 1. Healthcare Acquired Pneumonia - Chest X-Ray showing RLL infiltrate and peripheral infiltrate of LLL - CT chest showed peripheral new opacity in the lingula 2.7cm x2cm x2.5cm - Legionella, procal negative - Cefepime and Azithromycin - Vanco stopped due to h/o of CKD - Xopenex [id number] - Tylenol PRN for both pain control and fever - Blood culture pending - F/u sputum culture, strep, MRSA screen - Incentive Spirometry - Pulmonology consult Recommends follow up CT in one month after completion of abx If patient cannot follow, transthoracic FNA/biopsy with IR during this admission - ID Consulted - PT eval and treat 2. Atrial Fibrillation - Continue home Coumadin and Cardizem 3. History of CHF - Continue home Losartan, Coreg, Lasix and Digoxin 4. History of CAD - Continue home ASA and Lipitor - Heart Healthy Diet 5. History of Anxiety - Continue home Xanax PRN GI Prophylaxis: Protonix DVT Prophylaxis: SCD's Pt seen and discussed in detail with Dr. Aaron. Roger Phelps, PGY1 <Luther Aaron - Last Filed: 05/02/17 16:23> Objective - Vital Signs/Intake and Output Vital Signs (last 24 hours): Temp Pulse Resp BP Pulse Ox 97.8 F 106 H 18 140/70 96 05/02/17 06:00 05/02/17 10:56 05/02/17 06:00 05/02/17 10:57 05/02/17 06:00 Intake and Output: 05/02/17 05/02/17 06:59 18:59 Intake Total 200 Balance 200 - Medications Medications: Current Medications Acetaminophen (Tylenol 325mg Tab) 650 mg PO Q6H PRN PRN Reason: Fever >100.4 F Acetaminophen (Tylenol 325mg Tab) 650 mg PO Q6H PRN PRN Reason: Pain, Mild (1-3) Last Admin: 05/02/17 00:39 Dose: 650 mg Alprazolam (Xanax) 0.25 mg PO BID PRN; Protocol PRN Reason: Anxiety Stop: 05/06/17 20:20 Aspirin (Aspirin Chewable) 81 mg PO DAILY [facility] Last Admin: 05/02/17 10:57 Dose: 81 mg Atorvastatin Calcium (Lipitor) 40 mg PO DAILY [facility] Last Admin: 05/02/17 10:56 Dose: 40 mg Azithromycin (Zithromax) 500 mg PO DAILY [facility] Last Admin: 05/02/17 10:57 Dose: 500 mg Benzocaine/Menthol (Cepacol Sore Throat) 1 usama MT Q2H PRN PRN Reason: Sore Throat Last Admin: 05/02/17 05:56 Dose: 1 usama Carvedilol (Coreg) 3.125 mg PO BID [facility] Last Admin: 05/02/17 10:57 Dose: 3.125 mg Digoxin (Lanoxin) 0.125 mg PO MWF [facility] Last Admin: 05/01/17 11:41 Dose: 0.125 mg Diltiazem HCl (Cardizem Cd) 180 mg PO DAILY [facility] Last Admin: 05/02/17 10:56 Dose: 180 mg Furosemide (Lasix) 40 mg PO DAILY [facility] Last Admin: 05/02/17 10:57 Dose: 40 mg Guaifenesin/Dextromethorphan (Robitussin Dm) 5 ml PO Q4H PRN PRN Reason: Cough Last Admin: 05/02/17 05:56 Dose: 5 ml Cefepime HCl (Maxipime 2gm) 2 gm in 100 mls @ 100 mls/hr IVPB Q12H [facility] PRN Reason: Protocol Stop: 05/05/17 14:01 Last Admin: 05/02/17 14:28 Dose: 100 mls/hr Levalbuterol HCl (Xopenex) 0.63 mg IH [id number] PRN PRN Reason: Shortness of Breath Last Admin: 05/02/17 13:21 Dose: 0.63 mg Losartan Potassium (Cozaar) 25 mg PO DAILY [facility] Last Admin: 05/02/17 10:57 Dose: 25 mg Pantoprazole Sodium (Protonix Ec Tab) 40 mg PO 0600 [facility] Last Admin: 05/02/17 05:30 Dose: 40 mg Polyethylene Glycol (Miralax) 17 gm PO DAILY [facility] Last Admin: 05/02/17 10:56 Dose: 17 gm Warfarin Sodium (Coumadin) 4 mg PO 1800 [facility] PRN Reason: Protocol Last Admin: 05/01/17 17:56 Dose: 4 mg - Labs Labs: 05/02/17 06:40 05/02/17 06:40 PT 19.5 SECONDS (9.4-12.5) H 05/02/17 06:40 INR 1.68 (0.93-1.08) H 05/02/17 06:40 APTT 33.0 Seconds (25.1-36.5) 05/02/17 06:40 Attending/Attestation - Attestation I have personally seen and examined this patient.: Yes I have fully participated in the care of the patient.: Yes I have reviewed all pertinent clinical information, including history, physical exam and plan: Yes Notes (Text): 05/02/17 16:22 Attending note ; Patient seen and examined with resident . Patient is a 76 year old female with past medical history of atrial fibrillation , chronic kidney disease, stroke, hypertension and COPD who is admitted with right lower lobe pneumonia/healthcare associated pneumonia. Currently on vancomycin and cefepime. Vancomycin stopped. Patient with chronic kidney disease. ID evaluation requested. Currently afebrile and nontoxic. Patient has some pleuritic chest pain. Pulmonary evaluation appreciated. CT chest showed 2.7x 2.5 cm peripheral lingual nodule possible pneumonia. Will complete antibiotics. Needs repeat CT scan as outpatient to confirm the resolution. If not patient might need outpatient biopsy. Discussed with patient in detail. Physical therapy evaluation requested. Monitor respiratory status closely. Upon discharge the patient will follow-up with PMD Dr. Coronel.
[2017-05-02] MEDS: Vancomycin 1gm in NS 250ml 1 GM/250 ML BAG IVPB SCH (13:26)
--- NOTE | 2017-05-02 19:54 | CP.PCM.CON ---
History of Present Illness - History of Present Illness History of Present Illness: Infectious Disease Consultation: May 02, 2017 76 yo female admitted for right lower lobe pneumonia and was started on treatment with Vancomycin and Cefepime IV. The patient has correction history of renal insufficiency. Past medical history includes atrial fibrillation, chronic kidney disease, stroke, hypertension, and COPD. The patient appears to be improving. Would continue with Cefepime alone at this time. CT chest showing peripheral new opacity in the lingula 2.7cm x2cm x2.5cm, likely infectious/inflammatory process with evidence of air bronchogram, although as per pulmonolgy, malignancy cannot be ruled out completely especially given the patients smoking history. PMHx: atrial fibrillation, chronic kidney disease, stroke, hypertension, CHF (EF 30-35 %), and COPD PSHx: aortic valve replacement, CABG 5 years ago Allergies: Sulfa Social Hx: Ex-smoker 30 pack year history No EtOH or Illicit drug use Active Medications Acetaminophen (Tylenol 325mg Tab) 650 mg PO Q6H PRN PRN Reason: Fever >100.4 F Acetaminophen (Tylenol 325mg Tab) 650 mg PO Q6H PRN PRN Reason: Pain, Mild (1-3) Last Admin: 05/02/17 00:39 Dose: 650 mg Alprazolam (Xanax) 0.25 mg PO BID PRN; Protocol PRN Reason: Anxiety Stop: 05/06/17 20:20 Aspirin (Aspirin Chewable) 81 mg PO DAILY [facility] Last Admin: 05/02/17 10:57 Dose: 81 mg Atorvastatin Calcium (Lipitor) 40 mg PO DAILY [facility] Last Admin: 05/02/17 10:56 Dose: 40 mg Azithromycin (Zithromax) 500 mg PO DAILY [facility] Last Admin: 05/02/17 10:57 Dose: 500 mg Benzocaine/Menthol (Cepacol Sore Throat) 1 usama MT Q2H PRN PRN Reason: Sore Throat Last Admin: 05/02/17 05:56 Dose: 1 usama Carvedilol (Coreg) 3.125 mg PO BID [facility] Last Admin: 05/02/17 17:36 Dose: 3.125 mg Digoxin (Lanoxin) 0.125 mg PO MWF [facility] Last Admin: 05/01/17 11:41 Dose: 0.125 mg Diltiazem HCl (Cardizem Cd) 180 mg PO DAILY [facility] Last Admin: 05/02/17 10:56 Dose: 180 mg Furosemide (Lasix) 40 mg PO DAILY [facility] Last Admin: 05/02/17 10:57 Dose: 40 mg Guaifenesin/Dextromethorphan (Robitussin Dm) 5 ml PO Q4H PRN PRN Reason: Cough Last Admin: 05/02/17 05:56 Dose: 5 ml Cefepime HCl (Maxipime 2gm) 2 gm in 100 mls @ 100 mls/hr IVPB Q12H [facility] PRN Reason: Protocol Stop: 05/05/17 14:01 Last Admin: 05/02/17 14:28 Dose: 100 mls/hr Levalbuterol HCl (Xopenex) 0.63 mg IH [id number] PRN PRN Reason: Shortness of Breath Last Admin: 05/02/17 13:21 Dose: 0.63 mg Losartan Potassium (Cozaar) 25 mg PO DAILY [facility] Last Admin: 05/02/17 10:57 Dose: 25 mg Pantoprazole Sodium (Protonix Ec Tab) 40 mg PO 0600 [facility] Last Admin: 05/02/17 05:30 Dose: 40 mg Polyethylene Glycol (Miralax) 17 gm PO DAILY [facility] Last Admin: 05/02/17 10:56 Dose: 17 gm Warfarin Sodium (Coumadin) 4 mg PO 1800 [facility] PRN Reason: Protocol Last Admin: 05/02/17 17:37 Dose: 4 mg Family Hx: CAD and DM in father DM in mother ROS: cough and chills. chest pain. SOB. No melena, hematuria, hematemesis, hematochezia, depression, anxiety, diarrhea, headaches, dizziness, abdominal pain, LOC Past Patient History - Infectious Disease Hx of Infectious Diseases: None - Tetanus Immunizations Tetanus Immunization: Unknown - Past Medical History & Family History Past Medical History?: Yes - Past Social History Smoking Status: Never Smoked - CARDIAC Hx Congestive Heart Failure: Yes Hx Hypertension: Yes - PULMONARY Hx Chronic Obstructive Pulmonary Disease (COPD): Yes - NEUROLOGICAL HX Cerebrovascular Accident: Yes - HEENT Hx HEENT Problems: Yes (Wears reading glasses. Upper denture.) Hx Blind: No Hx Cataracts: No Hx Deafness: No Hx Difficulty Chewing: No Hx Epistaxis: No Hx Glaucoma: No Hx Macular Degeneration: No - RENAL Hx Chronic Kidney Disease: No Hx Renal Failure: No - ENDOCRINE/METABOLIC Hx Endocrine Disorders: No Hx Diabetes Mellitus Type 1: No Hx Diabetes Mellitus Type 2: No - HEMATOLOGICAL/ONCOLOGICAL Hx Blood Disorders: No - INTEGUMENTARY Hx Dermatological Problems: No Hx Basil Cell: No Hx Eczema: No Hx Melanoma: No Hx Psoriasis: No Hx Squamous Cell: No Other/Comment: 03-24-17 BILATERAL LE DARKENED BROWN SKIN DISCOLORATION. - MUSCULOSKELETAL/RHEUMATOLOGICAL Hx Falls: Yes - GASTROINTESTINAL Hx Gastrointestinal Disorders: Yes (CHOLECYSTECTOMY,ABDOMINAL SX FOR DIVERTICULITIS) - GENITOURINARY/GYNECOLOGICAL Hx Genitourinary Disorders: Yes (URGENCY) Hx Reproductive Disorders: No - PSYCHIATRIC Hx Psychophysiologic Disorder: No Hx Emotional Abuse: No Hx Physical Abuse: No Hx Substance Use: No Other/Comment: nervous - SURGICAL HISTORY Hx Cholecystectomy: Yes Hx Open Heart Surgery: Yes (5 yrs) Hx Valve Replacement: Yes - ANESTHESIA Hx Anesthesia: Yes Hx Anesthesia Reactions: No Hx Malignant Hyperthermia: No Meds Allergies/Adverse Reactions: Allergies Allergy/AdvReac Type Severity Reaction Status Date / Time Sulfa (Sulfonamide Allergy Unknown . Verified 03/27/17 14:56 Antibiotics) - Medications Medications: Current Medications Acetaminophen (Tylenol 325mg Tab) 650 mg PO Q6H PRN PRN Reason: Fever >100.4 F Acetaminophen (Tylenol 325mg Tab) 650 mg PO Q6H PRN PRN Reason: Pain, Mild (1-3) Last Admin: 05/02/17 00:39 Dose: 650 mg Alprazolam (Xanax) 0.25 mg PO BID PRN; Protocol PRN Reason: Anxiety Stop: 05/06/17 20:20 Aspirin (Aspirin Chewable) 81 mg PO DAILY [facility] Last Admin: 05/02/17 10:57 Dose: 81 mg Atorvastatin Calcium (Lipitor) 40 mg PO DAILY [facility] Last Admin: 05/02/17 10:56 Dose: 40 mg Azithromycin (Zithromax) 500 mg PO DAILY [facility] Last Admin: 05/02/17 10:57 Dose: 500 mg Benzocaine/Menthol (Cepacol Sore Throat) 1 usama MT Q2H PRN PRN Reason: Sore Throat Last Admin: 05/02/17 05:56 Dose: 1 usama Carvedilol (Coreg) 3.125 mg PO BID [facility] Last Admin: 05/02/17 17:36 Dose: 3.125 mg Digoxin (Lanoxin) 0.125 mg PO MWF [facility] Last Admin: 05/01/17 11:41 Dose: 0.125 mg Diltiazem HCl (Cardizem Cd) 180 mg PO DAILY [facility] Last Admin: 05/02/17 10:56 Dose: 180 mg Furosemide (Lasix) 40 mg PO DAILY [facility] Last Admin: 05/02/17 10:57 Dose: 40 mg Guaifenesin/Dextromethorphan (Robitussin Dm) 5 ml PO Q4H PRN PRN Reason: Cough Last Admin: 05/02/17 05:56 Dose: 5 ml Cefepime HCl (Maxipime 2gm) 2 gm in 100 mls @ 100 mls/hr IVPB Q12H [facility] PRN Reason: Protocol Stop: 05/05/17 14:01 Last Admin: 05/02/17 14:28 Dose: 100 mls/hr Levalbuterol HCl (Xopenex) 0.63 mg IH [id number] PRN PRN Reason: Shortness of Breath Last Admin: 05/02/17 13:21 Dose: 0.63 mg Losartan Potassium (Cozaar) 25 mg PO DAILY [facility] Last Admin: 05/02/17 10:57 Dose: 25 mg Pantoprazole Sodium (Protonix Ec Tab) 40 mg PO 0600 [facility] Last Admin: 05/02/17 05:30 Dose: 40 mg Polyethylene Glycol (Miralax) 17 gm PO DAILY [facility] Last Admin: 05/02/17 10:56 Dose: 17 gm Warfarin Sodium (Coumadin) 4 mg PO 1800 [facility] PRN Reason: Protocol Last Admin: 05/02/17 17:37 Dose: 4 mg Physical Exam - Constitutional Appears: Non-toxic, No Acute Distress, Chronically Ill - Head Exam Head Exam: ATRAUMATIC, NORMOCEPHALIC - Eye Exam Eye Exam: EOMI, PERRL Pupil Exam: NORMAL ACCOMODATION, PERRL - ENT Exam ENT Exam: Mucous Membranes Moist, Normal External Ear Exam, TM's Normal Bilaterally - Neck Exam Neck exam: Positive for: Full Rom, Normal Inspection - Respiratory Exam Respiratory Exam: Decreased Breath Sounds, Rhonchi - Cardiovascular Exam Cardiovascular Exam: REGULAR RHYTHM, +S1, +S2 - GI/Abdominal Exam GI & Abdominal Exam: Normal Bowel Sounds, Soft. absent: Distended, Tenderness - Extremities Exam Extremities exam: Positive for: full ROM, normal inspection - Neurological Exam Neurological exam: Alert, CN II-XII Intact, Oriented x3 - Psychiatric Exam Psychiatric exam: Normal Affect, Normal Mood - Skin Skin Exam: Intact, Normal Color Results - Vital Signs Recent Vital Signs: Last Vital Signs Temp 98.6 F 05/02/17 17:55 Pulse 79 05/02/17 17:55 Resp 19 05/02/17 17:55 BP 139/88 05/02/17 17:55 Pulse Ox 98 05/02/17 17:55 - Labs Result Diagrams: 05/02/17 06:40 05/02/17 06:40 Labs: Laboratory Results - last 24 hr 05/02/17 05/02/17 05/02/17 06:40 06:40 06:40 WBC 5.3 RBC 3.74 Hgb 11.0 L Hct 34.0 L MCV 90.9 MCH 29.4 MCHC 32.4 RDW 13.3 Plt Count 160 MPV 10.2 Gran % 61.5 Lymph % (Auto) 19.5 L [place] % (Auto) 13.1 H Eos % (Auto) 5.3 H Baso % (Auto) 0.6 Gran # 3.28 Lymph # 1.0 L [place] # 0.7 H Eos # 0.3 Baso # 0.03 PT 19.5 H INR 1.68 H APTT 33.0 Sodium 140 Potassium 4.0 Chloride 105 Carbon Dioxide 29 Anion Gap 10 BUN 19 Creatinine 1.3 H Est GFR ( Amer) 48 Est GFR (Non-Af Amer) 40 Random Glucose 110 Calcium 9.0 Total Bilirubin 0.6 AST 21 ALT 22 Alkaline Phosphatase 72 Total Protein 6.2 Albumin 3.1 Globulin 3.0 Albumin/Globulin Ratio 1.0 L Assessment & Plan - Assessment and Plan (Free Text) Assessment: 76 yo female with RLL pneumonia on Azithromycin and Cefepime. Cultures pending. Sputum cultures? Had also received two doses of Vancomycin as well. History of CHF and COPD. Would hold off on further Vancomycin dosing. Procalcitonin of 0.11. A low procalcitonin value makes the diagnosis of pneumonia less likely. Continue with Azithromycin and Cefepime for now. Patient still complaining of pleurtic chest pains. Consider ESR for the morning. Supportive care. Thank you for allowing me to participate in the care of the patient, we will follow with you.
[2017-05-03] MEDS: Cefepime IV 2 gm in NS 2 GM/100 ML BAG IVPB SCH ×2 (01:37→13:38)
[2017-05-03] MEDS: Pantoprazole 40 mg EC Tab PO SCH (06:18)
[2017-05-03 07:43] LABS: HEMOGLOBIN 10.3 g/dL (12.0-16.0); MEAN CELL VOLUME 93.1 fl (80.0-105.0); MEAN CORPUSCULAR HEMOGLOBIN 29.5 pg (25.0-35.0); MEAN CORPUSCULAR HGB CONC 31.7 g/dl (31.0-37.0); MEAN PLATELET VOLUME 10.7 fl (7.0-11.0); RBC 3.49 10^6/uL (3.5-6.1); RED CELL DISTRIBUTION WIDTH 13.2 % (11.5-14.5); WHITE BLOOD COUNT 5.3 10^3/ul (4.5-11.0)
[2017-05-03 08:11] LABS: ALB/GLOB RATIO 1.1 (1.1-1.8); ALBUMIN 3.1 g/dL (3.0-4.8); CALCIUM 8.9 mg/dL (8.4-10.5)
[2017-05-03] MEDS: POLYETHYLENE GLYCOL 3350 17 GM/Dose PACKET PO SCH (09:35)
[2017-05-03] MEDS: guaiFENesin-Codeine 100-10mg/5ml Syrup (5 ml) UD PO PRN ×2 (09:35→22:31)
[2017-05-03] MEDS: MethylPREDNISolone 40 mg Vial IVP SCH ×2 (09:35→22:30)
[2017-05-03] MEDS: Benzocaine/Menthol (Cepacol) Lozenge MT PRN ×2 (09:36→22:31)
[2017-05-03] MEDS: diltiaZEM 180 mg/24 Hours CD Cap PO SCH (09:36)
[2017-05-03] MEDS: Levalbuterol 0.63 MG/3 ML Inhal Soln UD IH PRN (09:57)
--- NOTE | 2017-05-03 12:54 | CP.PCM.PN ---
<Roman Phelps - Last Filed: 05/03/17 12:48> Subjective - Date & Time of Evaluation Date of Evaluation: 05/03/17 Time of Evaluation: 12:48 - Subjective Subjective: Medicine Progress Note Pt seen and examined at bedside. Pt states sleep is difficult due to cough. Pt complaining of left pleuritic chest pain. Pt denied nausea, vomiting, diarrhea, abdominal pain, fever, chills, headache, or dizziness. Objective - Vital Signs/Intake and Output Vital Signs (last 24 hours): Temp Pulse Resp BP Pulse Ox 97.9 F 84 20 138/96 H 93 L 05/03/17 06:00 05/03/17 09:36 05/03/17 06:00 05/03/17 09:36 05/03/17 06:00 Intake and Output: 05/03/17 05/03/17 06:59 18:59 Intake Total 120 Balance 120 - Medications Medications: Current Medications Acetaminophen (Tylenol 325mg Tab) 650 mg PO Q6H PRN PRN Reason: Fever >100.4 F Last Admin: 05/02/17 23:07 Dose: 650 mg Acetaminophen (Tylenol 325mg Tab) 650 mg PO Q6H PRN PRN Reason: Pain, Mild (1-3) Last Admin: 05/02/17 00:39 Dose: 650 mg Alprazolam (Xanax) 0.25 mg PO BID PRN; Protocol PRN Reason: Anxiety Stop: 05/06/17 20:20 Arformoterol Tartrate (Brovana) 15 mcg IH [id number] [facility] Aspirin (Aspirin Chewable) 81 mg PO DAILY [facility] Last Admin: 05/03/17 09:35 Dose: 81 mg Atorvastatin Calcium (Lipitor) 40 mg PO DAILY [facility] Last Admin: 05/03/17 09:35 Dose: 40 mg Azithromycin (Zithromax) 500 mg PO DAILY [facility] Last Admin: 05/03/17 09:35 Dose: 500 mg Benzocaine/Menthol (Cepacol Sore Throat) 1 usama MT Q2H PRN PRN Reason: Sore Throat Last Admin: 05/03/17 09:36 Dose: 1 usama Budesonide (Pulmicort Respules) 0.5 mg IH [id number] [facility] Carvedilol (Coreg) 3.125 mg PO BID [facility] Last Admin: 05/03/17 09:35 Dose: 3.125 mg Digoxin (Lanoxin) 0.125 mg PO MWF [facility] Last Admin: 05/01/17 11:41 Dose: 0.125 mg Diltiazem HCl (Cardizem Cd) 180 mg PO DAILY [facility] Last Admin: 05/03/17 09:36 Dose: 180 mg Furosemide (Lasix) 40 mg PO DAILY [facility] Last Admin: 05/03/17 09:35 Dose: 40 mg Guaifenesin/Codeine Phosphate (Robitussin W/Codeine) 5 ml PO Q4H PRN PRN Reason: Cough and congestion Last Admin: 05/03/17 09:35 Dose: 5 ml Cefepime HCl (Maxipime 2gm) 2 gm in 100 mls @ 100 mls/hr IVPB Q12H [facility] PRN Reason: Protocol Stop: 05/05/17 14:01 Last Admin: 05/03/17 01:37 Dose: 100 mls/hr Levalbuterol HCl (Xopenex) 0.63 mg IH [id number] PRN PRN Reason: Shortness of Breath Last Admin: 05/03/17 09:57 Dose: 0.63 mg Losartan Potassium (Cozaar) 25 mg PO DAILY [facility] Last Admin: 05/03/17 09:36 Dose: 25 mg Methylprednisolone (Solu-Medrol) 30 mg IVP Q12 [facility] Last Admin: 05/03/17 09:35 Dose: 30 mg Pantoprazole Sodium (Protonix Ec Tab) 40 mg PO 0600 [facility] Last Admin: 05/03/17 06:18 Dose: 40 mg Polyethylene Glycol (Miralax) 17 gm PO DAILY [facility] Last Admin: 05/03/17 09:35 Dose: 17 gm Warfarin Sodium (Coumadin) 4 mg PO 1800 [facility] PRN Reason: Protocol Last Admin: 05/02/17 17:37 Dose: 4 mg - Labs Labs: 05/03/17 06:30 05/03/17 06:30 PT 19.5 SECONDS (9.4-12.5) H 05/02/17 06:40 INR 1.68 (0.93-1.08) H 05/02/17 06:40 APTT 33.0 Seconds (25.1-36.5) 05/02/17 06:40 - Constitutional Appears: No Acute Distress - Head Exam Head Exam: NORMAL INSPECTION - Eye Exam Eye Exam: Normal appearance - ENT Exam ENT Exam: Normal Exam - Neck Exam Neck Exam: Normal Inspection - Respiratory Exam Respiratory Exam: Rhonchi, Wheezes. absent: Accessory Muscle Use, Rales, Respiratory Distress - Cardiovascular Exam Cardiovascular Exam: RRR, +S1, +S2. absent: Gallop, Rubs, Murmur - GI/Abdominal Exam GI & Abdominal Exam: Soft. absent: Distended, Guarding, Tenderness, Mass, Rebound - Extremities Exam Extremities Exam: Normal Inspection - Back Exam Back Exam: NORMAL INSPECTION - Neurological Exam Neurological Exam: Alert, Awake, Oriented x3 - Psychiatric Exam Psychiatric exam: Normal Affect, Normal Mood - Skin Skin Exam: Dry, Intact, Normal Color, Warm Assessment and Plan - Assessment and Plan (Free Text) Assessment: 76 year old female with a past medical history significant for CHF (30-35% EF), aortic valve replacement, CKD, chronic atrial fibrillation (on Coumadin), CVA, HTN, HLD, AAA and COPD who presents with intermittent left sided chest pain radiating to her back for the past two days with associated cough productive of yellow sputum and chills. Patient was found to have a RLL and LLL infiltrate on chest x-ray. Plan: 1. Healthcare Acquired Pneumonia - Chest X-Ray showing RLL infiltrate and peripheral infiltrate of LLL - CT chest showed peripheral new opacity in the lingula 2.7cm x2cm x2.5cm - Legionella, procal negative - Cefepime and Azithromycin - Vanco stopped due to h/o of CKD - Xopenex [id number] - Tylenol PRN for both pain control and fever - Blood culture negative - F/u sputum culture, strep, MRSA screen - Incentive Spirometry - Pulmonology consult - ID Consulted - PT eval and treat - Robitussin with codeine added for cough 2. Atrial Fibrillation - Continue home Coumadin and Cardizem 3. History of CHF - Continue home Losartan, Coreg, Lasix and Digoxin 4. History of CAD - Continue home ASA and Lipitor - Heart Healthy Diet 5. History of Anxiety - Continue home Xanax PRN GI Prophylaxis: Protonix DVT Prophylaxis: SCD's Disposition: Will consider discharge tomorrow. Will follow up with ID for PO antibiotic recommendations. Pt should have repeat CT in 4-6 weeks. Pt seen and discussed in detail with Dr. Aaron. Roger Phelps, PGY1 <Luther Aaron - Last Filed: 05/03/17 13:33> Objective - Vital Signs/Intake and Output Vital Signs (last 24 hours): Temp Pulse Resp BP Pulse Ox 97.9 F 84 20 138/96 H 93 L 05/03/17 06:00 05/03/17 09:36 05/03/17 06:00 05/03/17 09:36 05/03/17 06:00 Intake and Output: 05/03/17 05/03/17 06:59 18:59 Intake Total 120 Balance 120 - Medications Medications: Current Medications Acetaminophen (Tylenol 325mg Tab) 650 mg PO Q6H PRN PRN Reason: Fever >100.4 F Last Admin: 05/02/17 23:07 Dose: 650 mg Acetaminophen (Tylenol 325mg Tab) 650 mg PO Q6H PRN PRN Reason: Pain, Mild (1-3) Last Admin: 05/02/17 00:39 Dose: 650 mg Alprazolam (Xanax) 0.25 mg PO BID PRN; Protocol PRN Reason: Anxiety Stop: 05/06/17 20:20 Arformoterol Tartrate (Brovana) 15 mcg IH [id number] [facility] Aspirin (Aspirin Chewable) 81 mg PO DAILY [facility] Last Admin: 05/03/17 09:35 Dose: 81 mg Atorvastatin Calcium (Lipitor) 40 mg PO DAILY [facility] Last Admin: 05/03/17 09:35 Dose: 40 mg Azithromycin (Zithromax) 500 mg PO DAILY [facility] Last Admin: 05/03/17 09:35 Dose: 500 mg Benzocaine/Menthol (Cepacol Sore Throat) 1 usama MT Q2H PRN PRN Reason: Sore Throat Last Admin: 05/03/17 09:36 Dose: 1 usama Budesonide (Pulmicort Respules) 0.5 mg IH [id number] [facility] Carvedilol (Coreg) 3.125 mg PO BID [facility] Last Admin: 05/03/17 09:35 Dose: 3.125 mg Digoxin (Lanoxin) 0.125 mg PO MWF [facility] Last Admin: 05/01/17 11:41 Dose: 0.125 mg Diltiazem HCl (Cardizem Cd) 180 mg PO DAILY [facility] Last Admin: 05/03/17 09:36 Dose: 180 mg Furosemide (Lasix) 40 mg PO DAILY [facility] Last Admin: 05/03/17 09:35 Dose: 40 mg Guaifenesin/Codeine Phosphate (Robitussin W/Codeine) 5 ml PO Q4H PRN PRN Reason: Cough and congestion Last Admin: 05/03/17 09:35 Dose: 5 ml Cefepime HCl (Maxipime 2gm) 2 gm in 100 mls @ 100 mls/hr IVPB Q12H [facility] PRN Reason: Protocol Stop: 05/05/17 14:01 Last Admin: 05/03/17 01:37 Dose: 100 mls/hr Levalbuterol HCl (Xopenex) 0.63 mg IH [id number] PRN PRN Reason: Shortness of Breath Last Admin: 05/03/17 09:57 Dose: 0.63 mg Losartan Potassium (Cozaar) 25 mg PO DAILY [facility] Last Admin: 05/03/17 09:36 Dose: 25 mg Methylprednisolone (Solu-Medrol) 30 mg IVP Q12 [facility] Last Admin: 05/03/17 09:35 Dose: 30 mg Pantoprazole Sodium (Protonix Ec Tab) 40 mg PO 0600 [facility] Last Admin: 05/03/17 06:18 Dose: 40 mg Polyethylene Glycol (Miralax) 17 gm PO DAILY [facility] Last Admin: 05/03/17 09:35 Dose: 17 gm Warfarin Sodium (Coumadin) 4 mg PO 1800 [facility] PRN Reason: Protocol Last Admin: 05/02/17 17:37 Dose: 4 mg - Labs Labs: 05/03/17 06:30 05/03/17 06:30 PT 19.5 SECONDS (9.4-12.5) H 05/02/17 06:40 INR 1.68 (0.93-1.08) H 05/02/17 06:40 APTT 33.0 Seconds (25.1-36.5) 05/02/17 06:40 Attending/Attestation - Attestation I have personally seen and examined this patient.: Yes I have fully participated in the care of the patient.: Yes I have reviewed all pertinent clinical information, including history, physical exam and plan: Yes Notes (Text): 05/03/17 13:30 Attending note; Patient seen and examined with resident. Patient is a 76 year old female with past medical history of atrial fibrillation , chronic kidney disease, stroke, hypertension and COPD who is admitted with right lower lobe pneumonia/healthcare associated pneumonia. Currently on zithromax and cefepime. got IV vancomycin yesterday. Patient with chronic kidney disease. ID evaluation appreciated. Currently afebrile and nontoxic. Patient has some pleuritic chest pain. Started on Robitussin with codeine. CT chest showed 2.7x 2.5 cm peripheral lingual nodule possible pneumonia. Will complete antibiotics. Needs repeat CT scan as outpatient to confirm the resolution. If not patient might need outpatient biopsy. Discussed with patient in detail. Physical therapy evaluation requested. Monitor respiratory status closely. Upon discharge the patient will follow-up with PMD Dr. Coronel.
--- NOTE | 2017-05-03 17:06 | CP.PCM.PN ---
Subjective - Date & Time of Evaluation Date of Evaluation: 05/03/17 Time of Evaluation: 15:30 - Subjective Subjective: Infectious Disease Follow Up: May 03, 2017 76 yo female admitted for right lower lobe pneumonia and was started on treatment with Vancomycin and Cefepime IV. The patient has nursing home history of renal insufficiency. Past medical history includes atrial fibrillation, chronic kidney disease, stroke, hypertension, and COPD. The patient appears to be improving. Would continue with Cefepime alone at this time. CT chest showing peripheral new opacity in the lingula 2.7cm x2cm x2.5cm, likely infectious/inflammatory process with evidence of air bronchogram, although as per pulmonolgy, malignancy cannot be ruled out completely especially given the patients smoking history. The patient is still complaining of discomfort in the left chest. No fevers, chills, or leukocytosis. Objective - Vital Signs/Intake and Output Vital Signs (last 24 hours): Temp Pulse Resp BP Pulse Ox 97.9 F 72 20 138/96 H 93 L 05/03/17 06:00 05/03/17 10:00 05/03/17 06:00 05/03/17 09:36 05/03/17 06:00 Intake and Output: 05/03/17 05/03/17 06:59 18:59 Intake Total 120 Balance 120 - Medications Medications: Current Medications Acetaminophen (Tylenol 325mg Tab) 650 mg PO Q6H PRN PRN Reason: Fever >100.4 F Last Admin: 05/02/17 23:07 Dose: 650 mg Acetaminophen (Tylenol 325mg Tab) 650 mg PO Q6H PRN PRN Reason: Pain, Mild (1-3) Last Admin: 05/02/17 00:39 Dose: 650 mg Alprazolam (Xanax) 0.25 mg PO BID PRN; Protocol PRN Reason: Anxiety Stop: 05/06/17 20:20 Arformoterol Tartrate (Brovana) 15 mcg IH [id number] [facility] Aspirin (Aspirin Chewable) 81 mg PO DAILY [facility] Last Admin: 05/03/17 09:35 Dose: 81 mg Atorvastatin Calcium (Lipitor) 40 mg PO DAILY [facility] Last Admin: 05/03/17 09:35 Dose: 40 mg Azithromycin (Zithromax) 500 mg PO DAILY [facility] Last Admin: 05/03/17 09:35 Dose: 500 mg Benzocaine/Menthol (Cepacol Sore Throat) 1 usama MT Q2H PRN PRN Reason: Sore Throat Last Admin: 05/03/17 09:36 Dose: 1 usama Budesonide (Pulmicort Respules) 0.5 mg IH [id number] [facility] Carvedilol (Coreg) 3.125 mg PO BID [facility] Last Admin: 05/03/17 09:35 Dose: 3.125 mg Digoxin (Lanoxin) 0.125 mg PO MWF [facility] Last Admin: 05/01/17 11:41 Dose: 0.125 mg Diltiazem HCl (Cardizem Cd) 180 mg PO DAILY [facility] Last Admin: 05/03/17 09:36 Dose: 180 mg Furosemide (Lasix) 40 mg PO DAILY [facility] Last Admin: 05/03/17 09:35 Dose: 40 mg Guaifenesin/Codeine Phosphate (Robitussin W/Codeine) 5 ml PO Q4H PRN PRN Reason: Cough and congestion Last Admin: 05/03/17 09:35 Dose: 5 ml Cefepime HCl (Maxipime 2gm) 2 gm in 100 mls @ 100 mls/hr IVPB Q12H [facility] PRN Reason: Protocol Stop: 05/05/17 14:01 Last Admin: 05/03/17 13:38 Dose: 100 mls/hr Levalbuterol HCl (Xopenex) 0.63 mg IH [id number] PRN PRN Reason: Shortness of Breath Last Admin: 05/03/17 09:57 Dose: 0.63 mg Losartan Potassium (Cozaar) 25 mg PO DAILY [facility] Last Admin: 05/03/17 09:36 Dose: 25 mg Methylprednisolone (Solu-Medrol) 30 mg IVP Q12 [facility] Last Admin: 05/03/17 09:35 Dose: 30 mg Pantoprazole Sodium (Protonix Ec Tab) 40 mg PO 0600 [facility] Last Admin: 05/03/17 06:18 Dose: 40 mg Polyethylene Glycol (Miralax) 17 gm PO DAILY [facility] Last Admin: 05/03/17 09:35 Dose: 17 gm Warfarin Sodium (Coumadin) 4 mg PO 1800 [facility] PRN Reason: Protocol Last Admin: 05/02/17 17:37 Dose: 4 mg - Labs Labs: 05/03/17 06:30 05/03/17 06:30 PT 19.5 SECONDS (9.4-12.5) H 05/02/17 06:40 INR 1.68 (0.93-1.08) H 05/02/17 06:40 APTT 33.0 Seconds (25.1-36.5) 05/02/17 06:40 - Constitutional Appears: Non-toxic, No Acute Distress, Chronically Ill - Head Exam Head Exam: ATRAUMATIC, NORMOCEPHALIC - Eye Exam Eye Exam: EOMI, PERRL Pupil Exam: NORMAL ACCOMODATION, PERRL - ENT Exam ENT Exam: Mucous Membranes Moist, Normal External Ear Exam, TM's Normal Bilaterally - Neck Exam Neck Exam: Full ROM, Normal Inspection - Respiratory Exam Respiratory Exam: Decreased Breath Sounds, Rhonchi, NORMAL BREATHING PATTERN. absent: Rales, Wheezes - Cardiovascular Exam Cardiovascular Exam: REGULAR RHYTHM, RRR, +S1, +S2 - GI/Abdominal Exam GI & Abdominal Exam: Soft, Normal Bowel Sounds. absent: Distended, Tenderness - Extremities Exam Extremities Exam: Full ROM, Normal Inspection - Neurological Exam Neurological Exam: Alert, Awake, CN II-XII Intact, Oriented x3 - Psychiatric Exam Psychiatric exam: Normal Affect, Normal Mood - Skin Skin Exam: Intact, Normal Color Assessment and Plan - Assessment and Plan (Free Text) Assessment: 76 yo female with RLL pneumonia on Azithromycin and Cefepime. Cultures pending. Sputum cultures? Had also received two doses of Vancomycin as well. History of CHF and COPD. Would hold off on further Vancomycin dosing. Procalcitonin of 0.11. A low procalcitonin value makes the diagnosis of pneumonia less likely. Continue with Azithromycin and Cefepime for now. Patient still complaining of pleurtic chest pains. ESR taken in the morning... this was 41. Supportive care. Closely monitor respiratory status. Thank you for allowing me to participate in the care of the patient, we will follow with you.
[2017-05-03] MEDS: Budesonide 0.5 mg/2 ml Inhal Susp UD IH SCH (19:56)
[2017-05-03] MEDS: Arformoterol 15 mcg/2 ml Inh Sol IH SCH (19:56)
[2017-05-04] MEDS: Cefepime IV 2 gm in NS 2 GM/100 ML BAG IVPB SCH ×2 (03:07→14:38)
[2017-05-04] MEDS: Levalbuterol 0.63 MG/3 ML Inhal Soln UD IH PRN (07:30)
[2017-05-04] MEDS: Budesonide 0.5 mg/2 ml Inhal Susp UD IH SCH ×2 (07:30→20:02)
[2017-05-04] MEDS: Arformoterol 15 mcg/2 ml Inh Sol IH SCH ×2 (07:30→20:02)
[2017-05-04 07:36] LABS: HEMOGLOBIN 11.4 g/dL (12.0-16.0); MEAN CELL VOLUME 91.3 fl (80.0-105.0); MEAN CORPUSCULAR HEMOGLOBIN 29.9 pg (25.0-35.0); MEAN CORPUSCULAR HGB CONC 32.8 g/dl (31.0-37.0); MEAN PLATELET VOLUME 10.2 fl (7.0-11.0); RBC 3.81 10^6/uL (3.5-6.1); RED CELL DISTRIBUTION WIDTH 13.2 % (11.5-14.5); WHITE BLOOD COUNT 9.3 10^3/ul (4.5-11.0)
[2017-05-04 08:02] LABS: ALB/GLOB RATIO 1.1 (1.1-1.8); ALBUMIN 3.3 g/dL (3.0-4.8); CALCIUM 9.5 mg/dL (8.4-10.5)
[2017-05-04] MEDS: MethylPREDNISolone 40 mg Vial IVP SCH (10:08)
[2017-05-04] MEDS: diltiaZEM 180 mg/24 Hours CD Cap PO SCH (10:09)
[2017-05-04] MEDS: Digoxin 125 mcg (0.125 mg) Tab PO SCH (10:09)
[2017-05-04] MEDS: POLYETHYLENE GLYCOL 3350 17 GM/Dose PACKET PO SCH (10:09)
[2017-05-04] MEDS: Pantoprazole 40 mg EC Tab PO SCH (10:10)
[2017-05-04 10:21] VITALS: PULSE 76
[2017-05-04] MEDS ORDERED: Sod Polystyrene Sulf 15 gm/60 ml Susp PO ONE (11:06)
[2017-05-04] MEDS ORDERED: MethylPREDNISolone 40 mg Vial IVP SCH (13:55)
[2017-05-04] MEDS ORDERED: Alum-Mag Hydrox-Simethicone Susp (30 mL) PO PRN (13:55)
--- NOTE | 2017-05-04 16:44 | RAD ---
PROCEDURE: Right Wrist Radiographs. HISTORY: rt wrist fx 6 wks old COMPARISON: 04/16/2017 FINDINGS: BONES: There is a displaced comminuted angulated fracture of the distal radius and a nondisplaced fracture through the distal ulna. No significant change in alignment JOINTS: Normal. No dislocation. SOFT TISSUES: Normal. OTHER FINDINGS: None. IMPRESSION: There is a displaced comminuted angulated fracture of the distal radius and a nondisplaced fracture through the distal ulna. No significant change in alignment
--- NOTE | 2017-05-04 17:00 | CP.PCM.PN ---
<Anuja Pierre - Last Filed: 05/04/17 16:56> Subjective - Date & Time of Evaluation Date of Evaluation: 05/04/17 Time of Evaluation: 07:30 - Subjective Subjective: Anuja Pierre DO PGY1 - Internal Medicine Progress Note Patient seen and examined at bedside. Nurse reports no events overnight. Patient reports improvement in her dyspnea. She reports persistent, productive cough, slightly improved since yesterday. Now denies any chest pain, abdominal pain, nausea, vomiting, diarrhea, constipation, fever, chills. Requesting cough medicine without codeine Objective - Vital Signs/Intake and Output Vital Signs (last 24 hours): Temp Pulse Resp BP Pulse Ox 97.4 F L 76 22 148/90 93 L 05/04/17 07:30 05/04/17 07:30 05/04/17 07:30 05/04/17 10:10 05/04/17 07:30 Intake and Output: 05/04/17 05/04/17 06:59 18:59 Intake Total 900 Balance 900 - Medications Medications: Current Medications Acetaminophen (Tylenol 325mg Tab) 650 mg PO Q6H PRN PRN Reason: Fever >100.4 F Last Admin: 05/02/17 23:07 Dose: 650 mg Acetaminophen (Tylenol 325mg Tab) 650 mg PO Q6H PRN PRN Reason: Pain, Mild (1-3) Last Admin: 05/02/17 00:39 Dose: 650 mg Al Hydrox/Mg Hydrox/Simethicone (Maalox Plus 30 Ml) 30 ml PO Q12H PRN PRN Reason: Indigestion / Heartburn Alprazolam (Xanax) 0.25 mg PO BID PRN; Protocol PRN Reason: Anxiety Stop: 05/06/17 20:20 Arformoterol Tartrate (Brovana) 15 mcg IH [id number] [facility] Last Admin: 05/04/17 07:30 Dose: 15 mcg Aspirin (Aspirin Chewable) 81 mg PO DAILY [facility] Last Admin: 05/04/17 10:10 Dose: 81 mg Atorvastatin Calcium (Lipitor) 40 mg PO DAILY [facility] Last Admin: 05/04/17 10:09 Dose: 40 mg Azithromycin (Zithromax) 500 mg PO DAILY [facility] Last Admin: 05/04/17 10:09 Dose: 500 mg Benzocaine/Menthol (Cepacol Sore Throat) 1 usama MT Q2H PRN PRN Reason: Sore Throat Last Admin: 05/03/17 22:31 Dose: 1 usama Budesonide (Pulmicort Respules) 0.5 mg IH [id number] [facility] Last Admin: 05/04/17 07:30 Dose: 0.5 mg Carvedilol (Coreg) 3.125 mg PO BID [facility] Last Admin: 05/04/17 10:09 Dose: 3.125 mg Digoxin (Lanoxin) 0.125 mg PO MWF [facility] Last Admin: 05/04/17 10:09 Dose: 0.125 mg Diltiazem HCl (Cardizem Cd) 180 mg PO DAILY [facility] Last Admin: 05/04/17 10:09 Dose: 180 mg Furosemide (Lasix) 40 mg PO DAILY [facility] Last Admin: 05/04/17 10:10 Dose: 40 mg Guaifenesin (Robitussin) 100 mg PO Q4H PRN PRN Reason: Cough Cefepime HCl (Maxipime 2gm) 2 gm in 100 mls @ 100 mls/hr IVPB Q12H [facility] PRN Reason: Protocol Stop: 05/05/17 14:01 Last Admin: 05/04/17 14:38 Dose: 100 mls/hr Levalbuterol HCl (Xopenex) 0.63 mg IH [id number] PRN PRN Reason: Shortness of Breath Last Admin: 05/04/17 07:30 Dose: 0.63 mg Losartan Potassium (Cozaar) 25 mg PO DAILY [facility] Last Admin: 05/04/17 10:13 Dose: 25 mg Methylprednisolone (Solu-Medrol) 20 mg IVP 1000 [facility] Stop: 05/05/17 10:01 Pantoprazole Sodium (Protonix Inj) 40 mg IVP Q12 [facility] Last Admin: 05/04/17 14:38 Dose: Not Given Polyethylene Glycol (Miralax) 17 gm PO DAILY [facility] Last Admin: 05/04/17 10:09 Dose: 17 gm Warfarin Sodium (Coumadin) 4 mg PO 1800 [facility] PRN Reason: Protocol Last Admin: 05/03/17 17:25 Dose: 4 mg - Labs Labs: 05/04/17 06:45 05/04/17 06:45 PT 19.5 SECONDS (9.4-12.5) H 05/02/17 06:40 INR 1.68 (0.93-1.08) H 05/02/17 06:40 APTT 33.0 Seconds (25.1-36.5) 05/02/17 06:40 - Constitutional Appears: Non-toxic, No Acute Distress - Head Exam Head Exam: ATRAUMATIC, NORMOCEPHALIC - Eye Exam Eye Exam: EOMI, Normal appearance - ENT Exam ENT Exam: Mucous Membranes Moist - Neck Exam Neck Exam: Normal Inspection - Respiratory Exam Respiratory Exam: Decreased Breath Sounds, Rhonchi (minimal), NORMAL BREATHING PATTERN - Cardiovascular Exam Cardiovascular Exam: RRR, +S1, +S2 - GI/Abdominal Exam GI & Abdominal Exam: Soft, Normal Bowel Sounds. absent: Tenderness - Extremities Exam Extremities Exam: absent: Calf Tenderness, Pedal Edema - Neurological Exam Neurological Exam: Alert, Awake, Oriented x3 - Psychiatric Exam Psychiatric exam: Normal Affect, Normal Mood - Skin Skin Exam: Dry, Intact, Normal Color Assessment and Plan - Assessment and Plan (Free Text) Assessment: 76 year old female with a past medical history significant for CHF (30-35% EF), aortic valve replacement, CKD, chronic atrial fibrillation (on Coumadin), CVA, HTN, HLD, AAA and COPD who presents with intermittent left sided chest pain radiating to her back for the past two days with associated cough productive of yellow sputum and chills. Patient was found to have a RLL and LLL infiltrate on chest x-ray. Plan: 1. Healthcare Acquired Pneumonia - CT chest showed peripheral new opacity in the lingula 2.7cm x2cm x2.5cm; will require repeat chest CT in 3-6 months - Continue Cefepime and Azithromycin - Xopenex [id number] - Decrease solumedrol to 30 daily, and will decrease again to 20 daily tomorrow - Tylenol PRN for both pain control and fever - Blood culture negative - Incentive Spirometry - Plain Robitussin added for cough - Pulm and ID on consult, appreciate recs 2. Atrial Fibrillation - Continue home Coumadin and Cardizem - Recheck INR in AM 3. History of CHF - Continue home Losartan, Coreg, Lasix and Digoxin 4. History of CAD - Continue home ASA and Lipitor - Heart Healthy Diet 5. History of Anxiety - Continue home Xanax PRN GI Prophylaxis: Protonix DVT Prophylaxis: SCD's Pt seen and discussed in detail with Dr. Aaron. <Luther Aaron - Last Filed: 05/05/17 07:57> Objective - Vital Signs/Intake and Output Vital Signs (last 24 hours): Temp Pulse Resp BP Pulse Ox 97.9 F 85 20 159/79 H 94 L 05/04/17 16:00 05/04/17 17:31 05/04/17 16:00 05/04/17 17:31 05/04/17 16:00 Intake and Output: 05/05/17 05/05/17 06:59 18:59 Intake Total 540 Balance 540 - Medications Medications: Current Medications Acetaminophen (Tylenol 325mg Tab) 650 mg PO Q6H PRN PRN Reason: Fever >100.4 F Last Admin: 05/02/17 23:07 Dose: 650 mg Acetaminophen (Tylenol 325mg Tab) 650 mg PO Q6H PRN PRN Reason: Pain, Mild (1-3) Last Admin: 05/02/17 00:39 Dose: 650 mg Al Hydrox/Mg Hydrox/Simethicone (Maalox Plus 30 Ml) 30 ml PO Q12H PRN PRN Reason: Indigestion / Heartburn Alprazolam (Xanax) 0.25 mg PO BID PRN; Protocol PRN Reason: Anxiety Stop: 05/06/17 20:20 Arformoterol Tartrate (Brovana) 15 mcg IH [id number] [facility] Last Admin: 05/05/17 07:41 Dose: 15 mcg Aspirin (Aspirin Chewable) 81 mg PO DAILY [facility] Last Admin: 05/04/17 10:10 Dose: 81 mg Atorvastatin Calcium (Lipitor) 40 mg PO DAILY [facility] Last Admin: 05/04/17 10:09 Dose: 40 mg Azithromycin (Zithromax) 500 mg PO DAILY [facility] Last Admin: 05/04/17 10:09 Dose: 500 mg Benzocaine/Menthol (Cepacol Sore Throat) 1 usama MT Q2H PRN PRN Reason: Sore Throat Last Admin: 05/04/17 21:46 Dose: 1 usama Budesonide (Pulmicort Respules) 0.5 mg IH [id number] [facility] Last Admin: 05/05/17 07:42 Dose: 0.5 mg Carvedilol (Coreg) 3.125 mg PO BID [facility] Last Admin: 05/04/17 17:31 Dose: 3.125 mg Digoxin (Lanoxin) 0.125 mg PO MWF [facility] Last Admin: 05/04/17 10:09 Dose: 0.125 mg Diltiazem HCl (Cardizem Cd) 180 mg PO DAILY [facility] Last Admin: 05/04/17 10:09 Dose: 180 mg Furosemide (Lasix) 40 mg PO DAILY [facility] Last Admin: 05/04/17 10:10 Dose: 40 mg Guaifenesin (Robitussin) 100 mg PO Q4H PRN PRN Reason: Cough Last Admin: 05/05/17 05:13 Dose: 100 mg Cefepime HCl (Maxipime 2gm) 2 gm in 100 mls @ 100 mls/hr IVPB Q12H [facility] PRN Reason: Protocol Stop: 05/05/17 14:01 Last Admin: 05/05/17 02:15 Dose: 100 mls/hr Levalbuterol HCl (Xopenex) 0.63 mg IH [id number] PRN PRN Reason: Shortness of Breath Last Admin: 05/04/17 07:30 Dose: 0.63 mg Losartan Potassium (Cozaar) 25 mg PO DAILY [facility] Last Admin: 05/04/17 10:13 Dose: 25 mg Methylprednisolone (Solu-Medrol) 20 mg IVP DAILY [facility] Stop: 05/05/17 10:01 Pantoprazole Sodium (Protonix Ec Tab) 40 mg PO Q12H [facility] Polyethylene Glycol (Miralax) 17 gm PO DAILY [facility] Last Admin: 05/04/17 10:09 Dose: 17 gm Warfarin Sodium (Coumadin) 4 mg PO 1800 [facility] PRN Reason: Protocol Last Admin: 05/04/17 17:32 Dose: 4 mg - Labs Labs: 05/05/17 06:30 05/04/17 06:45 PT 28.3 SECONDS (9.4-12.5) H 05/05/17 06:30 INR 2.42 (0.93-1.08) H 05/05/17 06:30 APTT 33.0 Seconds (25.1-36.5) 05/02/17 06:40 Attending/Attestation - Attestation I have personally seen and examined this patient.: Yes I have fully participated in the care of the patient.: Yes I have reviewed all pertinent clinical information, including history, physical exam and plan: Yes Notes (Text): 05/05/17 07:56 Attending note; Patient seen and examined with resident. Patient is a 76 year old female with past medical history of atrial fibrillation , chronic kidney disease, stroke, hypertension and COPD who is admitted with right lower lobe pneumonia/healthcare associated pneumonia. Currently on zithromax and cefepime. got IV vancomycin. Patient with chronic kidney disease. ID evaluation appreciated. Currently afebrile and nontoxic. Patient has some pleuritic chest pain. Started on Robitussin with codeine. CT chest showed 2.7x 2.5 cm peripheral lingual nodule possible pneumonia. Will complete antibiotics. Needs repeat CT scan as outpatient to confirm the resolution. If not patient might need outpatient biopsy. Discussed with patient in detail. Physical therapy evaluation appreciated. Patient wants to go home with services. Possible discharge home tomorrow. Monitor respiratory status closely. Upon discharge the patient will follow-up with PMD Dr. Coronel. 05/05/17 07:57
[2017-05-04 19:29] VITALS: RESP 20
--- NOTE | 2017-05-04 19:32 | CP.PCM.PN ---
Subjective - Date & Time of Evaluation Date of Evaluation: 05/04/17 Time of Evaluation: 17:45 - Subjective Subjective: Infectious Disease Follow Up: May 04, 2017 76 yo female admitted for right lower lobe pneumonia and was started on treatment with Vancomycin and Cefepime IV. The patient has senior living history of renal insufficiency. Past medical history includes atrial fibrillation, chronic kidney disease, stroke, hypertension, and COPD. The patient appears to be improving. Would continue with Cefepime alone at this time. CT chest showing peripheral new opacity in the lingula 2.7cm x2cm x2.5cm, likely infectious/inflammatory process with evidence of air bronchogram, although as per pulmonolgy, malignancy cannot be ruled out completely especially given the patients smoking history. The patient is still complaining of discomfort in the left chest. No fevers, chills, or leukocytosis. On the whole, she is improving. Objective - Vital Signs/Intake and Output Vital Signs (last 24 hours): Temp Pulse Resp BP Pulse Ox 97.4 F L 85 22 159/79 H 93 L 05/04/17 07:30 05/04/17 17:31 05/04/17 07:30 05/04/17 17:31 05/04/17 07:30 - Medications Medications: Current Medications Acetaminophen (Tylenol 325mg Tab) 650 mg PO Q6H PRN PRN Reason: Fever >100.4 F Last Admin: 05/02/17 23:07 Dose: 650 mg Acetaminophen (Tylenol 325mg Tab) 650 mg PO Q6H PRN PRN Reason: Pain, Mild (1-3) Last Admin: 05/02/17 00:39 Dose: 650 mg Al Hydrox/Mg Hydrox/Simethicone (Maalox Plus 30 Ml) 30 ml PO Q12H PRN PRN Reason: Indigestion / Heartburn Alprazolam (Xanax) 0.25 mg PO BID PRN; Protocol PRN Reason: Anxiety Stop: 05/06/17 20:20 Arformoterol Tartrate (Brovana) 15 mcg IH [id number] [facility] Last Admin: 05/04/17 07:30 Dose: 15 mcg Aspirin (Aspirin Chewable) 81 mg PO DAILY [facility] Last Admin: 05/04/17 10:10 Dose: 81 mg Atorvastatin Calcium (Lipitor) 40 mg PO DAILY [facility] Last Admin: 05/04/17 10:09 Dose: 40 mg Azithromycin (Zithromax) 500 mg PO DAILY [facility] Last Admin: 05/04/17 10:09 Dose: 500 mg Benzocaine/Menthol (Cepacol Sore Throat) 1 usama MT Q2H PRN PRN Reason: Sore Throat Last Admin: 05/03/17 22:31 Dose: 1 usama Budesonide (Pulmicort Respules) 0.5 mg IH [id number] [facility] Last Admin: 05/04/17 07:30 Dose: 0.5 mg Carvedilol (Coreg) 3.125 mg PO BID [facility] Last Admin: 05/04/17 17:31 Dose: 3.125 mg Digoxin (Lanoxin) 0.125 mg PO MWF [facility] Last Admin: 05/04/17 10:09 Dose: 0.125 mg Diltiazem HCl (Cardizem Cd) 180 mg PO DAILY [facility] Last Admin: 05/04/17 10:09 Dose: 180 mg Furosemide (Lasix) 40 mg PO DAILY [facility] Last Admin: 05/04/17 10:10 Dose: 40 mg Guaifenesin (Robitussin) 100 mg PO Q4H PRN PRN Reason: Cough Cefepime HCl (Maxipime 2gm) 2 gm in 100 mls @ 100 mls/hr IVPB Q12H [facility] PRN Reason: Protocol Stop: 05/05/17 14:01 Last Admin: 05/04/17 14:38 Dose: 100 mls/hr Levalbuterol HCl (Xopenex) 0.63 mg IH [id number] PRN PRN Reason: Shortness of Breath Last Admin: 05/04/17 07:30 Dose: 0.63 mg Losartan Potassium (Cozaar) 25 mg PO DAILY [facility] Last Admin: 05/04/17 10:13 Dose: 25 mg Methylprednisolone (Solu-Medrol) 20 mg IVP DAILY [facility] Stop: 05/05/17 10:01 Pantoprazole Sodium (Protonix Inj) 40 mg IVP Q12 [facility] Last Admin: 05/04/17 14:38 Dose: Not Given Polyethylene Glycol (Miralax) 17 gm PO DAILY [facility] Last Admin: 05/04/17 10:09 Dose: 17 gm Warfarin Sodium (Coumadin) 4 mg PO 1800 [facility] PRN Reason: Protocol Last Admin: 05/04/17 17:32 Dose: 4 mg - Labs Labs: 05/04/17 06:45 05/04/17 06:45 PT 19.5 SECONDS (9.4-12.5) H 05/02/17 06:40 INR 1.68 (0.93-1.08) H 05/02/17 06:40 APTT 33.0 Seconds (25.1-36.5) 05/02/17 06:40 - Constitutional Appears: Non-toxic, No Acute Distress, Chronically Ill - Head Exam Head Exam: ATRAUMATIC, NORMOCEPHALIC - Eye Exam Eye Exam: EOMI, PERRL Pupil Exam: NORMAL ACCOMODATION, PERRL - ENT Exam ENT Exam: Mucous Membranes Moist, Normal External Ear Exam, TM's Normal Bilaterally - Neck Exam Neck Exam: Full ROM - Respiratory Exam Respiratory Exam: Decreased Breath Sounds, NORMAL BREATHING PATTERN. absent: Rales, Rhonchi, Wheezes - Cardiovascular Exam Cardiovascular Exam: REGULAR RHYTHM, RRR, +S1, +S2 - GI/Abdominal Exam GI & Abdominal Exam: Soft, Normal Bowel Sounds. absent: Distended, Tenderness - Extremities Exam Extremities Exam: Full ROM, Normal Inspection - Neurological Exam Neurological Exam: Alert, Awake, CN II-XII Intact, Oriented x3 - Psychiatric Exam Psychiatric exam: Normal Affect, Normal Mood - Skin Skin Exam: Intact, Normal Color Assessment and Plan - Assessment and Plan (Free Text) Assessment: 76 yo female with RLL pneumonia on Azithromycin and Cefepime. Cultures pending. Sputum cultures? Had also received two doses of Vancomycin as well. History of CHF and COPD. Would hold off on further Vancomycin dosing. Procalcitonin of 0.11. A low procalcitonin value makes the diagnosis of pneumonia less likely. Continue with Azithromycin and Cefepime for now. Patient still complaining of pleurtic chest pains. ESR taken yesterday morning... this was 41. The patient is overall improving. Supportive care. Closely monitor respiratory status. Thank you for allowing me to participate in the care of the patient, we will follow with you.
[2017-05-04] MEDS: guaiFENesin 100 mg/5 ml Syrup UD PO PRN (21:45)
[2017-05-04] MEDS: Benzocaine/Menthol (Cepacol) Lozenge MT PRN (21:46)
[2017-05-05] MEDS: Cefepime IV 2 gm in NS 2 GM/100 ML BAG IVPB SCH ×2 (02:15→13:23)
[2017-05-05] MEDS: guaiFENesin 100 mg/5 ml Syrup UD PO PRN (05:13)
[2017-05-05] MEDS ORDERED: Pantoprazole 40 mg EC Tab PO SCH (06:00)
[2017-05-05 07:34] LABS: HEMOGLOBIN 10.8 g/dL (12.0-16.0); MEAN CELL VOLUME 90.8 fl (80.0-105.0); MEAN CORPUSCULAR HEMOGLOBIN 29.1 pg (25.0-35.0); MEAN PLATELET VOLUME 10.1 fl (7.0-11.0); RBC 3.71 10^6/uL (3.5-6.1); RED CELL DISTRIBUTION WIDTH 13.4 % (11.5-14.5); WHITE BLOOD COUNT 12.3 10^3/ul (4.5-11.0)
[2017-05-05] MEDS: Arformoterol 15 mcg/2 ml Inh Sol IH SCH (07:41)
[2017-05-05] MEDS: Budesonide 0.5 mg/2 ml Inhal Susp UD IH SCH (07:42)
[2017-05-05 07:43] LABS: INR 2.42 (0.93-1.08); PROTHROMBIN TIME 28.3 SECONDS (9.4-12.5)
[2017-05-05 08:30] LABS: ALB/GLOB RATIO 1.1 (1.1-1.8); ALBUMIN 3.2 g/dL (3.0-4.8)
[2017-05-05] MEDS: POLYETHYLENE GLYCOL 3350 17 GM/Dose PACKET PO SCH (09:18)
[2017-05-05] MEDS: diltiaZEM 180 mg/24 Hours CD Cap PO SCH (09:23)
[2017-05-05 09:25] VITALS: BP 182/91; PULSE 71
[2017-05-05] MEDS ORDERED: MethylPREDNISolone 40 mg Vial IVP SCH (10:00)
[2017-05-05 10:20] VITALS: TEMP 98.4; O2SAT 96
--- NOTE | 2017-05-05 17:47 | CP.PCM.PN ---
Subjective - Date & Time of Evaluation Date of Evaluation: 05/05/17 Time of Evaluation: 15:00 - Subjective Subjective: Infectious Disease Follow Up: May 05, 2017 76 yo female admitted for right lower lobe pneumonia and was started on treatment with Vancomycin and Cefepime IV. The patient has retirement history of renal insufficiency. Past medical history includes atrial fibrillation, chronic kidney disease, stroke, hypertension, and COPD. The patient appears to be improving. Would continue with Cefepime alone at this time. CT chest showing peripheral new opacity in the lingula 2.7cm x2cm x2.5cm, likely infectious/inflammatory process with evidence of air bronchogram, although as per pulmonolgy, malignancy cannot be ruled out completely especially given the patients smoking history. The patient is still complaining of discomfort in the left chest. No fevers, chills, or leukocytosis. On the whole, she is improving. She is ambulating on the floor without issues. She is extremely talkative. Objective - Vital Signs/Intake and Output Vital Signs (last 24 hours): Temp Pulse Resp BP Pulse Ox 98.4 F 71 20 182/91 H 96 05/05/17 06:00 05/05/17 09:23 05/05/17 06:00 05/05/17 09:23 05/05/17 06:00 Intake and Output: 05/05/17 05/05/17 06:59 18:59 Intake Total 540 Balance 540 - Labs Labs: 05/05/17 06:30 05/05/17 06:30 PT 28.3 SECONDS (9.4-12.5) H 05/05/17 06:30 INR 2.42 (0.93-1.08) H 05/05/17 06:30 APTT 33.0 Seconds (25.1-36.5) 05/02/17 06:40 - Constitutional Appears: Non-toxic, No Acute Distress, Chronically Ill - Head Exam Head Exam: ATRAUMATIC, NORMOCEPHALIC - Eye Exam Eye Exam: EOMI, PERRL Pupil Exam: NORMAL ACCOMODATION, PERRL - ENT Exam ENT Exam: Mucous Membranes Moist, Normal External Ear Exam, TM's Normal Bilaterally - Neck Exam Neck Exam: Full ROM, Normal Inspection - Respiratory Exam Respiratory Exam: Clear to Ausculation Bilateral, NORMAL BREATHING PATTERN. absent: Rales, Rhonchi, Wheezes - Cardiovascular Exam Cardiovascular Exam: REGULAR RHYTHM, RRR, +S1, +S2 - GI/Abdominal Exam GI & Abdominal Exam: Soft, Normal Bowel Sounds. absent: Distended, Tenderness - Extremities Exam Extremities Exam: Full ROM, Normal Inspection - Neurological Exam Neurological Exam: Alert, Awake, CN II-XII Intact, Oriented x3 - Psychiatric Exam Psychiatric exam: Normal Affect, Normal Mood - Skin Skin Exam: Intact, Normal Color Assessment and Plan - Assessment and Plan (Free Text) Assessment: 76 yo female with RLL pneumonia on Azithromycin and Cefepime. Cultures pending. Sputum cultures? Had also received two doses of Vancomycin as well. History of CHF and COPD. Would hold off on further Vancomycin dosing. Procalcitonin of 0.11. A low procalcitonin value makes the diagnosis of pneumonia less likely. Continue with Azithromycin and Cefepime for now. Patient still complaining of pleurtic chest pains. ESR taken yesterday morning... this was 41. The patient is overall improving. Supportive care. Thank you for allowing me to participate in the care of the patient, we will follow with you.
--- NOTE | 2017-05-05 20:58 | CP.PCM.DIS ---
<Anuja Pierre - Last Filed: 05/05/17 20:47> Provider - Provider Date of Admission: 04/29/17 18:06 Attending physician: Luther Aaron MD Consults: Pulm: Edmar ID: Go Time Spent in preparation of Discharge (in minutes): 45 Diagnosis - Discharge Diagnosis (1) LOLA (acute kidney injury) Status: Acute (2) COPD exacerbation Status: Acute (3) Pneumonia Status: Acute Hospital Course - Lab Results Lab Results: Micro Results 04/29/17 22:19 Blood-Venous Blood Culture - Final NO GROWTH AFTER 5 DAYS 04/29/17 22:19 Blood-Venous Gram Stain - Final TEST NOT PERFORMED 05/02/17 11:15 Naris MRSA Culture (Admit) - Final MRSA NOT DETECTED Most Recent Lab Values WBC 12.3 10^3/ul (4.5-11.0) H D 05/05/17 06:30 RBC 3.71 10^6/uL (3.5-6.1) 05/05/17 06:30 Hgb 10.8 g/dL (12.0-16.0) L 05/05/17 06:30 Hct 33.7 % (36.0-48.0) L 05/05/17 06:30 MCV 90.8 fl (80.0-105.0) 05/05/17 06:30 MCH 29.1 pg (25.0-35.0) 05/05/17 06:30 MCHC 32.0 g/dl (31.0-37.0) 05/05/17 06:30 RDW 13.4 % (11.5-14.5) 05/05/17 06:30 Plt Count 201 10^3/uL (120.0-450.0) 05/05/17 06:30 MPV 10.1 fl (7.0-11.0) 05/05/17 06:30 Gran % 61.5 % (50.0-68.0) 05/02/17 06:40 Lymph % (Auto) 19.5 % (22.0-35.0) L 05/02/17 06:40 Crowley % (Auto) 13.1 % (1.0-6.0) H 05/02/17 06:40 Eos % (Auto) 5.3 % (1.5-5.0) H 05/02/17 06:40 Baso % (Auto) 0.6 % (0.0-3.0) 05/02/17 06:40 Gran # 3.28 (1.4-6.5) 05/02/17 06:40 Lymph # 1.0 (1.2-3.4) L 05/02/17 06:40 Crowley # 0.7 (0.1-0.6) H 05/02/17 06:40 Eos # 0.3 (0.0-0.7) 05/02/17 06:40 Baso # 0.03 K/mm3 (0.0-2.0) 05/02/17 06:40 ESR 41 mm/hr (0.0-20.0) H 05/03/17 12:00 PT 28.3 SECONDS (9.4-12.5) H 05/05/17 06:30 INR 2.42 (0.93-1.08) H 05/05/17 06:30 APTT 33.0 Seconds (25.1-36.5) 05/02/17 06:40 pCO2 36 mm/Hg (35-45) 04/30/17 05:15 pO2 65.0 mm/Hg (80-100) L 04/30/17 05:15 HCO3 25.6 mmol/L (21-28) 04/30/17 05:15 ABG pH 7.46 (7.35-7.45) H 04/30/17 05:15 ABG Total CO2 26.7 mmol.L (22-28) 04/30/17 05:15 ABG O2 Saturation 96.7 % (95-98) 04/30/17 05:15 ABG Base Excess 2.0 mmol/L (-2.0-3.0) 04/30/17 05:15 ABG Potassium 3.5 mmol/L (3.6-5.2) L 04/30/17 05:15 VBG pH 7.37 (7.32-7.43) 04/29/17 16:37 VBG pCO2 53.0 (40-60) 04/29/17 16:37 VBG HCO3 30.6 mmol/l (21-28) H 04/29/17 16:37 VBG O2 Sat (Calc) 95.1 % (40-65) H 04/29/17 16:37 VBG Base Excess 4.0 mmol/L (0.0-2.0) H 04/29/17 16:37 Sodium 139.0 mmol/L (132-148) 04/30/17 05:15 Chloride 108.0 mmol/L (98-107) H 04/30/17 05:15 Glucose 111 mg/dl (65-105) H 04/30/17 05:15 Lactate 0.6 mmol/L (0.7-2.1) L 04/30/17 05:15 FiO2 21.0 % 04/30/17 05:15 Sodium 140 mmol/L (132-148) 05/05/17 06:30 Potassium 4.1 mmol/L (3.6-5.0) 05/05/17 06:30 Chloride 100 mmol/L (98-107) 05/05/17 06:30 Carbon Dioxide 29 mmol/L (21-33) 05/05/17 06:30 Anion Gap 15 (10-20) 05/05/17 06:30 BUN 32 mg/dL (7-21) H 05/05/17 06:30 Creatinine 1.3 mg/dl (0.7-1.2) H 05/05/17 06:30 Est GFR ( Amer) 48 05/05/17 06:30 Est GFR (Non-Af Amer) 40 05/05/17 06:30 Random Glucose 160 mg/dL (70-110) H 05/05/17 06:30 Calcium 9.0 mg/dL (8.4-10.5) 05/05/17 06:30 Total Bilirubin 0.4 mg/dL (0.2-1.3) 05/05/17 06:30 AST 21 U/L (14-36) 05/05/17 06:30 ALT 30 U/L (7-56) 05/05/17 06:30 Alkaline Phosphatase 76 U/L (38-126) 05/05/17 06:30 C-React Prot High Sens > 15.00 mg/L (1.00-3.00) H 05/03/17 13:20 Total Protein 6.0 g/dL (5.8-8.3) 05/05/17 06:30 Albumin 3.2 g/dL (3.0-4.8) 05/05/17 06:30 Globulin 2.9 gm/dL 05/05/17 06:30 Albumin/Globulin Ratio 1.1 (1.1-1.8) 05/05/17 06:30 Procalcitonin 0.11 NG/ML (0.19-0.49) L 04/30/17 06:30 Arterial Blood Potassium 3.5 mmol/L (3.6-5.2) L 04/30/17 05:15 Urine Color Yellow (YELLOW) 04/29/17 16:35 Urine Appearance Clear (CLEAR) 04/29/17 16:35 Urine pH 6.5 (4.7-8.0) 04/29/17 16:35 Ur Specific [place] 1.020 (1.005-1.035) 04/29/17 16:35 Urine Protein 100 mg/dL (<30 mg/dL) H 04/29/17 16:35 Urine Glucose (UA) Negative mg/dL (NEGATIVE) 04/29/17 16:35 Urine Ketones Negative mg/dL (NEGATIVE) 04/29/17 16:35 Urine Blood Trace-intact (NEGATIVE) H 04/29/17 16:35 Urine Nitrate Negative (NEGATIVE) 04/29/17 16:35 Urine Bilirubin Negative (NEGATIVE) 04/29/17 16:35 Urine Urobilinogen 0.2 E.U./dL (<1 E.U./dL) 04/29/17 16:35 Ur Leukocyte Esterase Negative Gregg/uL (NEGATIVE) 04/29/17 16:35 Urine RBC 0 - 2 /hpf (0-2) 04/29/17 16:35 Urine WBC 1 - 3 /hpf (0-6) 04/29/17 16:35 Ur Epithelial Cells 1 - 3 /hpf (0-5) 04/29/17 16:35 Urine Bacteria Few (NEG) 04/29/17 16:35 Ur L.pneumophila Ag Negative (NEGATIVE) 04/30/17 23:32 - Hospital Course Hospital Course: 76 year old female with a PMH of CHF (30-35% EF), aortic valve replacement, CKD , chronic atrial fibrillation (on Coumadin), CVA, HTN, HLD, AAA and COPD who initially presented complaining of intermittent left sided chest pain radiating to her back for the past two days with associated cough productive of yellow sputum and chills. Patient was found to have a RLL and LLL infiltrate on chest x -ray and was initially started on Rocephin and Zithromax, eventually changed to Cefepime and Zithromax, in addition to steroids to treat the bronchospasm. Pulmonology and ID consults were requested. Subsequent CT of the chest showed a peripheral lingula nodule. Considering the current setting of pneumonia as well as her history of smoking, this could have represented focal consolidation versus mass. This was discussed with the patient at length, and she was advised to repeat the CT scan with her PCP in 3-6 months, and the importantce of this was stressed repeatedly. Today, patient feels significantly better, with significant improvement in her cough and shortness of breath. She denies fevers, chills, chest pain, abdominal pain, nausea, vomiting, diarrhea, constipation. All her medications were discussed, and prescriptions sent to her pharmacy. All questions were answered to her satisfaction and patient was discharged to home. Discharge Exam - Head Exam Head Exam: ATRAUMATIC, NORMOCEPHALIC - Eye Exam Eye Exam: EOMI, Normal appearance - ENT Exam ENT Exam: Mucous Membranes Moist - Respiratory Exam Respiratory Exam: Clear to PA & Lateral, NORMAL BREATHING PATTERN - Cardiovascular Exam Cardiovascular Exam: RRR, +S1, +S2 - GI/Abdominal Exam GI & Abdominal Exam: Normal Bowel Sounds, Soft. absent: Tenderness - Extremities Exam Extremities exam: normal inspection - Neurological Exam Neurological exam: Alert, Oriented x3 - Psychiatric Exam Psychiatric exam: Normal Affect, Normal Mood - Skin Skin Exam: Dry, Intact, Normal Color Discharge Plan - Discharge Medications Prescriptions: Cephalexin [Keflex] 500 mg PO TID #21 capsule Methylprednisolone [Medrol Dose Pack (21 tabs)] See Taper PO DAILY #21 mg Warfarin [Coumadin] 4 mg PO DAILY #30 tab - Follow Up Plan Condition: STABLE Disposition: DISCHARGED TO HOME CARE Instructions: Atrial Fibrillation (DC), Chest Pain (DC), Pneumococcal Vaccine for Adults (DC), Wrist Fracture in Adults (DC), Influenza Vaccine (DC), Back Pain (GEN), Fall Prevention (DC), Pneumonia (DC) Additional Instructions: 1. Continue to take antibiotics as prescribed, to complete the course, even if you feel better 2. Continue to take the medrol dose pack as prescribed, until you finish all the pills 3. Decrease coumadin dose to 4mg daily 4. Follow up with Dr. Coronel in the next 2-3 days for repeat INR check and continued monitoring; repeat CT scan in 3-6 months 5. For any new or worsening concerns, contact your PCP immediately or return to the ER Referrals: Stephen Good MD [Staff Provider] - Obi Coronel MD [Staff Provider] - Joseph Hyatt MD [Staff Provider] - <Luther Aaron - Last Filed: 05/06/17 15:51> Provider - Provider Date of Admission: 04/29/17 18:06 Attending physician: Luther Aaron MD Hospital Course - Lab Results Lab Results: Micro Results 04/29/17 22:19 Blood-Venous Blood Culture - Final NO GROWTH AFTER 5 DAYS 04/29/17 22:19 Blood-Venous Gram Stain - Final TEST NOT PERFORMED 05/02/17 11:15 Naris MRSA Culture (Admit) - Final MRSA NOT DETECTED Most Recent Lab Values WBC 12.3 10^3/ul (4.5-11.0) H D 05/05/17 06:30 RBC 3.71 10^6/uL (3.5-6.1) 05/05/17 06:30 Hgb 10.8 g/dL (12.0-16.0) L 05/05/17 06:30 Hct 33.7 % (36.0-48.0) L 05/05/17 06:30 MCV 90.8 fl (80.0-105.0) 05/05/17 06:30 MCH 29.1 pg (25.0-35.0) 05/05/17 06:30 MCHC 32.0 g/dl (31.0-37.0) 05/05/17 06:30 RDW 13.4 % (11.5-14.5) 05/05/17 06:30 Plt Count 201 10^3/uL (120.0-450.0) 05/05/17 06:30 MPV 10.1 fl (7.0-11.0) 05/05/17 06:30 Gran % 61.5 % (50.0-68.0) 05/02/17 06:40 Lymph % (Auto) 19.5 % (22.0-35.0) L 05/02/17 06:40 Crowley % (Auto) 13.1 % (1.0-6.0) H 05/02/17 06:40 Eos % (Auto) 5.3 % (1.5-5.0) H 05/02/17 06:40 Baso % (Auto) 0.6 % (0.0-3.0) 05/02/17 06:40 Gran # 3.28 (1.4-6.5) 05/02/17 06:40 Lymph # 1.0 (1.2-3.4) L 05/02/17 06:40 Crowley # 0.7 (0.1-0.6) H 05/02/17 06:40 Eos # 0.3 (0.0-0.7) 05/02/17 06:40 Baso # 0.03 K/mm3 (0.0-2.0) 05/02/17 06:40 ESR 41 mm/hr (0.0-20.0) H 05/03/17 12:00 PT 28.3 SECONDS (9.4-12.5) H 05/05/17 06:30 INR 2.42 (0.93-1.08) H 05/05/17 06:30 APTT 33.0 Seconds (25.1-36.5) 05/02/17 06:40 pCO2 36 mm/Hg (35-45) 04/30/17 05:15 pO2 65.0 mm/Hg (80-100) L 04/30/17 05:15 HCO3 25.6 mmol/L (21-28) 04/30/17 05:15 ABG pH 7.46 (7.35-7.45) H 04/30/17 05:15 ABG Total CO2 26.7 mmol.L (22-28) 04/30/17 05:15 ABG O2 Saturation 96.7 % (95-98) 04/30/17 05:15 ABG Base Excess 2.0 mmol/L (-2.0-3.0) 04/30/17 05:15 ABG Potassium 3.5 mmol/L (3.6-5.2) L 04/30/17 05:15 VBG pH 7.37 (7.32-7.43) 04/29/17 16:37 VBG pCO2 53.0 (40-60) 04/29/17 16:37 VBG HCO3 30.6 mmol/l (21-28) H 04/29/17 16:37 VBG O2 Sat (Calc) 95.1 % (40-65) H 04/29/17 16:37 VBG Base Excess 4.0 mmol/L (0.0-2.0) H 04/29/17 16:37 Sodium 139.0 mmol/L (132-148) 04/30/17 05:15 Chloride 108.0 mmol/L (98-107) H 04/30/17 05:15 Glucose 111 mg/dl (65-105) H 04/30/17 05:15 Lactate 0.6 mmol/L (0.7-2.1) L 04/30/17 05:15 FiO2 21.0 % 04/30/17 05:15 Sodium 140 mmol/L (132-148) 05/05/17 06:30 Potassium 4.1 mmol/L (3.6-5.0) 05/05/17 06:30 Chloride 100 mmol/L (98-107) 05/05/17 06:30 Carbon Dioxide 29 mmol/L (21-33) 05/05/17 06:30 Anion Gap 15 (10-20) 05/05/17 06:30 BUN 32 mg/dL (7-21) H 05/05/17 06:30 Creatinine 1.3 mg/dl (0.7-1.2) H 05/05/17 06:30 Est GFR ( Amer) 48 05/05/17 06:30 Est GFR (Non-Af Amer) 40 05/05/17 06:30 Random Glucose 160 mg/dL (70-110) H 05/05/17 06:30 Calcium 9.0 mg/dL (8.4-10.5) 05/05/17 06:30 Total Bilirubin 0.4 mg/dL (0.2-1.3) 05/05/17 06:30 AST 21 U/L (14-36) 05/05/17 06:30 ALT 30 U/L (7-56) 05/05/17 06:30 Alkaline Phosphatase 76 U/L (38-126) 05/05/17 06:30 C-React Prot High Sens > 15.00 mg/L (1.00-3.00) H 05/03/17 13:20 Total Protein 6.0 g/dL (5.8-8.3) 05/05/17 06:30 Albumin 3.2 g/dL (3.0-4.8) 05/05/17 06:30 Globulin 2.9 gm/dL 05/05/17 06:30 Albumin/Globulin Ratio 1.1 (1.1-1.8) 05/05/17 06:30 Procalcitonin 0.11 NG/ML (0.19-0.49) L 04/30/17 06:30 Arterial Blood Potassium 3.5 mmol/L (3.6-5.2) L 04/30/17 05:15 Urine Color Yellow (YELLOW) 04/29/17 16:35 Urine Appearance Clear (CLEAR) 04/29/17 16:35 Urine pH 6.5 (4.7-8.0) 04/29/17 16:35 Ur Specific [place] 1.020 (1.005-1.035) 04/29/17 16:35 Urine Protein 100 mg/dL (<30 mg/dL) H 04/29/17 16:35 Urine Glucose (UA) Negative mg/dL (NEGATIVE) 04/29/17 16:35 Urine Ketones Negative mg/dL (NEGATIVE) 04/29/17 16:35 Urine Blood Trace-intact (NEGATIVE) H 04/29/17 16:35 Urine Nitrate Negative (NEGATIVE) 04/29/17 16:35 Urine Bilirubin Negative (NEGATIVE) 04/29/17 16:35 Urine Urobilinogen 0.2 E.U./dL (<1 E.U./dL) 04/29/17 16:35 Ur Leukocyte Esterase Negative Gregg/uL (NEGATIVE) 04/29/17 16:35 Urine RBC 0 - 2 /hpf (0-2) 04/29/17 16:35 Urine WBC 1 - 3 /hpf (0-6) 04/29/17 16:35 Ur Epithelial Cells 1 - 3 /hpf (0-5) 04/29/17 16:35 Urine Bacteria Few (NEG) 04/29/17 16:35 Ur L.pneumophila Ag Negative (NEGATIVE) 04/30/17 23:32 Ur Strep pneumoniae Ag Not detected 04/30/17 23:32 Attending/Attestation - Attestation I have personally seen and examined this patient.: Yes I have fully participated in the care of the patient.: Yes I have reviewed all pertinent clinical information, including history, physical exam and plan: Yes Notes (Text): 05/06/17 15:49 Attending note; Patient seen and examined with resident. Patient is a 76 year old female with past medical history of atrial fibrillation , chronic kidney disease, stroke, hypertension and COPD who is admitted with right lower lobe pneumonia/healthcare associated pneumonia. Currently on zithromax and cefepime. got IV vancomycin. Patient with chronic kidney disease. ID evaluation appreciated. Currently afebrile and nontoxic. Patient has some pleuritic chest pain. Started on Robitussin with codeine. Will be discharged home with Keflex. CT chest showed 2.7x 2.5 cm peripheral lingual nodule possible pneumonia. Will complete antibiotics. Needs repeat CT scan as outpatient to confirm the resolution. If not patient might need outpatient biopsy. Discussed with patient in detail. Physical therapy evaluation appreciated. Patient wants to go home with services. discharge home today. Upon discharge the patient will follow-up with PMD Dr. Coronel.
== END 2017-05-05 16:06 | disposition home health service (06) | DRG 194 ==
LOC: ED 14:30 → ERH 18:06 → 3RSO 21:46 → 5RNO 05-03 16:58
PROVIDERS: ADMIT Internal Medicine; ATTEND Internal Medicine
PROC: 3E0F7GC Introduction of Other Therapeutic Substance into Respiratory Tract, Via Natural or Artificial Opening (ICD-10-PCS; principal; 2017-04-30)
DX: J18.9 Pneumonia, unspecified organism (principal); I13.0 Hypertensive heart and chronic kidney disease with heart failure and stage 1 through stage 4 chronic kidney disease, or unspecified chronic kidney disease; N17.9 Acute kidney failure, unspecified; I48.2 Chronic atrial fibrillation; I50.9 Heart failure, unspecified; J44.0 Chronic obstructive pulmonary disease with (acute) lower respiratory infection; J44.1 Chronic obstructive pulmonary disease with (acute) exacerbation; E78.5 Hyperlipidemia, unspecified; N18.9 Chronic kidney disease, unspecified; I25.10 Atherosclerotic heart disease of native coronary artery without angina pectoris; I71.4 Abdominal aortic aneurysm, without rupture; J98.01 Acute bronchospasm; Y95 Nosocomial condition; Z79.01 Long term (current) use of anticoagulants; Z86.73 Personal history of transient ischemic attack (TIA), and cerebral infarction without residual deficits; Z95.2 Presence of prosthetic heart valve; Z95.1 Presence of aortocoronary bypass graft; Z90.49 Acquired absence of other specified parts of digestive tract; Z87.891 Personal history of nicotine dependence

== ENCOUNTER 2018-06-05 15:53 | Outpatient (CLI) | payer MEDICARE | END 2018-06-05 15:54 | disposition home or self-care (01) | LOC: RAD 15:53 ==

== ENCOUNTER 2018-06-18 16:05 | Inpatient (IN) | payer MEDICARE ==
[2018-06-18] MEDS ORDERED: Lidocaine 5% Patch TD STA (16:52)
--- NOTE | 2018-06-18 17:02 | ED PDOC ---
Arrival/HPI - General Chief Complaint: Back Pain Time Seen by Provider: 06/18/18 16:25 Historian: Patient - History of Present Illness Narrative History of Present Illness (Text): 06/18/18 16:59 78-year-old female with past medical history of A. fib, COPD, CHF, reports 2- week history of pain in the lower back. The patient states that she had outpatient x-rays done ordered by her PMD, which showed a compression fracture of L3. Patient states that she called her doctor today and told the doctor that she wanted to go to the emergency room due to pain, states that she has not been taking any pain medications, and since the x-ray has not followed up with any specialist regarding her compression fracture. Patient states that she has never had this pain before, reports no history of prior back problem, adds that the back pain is causing difficulty for her to stand up and walk. Otherwise: (- ) paresthesias, (-) weakness, (-) acute bowel or bladder dysfunction, (-) fever. Has no history of prior back problem. PMD [place] Past Medical History - Infectious Disease Hx of Infectious Diseases: None - Tetanus Immunization Tetanus Immunization: Unknown - Reproductive Menopause: Yes - Cardiac Hx Atrial Fibrillation: Yes Hx Congestive Heart Failure: Yes Hx Hypertension: Yes - Pulmonary Hx Chronic Obstructive Pulmonary Disease (COPD): Yes - Neurological HX Cerebrovascular Accident: Yes - HEENT Hx HEENT Disorder: Yes (Wears reading glasses. Upper denture.) Hx Blind: No Hx Cataracts: No Hx Deafness: No Hx Difficulty Chewing: No Hx Epistaxis: No Hx Glaucoma: No Hx Macular Degeneration: No - Renal Hx Renal Disorder: No Hx Renal Failure: No - Endocrine/Metabolic Hx Endocrine Disorders: No Hx Diabetes Mellitus Type 1: No Hx Diabetes Mellitus Type 2: No - Hematological/Oncological Hx Blood Disorders: No - Integumentary Hx Dermatological Disorder: No Hx Basal Cell Carcinoma: No Hx Eczema: No Hx Melanoma: No Hx Psoriasis: No Hx Squamous Cell Carcinoma: No Other/Comment: 03-24-17 BILATERAL LE DARKENED BROWN SKIN DISCOLORATION. - Musculoskeletal/Rheumatological Hx Falls: Yes - Gastrointestinal Hx Gastrointestinal Disorders: Yes (CHOLECYSTECTOMY,ABDOMINAL SX FOR DIVERTICULITIS) - Genitourinary/Gynecological Hx Genitourinary Disorders: Yes (URGENCY) Hx Reproductive Disorders: No - Psychiatric Hx Psychophysiologic Disorder: No Hx Emotional Abuse: No Hx Physical Abuse: No Hx Substance Use: No Other/Comment: nervous - Surgical History Hx Cholecystectomy: Yes Hx Open Heart Surgery: Yes (5 yrs) Hx Valve Replacement: Yes - Anesthesia Hx Anesthesia: Yes - Suicidal Assessment Feels Threatened In Home Enviroment: No Family/Social History Family/Social History: No Known Family HX Smoking Status: Never Smoked Hx Alcohol Use: No Hx Substance Use: No Hx Substance Use Treatment: No Allergies/Home Meds Allergies/Adverse Reactions: Allergies Sulfa (Sulfonamide Antibiotics) Allergy (Unknown, Verified 03/27/17 14:56) . palpitations Home Medications: Home Meds Medication Instructions Recorded Confirmed Cyanocobalamin (Vitamin B-12) 1,000 mcg PO DAILY 10/08/16 06/18/18 [Vitamin B-12] Review of Systems - Review of Systems Constitutional: absent: Fatigue, Fevers Respiratory: absent: SOB, Cough Cardiovascular: absent: Chest Pain, Palpitations Gastrointestinal: absent: Abdominal Pain, Diarrhea, Vomiting Genitourinary Female: absent: Dysuria, Frequency, Hematuria Musculoskeletal: Arthralgias, Back Pain. absent: Neck Pain Skin: absent: Rash, Pruritis, Skin Lesions Neurological: absent: Headache, Dizziness Physical Exam Vital Signs Temp Pulse Resp BP Pulse Ox 06/18/18 16:22 98.5 F 102 H 20 160/83 H 98 Temperature: Afebrile Blood Pressure: Hypertensive Pulse: Tachycardic Respiratory Rate: Normal Appearance: Positive for: Well-Appearing, Non-Toxic, Comfortable Pain Distress: Mild Mental Status: Positive for: Alert and Oriented X 3 - Systems Exam Head: Present: Atraumatic, Normocephalic Pupils: Present: PERRL Extroacular Muscles: Present: EOMI Conjunctiva: Present: Normal Mouth: Present: Moist Mucous Membranes Neck: Present: Normal Range of Motion Respiratory/Chest: Present: Clear to Auscultation, Good Air Exchange. No: Respiratory Distress, Accessory Muscle Use Cardiovascular: Present: Regular Rate and Rhythm, Normal S1, S2. No: Murmurs Abdomen: No: Tenderness, Distention, Peritoneal Signs Back: Present: Midline Tenderness (to L spine). No: CVA Tenderness, Paraspinal Tenderness, Pain with Leg Raise Upper Extremity: Present: Normal Inspection. No: Cyanosis, Edema Lower Extremity: Present: Normal Inspection, NORMAL PULSES, Normal ROM. No: Edema Neurological: Present: GCS=15, CN II-XII Intact, Speech Normal, Motor Func Grossly Intact, Normal Sensory Function Skin: Present: Warm, Dry, Normal Color. No: Rashes Psychiatric: Present: Alert, Oriented x 3, Normal Insight, Normal Concentration Medical Decision Making ED Course and Treatment: 06/18/18 17:02 Previous medical records reviewed, on June 05, 2018 patient had an x-ray of the lumbar spine which showed moderate compression fracture of L3, age uncertain. Plan : - Labs - CT L spine - Tylenol PO - Lidoderm patch 06/18/18 17:26 Case d/w Dr. Coronel, agrees with current plan, however states that if CT shows chronic fracture without any other acute findings to admit the patient for MRI in the AM, possible PT and rehab placement. 06/18/18 20:46 Labs : INR 4.49. CT Lumbar Spine: ALIGNMENT: Bony alignment is anatomic. DISCS/DEGENERATIVE CHANGES: T12/L1: No significant central canal or neural foraminal stenosis. L1/L2: No significant central canal or neural foraminal stenosis. L2/L3: No significant central canal or neural foraminal stenosis. L3/4: No significant central canal or neural foraminal stenosis. L4/5: No significant central canal or neural foraminal stenosis. L5/S1: A broad-based posterior disc herniation present. BONES: Moderate to severe compression deformity of the L3 vertebral body. There is diffuse and advanced hypertrophic and degenerative change. SOFT TISSUES: Advanced atherosclerotic change abdominal aorta and iliac vessels. Large calcified fibroid suspected within the uterus. MISCELLANEOUS: No abnormal contrast enhancement. IMPRESSION: Diffuse advanced hypertrophic and degenerative changes. Moderate to severe compression deformity of the L3 vertebral body. Broad-based posterior disc herniation L5-S1 level. Calcified fibroid suspected. Clinical correlation advised. Electronically signed on Jun 18, 2018 7:24:01 PM EST by: Denys Almodovar M.D., Certified by [facility], Diagnostic Radiology CT results d/w [facility] radiologist, who confirms that the compression fracture of L 3 is chronic and not acute. Results d/w the patient, states that she is on coumadin and has not taken yet today, advised to hold off on coumadin for now as she is over the therapeutic threshold. Patient advised that she will needs to stay in the hospital, she agrees with current plan. Case d/w Dr. Yan and pediatric medical assistant, agree with plan to admit under the hospitalist service. - RAD Interpretation Radiology Orders: 06/18/18 16:51 LUMBAR SPINE W/O CONTRAST [CT] Stat [place]: Radiologist - Medication Orders Current Medication Orders: Discontinued Medications Acetaminophen (Tylenol 325mg Tab) 650 mg PO STAT STA Stop: 06/18/18 16:53 Lidocaine (Lidoderm) 1 ea TD STAT STA Stop: 06/18/18 16:53 - PA / MIDLEVEL PROVIDER / Resident Statement MD/DO has reviewed & agrees with the documentation as recorded. Disposition/Present on Arrival - Present on Arrival Any Indicators Present on Arrival: No History of DVT/PE: No History of Uncontrolled Diabetes: No Urinary Catheter: No History of Decub. Ulcer: No History Surgical Site Infection Following: None - Disposition Have Diagnosis and Disposition been Completed?: Yes Diagnosis: Low back pain, Compression fracture of L3 vertebra Disposition: HOSPITALIZED Disposition Time: 21:15 Patient Plan: Admission Patient Problems: Current Active Problems Problem Status Onset Compression fracture of L3 vertebra Acute Low back pain Acute Condition: STABLE Referrals: Obi Coronel MD [Primary Care Provider] - Follow up with primary Forms: [employer] ([place])
[2018-06-18 18:39] LABS: URINE BILIRUBIN NEGATIVE (NEGATIVE); URINE BLOOD NEGATIVE (NEGATIVE); URINE GLUCOSE (UA) NEGATIVE (NEGATIVE); URINE LEUKOCYTE ESTERASE NEGATIVE Leu/uL (NEGATIVE); URINE PROTEIN 30 mg/dL (<30 mg/dL); URINE UROBILINOGEN 0.2 E.U./dL (<1 E.U./dL)
[2018-06-18 18:44] LABS: URINE APPEARANCE CLEAR (CLEAR); URINE COLOR YELLOW (YELLOW)
[2018-06-18 18:53] LABS: BASO # 0.02 K/mm3 (0.0-2.0); BASO % 0.3 % (0.0-3.0); EOS # 0.1 (0.0-0.7); EOS % 2.2 % (1.5-5.0); HEMOGLOBIN 11.9 g/dL (12.0-16.0); LYMPH # 1.2 (1.2-3.4); LYMPH % 20.8 % (22.0-35.0); MEAN CELL VOLUME 83.9 fl (80.0-105.0); MEAN CORPUSCULAR HEMOGLOBIN 25.8 pg (25.0-35.0); MEAN CORPUSCULAR HGB CONC 30.7 g/dl (31.0-37.0); MEAN PLATELET VOLUME 10.2 fl (7.0-11.0); MONO # 0.7 (0.1-0.6); MONO % 11.4 % (1.0-6.0); RBC 4.61 10^6/uL (3.5-6.1); RED CELL DISTRIBUTION WIDTH 17.1 % (11.5-14.5)
[2018-06-18 18:58] LABS: ALB/GLOB RATIO 1.2 (1.1-1.8); ALBUMIN 3.6 g/dL (3.0-4.8); CALCIUM 9.6 mg/dL (8.4-10.5)
[2018-06-18 19:16] LABS: PARTIAL THROMBOPLASTIN TIME 70.8 Seconds (26.9-38.3)
[2018-06-18 19:19] LABS: PROTHROMBIN TIME 49.8 SECONDS (9.4-12.5)
--- NOTE | 2018-06-18 21:35 | CP.PCM.HP ---
History of Present Illness - History of Present Illness History of Present Illness: PGY1 Medicine History and Physical Exam Note for Dr. Yan CC: Back pain x2 weeks This is an 78-year-old F with PMH of CHF (30-35% EF), aortic valve replacement, CKD, chronic atrial fibrillation (on Coumadin), CVA, HTN, HLD, AAA and COPD who was recently discharge on 05/07/18 for LOLA, COPD exacerbation, and Pneumonia who presents for 2-week history of pain in the lower back. Patient localizes the pain to her lumbar L3 region, characterizes the pain as "sharp" and radiating down her left buttock. Patient says the pain is 8/10 in severity and that movement makes it worse. Patient reports that she had out-patient x-rays done that showed compression fracture of L3. Patient called her physician because she was in pain, and PMD compelled her to come to the ED. Patient states that she has never had this pain before, reports no history of prior back problem, adds that the back pain is causing difficulty for her to stand up and walk. Patient lives at home and takes care of herself. She uses a walker to assist with walking. ROS is otherwise unremarkable for paresthesias, weakness, dysuria, urine/bowel incontinence, fever, chills, nausea, vomiting, abdominal pain, chest pain, and/or shortness of breath. 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 Coronel Present on Admission - Present on Admission Any Indicators Present on Admission: No History of DVT/PE: No History of Uncontrolled Diabetes: No Urinary Catheter: No Decubitus Ulcer Present: No Review of Systems - Review of Systems All systems: reviewed and no additional remarkable complaints except (as mentioned in HPI) Past Patient History - Infectious Disease Hx of Infectious Diseases: None - Tetanus Immunizations Tetanus Immunization: Unknown - Past Medical History & Family History Past Medical History?: Yes - Past Social History Smoking Status: Never Smoked - CARDIAC Hx Atrial Fibrillation: Yes Hx Congestive Heart Failure: Yes Hx Hypertension: Yes - PULMONARY Hx Chronic Obstructive Pulmonary Disease (COPD): Yes - NEUROLOGICAL HX Cerebrovascular Accident: Yes - HEENT Hx HEENT Problems: Yes (Wears reading glasses. Upper denture.) Hx Blind: No Hx Cataracts: No Hx Deafness: No Hx Difficulty Chewing: No Hx Epistaxis: No Hx Glaucoma: No Hx Macular Degeneration: No - RENAL Hx Chronic Kidney Disease: No Hx Renal Failure: No - ENDOCRINE/METABOLIC Hx Endocrine Disorders: No Hx Diabetes Mellitus Type 1: No Hx Diabetes Mellitus Type 2: No - HEMATOLOGICAL/ONCOLOGICAL Hx Blood Disorders: No - INTEGUMENTARY Hx Dermatological Problems: No Hx Basil Cell: No Hx Eczema: No Hx Melanoma: No Hx Psoriasis: No Hx Squamous Cell: No Other/Comment: 03-24-17 BILATERAL LE DARKENED BROWN SKIN DISCOLORATION. - MUSCULOSKELETAL/RHEUMATOLOGICAL Hx Falls: Yes - GASTROINTESTINAL Hx Gastrointestinal Disorders: Yes (CHOLECYSTECTOMY,ABDOMINAL SX FOR DIVERTICULITIS) - GENITOURINARY/GYNECOLOGICAL Hx Genitourinary Disorders: Yes (URGENCY) Hx Reproductive Disorders: No - PSYCHIATRIC Hx Psychophysiologic Disorder: No Hx Emotional Abuse: No Hx Physical Abuse: No Hx Substance Use: No Other/Comment: nervous - SURGICAL HISTORY Hx Cholecystectomy: Yes Hx Open Heart Surgery: Yes (5 yrs) Hx Valve Replacement: Yes - ANESTHESIA Hx Anesthesia: Yes Meds Allergies/Adverse Reactions: Allergies Allergy/AdvReac Type Severity Reaction Status Date / Time Sulfa (Sulfonamide Allergy Unknown . Verified 03/27/17 14:56 Antibiotics) Physical Exam - Constitutional Appears: Non-toxic, No Acute Distress - Head Exam Head Exam: ATRAUMATIC, NORMAL INSPECTION, NORMOCEPHALIC - Eye Exam Eye Exam: EOMI, Normal appearance Pupil Exam: NORMAL ACCOMODATION - ENT Exam ENT Exam: Mucous Membranes Moist - Neck Exam Neck exam: Positive for: Normal Inspection - Respiratory Exam Respiratory Exam: Clear to Auscultation Bilateral, NORMAL BREATHING PATTERN. absent: Accessory Muscle Use, Chest Wall Tenderness, Prolonged Expiratory Phase, Rales, Rhonchi, Wheezes, Respiratory Distress, Stridor - Cardiovascular Exam Cardiovascular Exam: REGULAR RHYTHM, +S1, +S2 - GI/Abdominal Exam GI & Abdominal Exam: Normal Bowel Sounds, Soft. absent: Rebound, Rigid, Tenderness - Extremities Exam Extremities exam: Positive for: normal inspection. Negative for: full ROM (decreased 2/2 pain ) - Back Exam Back exam: NORMAL INSPECTION, paraspinal tenderness, tenderness (L3 region on L. + hypertonicity) - Neurological Exam Neurological exam: Alert, CN II-XII Intact, Oriented x3 - Psychiatric Exam Psychiatric exam: Normal Affect, Normal Mood - Skin Skin Exam: Dry, Intact Results - Vital Signs Recent Vital Signs: Last Vital Signs Temp 98.5 F 06/18/18 16:22 Pulse 102 H 06/18/18 16:22 Resp 20 06/18/18 16:22 BP 160/83 H 06/18/18 16:22 Pulse Ox 98 06/18/18 16:22 - Labs Result Diagrams: 06/18/18 18:35 06/18/18 18:35 Labs: Laboratory Results - last 24 hr 06/18/18 06/18/18 06/18/18 18:27 18:35 18:35 WBC 6.0 RBC 4.61 Hgb 11.9 L Hct 38.7 MCV 83.9 D MCH 25.8 MCHC 30.7 L RDW 17.1 H Plt Count 159 MPV 10.2 Neut % (Auto) 65.3 Lymph % (Auto) 20.8 L Ashley % (Auto) 11.4 H Eos % (Auto) 2.2 Baso % (Auto) 0.3 Lymph # (Auto) 1.2 Ashley # (Auto) 0.7 H Eos # (Auto) 0.1 Baso # (Auto) 0.02 Absolute Neuts (auto) 3.88 PT INR APTT Sodium 140 Potassium 4.3 Chloride 103 Carbon Dioxide 34 H Anion Gap 9 L BUN 19 Creatinine 1.3 H Est GFR ( Amer) 48 Est GFR (Non-Af Amer) 39 Random Glucose 126 H Calcium 9.6 Total Bilirubin 0.5 AST 22 ALT 13 Alkaline Phosphatase 121 Total Protein 6.7 Albumin 3.6 Globulin 3.0 Albumin/Globulin Ratio 1.2 Urine Color Yellow Urine Appearance Clear Urine pH 7.0 Ur Specific [place] 1.020 Urine Protein 30 H Urine Glucose (UA) Negative Urine Ketones Negative Urine Blood Negative Urine Nitrate Negative Urine Bilirubin Negative Urine Urobilinogen 0.2 Ur Leukocyte Esterase Negative Urine RBC None Urine WBC 2 - 5 Ur Epithelial Cells 6 - 8 H 06/18/18 18:35 WBC RBC Hgb Hct MCV MCH MCHC RDW Plt Count MPV Neut % (Auto) Lymph % (Auto) Ashley % (Auto) Eos % (Auto) Baso % (Auto) Lymph # (Auto) Ashley # (Auto) Eos # (Auto) Baso # (Auto) Absolute Neuts (auto) PT 49.8 H INR 4.49 H* APTT 70.8 H Sodium Potassium Chloride Carbon Dioxide Anion Gap BUN Creatinine Est GFR ( Amer) Est GFR (Non-Af Amer) Random Glucose Calcium Total Bilirubin AST ALT Alkaline Phosphatase Total Protein Albumin Globulin Albumin/Globulin Ratio Urine Color Urine Appearance Urine pH Ur Specific [place] Urine Protein Urine Glucose (UA) Urine Ketones Urine Blood Urine Nitrate Urine Bilirubin Urine Urobilinogen Ur Leukocyte Esterase Urine RBC Urine WBC Ur Epithelial Cells Assessment & Plan - Assessment and Plan (Free Text) Assessment: Low back pain likely secondary to compression fracture - Lumbar spine CT: Diffuse advanced hypertrophic and degenerative changes. Moderate to severe compression deformity of the L3 vertebral body. Broad-based posterior disc herniation L5-S1 level. Calcified fibroid suspected. - Lumbar spine x-ray 06/05: - Pain management: 1mg Morphine IVP Q4H PRN severe pain - MRI of lumbar spine ordered - PT/OT eval and treat - Monitor Supratherapeutic INR - Hold Coumadin due to supratherapeutic INR - Continue cardizem - Recheck INR in AM Atrial Fibrillation - Hold Coumadin due to supratherapeutic INR - Continue cardizem - Recheck INR in AM History of CHF - Continue home Losartan, Coreg, Lasix and Digoxin History of CAD - Continue home ASA and Lipitor - Heart Healthy Diet History of Anxiety - Continue home Xanax PRN GI Prophylaxis: Protonix DVT Prophylaxis: SCD's Diet: HHD Plan discussed with Dr. Yuriy Steiner PGY1
[2018-06-18] MEDS ORDERED: Albuterol-Ipratrop 3 mg / 0.5 (3 ml) UD IH PRN (22:01)
[2018-06-19 02:50] VITALS: BMI 26.5
[2018-06-19 08:25] LABS: PARTIAL THROMBOPLASTIN TIME 54.9 Seconds (26.9-38.3)
[2018-06-19 08:45] LABS: INR 3.78; PROTHROMBIN TIME 42.9 SECONDS (9.4-12.5)
[2018-06-19] MEDS: Morphine 2 mg/ml ISec IVP PRN ×3 (09:30→22:43)
[2018-06-19] MEDS: Cholecalciferol 1,000 INTLU TAB PO SCH (09:32)
[2018-06-19] MEDS: diltiaZEM 180 mg/24 Hours CD Cap PO SCH (09:33)
--- NOTE | 2018-06-19 12:22 | RAD ---
HISTORY: hx of chf COMPARISON: Chest x-ray performed 06/05/18 TECHNIQUE: Chest, one view. FINDINGS: LUNGS: Examination limited by habitus and patient obliquity. Moderate pulmonary venous congestion. Small hczb-jhoacks-zjdi-right pleural effusions. Right paratracheal opacity may be related to tortuous vasculature exaggerated by obliquity. No definite pneumothorax. CARDIOVASCULAR: Median sternotomy wires. Cardiomegaly with CTR 17.2/23.8. Atherosclerotic calcifications of the aorta. OSSEOUS STRUCTURES: Degenerative changes. VISUALIZED UPPER ABDOMEN: Unremarkable. OTHER FINDINGS: None. IMPRESSION: Moderate pulmonary venous congestion. Small orid-[id number]-kvmx-right pleural effusions. Cardiomegaly. Right paratracheal opacity may reflect tortuous vasculature exaggerated by patient obliquity.
--- NOTE | 2018-06-19 13:53 | CT ---
Date of service: 06/18/2018 CT lumbar spine without IV contrast Indication: low back pain Comparison: Lumbar spine radiographs performed 06/05/18 Technique: Noncontrast axial images of the lumbar spine were provided. Sagittal and coronal reformatted images were generated and reviewed. This CT exam was performed using 1 or more of the following dose reduction techniques: Automated exposure control, adjustment of the MAA and/or kV according to patient size, and/or use of iterative reconstruction technique. Total exam DLP: 811.35 MGy-cm Findings: Diffuse osseous demineralization limits evaluation for acute fracture lines. Scoliosis with curvature of the lumbar spine convex to the right. Multilevel degenerative changes including osteophyte formation. Posterior disc bulge at L5-S1. L3 compression fracture deformity, age indeterminate. No acute fracture or subluxation identified. Paraspinal soft tissues appear unremarkable. Limited visualization of the intra-abdominal and intrapelvic contents : Thick-walled distal esophagus/large hiatal hernia. Dense atherosclerotic calcifications of the aorta and branches. Atrophic right kidney. Nonobstructing right renal calculi. Heterogeneous uterus with dense calcifications consistent with degenerating fibroids. Cholecystectomy clips. Thick-walled rectum/rectosigmoid colon. Impression: No acute fracture or subluxation identified. Osseous demineralization. Scoliosis. Degenerative changes. Posterior disc bulge at L5-S1. Age indeterminate L3 compression fracture deformity. Limited visualization of the intra-abdominal and intrapelvic contents : Thick-walled distal esophagus/large hiatal hernia. Dense atherosclerotic calcifications of the aorta and branches. Atrophic right kidney. Nonobstructing right renal calculi. Heterogeneous uterus with dense calcifications consistent with degenerating fibroids. Cholecystectomy clips. Thick-walled rectum/rectosigmoid colon. Correlate clinically. Preliminary impression was provided by [facility].
--- NOTE | 2018-06-19 14:15 | CP.PCM.PN ---
<Gm Saucedo - Last Filed: 06/19/18 14:06> Subjective - Date & Time of Evaluation Date of Evaluation: 06/19/18 Time of Evaluation: 14:06 - Subjective Subjective: Gm Saucedo, PGY-1, Internal Medicine Progress Note for Dr. Lindsay Patient seen and evaluated at bedside. Patient had no acute overnight events. Patient reported lumbar pain starting 2 weeks ago that radiates to the right leg. Patient denied any other symptoms including headache, fever, chest pain, shortness of breath, nausea, vomiting, constipation, diarrhea, dysuria, hematuria. 12-point ROS was unremarkable except for what was mentioned above. Objective - Vital Signs/Intake and Output Vital Signs (last 24 hours): Temp Pulse Resp BP Pulse Ox 97.5 F L 80 18 148/92 H 96 06/19/18 06:00 06/19/18 09:33 06/19/18 06:00 06/19/18 09:34 06/19/18 06:00 - Medications Medications: Current Medications Albuterol/Ipratropium (Duoneb 3 Mg/0.5 Mg (3 Ml) Ud) 3 ml IH Q2H PRN PRN Reason: Shortness of Breath Alprazolam (Xanax) 0.25 mg PO BID [facility]; Protocol Stop: 06/25/18 22:31 Last Admin: 06/19/18 09:32 Dose: 0.25 mg Aspirin (Aspirin Chewable) 81 mg PO DAILY [facility] Last Admin: 06/19/18 09:32 Dose: 81 mg Atorvastatin Calcium (Lipitor) 40 mg PO DAILY [facility] Last Admin: 06/19/18 09:33 Dose: 40 mg Carvedilol (Coreg) 3.125 mg PO BID [facility] Last Admin: 06/19/18 09:33 Dose: 3.125 mg Cholecalciferol (Vitamin D) 1,000 intlu PO DAILY [facility] Last Admin: 06/19/18 09:32 Dose: 1,000 intlu Cyanocobalamin (Vitamin B12 1000 Mcg Tab) 1,000 mcg PO DAILY [facility] Last Admin: 06/19/18 09:32 Dose: 1,000 mcg Digoxin (Digoxin) 0.125 mg PO [facility] Diltiazem HCl (Cardizem Cd) 180 mg PO DAILY [facility] Last Admin: 06/19/18 09:33 Dose: 180 mg Docusate Sodium (Colace) 100 mg PO DAILY [facility] Last Admin: 06/19/18 09:52 Dose: 100 mg Furosemide (Lasix) 40 mg PO DAILY [facility] Last Admin: 06/19/18 09:34 Dose: 40 mg Heparin Sodium (Porcine) (Heparin) 5,000 units SC Q12 [facility]; Protocol Last Admin: 06/19/18 09:46 Dose: Not Given Losartan Potassium (Cozaar) 25 mg PO DAILY [facility] Last Admin: 06/19/18 09:33 Dose: 25 mg Morphine Sulfate (Morphine) 1 mg IVP Q4H PRN PRN Reason: Pain, severe (8-10) Last Admin: 06/19/18 09:30 Dose: 1 mg Pantoprazole Sodium (Protonix Inj) 40 mg IVP DAILY [facility] Last Admin: 06/19/18 09:30 Dose: 40 mg - Labs Labs: 06/18/18 18:35 06/18/18 18:35 PT 42.9 SECONDS (9.4-12.5) H 06/19/18 07:30 INR 3.78 H* 06/19/18 07:30 APTT 54.9 Seconds (26.9-38.3) H 06/19/18 07:30 - Constitutional Appears: Well, Non-toxic, No Acute Distress - Head Exam Head Exam: ATRAUMATIC, NORMAL INSPECTION, NORMOCEPHALIC - Eye Exam Eye Exam: EOMI, PERRL - ENT Exam ENT Exam: Mucous Membranes Moist - Respiratory Exam Additional comments: crackles heard at bilateral bases - Cardiovascular Exam Cardiovascular Exam: REGULAR RHYTHM, RRR Additional comments: systolic ejection murmur heard at RUSB - GI/Abdominal Exam GI & Abdominal Exam: Soft, Normal Bowel Sounds. absent: Tenderness - Extremities Exam Extremities Exam: Full ROM - Back Exam Back Exam: tenderness, vertebral tenderness - Neurological Exam Neurological Exam: Alert, Awake, CN II-XII Intact, Oriented x3, Reflexes Normal. absent: Motor Sensory Deficit - Psychiatric Exam Psychiatric exam: Normal Mood - Skin Skin Exam: Dry, Intact Assessment and Plan - Assessment and Plan (Free Text) Assessment: 78 year old female with past medical history of CHF with last EF of 30-35%, aort ic valve replacement, CKD, atrial fibrillation on coumadin, CVA, hypertension, hyperlipidemia, AAA, and COPA presented with lumbar back radiating into right thigh for 2 weeks Plan: Lumbar pain 2/2 to spondylothesis vs. compression fracture -Lumbar CT: no acute fracture or subluxation, osseous demineralization, scoliosis, age indeterminate L3 compression fracture deformity, posterior disc bulge at L5-S1 -Follow up Vitamin D for evaluation of vitamin D deficiency and managing dose of cholecalciferol -Continue with physical therapy for reconditioning -Will continue morphine PRN for pain -Follow up Lumbar MRI for further evaluation -Will consider consulting IR for kyphoplasty Congestive Heart Failure (EF: 35-40%) -Continue with coreg 3.125 mg BID, digoxin 0.125 mg MWF, diltiazem 180 mg daily, cozaar 25 mg daily, and lasix 40 mg PO daily Vitamin B12 deficiency -Follow up B12 level -Continue with cyanocobalamin 1000 mcg daily Vitamin D Deficiency -Follow up Vitamin D level -Continue with cholecalciferol Hyperlipidemia -Continue with lipitor 40 mg daily Hypertension -Continue with coreg, digoxin, cardizem, and losartan CAD -Continue with aspirin 81 mg daily, lipitor 40 mg daily, coreg 3.125 BID, digoxin 0.125 mg daily, cardizem 180 mg daily, losartan 25 mg daily History of CVA -Continue with aspirin and lipitor Anxiety -Continue with home xanax BID GI prophylaxis: protonix 40 mg daily DVT prophylaxis: heparin 5000 U Q12 Patient plan discussed with attending. <Bennie Lindsay - Last Filed: 06/19/18 15:03> Objective - Vital Signs/Intake and Output Vital Signs (last 24 hours): Temp Pulse Resp BP Pulse Ox 97.5 F L 80 18 148/92 H 96 06/19/18 06:00 06/19/18 09:33 06/19/18 06:00 06/19/18 09:34 06/19/18 06:00 - Medications Medications: Current Medications Albuterol/Ipratropium (Duoneb 3 Mg/0.5 Mg (3 Ml) Ud) 3 ml IH Q2H PRN PRN Reason: Shortness of Breath Alprazolam (Xanax) 0.25 mg PO BID [facility]; Protocol Stop: 06/25/18 22:31 Last Admin: 06/19/18 09:32 Dose: 0.25 mg Aspirin (Aspirin Chewable) 81 mg PO DAILY [facility] Last Admin: 06/19/18 09:32 Dose: 81 mg Atorvastatin Calcium (Lipitor) 40 mg PO DAILY [facility] Last Admin: 06/19/18 09:33 Dose: 40 mg Carvedilol (Coreg) 3.125 mg PO BID [facility] Last Admin: 06/19/18 09:33 Dose: 3.125 mg Cholecalciferol (Vitamin D) 1,000 intlu PO DAILY [facility] Last Admin: 06/19/18 09:32 Dose: 1,000 intlu Cyanocobalamin (Vitamin B12 1000 Mcg Tab) 1,000 mcg PO DAILY [facility] Last Admin: 06/19/18 09:32 Dose: 1,000 mcg Digoxin (Digoxin) 0.125 mg PO [facility] Diltiazem HCl (Cardizem Cd) 180 mg PO DAILY [facility] Last Admin: 06/19/18 09:33 Dose: 180 mg Docusate Sodium (Colace) 100 mg PO DAILY [facility] Last Admin: 06/19/18 09:52 Dose: 100 mg Furosemide (Lasix) 40 mg PO DAILY [facility] Last Admin: 06/19/18 09:34 Dose: 40 mg Heparin Sodium (Porcine) (Heparin) 5,000 units SC Q12 [facility]; Protocol Last Admin: 06/19/18 09:46 Dose: Not Given Losartan Potassium (Cozaar) 25 mg PO DAILY [facility] Last Admin: 06/19/18 09:33 Dose: 25 mg Morphine Sulfate (Morphine) 1 mg IVP Q4H PRN PRN Reason: Pain, severe (8-10) Last Admin: 06/19/18 09:30 Dose: 1 mg Pantoprazole Sodium (Protonix Inj) 40 mg IVP DAILY [facility] Last Admin: 06/19/18 09:30 Dose: 40 mg - Labs Labs: 06/18/18 18:35 06/18/18 18:35 PT 42.9 SECONDS (9.4-12.5) H 06/19/18 07:30 INR 3.78 H* 06/19/18 07:30 APTT 54.9 Seconds (26.9-38.3) H 06/19/18 07:30 Attending/Attestation - Attestation I have personally seen and examined this patient.: Yes I have fully participated in the care of the patient.: Yes I have reviewed all pertinent clinical information, including history, physical exam and plan: Yes Notes (Text): 06/19/18 15:00 78 year old female with past medical history of CHF, aortic valve replacement, CKD, afib on coumadin, CVA, COPD and hypertension who presented with complaint of back pain and difficulty with ambulation for past 1-[address] lumbar spine showed age indeterminate L3 compression fracture deformity and posterior disc bulge at L5-S1. She is on morphine prn. PT evaluation was requested. Patient lives alone and may need rehab or home services upon discharge. Coumadin is currently on hold for supratherapeutic INR which is coming down. Bennie Lindsay MD Hospitalist.
[2018-06-20 07:48] LABS: BASO # 0.01 K/mm3 (0.0-2.0); BASO % 0.2 % (0.0-3.0); EOS # 0.2 (0.0-0.7); EOS % 3.4 % (1.5-5.0); HEMOGLOBIN 11.4 g/dL (12.0-16.0); LYMPH # 1.3 (1.2-3.4); LYMPH % 24.9 % (22.0-35.0); MEAN CELL VOLUME 84.5 fl (80.0-105.0); MEAN CORPUSCULAR HEMOGLOBIN 25.2 pg (25.0-35.0); MEAN CORPUSCULAR HGB CONC 29.8 g/dl (31.0-37.0); MEAN PLATELET VOLUME 10.3 fl (7.0-11.0); MONO # 0.5 (0.1-0.6); MONO % 9.5 % (1.0-6.0); RBC 4.52 10^6/uL (3.5-6.1); WHITE BLOOD COUNT 5.1 10^3/uL (4.5-11.0)
--- NOTE | 2018-06-20 07:57 | CP.PCM.PN ---
<Gm Saucedo - Last Filed: 06/20/18 11:12> Subjective - Date & Time of Evaluation Date of Evaluation: 06/20/18 Time of Evaluation: 11:12 - Subjective Subjective: Gm Saucedo, PGY-1, Internal Medicine Progress Note for Dr. Lindsay Patient was seen and evaluated at bedside. Patient had no acute overnight events. Patient continues to report back pain but reports that morphine improves her pain. 12-point ROS was unremarkable except for what was mentioned above. Objective - Vital Signs/Intake and Output Vital Signs (last 24 hours): Temp Pulse Resp BP Pulse Ox 98 F 70 18 150/82 95 06/20/18 06:00 06/20/18 06:00 06/20/18 06:00 06/20/18 06:00 06/19/18 22:00 - Medications Medications: Current Medications Albuterol/Ipratropium (Duoneb 3 Mg/0.5 Mg (3 Ml) Ud) 3 ml IH Q2H PRN PRN Reason: Shortness of Breath Alprazolam (Xanax) 0.25 mg PO BID [facility]; Protocol Stop: 06/25/18 22:31 Last Admin: 06/19/18 18:30 Dose: 0.25 mg Aspirin (Aspirin Chewable) 81 mg PO DAILY [facility] Last Admin: 06/19/18 09:32 Dose: 81 mg Atorvastatin Calcium (Lipitor) 40 mg PO DAILY [facility] Last Admin: 06/19/18 09:33 Dose: 40 mg Carvedilol (Coreg) 3.125 mg PO BID [facility] Last Admin: 06/19/18 18:30 Dose: 3.125 mg Cholecalciferol (Vitamin D) 1,000 intlu PO DAILY [facility] Last Admin: 06/19/18 09:32 Dose: 1,000 intlu Cyanocobalamin (Vitamin B12 1000 Mcg Tab) 1,000 mcg PO DAILY [facility] Last Admin: 06/19/18 09:32 Dose: 1,000 mcg Digoxin (Digoxin) 0.125 mg PO [facility] Diltiazem HCl (Cardizem Cd) 180 mg PO DAILY [facility] Last Admin: 06/19/18 09:33 Dose: 180 mg Docusate Sodium (Colace) 100 mg PO DAILY [facility] Last Admin: 06/19/18 09:52 Dose: 100 mg Furosemide (Lasix) 40 mg PO DAILY [facility] Last Admin: 06/19/18 09:34 Dose: 40 mg Heparin Sodium (Porcine) (Heparin) 5,000 units SC Q12 [facility]; Protocol Last Admin: 06/19/18 21:36 Dose: Not Given Losartan Potassium (Cozaar) 25 mg PO DAILY [facility] Last Admin: 06/19/18 09:33 Dose: 25 mg Morphine Sulfate (Morphine) 1 mg IVP Q4H PRN PRN Reason: Pain, severe (8-10) Last Admin: 06/19/18 22:43 Dose: 1 mg Pantoprazole Sodium (Protonix Inj) 40 mg IVP DAILY [facility] Last Admin: 06/19/18 09:30 Dose: 40 mg - Labs Labs: 06/20/18 07:00 06/18/18 18:35 PT 42.9 SECONDS (9.4-12.5) H 06/19/18 07:30 INR 3.78 H* 06/19/18 07:30 APTT 54.9 Seconds (26.9-38.3) H 06/19/18 07:30 - Constitutional Appears: Well, Non-toxic, No Acute Distress - Head Exam Head Exam: ATRAUMATIC, NORMAL INSPECTION, NORMOCEPHALIC - Eye Exam Eye Exam: EOMI, PERRL - Respiratory Exam Respiratory Exam: Clear to Ausculation Bilateral, NORMAL BREATHING PATTERN - Cardiovascular Exam Cardiovascular Exam: REGULAR RHYTHM, RRR - GI/Abdominal Exam GI & Abdominal Exam: Soft, Normal Bowel Sounds. absent: Tenderness - Extremities Exam Extremities Exam: Full ROM, Pedal Edema (+2) - Neurological Exam Neurological Exam: Alert, Awake, CN II-XII Intact, Oriented x3 - Skin Skin Exam: Dry, Intact Assessment and Plan - Assessment and Plan (Free Text) Assessment: 78 year old female with past medical history of CHF with last EF of 30-35%, aortic valve replacement, CKD, atrial fibrillation on coumadin, CVA, hypertension, hyperlipidemia, AAA, and COPA presented with lumbar back radiating into right thigh for 2 weeks Plan: Lumbar pain 2/2 to spondylothesis vs. compression fracture -Lumbar CT: no acute fracture or subluxation, osseous demineralization, scoliosis, age indeterminate L3 compression fracture deformity, posterior disc bulge at L5-S1 -Vitamin D: 31.6 -Continue with physical therapy for reconditioning -Will continue morphine PRN for pain and start lidoderm patch -Will consider consulting IR for kyphoplasty Congestive Heart Failure (EF: 35-40%) -Continue with coreg 3.125 mg BID, digoxin 0.125 mg MWF, diltiazem 180 mg daily, cozaar 25 mg daily, and lasix 40 mg PO daily Supratherapeutic INR -Now resolved -Within range of 2.5 to 3.5 for valvular disease -Will reduce the range of warfarin to 2 mg in light of possible procedure in the future. Vitamin B12 deficiency -B12: 717 -Continue with cyanocobalamin 1000 mcg daily CKD stage IIIB -Patient is currently at baseline creatinine. -No need for acute renal replacement therapy. Vitamin D Deficiency -Vitamin D: 31.6 -Continue with cholecalciferol Hyperlipidemia -Continue with lipitor 40 mg daily Hypertension -Continue with coreg, digoxin, cardizem, and losartan CAD -Continue with aspirin 81 mg daily, lipitor 40 mg daily, coreg 3.125 BID, digoxin 0.125 mg daily, cardizem 180 mg daily, losartan 25 mg daily History of CVA -Continue with aspirin and lipitor Anxiety -Continue with home xanax BID GI prophylaxis: protonix 40 mg daily DVT prophylaxis: heparin 5000 U Q12 Disposition: At this time, PT recommends TCU. Will continue to follow up physical therapy recs. Patient was able to walk 30 ft today with rolling walker. Patient plan discussed with attending. <Bennie Lindsay - Last Filed: 06/20/18 13:07> Objective - Vital Signs/Intake and Output Vital Signs (last 24 hours): Temp Pulse Resp BP Pulse Ox 98 F 70 18 150/82 95 06/20/18 06:00 06/20/18 10:19 06/20/18 06:00 06/20/18 10:19 06/19/18 22:00 - Medications Medications: Current Medications Albuterol/Ipratropium (Duoneb 3 Mg/0.5 Mg (3 Ml) Ud) 3 ml IH Q2H PRN PRN Reason: Shortness of Breath Alprazolam (Xanax) 0.25 mg PO BID [facility]; Protocol Stop: 06/25/18 22:31 Last Admin: 06/20/18 10:17 Dose: 0.25 mg Aspirin (Aspirin Chewable) 81 mg PO DAILY [facility] Last Admin: 06/20/18 10:16 Dose: 81 mg Atorvastatin Calcium (Lipitor) 40 mg PO DAILY [facility] Last Admin: 06/20/18 10:17 Dose: 40 mg Carvedilol (Coreg) 3.125 mg PO BID [facility] Last Admin: 06/20/18 10:19 Dose: 3.125 mg Cholecalciferol (Vitamin D) 1,000 intlu PO DAILY [facility] Last Admin: 06/20/18 10:18 Dose: 1,000 intlu Cyanocobalamin (Vitamin B12 1000 Mcg Tab) 1,000 mcg PO DAILY [facility] Last Admin: 06/20/18 10:18 Dose: 1,000 mcg Digoxin (Digoxin) 0.125 mg PO [facility] Diltiazem HCl (Cardizem Cd) 180 mg PO DAILY [facility] Last Admin: 06/20/18 10:18 Dose: 180 mg Docusate Sodium (Colace) 100 mg PO DAILY [facility] Furosemide (Lasix) 40 mg PO DAILY [facility] Last Admin: 06/20/18 10:19 Dose: 40 mg Heparin Sodium (Porcine) (Heparin) 5,000 units SC Q12 [facility]; Protocol Last Admin: 06/19/18 21:36 Dose: Not Given Lidocaine (Lidoderm) 1 ea TD DAILY [facility] Last Admin: 06/20/18 11:20 Dose: 1 ea Losartan Potassium (Cozaar) 25 mg PO DAILY [facility] Last Admin: 06/20/18 10:19 Dose: 25 mg Morphine Sulfate (Morphine) 1 mg IVP Q4H PRN PRN Reason: Pain, severe (8-10) Last Admin: 06/19/18 22:43 Dose: 1 mg Pantoprazole Sodium (Protonix Inj) 40 mg IVP DAILY [facility] Last Admin: 06/20/18 10:18 Dose: 40 mg - Labs Labs: 06/20/18 07:00 06/20/18 07:00 PT 34.5 SECONDS (9.4-12.5) H 06/20/18 07:00 INR 3.05 06/20/18 07:00 APTT 54.9 Seconds (26.9-38.3) H 06/19/18 07:30 Attending/Attestation - Attestation I have personally seen and examined this patient.: Yes I have fully participated in the care of the patient.: Yes I have reviewed all pertinent clinical information, including history, physical exam and plan: Yes Notes (Text): 06/20/18 13:05 78 year old female with past medical history of CHF, aortic valve replacement, CKD, afib on coumadin, CVA, COPD and hypertension who presented with complaint of back pain and difficulty with ambulation for past 1-[address] lumbar spine showed age indeterminate L3 compression fracture deformity and posterior disc bulge at L5-S1. She is on morphine prn. Will add lidoderm patch and check for response. Consider IR evaluation for possible kyphoplasty tomorrow. PT evaluation was appreciated who recommended TCU. Coumadin was initially held for supratherapeutic INR which is coming down. Bennie Lindsay MD Hospitalist.
[2018-06-20 08:01] LABS: ALB/GLOB RATIO 1.1 (1.1-1.8); ALBUMIN 3.2 g/dL (3.0-4.8); CALCIUM 8.8 mg/dL (8.4-10.5)
[2018-06-20 08:13] LABS: INR 3.05; PROTHROMBIN TIME 34.5 SECONDS (9.4-12.5)
[2018-06-20] MEDS: Cholecalciferol 1,000 INTLU TAB PO SCH (10:18)
[2018-06-20] MEDS: diltiaZEM 180 mg/24 Hours CD Cap PO SCH (10:18)
[2018-06-20] MEDS: Lidocaine 5% Patch TD SCH (11:20)
[2018-06-21 07:07] LABS: BASO # 0.01 K/mm3 (0.0-2.0); BASO % 0.2 % (0.0-3.0); EOS # 0.2 (0.0-0.7); EOS % 4.1 % (1.5-5.0); HEMOGLOBIN 11.6 g/dL (12.0-16.0); LYMPH # 1.3 (1.2-3.4); LYMPH % 29.3 % (22.0-35.0); MEAN CELL VOLUME 83.3 fl (80.0-105.0); MEAN CORPUSCULAR HEMOGLOBIN 25.5 pg (25.0-35.0); MEAN CORPUSCULAR HGB CONC 30.6 g/dl (31.0-37.0); MEAN PLATELET VOLUME 10.6 fl (7.0-11.0); MONO # 0.5 (0.1-0.6); MONO % 10.5 % (1.0-6.0); RBC 4.55 10^6/uL (3.5-6.1); RED CELL DISTRIBUTION WIDTH 16.8 % (11.5-14.5); WHITE BLOOD COUNT 4.4 10^3/uL (4.5-11.0)
[2018-06-21 07:11] LABS: INR 1.9; PROTHROMBIN TIME 21.5 SECONDS (9.4-12.5)
[2018-06-21 08:08] LABS: ALB/GLOB RATIO 1.1 (1.1-1.8); ALBUMIN 3.2 g/dL (3.0-4.8); ALT/SGPT < 6 U/L (7-56); AST/SGOT 23 U/L (14-36); BLOOD UREA NITROGEN 22 mg/dL (7-21); CALCIUM 9.1 mg/dL (8.4-10.5); GFR NON-AFRICAN AMERICAN 39
[2018-06-21] MEDS: Digoxin 125 mcg (0.125 mg) Tab PO SCH (09:39)
[2018-06-21] MEDS: Pantoprazole 40 mg EC Tab PO SCH (09:40)
[2018-06-21] MEDS: Lidocaine 5% Patch TD SCH (09:40)
[2018-06-21] MEDS: diltiaZEM 180 mg/24 Hours CD Cap PO SCH (09:43)
[2018-06-21] MEDS: Cholecalciferol 1,000 INTLU TAB PO SCH (09:45)
[2018-06-21] MEDS: POLYETHYLENE GLYCOL 3350 17 GM/Dose PACKET PO SCH ×3 (09:53→18:15)
[2018-06-21] MEDS ORDERED: Oxycodone/Acetaminophen 5/325 mg Tab PO PRN (11:39)
--- NOTE | 2018-06-21 13:39 | CP.PCM.PN ---
<Gm Saucedo - Last Filed: 06/21/18 13:36> Subjective - Date & Time of Evaluation Date of Evaluation: 06/21/18 Time of Evaluation: 13:36 - Subjective Subjective: Gm Saucedo, PGY-1, Internal Medicine Progress Note for Dr. Almeida Patient seen and evaluated at bedside. Patient had no acute overnight events. Patient reported continued back pain at 9/10 however which is worse with elevation of her left leg and walking. Patient has taken tylenol for the pain but has not taken the PRN morphine. Patient reports that she will talk to Dr. Hook for conversation regarding kyphoplasty today. Patient has not had a bowel movement this admission. Patient has no other acute complaints at this time. 12- point ROS was unremarkable except for what was mentioned above. Objective - Vital Signs/Intake and Output Vital Signs (last 24 hours): Temp Pulse Resp BP Pulse Ox 98.3 F 66 18 138/72 96 06/21/18 06:00 06/21/18 06:00 06/21/18 06:00 06/21/18 09:43 06/21/18 06:00 Intake and Output: 06/21/18 06/21/18 06:59 18:59 Intake Total 240 Balance 240 - Medications Medications: Current Medications Acetaminophen (Tylenol 325mg Tab) 650 mg PO Q6H PRN PRN Reason: Pain, moderate (4-7) Albuterol/Ipratropium (Duoneb 3 Mg/0.5 Mg (3 Ml) Ud) 3 ml IH Q2H PRN PRN Reason: Shortness of Breath Alprazolam (Xanax) 0.25 mg PO BID [facility]; Protocol Stop: 06/25/18 22:31 Last Admin: 06/21/18 09:40 Dose: 0.25 mg Aspirin (Aspirin Chewable) 81 mg PO DAILY [facility] Last Admin: 06/21/18 09:40 Dose: 81 mg Atorvastatin Calcium (Lipitor) 40 mg PO DAILY [facility] Last Admin: 06/21/18 09:40 Dose: 40 mg Carvedilol (Coreg) 3.125 mg PO BID [facility] Last Admin: 06/21/18 09:39 Dose: 3.125 mg Cholecalciferol (Vitamin D) 1,000 intlu PO DAILY [facility] Last Admin: 06/21/18 09:45 Dose: 1,000 intlu Cyanocobalamin (Vitamin B12 1000 Mcg Tab) 1,000 mcg PO DAILY [facility] Last Admin: 06/21/18 09:44 Dose: 1,000 mcg Digoxin (Digoxin) 0.125 mg PO MWF [facility] Last Admin: 06/21/18 09:39 Dose: 0.125 mg Diltiazem HCl (Cardizem Cd) 180 mg PO DAILY [facility] Last Admin: 06/21/18 09:43 Dose: 180 mg Docusate Sodium (Colace) 100 mg PO DAILY [facility] Last Admin: 06/21/18 09:39 Dose: 100 mg Furosemide (Lasix) 40 mg PO DAILY [facility] Last Admin: 06/21/18 09:39 Dose: 40 mg Heparin Sodium (Porcine) (Heparin) 5,000 units SC Q12 [facility]; Protocol Last Admin: 06/21/18 09:41 Dose: Not Given Lidocaine (Lidoderm) 1 ea TD DAILY [facility] Last Admin: 06/21/18 09:40 Dose: 1 ea Losartan Potassium (Cozaar) 25 mg PO DAILY [facility] Last Admin: 06/21/18 09:40 Dose: 25 mg Oxycodone/Acetaminophen (Percocet 5/325 Mg Tab) 1 tab PO Q6H PRN PRN Reason: Pain, severe (8-10) Stop: 06/24/18 11:40 Pantoprazole Sodium (Protonix Ec Tab) 40 mg PO 0600 [facility] Last Admin: 06/21/18 09:40 Dose: 40 mg Polyethylene Glycol (Miralax) 17 gm PO BID [facility] Last Admin: 06/21/18 09:53 Dose: 17 gm - Labs Labs: 06/21/18 06:40 06/21/18 06:40 PT 21.5 SECONDS (9.4-12.5) H 06/21/18 06:40 INR 1.90 06/21/18 06:40 APTT 54.9 Seconds (26.9-38.3) H 06/19/18 07:30 - Constitutional Appears: Well, Non-toxic, No Acute Distress - Head Exam Head Exam: ATRAUMATIC, NORMAL INSPECTION, NORMOCEPHALIC - Eye Exam Eye Exam: EOMI, PERRL - ENT Exam ENT Exam: Mucous Membranes Moist - Neck Exam Neck Exam: Full ROM - Respiratory Exam Respiratory Exam: Clear to Ausculation Bilateral, NORMAL BREATHING PATTERN - Cardiovascular Exam Cardiovascular Exam: REGULAR RHYTHM, RRR, +S1, +S2 Additional comments: systolic ejection murmur at RUSB - GI/Abdominal Exam GI & Abdominal Exam: Soft, Normal Bowel Sounds. absent: Tenderness - Extremities Exam Extremities Exam: Full ROM Additional comments: darkened lower extremities - Back Exam Back Exam: tenderness - Neurological Exam Neurological Exam: Alert, Awake, CN II-XII Intact, Oriented x3 - Skin Additional comments: chronic darkened bilateral lower extremities Assessment and Plan - Assessment and Plan (Free Text) Assessment: 78 year old female with past medical history of CHF with last EF of 30-35%, aortic valve replacement, CKD, atrial fibrillation on coumadin, CVA, hypertension, hyperlipidemia, AAA, and COPA presented with lumbar back radiating into right thigh for 2 weeks Plan: Lumbar pain 2/2 to spondylothesis vs. compression fracture -Lumbar CT: no acute fracture or subluxation, osseous demineralization, scoliosis, age indeterminate L3 compression fracture deformity, posterior disc bulge at L5-S1 -Vitamin D: 31.6 -Continue with physical therapy for reconditioning -Will start tylenol PRN, percocet PRN for pain and continue lidoderm patch -IR consulted for conversations about kyphoplasty and patient was agreeable to talk to Dr. Hook. Congestive Heart Failure (EF: 35-40%) -Clinically improved -Continue with coreg 3.125 mg BID, digoxin 0.125 mg MWF, diltiazem 180 mg daily, cozaar 25 mg daily, and lasix 40 mg PO daily Constipation -Started polyethylene glycol 17 gm BID as patient is also on narcotics at this time. Supratherapeutic INR -Now subtherapeuetic -Warfarin has been stopped at this time until conversation about kyphoplasty occurs. In addition, will follow up with Dr. Link about if the patient's aortic valve is metal to calculate therapeutic INR range. Vitamin B12 deficiency -B12: 717 -Continue with cyanocobalamin 1000 mcg daily CKD stage IIIB -Patient is currently at baseline creatinine. -No need for acute renal replacement therapy. Vitamin D Deficiency -Vitamin D: 31.6 -Continue with cholecalciferol Hyperlipidemia -Continue with lipitor 40 mg daily Hypertension -Continue with coreg, digoxin, cardizem, and losartan CAD -Continue with aspirin 81 mg daily, lipitor 40 mg daily, coreg 3.125 BID, digoxin 0.125 mg daily, cardizem 180 mg daily, losartan 25 mg daily History of CVA -Continue with aspirin and lipitor Anxiety -Continue with home xanax BID GI prophylaxis: protonix 40 mg daily DVT prophylaxis: heparin 5000 U Q12 Disposition: At this time, PT recommends TCU. Will continue to follow up physical therapy recs. Patient plan discussed with attending. <Vu Almeida - Last Filed: 06/23/18 14:41> Objective - Vital Signs/Intake and Output Vital Signs (last 24 hours): Temp Pulse Resp BP Pulse Ox 98.1 F 72 18 141/73 95 06/23/18 06:00 06/23/18 09:29 06/23/18 06:00 06/23/18 12:12 06/23/18 06:00 Intake and Output: 06/23/18 06/23/18 06:59 18:59 Intake Total 540 420 Balance 540 420 - Medications Medications: Current Medications Acetaminophen (Tylenol 325mg Tab) 650 mg PO Q6H PRN PRN Reason: Pain, moderate (4-7) Last Admin: 06/23/18 09:24 Dose: 650 mg Albuterol/Ipratropium (Duoneb 3 Mg/0.5 Mg (3 Ml) Ud) 3 ml IH Q2H PRN PRN Reason: Shortness of Breath Alprazolam (Xanax) 0.25 mg PO BID [facility]; Protocol Stop: 06/25/18 22:31 Last Admin: 06/23/18 09:27 Dose: 0.25 mg Aspirin (Aspirin Chewable) 81 mg PO DAILY [facility] Last Admin: 06/23/18 09:25 Dose: 81 mg Atorvastatin Calcium (Lipitor) 40 mg PO DAILY [facility] Last Admin: 06/23/18 09:25 Dose: 40 mg Carvedilol (Coreg) 3.125 mg PO BID [facility] Last Admin: 06/23/18 09:28 Dose: 3.125 mg Cholecalciferol (Vitamin D) 1,000 intlu PO DAILY [facility] Last Admin: 06/23/18 09:25 Dose: 1,000 intlu Cyanocobalamin (Vitamin B12 1000 Mcg Tab) 1,000 mcg PO DAILY [facility] Last Admin: 06/23/18 09:25 Dose: 1,000 mcg Digoxin (Digoxin) 0.125 mg PO MWF [facility] Last Admin: 06/23/18 09:29 Dose: 0.125 mg Diltiazem HCl (Cardizem Cd) 180 mg PO DAILY [facility] Last Admin: 06/23/18 09:29 Dose: 180 mg Furosemide (Lasix) 40 mg PO DAILY [facility] Last Admin: 06/23/18 09:28 Dose: 40 mg Heparin Sodium (Porcine) (Heparin) 5,000 units SC Q12 [facility]; Protocol Last Admin: 06/23/18 09:26 Dose: 5,000 units Lidocaine (Lidoderm) 1 ea TD DAILY [facility] Last Admin: 06/23/18 09:27 Dose: 1 ea Losartan Potassium (Cozaar) 25 mg PO DAILY [facility] Last Admin: 06/23/18 09:28 Dose: 25 mg Oxycodone/Acetaminophen (Percocet 5/325 Mg Tab) 1 tab PO Q6H PRN PRN Reason: Pain, severe (8-10) Stop: 06/24/18 11:40 Last Admin: 06/23/18 05:31 Dose: 1 tab Pantoprazole Sodium (Protonix Ec Tab) 40 mg PO 0600 [facility] Last Admin: 06/23/18 05:32 Dose: 40 mg Polyethylene Glycol (Miralax) 17 gm PO BID [facility] Last Admin: 06/23/18 09:30 Dose: Not Given Warfarin Sodium (Coumadin) 4 mg PO DAILY [facility] Last Admin: 06/23/18 09:25 Dose: 4 mg - Labs Labs: 06/23/18 06:40 06/23/18 06:40 PT 16.1 SECONDS (9.4-12.5) H 06/23/18 06:40 INR 1.42 06/23/18 06:40 APTT 54.9 Seconds (26.9-38.3) H 06/19/18 07:30 Attending/Attestation - Attestation I have personally seen and examined this patient.: Yes I have fully participated in the care of the patient.: Yes I have reviewed all pertinent clinical information, including history, physical exam and plan: Yes Notes (Text): 06/23/18 14:41 Medical record note made by the resident after discussion with my direction and input after the patient was personally seen and examined by me. I have reviewed the chart and agree that the record accurately reflects by personal performance of the history, physical exam, data review, and medical decision-making, in the course for the patient. I have also personally directed the plan of care.
--- NOTE | 2018-06-21 20:25 | CON ---
DATE OF CONSULTATION: 06/21/2018 CHIEF COMPLAINT/HISTORY OF PRESENT ILLNESS: This is an 78-year-old female, who was admitted with severe lumbar back pain. She states the pain started 1-2 weeks ago. There was no precipitating trauma. She does not have a history of chronic back pain. The pain is located in the mid lumbar region and extends into the buttocks. She denies any change in bowel or bladder habits. No severe lower extremity weakness. She has no history of cancer. She has had no recent fevers, sweats or chills. PAST MEDICAL HISTORY: Significant for an aortic valve replacement and CHF. She has chronic kidney disease and is on Coumadin for atrial fibrillation SOCIAL HISTORY: She is a smoker with COPD. ALLERGIES: SHE IS ALLERGIC TO SULFA. ASSESSMENT: I reviewed her imaging. This revealed a mild L3 compression fracture, age indeterminate on x-rays and CT scan. She also has a severe mid thoracic compression fracture. This is old/asymptomatic at the current time. RECOMMENDATIONS: I had a long conversation with Ms. Lakhani concerning her pain. She lives alone and is somewhat debilitated by her current situation. I will obtain an MRI of the lumbar spine to evaluate the L3 fracture for edema. We spoke about the possibility of an L3 kyphoplasty. Hank Hook MD MTDD
[2018-06-22] MEDS: Pantoprazole 40 mg EC Tab PO SCH (05:17)
[2018-06-22 06:03] VITALS: O2SAT 95
[2018-06-22 07:05] LABS: BASO # 0.01 K/mm3 (0.0-2.0); BASO % 0.3 % (0.0-3.0); EOS # 0.2 (0.0-0.7); EOS % 5.2 % (1.5-5.0); HEMOGLOBIN 11.5 g/dL (12.0-16.0); LYMPH % 25.1 % (22.0-35.0); MEAN CELL VOLUME 83.4 fl (80.0-105.0); MEAN CORPUSCULAR HEMOGLOBIN 25.7 pg (25.0-35.0); MEAN CORPUSCULAR HGB CONC 30.8 g/dl (31.0-37.0); MEAN PLATELET VOLUME 10.3 fl (7.0-11.0); MONO # 0.4 (0.1-0.6); MONO % 9.3 % (1.0-6.0); RBC 4.47 10^6/uL (3.5-6.1); WHITE BLOOD COUNT 3.9 10^3/uL (4.5-11.0)
[2018-06-22 07:24] LABS: ALB/GLOB RATIO 1.1 (1.1-1.8); ALBUMIN 3.5 g/dL (3.0-4.8); CALCIUM 9.2 mg/dL (8.4-10.5)
[2018-06-22 07:32] VITALS: RESP 18
--- NOTE | 2018-06-22 07:46 | CP.PCM.PN ---
<Gm Saucedo - Last Filed: 06/22/18 13:29> Subjective - Date & Time of Evaluation Date of Evaluation: 06/22/18 Time of Evaluation: 07:40 - Subjective Subjective: Gm Saucedo, PGY-1, Internal Medicine Progress Note for Dr. Almeida Patient was seen and evaluated at bedside. Patient had no acute overnight events. Patient reports continued lumbar pain radiating to bilateral lower extremities. Patient has no other complaints at this time. 12-point ROS was unremarkable except for what was mentioned above. Objective - Vital Signs/Intake and Output Vital Signs (last 24 hours): Temp Pulse Resp BP Pulse Ox 98 F 72 18 139/76 95 06/22/18 06:00 06/22/18 06:00 06/22/18 06:00 06/22/18 06:00 06/22/18 06:00 Intake and Output: 06/22/18 06/22/18 06:59 18:59 Intake Total 860 Balance 860 - Medications Medications: Current Medications Acetaminophen (Tylenol 325mg Tab) 650 mg PO Q6H PRN PRN Reason: Pain, moderate (4-7) Last Admin: 06/22/18 00:16 Dose: 650 mg Albuterol/Ipratropium (Duoneb 3 Mg/0.5 Mg (3 Ml) Ud) 3 ml IH Q2H PRN PRN Reason: Shortness of Breath Alprazolam (Xanax) 0.25 mg PO BID [facility]; Protocol Stop: 06/25/18 22:31 Last Admin: 06/21/18 09:40 Dose: 0.25 mg Aspirin (Aspirin Chewable) 81 mg PO DAILY [facility] Last Admin: 06/21/18 09:40 Dose: 81 mg Atorvastatin Calcium (Lipitor) 40 mg PO DAILY [facility] Last Admin: 06/21/18 09:40 Dose: 40 mg Carvedilol (Coreg) 3.125 mg PO BID [facility] Last Admin: 06/21/18 18:11 Dose: 3.125 mg Cholecalciferol (Vitamin D) 1,000 intlu PO DAILY [facility] Last Admin: 06/21/18 09:45 Dose: 1,000 intlu Cyanocobalamin (Vitamin B12 1000 Mcg Tab) 1,000 mcg PO DAILY [facility] Last Admin: 06/21/18 09:44 Dose: 1,000 mcg Digoxin (Digoxin) 0.125 mg PO MWF [facility] Last Admin: 06/21/18 09:39 Dose: 0.125 mg Diltiazem HCl (Cardizem Cd) 180 mg PO DAILY [facility] Last Admin: 06/21/18 09:43 Dose: 180 mg Furosemide (Lasix) 40 mg PO DAILY [facility] Last Admin: 06/21/18 09:39 Dose: 40 mg Heparin Sodium (Porcine) (Heparin) 5,000 units SC Q12 [facility]; Protocol Last Admin: 06/21/18 21:27 Dose: 5,000 units Lidocaine (Lidoderm) 1 ea TD DAILY [facility] Last Admin: 06/21/18 09:40 Dose: 1 ea Losartan Potassium (Cozaar) 25 mg PO DAILY [facility] Last Admin: 06/21/18 09:40 Dose: 25 mg Oxycodone/Acetaminophen (Percocet 5/325 Mg Tab) 1 tab PO Q6H PRN PRN Reason: Pain, severe (8-10) Stop: 06/24/18 11:40 Pantoprazole Sodium (Protonix Ec Tab) 40 mg PO 0600 [facility] Last Admin: 06/22/18 05:17 Dose: 40 mg Polyethylene Glycol (Miralax) 17 gm PO BID [facility] Last Admin: 06/21/18 18:15 Dose: Not Given - Labs Labs: 06/22/18 06:40 06/22/18 06:40 PT 21.5 SECONDS (9.4-12.5) H 06/21/18 06:40 INR 1.90 06/21/18 06:40 APTT 54.9 Seconds (26.9-38.3) H 06/19/18 07:30 - Constitutional Appears: Well, Non-toxic, No Acute Distress - Head Exam Head Exam: ATRAUMATIC, NORMAL INSPECTION, NORMOCEPHALIC - Eye Exam Eye Exam: EOMI, PERRL - ENT Exam ENT Exam: Mucous Membranes Moist - Respiratory Exam Respiratory Exam: Clear to Ausculation Bilateral, NORMAL BREATHING PATTERN - Cardiovascular Exam Cardiovascular Exam: Irregular Rhythm, Murmur (systolic ejection murmur at RUSB) - GI/Abdominal Exam GI & Abdominal Exam: Soft, Normal Bowel Sounds. absent: Tenderness - Extremities Exam Extremities Exam: Full ROM, Pedal Edema (+1) - Back Exam Back Exam: tenderness - Neurological Exam Neurological Exam: Alert, Awake, CN II-XII Intact, Oriented x3 - Skin Skin Exam: Dry, Intact Assessment and Plan - Assessment and Plan (Free Text) Assessment: 78 year old female with past medical history of CHF with last EF of 30-35%, aort ic valve replacement, CKD, atrial fibrillation on coumadin, CVA, hypertension, hyperlipidemia, AAA, and COPA presented with lumbar back radiating into right thigh for 2 weeks Plan: Lumbar pain 2/2 to spondylothesis vs. compression fracture -Lumbar CT 06/18: no acute fracture or subluxation, osseous demineralization, scoliosis, age indeterminate L3 compression fracture deformity, posterior disc bulge at L5-S1 -Lumbar MRI 06/22: extensive marrow edema in the sacrum especially in the sacral ala bilaterally. this is consistent with sacral compression fracture. no evidence of neoplasm. chronic L3 compression fracture and L5-S1 disc herniation appreciated -Vitamin D: 31.6 -Continue with physical therapy for reconditioning -Will continue tylenol PRN, percocet PRN, and lidoderm patch -There are no plans for kyphoplasty by IR Congestive Heart Failure (EF: 35-40%) -Clinically improved -Continue with coreg 3.125 mg BID, digoxin 0.125 mg MWF, diltiazem 180 mg daily, cozaar 25 mg daily, and lasix 40 mg PO daily Constipation -Continue polyethylene glycol 17 gm BID as patient is also on narcotics at this time. Supratherapeutic INR -Now subtherapeuetic -Restarted warfarin today -Patient's aortic valve is not metallic. Warfarin is for atrial fibrillation so goal INR is 2-3. Vitamin B12 deficiency -B12: 717 -Continue with cyanocobalamin 1000 mcg daily CKD stage IIIB -Patient is currently at baseline creatinine. -No need for acute renal replacement therapy. Vitamin D Deficiency -Vitamin D: 31.6 -Continue with cholecalciferol Hyperlipidemia -Continue with lipitor 40 mg daily Hypertension -Continue with coreg, digoxin, cardizem, and losartan CAD -Continue with aspirin 81 mg daily, lipitor 40 mg daily, coreg 3.125 BID, digoxin 0.125 mg daily, cardizem 180 mg daily, losartan 25 mg daily History of CVA -Continue with aspirin and lipitor Anxiety -Continue with home xanax BID GI prophylaxis: protonix 40 mg daily DVT prophylaxis: heparin 5000 U Q12 Disposition: At this time, PT recommends TCU. Patient is medically clear but we are awaiting confirmation from insurance. Patient plan discussed with attending. <Vu Almeida - Last Filed: 06/23/18 14:40> Objective - Vital Signs/Intake and Output Vital Signs (last 24 hours): Temp Pulse Resp BP Pulse Ox 98.1 F 72 18 141/73 95 06/23/18 06:00 06/23/18 09:29 06/23/18 06:00 06/23/18 12:12 06/23/18 06:00 Intake and Output: 06/23/18 06/23/18 06:59 18:59 Intake Total 540 420 Balance 540 420 - Medications Medications: Current Medications Acetaminophen (Tylenol 325mg Tab) 650 mg PO Q6H PRN PRN Reason: Pain, moderate (4-7) Last Admin: 06/23/18 09:24 Dose: 650 mg Albuterol/Ipratropium (Duoneb 3 Mg/0.5 Mg (3 Ml) Ud) 3 ml IH Q2H PRN PRN Reason: Shortness of Breath Alprazolam (Xanax) 0.25 mg PO BID [facility]; Protocol Stop: 06/25/18 22:31 Last Admin: 06/23/18 09:27 Dose: 0.25 mg Aspirin (Aspirin Chewable) 81 mg PO DAILY [facility] Last Admin: 06/23/18 09:25 Dose: 81 mg Atorvastatin Calcium (Lipitor) 40 mg PO DAILY [facility] Last Admin: 06/23/18 09:25 Dose: 40 mg Carvedilol (Coreg) 3.125 mg PO BID [facility] Last Admin: 06/23/18 09:28 Dose: 3.125 mg Cholecalciferol (Vitamin D) 1,000 intlu PO DAILY [facility] Last Admin: 06/23/18 09:25 Dose: 1,000 intlu Cyanocobalamin (Vitamin B12 1000 Mcg Tab) 1,000 mcg PO DAILY [facility] Last Admin: 06/23/18 09:25 Dose: 1,000 mcg Digoxin (Digoxin) 0.125 mg PO MWF [facility] Last Admin: 06/23/18 09:29 Dose: 0.125 mg Diltiazem HCl (Cardizem Cd) 180 mg PO DAILY [facility] Last Admin: 06/23/18 09:29 Dose: 180 mg Furosemide (Lasix) 40 mg PO DAILY [facility] Last Admin: 06/23/18 09:28 Dose: 40 mg Heparin Sodium (Porcine) (Heparin) 5,000 units SC Q12 [facility]; Protocol Last Admin: 06/23/18 09:26 Dose: 5,000 units Lidocaine (Lidoderm) 1 ea TD DAILY [facility] Last Admin: 06/23/18 09:27 Dose: 1 ea Losartan Potassium (Cozaar) 25 mg PO DAILY [facility] Last Admin: 06/23/18 09:28 Dose: 25 mg Oxycodone/Acetaminophen (Percocet 5/325 Mg Tab) 1 tab PO Q6H PRN PRN Reason: Pain, severe (8-10) Stop: 06/24/18 11:40 Last Admin: 06/23/18 05:31 Dose: 1 tab Pantoprazole Sodium (Protonix Ec Tab) 40 mg PO 0600 [facility] Last Admin: 06/23/18 05:32 Dose: 40 mg Polyethylene Glycol (Miralax) 17 gm PO BID [facility] Last Admin: 06/23/18 09:30 Dose: Not Given Warfarin Sodium (Coumadin) 4 mg PO DAILY [facility] Last Admin: 06/23/18 09:25 Dose: 4 mg - Labs Labs: 06/23/18 06:40 06/23/18 06:40 PT 16.1 SECONDS (9.4-12.5) H 06/23/18 06:40 INR 1.42 06/23/18 06:40 APTT 54.9 Seconds (26.9-38.3) H 06/19/18 07:30 Attending/Attestation - Attestation I have personally seen and examined this patient.: Yes I have fully participated in the care of the patient.: Yes I have reviewed all pertinent clinical information, including history, physical exam and plan: Yes Notes (Text): 06/23/18 14:40 Medical record note made by the resident after discussion with my direction and input after the patient was personally seen and examined by me. I have reviewed the chart and agree that the record accurately reflects by personal performance of the history, physical exam, data review, and medical decision-making, in the course for the patient. I have also personally directed the plan of care.
[2018-06-22 08:50] LABS: INR 1.61; PROTHROMBIN TIME 18.2 SECONDS (9.4-12.5)
[2018-06-22] MEDS: diltiaZEM 180 mg/24 Hours CD Cap PO SCH (11:13)
[2018-06-22] MEDS: Cholecalciferol 1,000 INTLU TAB PO SCH (11:13)
[2018-06-22] MEDS: Lidocaine 5% Patch TD SCH (11:13)
[2018-06-22] MEDS: POLYETHYLENE GLYCOL 3350 17 GM/Dose PACKET PO SCH (11:15)
--- NOTE | 2018-06-22 12:13 | MRI ---
Date of service: 06/22/2018 PROCEDURE: MR LUMBAR SPINE WITHOUT CONTRAST HISTORY: eval L3 comp fx for kyphoplasty COMPARISON: CT 06/18/2018 TECHNIQUE: Multiecho multiplanar sequences were performed through the lumbar spine without the use of intravenous contrast. FINDINGS: Normal lumbar lordosis. There is a chronic appearing mild compression fracture of L3 with no marrow edema. There is extensive marrow edema in the sacrum especially in the sacral ala bilaterally. This is consistent with a severe acute sacral compression fracture. There is no evidence of a neoplastic lesion. There was no bony destruction seen on the recent CT. The findings were discussed with Dr. Hook at 12 p.m. Conus medullaris unremarkable at the level of L1 Paraspinal soft tissues are unremarkable. T12-L1: No disc herniation, spinal canal stenosis or neural foraminal narrowing. L1-2: No disc herniation, spinal canal stenosis or neural foraminal narrowing. L2-3: No disc herniation, spinal canal stenosis or neural foraminal narrowing. L3-4: No disc herniation, spinal canal stenosis or neural foraminal narrowing. L4-5: No disc herniation, spinal canal stenosis or neural foraminal narrowing. L5-S1: Small central disc protrusion OTHER FINDINGS: Desiccation of the disc material throughout the lumbar spine IMPRESSION: There is extensive marrow edema in the sacrum especially in the sacral ala bilaterally. This is consistent with a severe acute sacral compression fracture. There is no evidence of a neoplastic lesion. There was no bony destruction seen on the recent CT.
--- NOTE | 2018-06-22 14:00 | PQF ---
PROVIDER RESPONSE TEXT: Patient has chronic systolic CHF, Patient is euvolemic, not in acute exacerbation at this time REVIEWER QUERY TEXT: CHF Acuity and Type Congestive Heart Failure is documented in the Medical Record. Please document the type and acuity (in cludes probable or suspected) Such as: Type: -- Systolic -- Diastolic -- Combined -- Other, please specify Acuity: -- Acute -- Chronic -- Acute on chronic -- Other, please specify Also please document the underlying cause of the CHF (includes probable or suspected) The patient's Clinical Indicators include: Query created by: Moira Soliman on 06/22/2018 8:39 AM Electronically signed by: Vu Almeida MD 06/22/2018 1:54 PM
--- NOTE | 2018-06-22 15:11 | CP.PCM.DIS ---
<MenaamparoGm patel - Last Filed: 06/23/18 11:31> Provider - Provider Date of Admission: 06/18/18 21:24 Attending physician: Vu Almeida MD Primary care physician: Obi Coronel MD Consults: 06/21/18 08:42 TCU [Evaluation for TRCU] Routine Comment: Physician Instructions: Reason For Exam: rehab 06/21/18 09:26 Radiology Consult Routine Comment: Consulting Provider: Hank Hook Consulting Physician: Hank Hook Reason for Consult: kyphoplasty evaluation Time Spent in preparation of Discharge (in minutes): 60 Diagnosis - Discharge Diagnosis (1) Compression fracture of L3 vertebra Status: Acute Hospital Course - Lab Results Lab Results: Micro Results 06/18/18 18:27 Urine,Clean Catch Urine Culture - Final No Growth (<1,000 CFU/ML) Most Recent Lab Values WBC 3.9 10^3/uL (4.5-11.0) L 06/22/18 06:40 RBC 4.47 10^6/uL (3.5-6.1) 06/22/18 06:40 Hgb 11.5 g/dL (12.0-16.0) L 06/22/18 06:40 Hct 37.3 % (36.0-48.0) 06/22/18 06:40 MCV 83.4 fl (80.0-105.0) 06/22/18 06:40 MCH 25.7 pg (25.0-35.0) 06/22/18 06:40 MCHC 30.8 g/dl (31.0-37.0) L 06/22/18 06:40 RDW 17.0 % (11.5-14.5) H 06/22/18 06:40 Plt Count 162 10^3/uL (120.0-450.0) 06/22/18 06:40 MPV 10.3 fl (7.0-11.0) 06/22/18 06:40 Neut % (Auto) 60.1 % (50.0-68.0) 06/22/18 06:40 Lymph % (Auto) 25.1 % (22.0-35.0) 06/22/18 06:40 [place] % (Auto) 9.3 % (1.0-6.0) H 06/22/18 06:40 Eos % (Auto) 5.2 % (1.5-5.0) H 06/22/18 06:40 Baso % (Auto) 0.3 % (0.0-3.0) 06/22/18 06:40 Lymph # (Auto) 1.0 (1.2-3.4) L 06/22/18 06:40 [place] # (Auto) 0.4 (0.1-0.6) 06/22/18 06:40 Eos # (Auto) 0.2 (0.0-0.7) 06/22/18 06:40 Baso # (Auto) 0.01 K/mm3 (0.0-2.0) 06/22/18 06:40 Absolute Neuts (auto) 2.33 (1.4-6.5) 06/22/18 06:40 PT 18.2 SECONDS (9.4-12.5) H 06/22/18 08:11 INR 1.61 06/22/18 08:11 APTT 54.9 Seconds (26.9-38.3) H 06/19/18 07:30 Sodium 138 mmol/L (132-148) 06/22/18 06:40 Potassium 4.2 mmol/L (3.6-5.0) 06/22/18 06:40 Chloride 102 mmol/L (98-107) 06/22/18 06:40 Carbon Dioxide 33 mmol/L (21-33) 06/22/18 06:40 Anion Gap 8 (10-20) L 06/22/18 06:40 BUN 25 mg/dL (7-21) H 06/22/18 06:40 Creatinine 1.3 mg/dl (0.7-1.2) H 06/22/18 06:40 Est GFR ( Amer) 48 06/22/18 06:40 Est GFR (Non-Af Amer) 39 06/22/18 06:40 Random Glucose 133 mg/dL (70-110) H 06/22/18 06:40 Calcium 9.2 mg/dL (8.4-10.5) 06/22/18 06:40 Phosphorus 3.7 mg/dL (2.5-4.5) 06/19/18 07:30 Magnesium 2.2 mg/dL (1.7-2.2) 06/19/18 07:30 Total Bilirubin 0.7 mg/dL (0.2-1.3) 06/22/18 06:40 AST 19 U/L (14-36) 06/22/18 06:40 ALT 9 U/L (7-56) 06/22/18 06:40 Alkaline Phosphatase 136 U/L (38-126) H D 06/22/18 06:40 Total Protein 6.5 g/dL (5.8-8.3) 06/22/18 06:40 Albumin 3.5 g/dL (3.0-4.8) 06/22/18 06:40 Globulin 3.1 gm/dL 06/22/18 06:40 Albumin/Globulin Ratio 1.1 (1.1-1.8) 06/22/18 06:40 Vitamin B12 717 pg/mL (239-931) 06/19/18 16:40 25-OH Vitamin D Total 31.6 NG/ML (30.0-100.0) 06/19/18 16:40 Urine Color Yellow (YELLOW) 06/18/18 18:27 Urine Appearance Clear (CLEAR) 06/18/18 18:27 Urine pH 7.0 (4.7-8.0) 06/18/18 18:27 Ur Specific [place] 1.020 (1.005-1.035) 06/18/18 18:27 Urine Protein 30 mg/dL (<30 mg/dL) H 06/18/18 18:27 Urine Glucose (UA) Negative mg/dL (NEGATIVE) 06/18/18 18:27 Urine Ketones Negative mg/dL (NEGATIVE) 06/18/18 18:27 Urine Blood Negative (NEGATIVE) 06/18/18 18:27 Urine Nitrate Negative (NEGATIVE) 06/18/18 18:27 Urine Bilirubin Negative (NEGATIVE) 06/18/18 18:27 Urine Urobilinogen 0.2 E.U./dL (<1 E.U./dL) 06/18/18 18:27 Ur Leukocyte Esterase Negative [place]/uL (NEGATIVE) 06/18/18 18:27 Urine RBC None /hpf (0-2) 06/18/18 18:27 Urine WBC 2 - 5 /hpf (0-6) 06/18/18 18:27 Ur Epithelial Cells 6 - 8 /hpf (0-5) H 06/18/18 18:27 - Hospital Course Hospital Course: Gm Saucedo, PGY-1, Internal Medicine Discharge Summary for Dr. Almeida 78 year old female with past medical history of CHF with last EF of 30-35%, aortic valve replacement, CKD, atrial fibrillation on coumadin, CVA, hypertension, hyperlipidemia, AAA, and COPD presented with lumbar back radiating into right thigh for [address] on 06/18 showed no acute fracture or subluxation, osseous demineralization, scoliosis, age indeterminate L3 compression fracture deformity, and posterior disc bulge at L5-S1. Lumbar MRI on 06/22 showed extensive marrow edema in the sacrum especially in the sacral ala bilaterally. This was consistent with sacral compression fracture. There was no evidence of neoplasm. Chronic L3 compression fracture and L5-S1 disc herniation was appreciated. Patient was initially started on morphine as needed and lidoderm patch for pain. Patient's pain regimen was switched to percocet as needed, tylenol as needed, and lidoderm patch. Patient's vitamin D was 31.6. Patient was continued with physical therapy for reconditioning, and IR was considering kyphoplasty. However, after weighing risks and benefits, IR reported that they did not feel like kyphoplasty was recommended at this time. Patient also presented with crackles in lungs and bilateral lower extremity edema signif lolis worsening of CHF. Patient was continued on home regimen of coreg, digoxin, diltiazem, cozaar, and lasix 40 mg PO daily with improvement in symptoms. Patient had supratherapeutic INR on presentation in the 4s. Warfarin was held and INR trended down to 1s. Warfarin was held in case kyphoplasty was to be performed. Warfarin 4 mg daily was restarted yesterday after no plans for kyphoplasty was finalized. Goal INR is 2-3 for atrial fibrillation. Patient will now be transferred to the TCU as patient is medically stable for rehabilitation. Patient is now medically stable for rehabilitation. Patient will continue to work with physical therapy at TCU for further reconditioning. Patient will continue medications as instructed at the hospital. INR will continue to be monitored in TCU. Patient was told to return to the emergency department if she had any new or concerning symptoms. This is a brief summary of the events that occurred at the hospital. For more information, please refer to hospital documentation. - Date & Time of H&P Date of H&P: 06/18/18 Time of H&P: 21:26 Discharge Exam - Head Exam Head Exam: ATRAUMATIC, NORMAL INSPECTION, NORMOCEPHALIC - Eye Exam Eye Exam: EOMI, PERRL - Respiratory Exam Respiratory Exam: Clear to PA & Lateral, NORMAL BREATHING PATTERN - Cardiovascular Exam Cardiovascular Exam: Irregular Rhythm Additional comments: systolic ejection murmur - GI/Abdominal Exam GI & Abdominal Exam: Normal Bowel Sounds, Soft. absent: Tenderness - Extremities Exam Extremities exam: full ROM, pedal edema (+1) - Back Exam Back exam: tenderness - Neurological Exam Neurological exam: Alert, CN II-XII Intact, Oriented x3 - Psychiatric Exam Psychiatric exam: Normal Affect, Normal Mood - Skin Skin Exam: Dry, Intact, Normal Color Discharge Plan - Follow Up Plan Condition: STABLE Disposition: REHAB FACILITY/REHAB UNIT Instructions: Vertebral Compression Fracture (DC), Back Pain (GEN) Additional Instructions: 1. Please follow up with primary care doctor within one week after discharge. 2. Please take all medications as prescribed at TCU 3. Continue to work with physical therapy for regaining strength and reducing pain. 4. Please return to the emergency department if you have any new or concerning symptoms. Referrals: Obi Coronel MD [Primary Care Provider] - Follow up with primary <Vu Almeida - Last Filed: 06/23/18 14:40> Provider - Provider Date of Admission: 06/18/18 21:24 Attending physician: Vu Almeida MD Primary care physician: Obi Coronel MD Consults: 06/21/18 08:42 TCU [Evaluation for TRCU] Routine Comment: Physician Instructions: Reason For Exam: rehab 06/21/18 09:26 Radiology Consult Routine Comment: Consulting Provider: Hank Hook Consulting Physician: Hank Hook Reason for Consult: kyphoplasty evaluation Hospital Course - Lab Results Lab Results: Micro Results 06/18/18 18:27 Urine,Clean Catch Urine Culture - Final No Growth (<1,000 CFU/ML) Most Recent Lab Values WBC 3.9 10^3/uL (4.5-11.0) L 06/23/18 06:40 RBC 4.53 10^6/uL (3.5-6.1) 06/23/18 06:40 Hgb 11.5 g/dL (12.0-16.0) L 06/23/18 06:40 Hct 38.0 % (36.0-48.0) 06/23/18 06:40 MCV 83.9 fl (80.0-105.0) 06/23/18 06:40 MCH 25.4 pg (25.0-35.0) 06/23/18 06:40 MCHC 30.3 g/dl (31.0-37.0) L 06/23/18 06:40 RDW 17.1 % (11.5-14.5) H 06/23/18 06:40 Plt Count 152 10^3/uL (120.0-450.0) 06/23/18 06:40 MPV 10.4 fl (7.0-11.0) 06/23/18 06:40 Neut % (Auto) 60.1 % (50.0-68.0) 06/23/18 06:40 Lymph % (Auto) 24.7 % (22.0-35.0) 06/23/18 06:40 [place] % (Auto) 9.9 % (1.0-6.0) H 06/23/18 06:40 Eos % (Auto) 4.8 % (1.5-5.0) 06/23/18 06:40 Baso % (Auto) 0.5 % (0.0-3.0) 06/23/18 06:40 Lymph # (Auto) 1.0 (1.2-3.4) L 06/23/18 06:40 [place] # (Auto) 0.4 (0.1-0.6) 06/23/18 06:40 Eos # (Auto) 0.2 (0.0-0.7) 06/23/18 06:40 Baso # (Auto) 0.02 K/mm3 (0.0-2.0) 06/23/18 06:40 Absolute Neuts (auto) 2.35 (1.4-6.5) 06/23/18 06:40 PT 16.1 SECONDS (9.4-12.5) H 06/23/18 06:40 INR 1.42 06/23/18 06:40 APTT 54.9 Seconds (26.9-38.3) H 06/19/18 07:30 Sodium 140 mmol/L (132-148) 06/23/18 06:40 Potassium 3.9 mmol/L (3.6-5.0) 06/23/18 06:40 Chloride 103 mmol/L (98-107) 06/23/18 06:40 Carbon Dioxide 35 mmol/L (21-33) H 06/23/18 06:40 Anion Gap 6 (10-20) L 06/23/18 06:40 BUN 22 mg/dL (7-21) H 06/23/18 06:40 Creatinine 1.4 mg/dl (0.7-1.2) H 06/23/18 06:40 Est GFR ( Amer) 44 06/23/18 06:40 Est GFR (Non-Af Amer) 36 06/23/18 06:40 Random Glucose 104 mg/dL (70-110) 06/23/18 06:40 Calcium 9.2 mg/dL (8.4-10.5) 06/23/18 06:40 Phosphorus 3.7 mg/dL (2.5-4.5) 06/19/18 07:30 Magnesium 2.2 mg/dL (1.7-2.2) 06/19/18 07:30 Total Bilirubin 0.6 mg/dL (0.2-1.3) 06/23/18 06:40 AST 15 U/L (14-36) 06/23/18 06:40 ALT 13 U/L (7-56) 06/23/18 06:40 Alkaline Phosphatase 124 U/L (38-126) 06/23/18 06:40 Total Protein 6.2 g/dL (5.8-8.3) 06/23/18 06:40 Albumin 3.2 g/dL (3.0-4.8) 06/23/18 06:40 Globulin 3.0 gm/dL 06/23/18 06:40 Albumin/Globulin Ratio 1.1 (1.1-1.8) 06/23/18 06:40 Vitamin B12 717 pg/mL (239-931) 06/19/18 16:40 25-OH Vitamin D Total 31.6 NG/ML (30.0-100.0) 06/19/18 16:40 Urine Color Yellow (YELLOW) 06/18/18 18:27 Urine Appearance Clear (CLEAR) 06/18/18 18:27 Urine pH 7.0 (4.7-8.0) 06/18/18 18:27 Ur Specific [place] 1.020 (1.005-1.035) 06/18/18 18:27 Urine Protein 30 mg/dL (<30 mg/dL) H 06/18/18 18:27 Urine Glucose (UA) Negative mg/dL (NEGATIVE) 06/18/18 18:27 Urine Ketones Negative mg/dL (NEGATIVE) 06/18/18 18:27 Urine Blood Negative (NEGATIVE) 06/18/18 18: Urine Nitrate Negative (NEGATIVE) 06/18/18 18: Urine Bilirubin Negative (NEGATIVE) 06/18/18 18: Urine Urobilinogen 0.2 E.U./dL (<1 E.U./dL) 06/18/18 18:27 Ur Leukocyte Esterase Negative [place]/uL (NEGATIVE) 06/18/18 18:27 Urine RBC None /hpf (0-2) 06/18/18 18:27 Urine WBC 2 - 5 /hpf (0-6) 06/18/18 18:27 Ur Epithelial Cells 6 - 8 /hpf (0-5) H 06/18/18 18:27 Attending/Attestation - Attestation I have personally seen and examined this patient.: Yes I have fully participated in the care of the patient.: Yes I have reviewed all pertinent clinical information, including history, physical exam and plan: Yes Notes (Text): 06/23/18 14:36 Medical record note made by the resident after discussion with my direction and input after the patient was personally seen and examined by me. I have reviewed the chart and agree that the record accurately reflects by personal performance of the history, physical exam, data review, and medical decision-making, in the course for the patient. I have also personally directed the plan of care. 78 year old female with PMH of CHF with systolic dysfunction EF of 30-35%, aortic valve replacement, CKD, atrial fibrillation on coumadin, CVA, hypertension, hyperlipidemia, PVD and COPD presented with lumbar back radiating into right thigh for [address] on 06/18 showed no acute fracture or subluxation, osseous demineralization, scoliosis, age indeterminate L3 compression fracture deformity, and posterior disc bulge at L5-S1. Lumbar MRI on 06/22 showed extensive marrow edema in the sacrum especially in the sacral ala bilaterally. This was consistent with sacral compression fracture. There was no evidence of neoplasm. Chronic L3 compression fracture and L5-S1 disc herniation was appreciated. Patient was initially started on morphine as needed and lidoderm patch for pain. Patient's pain regimen was switched to percocet as needed, tylenol as needed, and lidoderm patch.Patient pain is better controlled. INR is not therapeutic as warfarin was on hold in the anticipation of possible Kyphoplasty.There is no plan for Kyphoplasty as per IR. Warfarin is restarted. Patient was evaluated by Physical therapy an TCU rehabilitation has been recommended.Patient will be discharged to TCU for rehabilitation. Management plan was discussed in detail with patient. Education was provided.
[2018-06-22 15:29] LABS: INR 4.49
[2018-06-23] MEDS: Pantoprazole 40 mg EC Tab PO SCH (05:32)
[2018-06-23 07:08] LABS: INR 1.42; PROTHROMBIN TIME 16.1 SECONDS (9.4-12.5)
[2018-06-23 07:09] LABS: BASO # 0.02 K/mm3 (0.0-2.0); BASO % 0.5 % (0.0-3.0); EOS # 0.2 (0.0-0.7); EOS % 4.8 % (1.5-5.0); HEMOGLOBIN 11.5 g/dL (12.0-16.0); LYMPH % 24.7 % (22.0-35.0); MEAN CELL VOLUME 83.9 fl (80.0-105.0); MEAN CORPUSCULAR HEMOGLOBIN 25.4 pg (25.0-35.0); MEAN CORPUSCULAR HGB CONC 30.3 g/dl (31.0-37.0); MEAN PLATELET VOLUME 10.4 fl (7.0-11.0); MONO # 0.4 (0.1-0.6); MONO % 9.9 % (1.0-6.0); RBC 4.53 10^6/uL (3.5-6.1); RED CELL DISTRIBUTION WIDTH 17.1 % (11.5-14.5); WHITE BLOOD COUNT 3.9 10^3/uL (4.5-11.0)
[2018-06-23 07:31] LABS: ALB/GLOB RATIO 1.1 (1.1-1.8); ALBUMIN 3.2 g/dL (3.0-4.8); CALCIUM 9.2 mg/dL (8.4-10.5)
[2018-06-23] MEDS: Cholecalciferol 1,000 INTLU TAB PO SCH (09:25)
[2018-06-23] MEDS: Lidocaine 5% Patch TD SCH (09:27)
[2018-06-23] MEDS: diltiaZEM 180 mg/24 Hours CD Cap PO SCH (09:29)
[2018-06-23] MEDS: Digoxin 125 mcg (0.125 mg) Tab PO SCH (09:29)
[2018-06-23] MEDS: POLYETHYLENE GLYCOL 3350 17 GM/Dose PACKET PO SCH (09:30)
[2018-06-23 10:28] VITALS: PULSE 72; TEMP 98.1
[2018-06-23 10:45] VITALS: PULSE 74
[2018-06-23 12:12] VITALS: BP 141/73
== END 2018-06-23 15:15 | DRG 543 ==
LOC: ED 16:05 → ERH 21:24 → 5RSO 06-19 01:41
PROVIDERS: ADMIT Internal Medicine; ATTEND Internal Medicine
DX: M48.56XA Collapsed vertebra, not elsewhere classified, lumbar region, initial encounter for fracture (principal); I13.0 Hypertensive heart and chronic kidney disease with heart failure and stage 1 through stage 4 chronic kidney disease, or unspecified chronic kidney disease; I50.22 Chronic systolic (congestive) heart failure; N18.3 Chronic kidney disease, stage 3 (moderate); M48.58XA Collapsed vertebra, not elsewhere classified, sacral and sacrococcygeal region, initial encounter for fracture; M48.54XA Collapsed vertebra, not elsewhere classified, thoracic region, initial encounter for fracture; M51.27 Other intervertebral disc displacement, lumbosacral region; I48.2 Chronic atrial fibrillation; I25.10 Atherosclerotic heart disease of native coronary artery without angina pectoris; R79.1 Abnormal coagulation profile; I50.9 Heart failure, unspecified; E78.5 Hyperlipidemia, unspecified; I71.4 Abdominal aortic aneurysm, without rupture; E53.8 Deficiency of other specified B group vitamins; E55.9 Vitamin D deficiency, unspecified; F41.9 Anxiety disorder, unspecified; J44.9 Chronic obstructive pulmonary disease, unspecified; F17.200 Nicotine dependence, unspecified, uncomplicated; K59.00 Constipation, unspecified; Z79.82 Long term (current) use of aspirin; Z86.73 Personal history of transient ischemic attack (TIA), and cerebral infarction without residual deficits; Z79.01 Long term (current) use of anticoagulants; Z95.1 Presence of aortocoronary bypass graft; Z95.2 Presence of prosthetic heart valve

== ENCOUNTER 2018-06-23 15:15 | Inpatient (IN) | payer MEDICARE ==
[2018-06-23 15:50] VITALS: BMI 28.3
[2018-06-23] MEDS ORDERED: Albuterol-Ipratrop 3 mg / 0.5 (3 ml) UD IH PRN (17:31)
[2018-06-23] MEDS: POLYETHYLENE GLYCOL 3350 17 GM/Dose PACKET PO SCH (18:19)
[2018-06-23] MEDS ORDERED: Influenza Vaccine 60 mcg/0.5 mL SYR (4YR UP) IM ONE (20:34)
[2018-06-23] MEDS ORDERED: Pneumococcal 23-Valent Vaccine IM ONE (20:34)
[2018-06-24] MEDS: Oxycodone/Acetaminophen 5/325 mg Tab PO PRN (05:08)
[2018-06-24] MEDS: Pantoprazole 40 mg EC Tab PO SCH (05:08)
[2018-06-24] MEDS: diltiaZEM 180 mg/24 Hours CD Cap PO SCH (09:35)
[2018-06-24 09:36] LABS: INR 1.51; PROTHROMBIN TIME 17.1 SECONDS (9.4-12.5)
[2018-06-24] MEDS: POLYETHYLENE GLYCOL 3350 17 GM/Dose PACKET PO SCH ×2 (09:36→17:36)
[2018-06-24] MEDS: Lidocaine 5% Patch TD SCH (09:36)
[2018-06-24] MEDS: Cholecalciferol 1,000 INTLU TAB PO SCH (09:37)
[2018-06-24] MEDS ORDERED: CYANOCOBALAMIN 1000 MCG PO SCH (10:00)
[2018-06-24] MEDS ORDERED: Non Formulary Medication (Warfarin [Coumadin] 4 MG) PO SCH (10:00)
[2018-06-24] MEDS ORDERED: Non Formulary Medication (Cholecalciferol (Vitamin D3) [Vitamin D3] 1 TAB) PO SCH (10:00)
--- NOTE | 2018-06-24 14:42 | CP.PCM.HP ---
<Gm Saucedo - Last Filed: 06/24/18 14:36> History of Present Illness - History of Present Illness History of Present Illness: Gm Saucedo, PGY-1, Internal medicine history and physical for Dr. Almeida 78 year old female with past medical history of CHF with last EF of 30-35%, aortic valve replacement, CKD, atrial fibrillation on coumadin, CVA, hypertension, hyperlipidemia, AAA, and COPD presented with lumbar back radiating into right thigh for [address] on 06/18 showed no acute fracture or subluxation, osseous demineralization, scoliosis, age indeterminate L3 compression fracture deformity, and posterior disc bulge at L5-S1. Lumbar MRI on 06/22 showed extensive marrow edema in the sacrum especially in the sacral ala bilaterally. This was consistent with sacral compression fracture. There was no evidence of neoplasm. Chronic L3 compression fracture and L5-S1 disc herniation was appreciated. Patient was initially started on morphine as needed and lidoderm patch for pain. Patient's pain regimen was switched to percocet as needed, tylenol as needed, and lidoderm patch. Patient's vitamin D was 31.6. Patient was continued with physical therapy for reconditioning, and IR was considering kyphoplasty. However, after weighing risks and benefits, IR reported that they did not feel like kyphoplasty was recommended at this time. Patient also presented with crackles in lungs and bilateral lower extremity edema signifying worsening of CHF. Patient was continued on home regimen of coreg, digoxin, diltiazem, cozaar, and lasix 40 mg PO daily with improvement in symptoms. Patient had supratherapeutic INR on presentation in the 4s. Warfarin was held and INR trended down to 1s. Warfarin was held in case kyphoplasty was to be performed. Warfarin 4 mg daily was restarted yesterday after no plans for kyphoplasty was finalized. Goal INR is 2-3 for atrial fibrillation. Patient has now been transferred to the TCU as patient is medically stable for rehabilitation. Patient is currently in TCU for reconditioning. 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 Coronel Present on Admission - Present on Admission Any Indicators Present on Admission: Yes Review of Systems - Review of Systems Review of Systems: except for what was mentioned in HPI Past Patient History - Infectious Disease Hx of Infectious Diseases: None - Tetanus Immunizations Tetanus Immunization: Unknown - Past Medical History & Family History Past Medical History?: Yes - Past Social History Smoking Status: Former Smoker - CARDIAC Hx Cardiac Disorders: Yes (AVR, AFIB, CABG) Hx Congestive Heart Failure: Yes Hx Hypercholesterolemia: Yes (hyperlipidemia) Hx Hypertension: Yes - PULMONARY Hx Chronic Obstructive Pulmonary Disease (COPD): Yes (pneumonia) - NEUROLOGICAL HX Cerebrovascular Accident: Yes - HEENT Hx HEENT Problems: Yes (Wears reading glasses. Upper denture.) Hx Blind: No Hx Cataracts: No Hx Deafness: No Hx Difficulty Chewing: No Hx Epistaxis: No Hx Glaucoma: No Hx Macular Degeneration: No - RENAL Hx Renal Failure: No - ENDOCRINE/METABOLIC Hx Diabetes Mellitus Type 1: No Hx Diabetes Mellitus Type 2: No - HEMATOLOGICAL/ONCOLOGICAL Hx Blood Disorders: No - INTEGUMENTARY Hx Dermatological Problems: No Hx Basil Cell: No Hx Eczema: No Hx Melanoma: No Hx Psoriasis: No Hx Squamous Cell: No Other/Comment: 03-24-17 BILATERAL LE DARKENED BROWN SKIN DISCOLORATION. - MUSCULOSKELETAL/RHEUMATOLOGICAL Hx Falls: Yes - GASTROINTESTINAL Hx Gastrointestinal Disorders: Yes (GASTROENTE RITIS,DIVERTICULITIS,CHOLECYSTECTOMY) - GENITOURINARY/GYNECOLOGICAL Hx Genitourinary Disorders: Yes (URGENCY) Hx Reproductive Disorders: No - PSYCHIATRIC Hx Psychophysiologic Disorder: No Hx Emotional Abuse: No Hx Physical Abuse: No Hx Substance Use: No Other/Comment: nervous - SURGICAL HISTORY Hx Cholecystectomy: Yes Hx Open Heart Surgery: Yes (5 yrs) Hx Valve Replacement: Yes - ANESTHESIA Hx Anesthesia: Yes Meds Allergies/Adverse Reactions: Allergies Allergy/AdvReac Type Severity Reaction Status Date / Time Sulfa (Sulfonamide Allergy Unknown . Verified 06/23/18 17:46 Antibiotics) Physical Exam - Constitutional Appears: Well, Non-toxic, No Acute Distress - Head Exam Head Exam: ATRAUMATIC, NORMAL INSPECTION, NORMOCEPHALIC - Eye Exam Eye Exam: EOMI, PERRL - ENT Exam ENT Exam: Mucous Membranes Moist - Neck Exam Neck exam: Positive for: Full Rom - Respiratory Exam Respiratory Exam: Clear to Auscultation Bilateral, NORMAL BREATHING PATTERN - Cardiovascular Exam Cardiovascular Exam: REGULAR RHYTHM, RRR - GI/Abdominal Exam GI & Abdominal Exam: Normal Bowel Sounds, Soft. absent: Tenderness - Extremities Exam Extremities exam: Positive for: normal inspection. Negative for: pedal edema - Back Exam Back exam: tenderness - Neurological Exam Neurological exam: Alert, CN II-XII Intact, Oriented x3 - Skin Skin Exam: Dry, Intact Results - Vital Signs Recent Vital Signs: Last Vital Signs Temp 97.9 F 06/24/18 10:00 Pulse 77 06/24/18 10:00 Resp 16 06/24/18 10:00 BP 167/72 H 06/24/18 10:00 Pulse Ox 92 L 06/24/18 10:00 - Labs Labs: Laboratory Results - last 24 hr 06/24/18 09:20 PT 17.1 H INR 1.51 Assessment & Plan - Assessment and Plan (Free Text) Assessment: 78 year old female with past medical history of CHF with last EF of 30-35%, aortic valve replacement, CKD, atrial fibrillation on coumadin, CVA, hypertension, hyperlipidemia, AAA, and COPA presented with lumbar back radiating into right thigh for 2 weeks. Patient was diagnosed with compression fracture of the sacrum and L3 with spondylothesis of the L5-S1. Patient is currently in TCU for reconditioning after not being a good candidate for kyphoplasty. Plan: Lumbar pain 2/2 to spondylothesis vs. compression fracture -Lumbar CT 06/18: no acute fracture or subluxation, osseous demineralization, scoliosis, age indeterminate L3 compression fracture deformity, posterior disc bulge at L5-S1 -Lumbar MRI 06/22: extensive marrow edema in the sacrum especially in the sacral ala bilaterally. this is consistent with sacral compression fracture. no evidence of neoplasm. chronic L3 compression fracture and L5-S1 disc herniation appreciated -Continue with physical therapy for reconditioning -Will continue tylenol PRN, percocet PRN, and lidoderm patch Congestive Heart Failure (EF: 35-40%) -Clinically improved -Continue with revised regimen of coreg 6.25 mg BID, digoxin 0.125 mg MWF, diltiazem 180 mg daily, cozaar 50 mg daily, and lasix 40 mg PO daily Supratherapeutic INR -Now subtherapeuetic -Increased warfarin to 6 mg for the next few days until patient is therapeutic with goal of INR 2-3 Vitamin B12 deficiency -B12: 717 -Continue with cyanocobalamin 1000 mcg daily CKD stage IIIB -No need for acute renal replacement therapy. Vitamin D Deficiency -Vitamin D: 31.6 -Continue with cholecalciferol Hyperlipidemia -Continue with lipitor 40 mg daily Hypertension -Blood pressure elevated today with systolic pressure in 170s-180s -Continue with digoxin, cardizem -Increased coreg to 6.25 mg BID and cozaar to 50 mg daily CAD -Continue with aspirin 81 mg daily, lipitor 40 mg daily, coreg 3.125 BID, digoxin 0.125 mg daily, cardizem 180 mg daily, losartan 25 mg daily History of CVA -Continue with aspirin and lipitor Anxiety -Continue with home xanax BID GI prophylaxis: protonix 40 mg daily DVT prophylaxis: heparin 5000 U Q12 Disposition: At this time, patient will be reconditioned at TCU Patient plan discussed with attending. - Date & Time Date: 06/24/18 Time: 14:43 <Vu Almeida - Last Filed: 06/26/18 11:16> Results - Vital Signs Recent Vital Signs: Last Vital Signs Temp 98.1 F 06/25/18 10:00 Pulse 81 06/25/18 10:00 Resp 18 06/26/18 09:44 BP 122/75 06/26/18 09:08 Pulse Ox 97 06/25/18 10:00 Attending/Attestation - Attestation I have personally seen and examined this patient.: Yes I have fully participated in the care of the patient.: Yes I have reviewed all pertinent clinical information: Yes Notes (Text): 06/26/18 11:13 Medical record note made by the resident after discussion with my direction and input after the patient was personally seen and examined by me. I have reviewed the chart and agree that the record accurately reflects by personal performance of the history, physical exam, data review, and medical decision-making, in the course for the patient. I have also personally directed the plan of care. 78 year old female with PMH of CHF with systolic dysfunction EF of 30-35%, aortic valve replacement, CKD, atrial fibrillation on coumadin, CVA, hypertension, hyperlipidemia, PVD and COPD was initially admitted to [facility] [place] with lumbar back radiating into right thigh for [address] on 06/18 showed no acute fracture or subluxation, osseous demineralization, scoliosis, age indeterminate L3 compression fracture deformity, and posterior disc bulge at L5-S1. Lumbar MRI on 06/22 showed extensive marrow edema in the sacrum especially in the sacral ala bilaterally. This was consistent with sacral compression fracture. There was no evidence of neoplasm. Chronic L3 compression fracture and L5-S1 disc herniation was noted. Patient was evaluated by Physical therapy an TCU rehabilitation was recommended.Patient is admitted to TCU for rehabilitation. INR is not therapeutic as warfarin was on hold in the anticipation of possible Kyphoplasty.Pain is better controlled. Warfarin is restarted.We will follow up INR. Management plan was discussed in detail with patient. Education was provided.
[2018-06-25] MEDS: Pantoprazole 40 mg EC Tab PO SCH (05:16)
[2018-06-25 08:43] LABS: INR 1.92; PROTHROMBIN TIME 21.7 SECONDS (9.4-12.5)
[2018-06-25] MEDS: Oxycodone/Acetaminophen 5/325 mg Tab PO PRN (09:29)
[2018-06-25] MEDS: diltiaZEM 180 mg/24 Hours CD Cap PO SCH (09:29)
[2018-06-25] MEDS: Lidocaine 5% Patch TD SCH (09:30)
[2018-06-25] MEDS: POLYETHYLENE GLYCOL 3350 17 GM/Dose PACKET PO SCH ×2 (09:30→17:34)
[2018-06-25] MEDS: Cholecalciferol 1,000 INTLU TAB PO SCH (09:31)
[2018-06-25] MEDS: Digoxin 125 mcg (0.125 mg) Tab PO SCH (13:20)
[2018-06-26] MEDS: Pantoprazole 40 mg EC Tab PO SCH (05:14)
[2018-06-26] MEDS: Oxycodone/Acetaminophen 5/325 mg Tab PO PRN (06:08)
[2018-06-26] MEDS: diltiaZEM 180 mg/24 Hours CD Cap PO SCH (09:07)
[2018-06-26] MEDS: Lidocaine 5% Patch TD SCH (09:08)
[2018-06-26] MEDS: POLYETHYLENE GLYCOL 3350 17 GM/Dose PACKET PO SCH ×2 (09:08→17:30)
[2018-06-26] MEDS: Cholecalciferol 1,000 INTLU TAB PO SCH (09:09)
--- NOTE | 2018-06-26 09:13 | CP.PCM.PN ---
<Dane Betancur - Last Filed: 06/26/18 09:10> Subjective - Date & Time of Evaluation Date of Evaluation: 06/26/18 Time of Evaluation: 09:10 - Subjective Subjective: PGY-1 Medicine Progress note for Dr. Almeida Patient seen and examined at bedside. No acute events overnight. Patient is complaining of back pain. Otherwise denies shortness of breath, chest pain, abdominal pain, nausea, vomiting, diarrhea, or dysuria. Objective - Vital Signs/Intake and Output Vital Signs (last 24 hours): Temp Pulse Resp BP Pulse Ox 98.1 F 81 20 175/69 H 97 06/25/18 10:00 06/25/18 10:00 06/25/18 10:00 06/26/18 08:20 06/25/18 10:00 - Medications Medications: Current Medications Acetaminophen (Tylenol 325mg Tab) 650 mg PO Q6H PRN PRN Reason: Pain, moderate (4-7) Last Admin: 06/25/18 07:51 Dose: 650 mg Albuterol/Ipratropium (Duoneb 3 Mg/0.5 Mg (3 Ml) Ud) 3 ml IH Q2H PRN PRN Reason: Shortness of Breath Alprazolam (Xanax) 0.25 mg PO 1000,2200 [facility]; Protocol Stop: 07/02/18 22:01 Last Admin: 06/25/18 21:14 Dose: 0.25 mg Aspirin (Aspirin Chewable) 81 mg PO DAILY [facility] Last Admin: 06/25/18 09:29 Dose: 81 mg Atorvastatin Calcium (Lipitor) 40 mg PO DAILY [facility] Last Admin: 06/25/18 09:30 Dose: 40 mg Carvedilol (Coreg) 6.25 mg PO 0800,1800 [facility] Last Admin: 06/26/18 08:20 Dose: 6.25 mg Cholecalciferol (Vitamin D) 1,000 intlu PO DAILY [facility] Last Admin: 06/25/18 09:31 Dose: 1,000 intlu Cyanocobalamin (Vitamin B12 1000 Mcg Tab) 1,000 mcg PO DAILY [facility] Last Admin: 06/25/18 09:31 Dose: 1,000 mcg Digoxin (Digoxin) 0.125 mg PO MWF@1400 [facility] Last Admin: 06/25/18 13:20 Dose: 0.125 mg Diltiazem HCl (Cardizem Cd) 180 mg PO DAILY [facility] Last Admin: 06/25/18 09:29 Dose: 180 mg Furosemide (Lasix) 40 mg PO DAILY [facility] Last Admin: 06/25/18 09:30 Dose: 40 mg Lidocaine (Lidoderm) 1 ea TD DAILY [facility] Last Admin: 06/25/18 09:30 Dose: 1 ea Losartan Potassium (Cozaar) 50 mg PO DAILY [facility] Last Admin: 06/25/18 09:30 Dose: 50 mg Oxycodone/Acetaminophen (Percocet 5/325 Mg Tab) 1 tab PO Q6H PRN PRN Reason: Pain, severe (8-10) Stop: 06/26/18 17:32 Last Admin: 06/26/18 06:08 Dose: 1 tab Pantoprazole Sodium (Protonix Ec Tab) 40 mg PO 0600 [facility] Last Admin: 06/26/18 05:14 Dose: 40 mg Polyethylene Glycol (Miralax) 17 gm PO BID [facility] Last Admin: 06/25/18 17:34 Dose: 17 gm Warfarin Sodium (Coumadin) 4 mg PO 1800 [facility]; Protocol Last Admin: 06/25/18 17:34 Dose: 4 mg - Labs Labs: PT 21.7 SECONDS (9.4-12.5) H 06/25/18 08:00 INR 1.92 06/25/18 08:00 - Additional Findings Additional findings: - Constitutional Appears: Well, Non-toxic, No Acute Distress - Head Exam Head Exam: ATRAUMATIC, NORMAL INSPECTION, NORMOCEPHALIC - Eye Exam Eye Exam: EOMI, PERRL - ENT Exam ENT Exam: Mucous Membranes Moist - Neck Exam Neck exam: Positive for: Full Rom - Respiratory Exam Respiratory Exam: Clear to Auscultation Bilateral, NORMAL BREATHING PATTERN - Cardiovascular Exam Cardiovascular Exam: REGULAR RHYTHM, RRR - GI/Abdominal Exam GI & Abdominal Exam: Normal Bowel Sounds, Soft. absent: Tenderness - Extremities Exam Extremities exam: Positive for: normal inspection. Negative for: pedal edema - Back Exam Back exam: tenderness - Neurological Exam Neurological exam: Alert, CN II-XII Intact, Oriented x3 - Skin Skin Exam: Dry, Intact Assessment and Plan - Assessment and Plan (Free Text) Assessment: 78 year old female with past medical history of CHF, aortic valve replacement, CKD, atrial fibrillation on coumadin, CVA, hypertension, hyperlipidemia, AAA, and COPD admitted for a compression fracture of the sacrum and L3. Patient is currently in TCU for reconditioning after not being a good candidate for kyphoplasty. Plan: Lumbar pain - 2/2 to spondylothesis vs. compression fracture - Continue with physical therapy for reconditioning - Tylenol PRN, Percocet PRN, and Lidoderm patch Congestive Heart Failurewith reduced ejection fraction - Coreg 6.25 mg BID - Digoxin 0.125 mg MWF - Diltiazem 180 mg QD - Cozaar 50 mg QD - Lasix 40 mg PO QD Chromic atrial fibrillation - INR: 1.92 - Coumadin 4mg PO QD Vitamin B12 deficiency - Cyanocobalamin 1000 mcg QD Vitamin D Deficiency - Cholecalciferol 1000 units QD Hyperlipidemia - Lipitor 40 mg daily Hypertension - Coreg 6.25 mg BID - Cozaar 50 mg QD - Lasix 40 mg PO QD History of CAD - Aspirin 81 mg QD - Coreg 6.25 mg BID - Cozaar 50 mg QD - Lipitor 40mg PO QD History of CVA - Aspirin 81 mg QD - Lipitor 40mg PO QD Anxiety - Xanax 0.25mg Q6 BID Prophylaxis GI prophylaxis: Protonix 40 mg daily DVT prophylaxis: Coumadin 4mg PO QD Patient seen and plan discussed with attending, Dr. Juan Pablo Betancur, PGY-1 <Vu Almeida - Last Filed: 06/26/18 11:18> Objective - Vital Signs/Intake and Output Vital Signs (last 24 hours): Temp Pulse Resp BP Pulse Ox 98.1 F 81 18 122/75 97 06/25/18 10:00 06/25/18 10:00 06/26/18 09:44 06/26/18 09:08 06/25/18 10:00 - Medications Medications: Current Medications Acetaminophen (Tylenol 325mg Tab) 650 mg PO Q6H PRN PRN Reason: Pain, moderate (4-7) Last Admin: 06/25/18 07:51 Dose: 650 mg Albuterol/Ipratropium (Duoneb 3 Mg/0.5 Mg (3 Ml) Ud) 3 ml IH Q2H PRN PRN Reason: Shortness of Breath Alprazolam (Xanax) 0.25 mg PO 1000,2200 [facility]; Protocol Stop: 07/02/18 22:01 Last Admin: 06/26/18 10:18 Dose: 0.25 mg Aspirin (Aspirin Chewable) 81 mg PO DAILY [facility] Last Admin: 06/26/18 09:07 Dose: 81 mg Atorvastatin Calcium (Lipitor) 40 mg PO DAILY [facility] Last Admin: 06/26/18 09:08 Dose: 40 mg Carvedilol (Coreg) 6.25 mg PO 0800,1800 [facility] Last Admin: 06/26/18 08:20 Dose: 6.25 mg Cholecalciferol (Vitamin D) 1,000 intlu PO DAILY [facility] Last Admin: 06/26/18 09:09 Dose: 1,000 intlu Cyanocobalamin (Vitamin B12 1000 Mcg Tab) 1,000 mcg PO DAILY [facility] Last Admin: 06/26/18 09:09 Dose: 1,000 mcg Digoxin (Digoxin) 0.125 mg PO MWF@1400 [facility] Last Admin: 06/25/18 13:20 Dose: 0.125 mg Diltiazem HCl (Cardizem Cd) 180 mg PO DAILY [facility] Last Admin: 06/26/18 09:07 Dose: 180 mg Furosemide (Lasix) 40 mg PO DAILY [facility] Last Admin: 06/26/18 09:08 Dose: 40 mg Lidocaine (Lidoderm) 1 ea TD DAILY [facility] Last Admin: 06/26/18 09:08 Dose: 1 ea Losartan Potassium (Cozaar) 50 mg PO DAILY [facility] Last Admin: 06/26/18 09:07 Dose: 50 mg Oxycodone/Acetaminophen (Percocet 5/325 Mg Tab) 1 tab PO Q6H PRN PRN Reason: Pain, severe (8-10) Stop: 06/26/18 17:32 Last Admin: 06/26/18 06:08 Dose: 1 tab Pantoprazole Sodium (Protonix Ec Tab) 40 mg PO 0600 [facility] Last Admin: 06/26/18 05:14 Dose: 40 mg Polyethylene Glycol (Miralax) 17 gm PO BID [facility] Last Admin: 06/26/18 09:08 Dose: Not Given Warfarin Sodium (Coumadin) 4 mg PO 1800 [facility]; Protocol Last Admin: 06/25/18 17:34 Dose: 4 mg - Labs Labs: PT 21.7 SECONDS (9.4-12.5) H 06/25/18 08:00 INR 1.92 06/25/18 08:00 Attending/Attestation - Attestation I have personally seen and examined this patient.: Yes I have fully participated in the care of the patient.: Yes I have reviewed all pertinent clinical information, including history, physical exam and plan: Yes Notes (Text): 06/26/18 11:17 Medical record note made by the resident after discussion with my direction and input after the patient was personally seen and examined by me. I have reviewed the chart and agree that the record accurately reflects by personal performance of the history, physical exam, data review, and medical decision-making, in the course for the patient. I have also personally directed the plan of care. 78 year old female with PMH of CHF with systolic dysfunction EF of 30-35%, aortic valve replacement, CKD, atrial fibrillation on coumadin, CVA, hypertension, hyperlipidemia, PVD and COPD was initially admitted to [facility] inpatient with lumbar back radiating into right thigh for [address] on 06/18 showed no acute fracture or subluxation, osseous demineralization, scoliosis, age indeterminate L3 compression fracture deformity, and posterior disc bulge at L5-S1. Lumbar MRI on 06/22 showed extensive marrow edema in the sacrum especially in the sacral ala bilaterally. This was consistent with sacral compression fracture. There was no evidence of neoplasm. Chronic L3 compression fracture and L5-S1 disc herniation was noted. Patient was evaluated by Physical therapy an TCU rehabilitation was recommended.Patient was admitted to TCU for rehabilitation. Pain is better controlled.Patient is participating in physical therapy. warfarin was restarted.INR was 1.96 on 4 mg warfarin daily. We will follow up INR. Management plan was discussed in detail with patient. Education was provided.
[2018-06-27] MEDS: Pantoprazole 40 mg EC Tab PO SCH (05:26)
[2018-06-27 08:37] LABS: PROTHROMBIN TIME 40.1 SECONDS (9.4-12.5)
[2018-06-27 08:40] LABS: INR 3.55
[2018-06-27] MEDS: diltiaZEM 180 mg/24 Hours CD Cap PO SCH (10:11)
[2018-06-27] MEDS: Cholecalciferol 1,000 INTLU TAB PO SCH (10:13)
[2018-06-27] MEDS: Lidocaine 5% Patch TD SCH (10:13)
[2018-06-27] MEDS: POLYETHYLENE GLYCOL 3350 17 GM/Dose PACKET PO SCH ×2 (10:13→17:27)
[2018-06-28] MEDS: Pantoprazole 40 mg EC Tab PO SCH (05:58)
[2018-06-28 07:01] LABS: PROTHROMBIN TIME 33.9 SECONDS (9.4-12.5)
--- NOTE | 2018-06-28 09:06 | CP.PCM.PN ---
<Kalpana Edgar - Last Filed: 06/28/18 14:24> Subjective - Date & Time of Evaluation Date of Evaluation: 06/28/18 Time of Evaluation: 14:33 - Subjective Subjective: Kalpana Edgar, PGY1 Medicine Progress Note: Pt was seen and examined this AM at bedside. Pt states that today she is feeling an improvement in her back pain, though it is still present. She states that she is able to work with PT and that her treatment sessions have been helping her with her pain. Pt at this time also admits to a dry cough that comes up randomly or when she thinks that her mouth is dry. Pt denies fevers, chills, headaches, chest pain, palpitations, SOB, but does admit to the cough mentioned earlier. She also admits to abd pain with the coughing but otherwise does not have the pain present. She states she is tolerating her PT sessions well. Objective - Vital Signs/Intake and Output Vital Signs (last 24 hours): Temp Pulse Resp BP Pulse Ox 97.9 F 76 20 145/70 93 L 06/27/18 16:00 06/28/18 08:06 06/27/18 16:00 06/28/18 08:06 06/27/18 16:00 - Medications Medications: Current Medications Acetaminophen (Tylenol 325mg Tab) 650 mg PO Q6H PRN PRN Reason: Pain, moderate (4-7) Last Admin: 06/25/18 07:51 Dose: 650 mg Albuterol/Ipratropium (Duoneb 3 Mg/0.5 Mg (3 Ml) Ud) 3 ml IH Q2H PRN PRN Reason: Shortness of Breath Last Admin: 06/27/18 19:58 Dose: 3 ml Alprazolam (Xanax) 0.25 mg PO 1000,2200 [facility]; Protocol Stop: 07/02/18 22:01 Last Admin: 06/27/18 21:23 Dose: 0.25 mg Aspirin (Aspirin Chewable) 81 mg PO 0800 [facility] Last Admin: 06/28/18 08:05 Dose: 81 mg Atorvastatin Calcium (Lipitor) 40 mg PO DAILY [facility] Last Admin: 06/27/18 10:13 Dose: 40 mg Carvedilol (Coreg) 6.25 mg PO 0800,1800 [facility] Last Admin: 06/28/18 08:06 Dose: 6.25 mg Cholecalciferol (Vitamin D) 1,000 intlu PO DAILY [facility] Last Admin: 06/27/18 10:13 Dose: 1,000 intlu Cyanocobalamin (Vitamin B12 1000 Mcg Tab) 1,000 mcg PO DAILY [facility] Last Admin: 06/27/18 10:13 Dose: 1,000 mcg Digoxin (Digoxin) 0.125 mg PO MWF@1400 [facility] Last Admin: 06/25/18 13:20 Dose: 0.125 mg Diltiazem HCl (Cardizem Cd) 180 mg PO DAILY [facility] Last Admin: 06/27/18 10:11 Dose: 180 mg Furosemide (Lasix) 40 mg PO DAILY [facility] Last Admin: 06/27/18 10:13 Dose: 40 mg Lidocaine (Lidoderm) 1 ea TD DAILY [facility] Last Admin: 06/27/18 10:13 Dose: 1 ea Losartan Potassium (Cozaar) 50 mg PO DAILY [facility] Last Admin: 06/27/18 10:13 Dose: 50 mg Pantoprazole Sodium (Protonix Ec Tab) 40 mg PO 0600 [facility] Last Admin: 06/28/18 05:58 Dose: 40 mg Polyethylene Glycol (Miralax) 17 gm PO BID [facility] Last Admin: 06/27/18 17:27 Dose: Not Given Warfarin Sodium (Coumadin) 4 mg PO 1800 [facility]; Protocol Last Admin: 06/26/18 17:29 Dose: 4 mg - Labs Labs: PT 33.9 SECONDS (9.4-12.5) H 06/28/18 06:30 INR 3.00 06/28/18 06:30 - Constitutional Appears: Non-toxic, No Acute Distress - Head Exam Head Exam: ATRAUMATIC, NORMAL INSPECTION, NORMOCEPHALIC - Eye Exam Eye Exam: EOMI, Normal appearance, PERRL - Respiratory Exam Respiratory Exam: Wheezes (noted at end expiration in the lower lung burns b/l), NORMAL BREATHING PATTERN. absent: Accessory Muscle Use, Clear to Ausculation Bilateral, Rales, Rhonchi, Respiratory Distress, Stridor - Cardiovascular Exam Cardiovascular Exam: RRR, +S1, +S2. absent: Gallop, Rubs - GI/Abdominal Exam GI & Abdominal Exam: Soft, Normal Bowel Sounds. absent: Firm, Guarding, Rigid, Tenderness - Back Exam Back Exam: NORMAL INSPECTION. absent: CVA tenderness (L), CVA tenderness (R) - Neurological Exam Neurological Exam: Alert, Awake, Oriented x3 - Psychiatric Exam Psychiatric exam: Normal Affect, Normal Mood - Skin Skin Exam: Dry, Normal Color, Warm Assessment and Plan - Assessment and Plan (Free Text) Assessment: 78 year old female with past medical history of CHF, aortic valve replacement, CKD, atrial fibrillation on coumadin, CVA, hypertension, hyperlipidemia, AAA, and COPD admitted for a compression fracture of the sacrum and L3. Patient is currently in TCU for reconditioning after not being a good candidate for kyphoplasty. Pt states that she is able to work with PT and is improving her pain. Plan: 1) Lumbar pain - 2/2 to spondylothesis vs. compression fracture - Continue with physical therapy for reconditioning - Tylenol PRN and Lidoderm patch for pain control 2) CHFrEF: - Last Echo: EF 35-40% - Coreg 6.25 mg BID - Digoxin 0.125 mg MWF - Diltiazem 180 mg QD - Cozaar 50 mg QD - Lasix 40 mg PO QD 3) Chromic atrial fibrillation - INR: 3.0 - Coumadin held for one more day to prevent pt from re-entering supratherapeutic levels - f/u INR in AM 4) Vitamin B12 deficiency - Cyanocobalamin 1000 mcg QD 5) Vitamin D Deficiency - Cholecalciferol 1000 units QD 6) Hyperlipidemia - Lipitor 40 mg daily 7) Hypertension - Coreg 6.25 mg BID - Cozaar 50 mg QD - Lasix 40 mg PO QD 8) History of CAD - Aspirin 81 mg QD - Coreg 6.25 mg BID - Cozaar 50 mg QD - Lipitor 40mg PO QD 9) History of CVA - Aspirin 81 mg QD - Lipitor 40mg PO QD 10) Anxiety - Xanax 0.25mg PO BID Prophylaxis GI prophylaxis: Protonix 40 mg daily DVT prophylaxis: Coumadin 4mg PO QD - Currently held due to supratherapeutic INR Patient seen and plan discussed with attending, Dr. Neftali Edgar, PGY1 <Bennie Lindsay - Last Filed: 06/28/18 14:48> Objective - Vital Signs/Intake and Output Vital Signs (last 24 hours): Temp Pulse Resp BP Pulse Ox 97.9 F 64 20 117/83 93 L 06/27/18 16:00 06/28/18 09:59 06/27/18 16:00 06/28/18 09:59 06/27/18 16:00 - Medications Medications: Current Medications Acetaminophen (Tylenol 325mg Tab) 650 mg PO Q6H PRN PRN Reason: Pain, moderate (4-7) Last Admin: 06/28/18 14:09 Dose: 650 mg Albuterol/Ipratropium (Duoneb 3 Mg/0.5 Mg (3 Ml) Ud) 3 ml IH Q2H PRN PRN Reason: Shortness of Breath Last Admin: 06/27/18 19:58 Dose: 3 ml Alprazolam (Xanax) 0.25 mg PO 1000,2200 [facility]; Protocol Stop: 07/02/18 22:01 Last Admin: 06/28/18 10:00 Dose: Not Given Aspirin (Aspirin Chewable) 81 mg PO 0800 [facility] Last Admin: 06/28/18 08:05 Dose: 81 mg Atorvastatin Calcium (Lipitor) 40 mg PO DAILY [facility] Last Admin: 06/28/18 10:00 Dose: 40 mg Carvedilol (Coreg) 6.25 mg PO 0800,1800 [facility] Last Admin: 06/28/18 08:06 Dose: 6.25 mg Cholecalciferol (Vitamin D) 1,000 intlu PO DAILY [facility] Last Admin: 06/28/18 10:00 Dose: 1,000 intlu Cyanocobalamin (Vitamin B12 1000 Mcg Tab) 1,000 mcg PO DAILY [facility] Last Admin: 06/28/18 10:00 Dose: 1,000 mcg Digoxin (Digoxin) 0.125 mg PO MWF@1400 [facility] Last Admin: 06/28/18 14:09 Dose: 0.125 mg Diltiazem HCl (Cardizem Cd) 180 mg PO DAILY [facility] Last Admin: 06/28/18 09:59 Dose: 180 mg Furosemide (Lasix) 40 mg PO DAILY [facility] Last Admin: 06/28/18 09:59 Dose: 40 mg Lidocaine (Lidoderm) 1 ea TD DAILY [facility] Last Admin: 06/28/18 09:59 Dose: 1 ea Losartan Potassium (Cozaar) 50 mg PO DAILY [facility] Last Admin: 06/28/18 09:59 Dose: 50 mg Pantoprazole Sodium (Protonix Ec Tab) 40 mg PO 0600 [facility] Last Admin: 06/28/18 05:58 Dose: 40 mg Polyethylene Glycol (Miralax) 17 gm PO BID [facility] Last Admin: 06/28/18 09:54 Dose: Not Given Warfarin Sodium (Coumadin) 4 mg PO 1800 [facility]; Protocol Last Admin: 06/26/18 17:29 Dose: 4 mg - Labs Labs: PT 33.9 SECONDS (9.4-12.5) H 06/28/18 06:30 INR 3.00 06/28/18 06:30 Attending/Attestation - Attestation I have personally seen and examined this patient.: Yes I have fully participated in the care of the patient.: Yes I have reviewed all pertinent clinical information, including history, physical exam and plan: Yes Notes (Text): 06/28/18 14:41 78 year old female with past medical history of CHF, aortic valve replacement, CKD, afib on coumadin, CVA, COPD and hypertension who presented initially with complaint of back pain; found to have age indeterminate L3 compression fracture deformity and posterior disc bulge at L5-S1 on CT scan. This was followed up with lumbar MRI which showed extensive marrow edema in the sacrum especially in the sacral ala bilaterally; consistent with sacral compression fracture. She was transferred to TCU for physical therapy. Continue with PT as tolerated. She is currently on lidoderm patch and tylenol. Coumadin is currently on hold due to supratherapeutic INR. INR today is 3.0. Will hold today's dose as well. Bennie Lindsay MD Hospitalist.
[2018-06-28] MEDS: POLYETHYLENE GLYCOL 3350 17 GM/Dose PACKET PO SCH ×2 (09:54→17:51)
[2018-06-28] MEDS: diltiaZEM 180 mg/24 Hours CD Cap PO SCH (09:59)
[2018-06-28] MEDS: Lidocaine 5% Patch TD SCH (09:59)
[2018-06-28] MEDS: Cholecalciferol 1,000 INTLU TAB PO SCH (10:00)
[2018-06-28] MEDS: Digoxin 125 mcg (0.125 mg) Tab PO SCH (14:09)
[2018-06-29] MEDS: Pantoprazole 40 mg EC Tab PO SCH (05:45)
[2018-06-29 07:38] LABS: INR 2.25; PROTHROMBIN TIME 25.4 SECONDS (9.4-12.5)
[2018-06-29] MEDS: diltiaZEM 180 mg/24 Hours CD Cap PO SCH (10:01)
[2018-06-29] MEDS: Lidocaine 5% Patch TD SCH (10:02)
[2018-06-29] MEDS: POLYETHYLENE GLYCOL 3350 17 GM/Dose PACKET PO SCH ×2 (10:03→17:45)
[2018-06-29] MEDS: Cholecalciferol 1,000 INTLU TAB PO SCH (10:03)
[2018-06-30] MEDS: Pantoprazole 40 mg EC Tab PO SCH (05:44)
[2018-06-30 07:48] LABS: INR 1.95
[2018-06-30] MEDS: diltiaZEM 180 mg/24 Hours CD Cap PO SCH (09:34)
[2018-06-30] MEDS: Lidocaine 5% Patch TD SCH (09:36)
[2018-06-30] MEDS: POLYETHYLENE GLYCOL 3350 17 GM/Dose PACKET PO SCH ×2 (09:37→17:48)
[2018-06-30] MEDS: Cholecalciferol 1,000 INTLU TAB PO SCH (09:37)
[2018-06-30] MEDS ORDERED: guaiFENesin 100 mg/5 ml Syrup UD PO PRN (11:37)
[2018-06-30] MEDS: Digoxin 125 mcg (0.125 mg) Tab PO SCH (13:07)
[2018-06-30 13:08] VITALS: PULSE 72
--- NOTE | 2018-06-30 13:49 | CP.PCM.PN ---
<Kalpana Edgar - Last Filed: 06/30/18 20:08> Subjective - Date & Time of Evaluation Date of Evaluation: 06/30/18 Time of Evaluation: 13:42 - Subjective Subjective: Kalpana Edgar, PGY1 Medicine Progress Note: Pt was seen and examined this AM at bedside. Pt states that today she is feeling an improvement in her back pain, though it is still present. She report that the bed makes her back uncomfortable. She states that she is able to work with PT and that her treatment sessions have been helping her with her pain. Pt at this time also admits to a dry cough that comes up randomly or when she thinks that her mouth is dry. Pt denies fevers, chills, headaches, chest pain, palpitations, SOB, but does admit to the cough mentioned earlier. She also admits to abd pain with the coughing but otherwise does not have the pain present. She states she is tolerating her PT sessions well. Objective - Vital Signs/Intake and Output Vital Signs (last 24 hours): Temp Pulse Resp BP Pulse Ox 97.5 F L 76 20 166/81 H 96 06/29/18 16:00 06/30/18 09:34 06/29/18 16:00 06/30/18 09:34 06/29/18 16:00 - Medications Medications: Current Medications Acetaminophen (Tylenol 325mg Tab) 650 mg PO Q6H PRN PRN Reason: Pain, moderate (4-7) Last Admin: 06/28/18 14:09 Dose: 650 mg Albuterol/Ipratropium (Duoneb 3 Mg/0.5 Mg (3 Ml) Ud) 3 ml IH Q2H PRN PRN Reason: Shortness of Breath Last Admin: 06/27/18 19:58 Dose: 3 ml Alprazolam (Xanax) 0.25 mg PO 1000,2200 [facility]; Protocol Stop: 07/02/18 22:01 Last Admin: 06/30/18 09:39 Dose: 0.25 mg Aspirin (Aspirin Chewable) 81 mg PO 0800 [facility] Last Admin: 06/30/18 07:44 Dose: 81 mg Atorvastatin Calcium (Lipitor) 40 mg PO DAILY [facility] Last Admin: 06/30/18 09:36 Dose: 40 mg Carvedilol (Coreg) 6.25 mg PO 0800,1800 [facility] Last Admin: 06/30/18 07:44 Dose: 6.25 mg Cholecalciferol (Vitamin D) 1,000 intlu PO DAILY [facility] Last Admin: 06/30/18 09:37 Dose: 1,000 intlu Cyanocobalamin (Vitamin B12 1000 Mcg Tab) 1,000 mcg PO DAILY [facility] Last Admin: 06/30/18 09:37 Dose: 1,000 mcg Digoxin (Digoxin) 0.125 mg PO MWF@1400 [facility] Last Admin: 06/30/18 13:07 Dose: 0.125 mg Diltiazem HCl (Cardizem Cd) 180 mg PO DAILY [facility] Last Admin: 06/30/18 09:34 Dose: 180 mg Furosemide (Lasix) 40 mg PO DAILY [facility] Last Admin: 06/30/18 09:36 Dose: Not Given Guaifenesin (Robitussin) 100 mg PO Q4H PRN PRN Reason: Cough Lidocaine (Lidoderm) 1 ea TD DAILY [facility] Last Admin: 06/30/18 09:36 Dose: 1 ea Losartan Potassium (Cozaar) 50 mg PO DAILY [facility] Last Admin: 06/30/18 09:35 Dose: 50 mg Pantoprazole Sodium (Protonix Ec Tab) 40 mg PO 0600 [facility] Last Admin: 06/30/18 05:44 Dose: 40 mg Polyethylene Glycol (Miralax) 17 gm PO BID [facility] Last Admin: 06/30/18 09:37 Dose: Not Given Warfarin Sodium (Coumadin) 4 mg PO 1800 [facility]; Protocol Last Admin: 06/29/18 17:47 Dose: 4 mg - Labs Labs: PT 22.0 SECONDS (9.4-12.5) H 06/30/18 07:25 INR 1.95 06/30/18 07:25 - Constitutional Appears: Non-toxic, No Acute Distress - Head Exam Head Exam: ATRAUMATIC, NORMAL INSPECTION, NORMOCEPHALIC - Eye Exam Eye Exam: EOMI, Normal appearance, PERRL - Respiratory Exam Respiratory Exam: Decreased Breath Sounds, NORMAL BREATHING PATTERN. absent: Accessory Muscle Use, Rales, Rhonchi, Wheezes, Respiratory Distress - Cardiovascular Exam Cardiovascular Exam: RRR, +S1, +S2. absent: Gallop, Rubs - GI/Abdominal Exam GI & Abdominal Exam: Soft, Normal Bowel Sounds. absent: Firm, Guarding, Rigid, Tenderness - Extremities Exam Extremities Exam: Normal Capillary Refill. absent: Tenderness - Back Exam Back Exam: NORMAL INSPECTION. absent: CVA tenderness (L), CVA tenderness (R) - Neurological Exam Neurological Exam: Alert, Awake, Oriented x3 - Psychiatric Exam Psychiatric exam: Normal Affect, Normal Mood - Skin Skin Exam: Dry, Normal Color, Warm Assessment and Plan - Assessment and Plan (Free Text) Assessment: 78 year old female with past medical history of CHF, aortic valve replacement, CKD, atrial fibrillation on coumadin, CVA, hypertension, hyperlipidemia, AAA, and COPD admitted for a compression fracture of the sacrum and L3. Patient is currently in TCU for reconditioning after not being a good candidate for kyphoplasty. Pt states that she is able to work with PT and is improving her pain. Plan: 1) Lumbar pain - 2/2 to spondylothesis vs. compression fracture - Continue with physical therapy for reconditioning - Tylenol PRN and Lidoderm patch for pain control 2) COPD: - Duonebs PRN - Robitussin for cough - Will cont to monitor 3)CHFrEF: - Last Echo: EF 35-40% - Coreg 6.25 mg BID - Digoxin 0.125 mg MWF - Diltiazem 180 mg QD - Cozaar 50 mg QD - Lasix 40 mg PO QD 4) Chromic atrial fibrillation - INR: 1.95 - Coumadin restarted yesterday when INR was within therapeutic levels. - f/u INR in AM 5) Vitamin B12 deficiency - Cyanocobalamin 1000 mcg QD 6) Vitamin D Deficiency - Cholecalciferol 1000 units QD 7) Hyperlipidemia - Lipitor 40 mg daily 8) Hypertension - Coreg 6.25 mg BID - Cozaar 50 mg QD - Lasix 40 mg PO QD 9) History of CAD - Aspirin 81 mg QD - Coreg 6.25 mg BID - Cozaar 50 mg QD - Lipitor 40mg PO QD 10) History of CVA - Aspirin 81 mg QD - Lipitor 40mg PO QD 11) Anxiety - Xanax 0.25mg PO BID Prophylaxis GI prophylaxis: Protonix 40 mg daily DVT prophylaxis: Coumadin 4mg PO QD Patient seen and plan discussed with attending, Dr. Neftali Edgar, PGY1 <Bennie Lindsay - Last Filed: 07/01/18 07:54> Objective - Vital Signs/Intake and Output Vital Signs (last 24 hours): Temp Pulse Resp BP Pulse Ox 97.6 F 66 19 114/60 97 06/30/18 16:00 06/30/18 17:46 06/30/18 16:00 06/30/18 17:46 06/30/18 16:00 Intake and Output: 07/01/18 07/01/18 06:59 18:59 Intake Total 600 Balance 600 - Medications Medications: Current Medications Acetaminophen (Tylenol 325mg Tab) 650 mg PO Q6H PRN PRN Reason: Pain, moderate (4-7) Last Admin: 06/28/18 14:09 Dose: 650 mg Albuterol/Ipratropium (Duoneb 3 Mg/0.5 Mg (3 Ml) Ud) 3 ml IH Q2H PRN PRN Reason: Shortness of Breath Last Admin: 06/27/18 19:58 Dose: 3 ml Alprazolam (Xanax) 0.25 mg PO 1000,2200 [facility]; Protocol Stop: 07/02/18 22:01 Last Admin: 06/30/18 21:40 Dose: 0.25 mg Aspirin (Aspirin Chewable) 81 mg PO 0800 [facility] Last Admin: 06/30/18 07:44 Dose: 81 mg Atorvastatin Calcium (Lipitor) 40 mg PO DAILY [facility] Last Admin: 06/30/18 09:36 Dose: 40 mg Carvedilol (Coreg) 6.25 mg PO 0800,1800 [facility] Last Admin: 06/30/18 17:46 Dose: 6.25 mg Cholecalciferol (Vitamin D) 1,000 intlu PO DAILY [facility] Last Admin: 06/30/18 09:37 Dose: 1,000 intlu Cyanocobalamin (Vitamin B12 1000 Mcg Tab) 1,000 mcg PO DAILY [facility] Last Admin: 06/30/18 09:37 Dose: 1,000 mcg Digoxin (Digoxin) 0.125 mg PO MWF@1400 [facility] Last Admin: 06/30/18 13:07 Dose: 0.125 mg Diltiazem HCl (Cardizem Cd) 180 mg PO DAILY [facility] Last Admin: 06/30/18 09:34 Dose: 180 mg Furosemide (Lasix) 40 mg PO DAILY [facility] Last Admin: 06/30/18 09:36 Dose: Not Given Guaifenesin (Robitussin) 100 mg PO Q4H PRN PRN Reason: Cough Lidocaine (Lidoderm) 1 ea TD DAILY [facility] Last Admin: 06/30/18 09:36 Dose: 1 ea Losartan Potassium (Cozaar) 50 mg PO DAILY [facility] Last Admin: 06/30/18 09:35 Dose: 50 mg Pantoprazole Sodium (Protonix Ec Tab) 40 mg PO 0600 [facility] Last Admin: 07/01/18 05:10 Dose: 40 mg Polyethylene Glycol (Miralax) 17 gm PO BID [facility] Last Admin: 06/30/18 17:48 Dose: Not Given Warfarin Sodium (Coumadin) 5 mg PO 1800 [facility]; Protocol - Labs Labs: PT 18.2 SECONDS (9.4-12.5) H 07/01/18 07:15 INR 1.61 07/01/18 07:15 Attending/Attestation - Attestation I have personally seen and examined this patient.: Yes I have fully participated in the care of the patient.: Yes I have reviewed all pertinent clinical information, including history, physical exam and plan: Yes Notes (Text): 06/30/18 78 year old female with past medical history of CHF, aortic valve replacement, CKD, afib on coumadin, CVA, COPD and hypertension who presented initially with complaint of back pain; found to have age indeterminate L3 compression fracture deformity and posterior disc bulge at L5-S1 on CT scan. This was followed up with lumbar MRI which showed extensive marrow edema in the sacrum especially in the sacral ala bilaterally; consistent with sacral compression fracture. She was transferred to TCU for physical therapy. Continue with PT as tolerated. She is currently on lidoderm patch and tylenol for pain. Patient initially presented with supratherapeutic INR which has come down. INR today is 1.95. Continue with coumadin with monitoring of INR. Duoneb and robitussin added for cough/COPD. Possible d/c planning tomorrow. Bennie Lindsay MD Hospitalist.
[2018-07-01] MEDS: Pantoprazole 40 mg EC Tab PO SCH (05:10)
[2018-07-01 07:39] LABS: INR 1.61; PROTHROMBIN TIME 18.2 SECONDS (9.4-12.5)
[2018-07-01] MEDS: diltiaZEM 180 mg/24 Hours CD Cap PO SCH (09:26)
[2018-07-01] MEDS: Lidocaine 5% Patch TD SCH (09:27)
[2018-07-01] MEDS: POLYETHYLENE GLYCOL 3350 17 GM/Dose PACKET PO SCH (09:28)
[2018-07-01] MEDS: Cholecalciferol 1,000 INTLU TAB PO SCH (09:28)
[2018-07-01 14:09] VITALS: BP 138/67; PULSE 64; RESP 14; TEMP 98.2; O2SAT 96
--- NOTE | 2018-07-01 17:17 | CP.PCM.DIS ---
<Kalpana Edgar - Last Filed: 07/01/18 18:13> Provider - Provider Date of Admission: 06/23/18 15:15 Attending physician: Bennie Lindsay MD Primary care physician: Obi Coronel MD Consults: 06/23/18 20:34 Inpatient [employer] Core Measures Referral Routine Comment: Physician Instructions: Reason For Exam: EVALUATION Social Work Referral Routine Comment: MIGHT NEED ASSISTANCE AT HOME Physician Instructions: Reason For Exam: EVALUATION Transition In Care/Readmission Reduction Routine Comment: Physician Instructions: Reason For Exam: EVALUATION Time Spent in preparation of Discharge (in minutes): 45 Diagnosis - Discharge Diagnosis (1) Back pain Status: Acute (2) COPD (chronic obstructive pulmonary disease) Status: Acute Hospital Course - Lab Results Lab Results: Most Recent Lab Values PT 18.2 SECONDS (9.4-12.5) H 07/01/18 07:15 INR 1.61 07/01/18 07:15 POC Glucose (mg/dL) 131 mg/dL (65-110) H 06/30/18 04:50 - Hospital Course Hospital Course: Upon Admission: 78 year old female with past medical history of CHF with last EF of 30-35%, aortic valve replacement, CKD, atrial fibrillation on coumadin, CVA, hypertension, hyperlipidemia, AAA, and COPD presented with lumbar back radiating into right thigh for [address] on 06/18 showed no acute fracture or subluxation, osseous demineralization, scoliosis, age indeterminate L3 compression fracture deformity, and posterior disc bulge at L5-S1. Lumbar MRI on 06/22 showed extensive marrow edema in the sacrum especially in the sacral ala bilaterally. This was consistent with sacral compression fracture. There was no evidence of neoplasm. Chronic L3 compression fracture and L5-S1 disc herniation was appreciated. Patient was initially started on morphine as needed and lidoderm patch for pain. Patient's pain regimen was switched to percocet as needed, tylenol as needed, and lidoderm patch. Patient's vitamin D was 31.6. Patient was continued with physical therapy for reconditioning, and IR was considering kyphoplasty. However, after weighing risks and benefits, IR reported that they did not feel like kyphoplasty was recommended at this time. Patient also presented with crackles in lungs and bilateral lower extremity edema signifying worsening of CHF. Patient was continued on home regimen of coreg, digoxin, diltiazem, cozaar, and lasix 40 mg PO daily with improvement in symptoms. Patient had supratherapeutic INR on presentation in the 4s. Warfarin was held and INR trended down to 1s. Warfarin was held in case kyphoplasty was to be performed. Warfarin 4 mg daily was restarted yesterday after no plans for kyphoplasty was finalized. Goal INR is 2-3 for atrial fibrillation. Patient has now been transferred to the TCU as patient is medically stable for rehabilitation. Patient is currently in TCU for reconditioning. Hospital Course: Patient was transferred to the TCU for rehabilitation and reconditioning. Patient was actively participating in and tolerating physical therapy. She states that her back pain is improving with her participation in PT. Tylenol PRN and Lidoderm patch were given for pain control which became well controlled. Of note, Patient had supratherapeutic INR of 3.55. Warfarin was held for two days and INR trended down to 2.25. Warfarin 4 mg daily was restarted thereafter. INR continued to decrease to 1.95, then 1.61 the subsequent 2 days. To prevent the pt from become further subtherapeutic pt was started on 5mg warfarin for 2 days and then will resume her current home dose of 4mg. Pt also stated that she had a cough which is chronic, and related to her COPD, but states that it is a little worse now. Pt given robitussin for the cough, also given the lidoderm patches and coreg (which was increased in doseage) and losartan 50 (which was also increased in doseage from previous). Patient is stable and ready for discharge today. She reported feeling better this morning. She was told to continue her home meds, and was informed of all of the increases in her medications. Pt was encouraged to follow up with her PMD, Dr. Coronel in regards to following her INR and helping adjust her warfarin level. In addition, she was told to return to the emergency department if she had any recurring or new concerning symptoms. This is a brief summary of the events that occurred during this hospital stay. For more information, please refer to the hospital documentation. Discharge Exam - Head Exam Head Exam: ATRAUMATIC, NORMAL INSPECTION, NORMOCEPHALIC - Eye Exam Eye Exam: EOMI, Normal appearance, PERRL - Respiratory Exam Respiratory Exam: Decreased Breath Sounds, NORMAL BREATHING PATTERN, UNREMARKABLE. absent: Accessory Muscle Use, Wheezes, Respiratory Distress, Stridor - Cardiovascular Exam Cardiovascular Exam: RRR, +S1, +S2. absent: Gallop, Rubs - GI/Abdominal Exam GI & Abdominal Exam: Normal Bowel Sounds, Soft, Unremarkable. absent: Distended, Firm, Guarding, Tenderness - Back Exam Back exam: NORMAL INSPECTION. absent: CVA tenderness (L), CVA tenderness (R) - Neurological Exam Neurological exam: Alert, Oriented x3 - Psychiatric Exam Psychiatric exam: Normal Affect, Normal Mood - Skin Skin Exam: Dry, Normal Color, Warm Discharge Plan - Discharge Medications Prescriptions: Albuterol HFA [Ventolin HFA 90 mcg/actuation (8 g)] 1 puff IH Q4 PRN #1 inhaler PRN Reason: Shortness Of Breath Carvedilol [Coreg] 6.25 mg PO 0800,1800 #60 tab guaiFENesin [Robitussin] 100 mg PO Q4H PRN 10 Days #1 bottle PRN Reason: Cough Lidocaine 5% [Lidoderm] 1 ea TD DAILY #15 patch Losartan [Cozaar] 50 mg PO DAILY #30 tab Warfarin [Coumadin] 5 mg PO 1800 2 Days #2 tab - Follow Up Plan Condition: GOOD Disposition: HOME/ ROUTINE Instructions: Low Back Pain (DC), Vertebral Compression Fracture (DC) Additional Instructions: - Please follow up with your Primary Care Doctor, Dr. Coronel, within 1 week of discharge. Check your INR on thursday - Please note that we had to held your blood thinner, Warfarin for a few days since your blood was too thin. Please let your primary care doctor know this, so that he can adjust the medication as needed. - We have also made other alterations to your medications. We have increased your Losartan (blood pressure medication) to 50mg by mouth daily. We have also increased your carvedilol to 6.25mg by mouth twice a day. And finally we have added Lidoderm to help manage the pain in your back, please apply as needed. We have also increased your Coumadin to 5mg for 2 days, then resume current dose of 4mg and follow up with Dr. Coronel for INR check. - Please continue your other home medications as directed - Continue with home Physical therapy. - If you have any new or worsening symptoms please return to the nearest emergency department. Changes in your medicine Losartan increased to 50mg daily Coumadin increased to 5mg for 2 days, then resume current dose of 4mg and follow up with Dr. Coronel for INR check. Carvedilol increased to 6.25mg twice daily Lidoderm (pain patch) to back Referrals: Obi Coronel MD [Primary Care Provider] - <Bennie Lindsay - Last Filed: 07/02/18 07:35> Provider - Provider Date of Admission: 06/23/18 15:15 Attending physician: Bennie Lindsay MD Primary care physician: Obi Coronel MD Consults: 06/23/18 20:34 Inpatient [employer] Me[employer] Referral Routine Comment: Physician Instructions: Reason For Exam: EVALUATION Social Work Referral Routine Comment: MIGHT NEED ASSISTANCE AT HOME Physician Instructions: Reason For Exam: EVALUATION Transition In Care/Readmission Reduction Routine Comment: Physician Instructions: Reason For Exam: EVALUATION Hospital Course - Lab Results Lab Results: Most Recent Lab Values PT 18.2 SECONDS (9.4-12.5) H 07/01/18 07:15 INR 1.61 07/01/18 07:15 POC Glucose (mg/dL) 131 mg/dL (65-110) H 06/30/18 04:50 Attending/Attestation - Attestation I have personally seen and examined this patient.: Yes I have fully participated in the care of the patient.: Yes I have reviewed all pertinent clinical information, including history, physical exam and plan: Yes Notes (Text): 07/01/18 78 year old female with past medical history of CHF, aortic valve replacement, CKD, afib on coumadin, CVA, COPD and hypertension who presented initially with complaint of back pain; found to have age indeterminate L3 compression fracture deformity and posterior disc bulge at L5-S1 on CT scan. This was followed up with lumbar MRI which showed extensive marrow edema in the sacrum especially in the sacral ala bilaterally; consistent with sacral compression fracture. She was transferred to TCU for physical therapy which she tolerated well. Pain improved with lidoderm patch and tylenol prn. Patient also initially presented with supratherapeutic INR which has come down. Coumadin was resumed. Instructed to take 5 mg of coumadin tonight and tomorrow and resume 4 mg. Follow up with pmd and repeat INR Thursday. Patient is discharged home to follow up with pmd. Monitor INR. Bennie Lindsay MD Hospitalist.
== END 2018-07-01 16:29 | disposition home or self-care (01) | DRG 543 ==
LOC: TRCU 15:15
PROVIDERS: ADMIT Internal Medicine; ATTEND Internal Medicine
PROC: F07Z9FZ Gait Training/Functional Ambulation Treatment using Assistive, Adaptive, Supportive or Protective Equipment (ICD-10-PCS; principal; 2018-06-24)
PROC: F08Z4FZ Home Management Treatment using Assistive, Adaptive, Supportive or Protective Equipment (ICD-10-PCS; 2018-06-24)
DX: M48.56XA Collapsed vertebra, not elsewhere classified, lumbar region, initial encounter for fracture (principal); I50.22 Chronic systolic (congestive) heart failure; I13.0 Hypertensive heart and chronic kidney disease with heart failure and stage 1 through stage 4 chronic kidney disease, or unspecified chronic kidney disease; M48.58XA Collapsed vertebra, not elsewhere classified, sacral and sacrococcygeal region, initial encounter for fracture; N18.3 Chronic kidney disease, stage 3 (moderate); M51.27 Other intervertebral disc displacement, lumbosacral region; J44.9 Chronic obstructive pulmonary disease, unspecified; I48.2 Chronic atrial fibrillation; E78.5 Hyperlipidemia, unspecified; I73.9 Peripheral vascular disease, unspecified; E53.8 Deficiency of other specified B group vitamins; E55.9 Vitamin D deficiency, unspecified; R79.1 Abnormal coagulation profile; Z79.01 Long term (current) use of anticoagulants; Z86.73 Personal history of transient ischemic attack (TIA), and cerebral infarction without residual deficits; Z95.1 Presence of aortocoronary bypass graft; Z95.2 Presence of prosthetic heart valve; Z87.891 Personal history of nicotine dependence